=== PATIENT | male | born 1950 | race American Indian/Alaskan Native ===

== ENCOUNTER 2018-02-08 13:59 | Inpatient (IN) | payer MEDICARE, SELFPAY ==
--- NOTE | 2018-02-08 15:30 | C.PDOC ---
History Of Present Illness 67 y/o male presents to the ED complaining of SOB for the past 2-3 days. Associated with worsening cough. No chest pain. Patient otherwise denies any associated palpitations, wheezing, fevers, chills, night sweats, diarrhea, or urinary complaints. He denies any history of blood clots or blood thinner use. Patient reports history of prostate problems and renal disease, but notes his bond underwriter has not recommended dialysis at this time. On arrival, O2 sat is 89% on room air. Patient denies any history of COPD or home O2 use. PMD: Dr. Frank Hammond Time Seen by Provider: 02/08/18 15:30 Chief Complaint (Nursing): Shortness Of Breath History Per: Patient History/Exam Limitations: no limitations Onset/Duration Of Symptoms: Days (x3) Current Symptoms Are (Timing): Still Present Past Medical History Reviewed: Historical Data, Nursing Documentation, Vital Signs Vital Signs: Last Vital Signs Temp 97.7 F 02/08/18 14:02 Pulse 127 H 02/08/18 14:02 Resp 20 02/08/18 14:02 BP 153/118 H 02/08/18 14:02 Pulse Ox 89 L 02/08/18 14:02 - Medical History PMH: Chronic Kidney Disease (not on dialysis) Other PMH: "prostate problem" Family History: States: No Known Family Hx - Social History Hx Tobacco Use: No (former) Hx Alcohol Use: No Hx Substance Use: No - Immunization History Hx Tetanus Toxoid Vaccination: No Hx Influenza Vaccination: No Hx Pneumococcal Vaccination: No Review Of Systems Constitutional: Negative for: Fever, Chills, Sweats Eyes: Negative for: Pain, Vision Change ENT: Negative for: Ear Pain, Ear Discharge, Nose Congestion, Throat Pain Cardiovascular: Negative for: Chest Pain, Palpitations Respiratory: Positive for: Cough, Shortness of Breath. Negative for: Hemoptysis, Pleuritic Pain, Wheezing Genitourinary: Negative for: Dysuria, Hematuria, Other (urinary retention) Skin: Negative for: Rash Neurological: Negative for: Weakness, Numbness, Altered Mental Status, Headache, Dizziness Psych: Negative for: Anxiety Physical Exam - Physical Exam Appears: Non-toxic, No Acute Distress Skin: Warm, Dry Head: Normacephalic Eye(s): bilateral: Normal Inspection, PERRL, EOMI Oral Mucosa: Moist Neck: Trachea Midline, Supple, Other (No meningeal signs- negative kernig's and brudzinskis) Chest: Symmetrical, No Deformity, No Tenderness Cardiovascular: Rhythm Regular (+ Tachycardia), Other (no rub) Respiratory: No Rales, No Rhonchi, No Wheezing Gastrointestinal/Abdominal: Soft, No Tenderness, No Distention Extremity: Bilateral: Normal Color And Temperature Pulses: Left Dorsalis Pedis: Normal, Right Dorsalis Pedis: Normal Neurological/Psych: Oriented x3 ED Course And Treatment - Laboratory Results Result Diagrams: 02/08/18 15:51 02/08/18 15:51 O2 Sat by Pulse Oximetry: 89 (on room air) Pulse Ox Interpretation: Abnormal Medical Decision Making Medical Decision Making: Impression: 67 y/o M with SOB, O2 sat 89% on room air, improved w/ Nasal cannaula. Hx of CKD. ?worsening CKD w/ overload- no crackles on exam no 2+ edema on b/l LE. Tachy- but given hx of Cr will be judicious regarding fluids. Pt non-dry on exam. No fever or chills or night sweats. Initial Plan: --EKG --Chest x-ray --CMP --Troponin I --Pro-BNP --Magnesium --TSH --CBC --Blood culture Progress: EK bpm, sinus tachycardia, no STEMI CXR reading: Prominent hilar and perihilar bronchovascular markings. Bronchiolar thickening along with subsegmental inflammatory patchy infiltrates coalescing are a consideration. Left infrahilar coalescence/patchy infiltrate and/or atelectasis posterior suspect. Findings are in addition to pulmonary venous congestion suspect. Mild cardiomegaly. Clinical correlation is essential. Follow-up recommended. Consider CT of the chest for more sensitive evaluation. 1637 BNP elevated CR elevated - Risk of fluid overload, given sob. RBC elevated Pt notes cough but no fever. Will seek CT non-con given CXR. Case discussed with rubber compounder supervisor, Dr. Feliz, who will come to evaluate pt in the ED 1711 accepted by ICU - Dr. Feliz Polycythemia Vera, worsening CR on top of CKD. High probablity of fluid causing fluid pulm edema given additional high BNP Paced medicine radiation control specialist Pt in NAD, ICU to order IVF and abx as necessary per ICU. 17:28 Case discussed with hospitalist on-call, Dr. Camilo, accepts patient to Dr. Dudley service. Disposition Counseled Patient/Family Regarding: Studies Performed, Diagnosis - Disposition Disposition: HOSPITALIZED Disposition Time: 17:31 Condition: GOOD - POA Present On Arrival: None - Clinical Impression Clinical Impression: Shortness of breath, Polycythemia - Scribe Statement The provider has reviewed the documentation as recorded by the Scribe (Hannah Montague) Provider Attestation: All medical record entries made by the Scribe were at my direction and personally dictated by me. I have reviewed the chart and agree that the record accurately reflects my personal performance of the history, physical exam, medical decision making, and the department course for this patient. I have also personally directed, reviewed, and agree with the discharge instructions and disposition. Decision To Admit - Pt Status Changed To: Hospital Disposition Of: Inpatient - Admit Certification Admit to Inpatient:: After my assessment, the patient will require hospitalization for at least two midnights. This is because of the severity of symptoms shown, intensity of services needed, and/or the medical risk in this patient being treated as an outpatient. - InPatient: Physician Admission Certification: I certify that this patient requires 2 or more midnights of care for the following reason:: Shortness of breath, Polycythemia, YOMAIRA on CKD - . Bed Request Type: ICU Admitting Physician: Harrison Cortez Patient Diagnosis: Shortness of breath, Polycythemia
--- NOTE | 2018-02-08 16:08 | RAD ---
Date of service: 02/08/2018 HISTORY: sob COMPARISON: No prior. TECHNIQUE: Chest PA and lateral FINDINGS: LUNGS: Bilateral hilar perihilar prominent bronchovascular markings. Peribronchial thickening also suggested. Lateral view shows greater opacity around the hilar structures-concomitant perihilar infiltrates along with bronchiolar thickening need to be considered. Concomitant pulmonary venous congestion part of this bronchovascular marking prominence also suspect. The left infrahilar bronchovascular markings are prominent and possible concomitant subsegmental infiltrate and/or atelectasis here possible. PLEURA: No significant pleural effusion identified. No pneumothorax apparent. CARDIOVASCULAR: No aortic atherosclerotic calcification present. Minimal cardiomegaly mild concomitant pulmonary venous congestion along with prominent bronchovascular markings in bronchiolar thickening suspect. OSSEOUS STRUCTURES: No significant abnormalities. VISUALIZED UPPER ABDOMEN: Normal. OTHER FINDINGS: None. IMPRESSION: Prominent hilar and perihilar bronchovascular markings. Bronchiolar thickening along with subsegmental inflammatory patchy infiltrates coalescing are a consideration. Left infrahilar coalescence/patchy infiltrate and/or atelectasis posterior suspect. Findings are in addition to pulmonary venous congestion suspect. Mild cardiomegaly. Clinical correlation is essential. Follow-up recommended. Consider CT of the chest for more sensitive evaluation. Comments: Study marked for PA review .
[2018-02-08 16:19] LABS: ALBUMIN 3.5 g/dL (3.5-5.0); CALCIUM 9.1 mg/dl (8.6-10.4)
[2018-02-08 16:28] LABS: WHITE BLOOD COUNT 6.2 K/uL (4.8-10.8)
[2018-02-08 16:29] LABS: RBC 9.25 Mil/uL (4.40-5.90)
[2018-02-08 16:31] LABS: HEMOGLOBIN 21.4 g/dL (12.0-18.0)
[2018-02-08 16:32] LABS: BASO % 1.1 % (0.0-2.0); EOS % 1.2 % (0.0-4.0); LYMPH % 16.2 % (20.0-40.0); MEAN CELL VOLUME 75.8 fL (80.0-94.0); MEAN CORPUSCULAR HEMOGLOBIN 23.6 pg (27.0-31.0); MEAN CORPUSCULAR HGB CONC 31.1 g/dL (33.0-37.0); MEAN PLATELET VOLUME 10.1 fL (7.2-11.7); MONO % 7.6 % (0.0-10.0); NEUT % 73.9 % (50.0-75.0); NRBC % 0.2 % (0.0-2.0); RED CELL DISTRIBUTION WIDTH 20.6 % (11.5-14.5); TROPONIN I 0.05 ng/mL (0.00-0.120)
[2018-02-08 16:33] LABS: LYMPH # 0.5 K/uL (1.0-4.3); MONO # 0.2 K/uL (0.0-0.8); NEUT # 2.3 K/uL (1.8-7.0)
[2018-02-08] MEDS ORDERED: Sodium Chloride 0.9% 1,000 ML IV ONE (17:03)
--- NOTE | 2018-02-08 17:17 | CP.PCM.CON ---
History of Present Illness - History of Present Illness History of Present Illness: PGY-1 ICU Consult note for Dr. Feliz Patient is a 67 year old male with past medical history of BPH and CKD (not on HD) presenting with SOB for 2 days. Patient states that he started to have a non-productive cough 5 days ago and started having shortness of breath 2 days ago. He came to the emergency room because the shortness of breath was worsening. He also complains of nausea for the past few days and vomited once yesterday. Patient also admits to have decreased appetite in the last 6 months and had lost 20 pounds. Patient denies fevers, chills, night sweats, hemoptysis, hematemesis, chest pain, abdominal pain, or urinary symptoms. Patient was found to have a hemoglobin of 21.4 in the ED. PMD: none Digital Media Representative: Dr. An PMHx: BPH and CKD PSHx: tonsillectomy as a child Allergies: NKDA Social Hx: used to smoke 1-2 cigarettes per day. Quit more than 40 years ago. Denies alcohol and drug use. 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 Family Hx: Father of [place] at age 60 Medications: none Review of Systems - Review of Systems All systems: reviewed and no additional remarkable complaints except Past Patient History - Past Social History Smoking Status: Former Smoker - RENAL Hx Chronic Kidney Disease: Yes (not on dialysis) - GENITOURINARY/GYNECOLOGICAL Hx Prostate Problems: Yes - PSYCHIATRIC Hx Substance Use: No - ANESTHESIA Hx Anesthesia: No Hx Anesthesia Reactions: No Meds Allergies/Adverse Reactions: Allergies Allergy/AdvReac Type Severity Reaction Status Date / Time No Known Allergies Allergy Unverified 02/08/18 14:04 - Medications Medications: Current Medications Sodium Chloride (Sodium Chloride 0.9%) 1,000 mls @ 1,000 mls/hr IV .Q1H ONE Stop: 02/08/18 18:02 Last Admin: 02/08/18 17:10 Dose: 1,000 mls/hr Physical Exam - Constitutional Appears: Well, Non-toxic, No Acute Distress - Head Exam Head Exam: ATRAUMATIC, NORMOCEPHALIC - Eye Exam Eye Exam: Conjunctival injection, EOMI, PERRL Results - Vital Signs Recent Vital Signs: Last Vital Signs Temp 97.7 F 02/08/18 14:02 Pulse 137 H 02/08/18 17:10 Resp 24 02/08/18 17:10 BP 152/108 H 02/08/18 17:10 Pulse Ox 89 L 02/08/18 17:12 - Labs Result Diagrams: 02/08/18 15:51 02/08/18 15:51 Labs: Laboratory Results - last 24 hr 02/08/18 02/08/18 15:51 15:51 WBC 6.2 RBC 9.25 H Hgb 21.4 H* D Hct 68.8 H MCV 75.8 L MCH 23.6 L MCHC 31.1 L RDW 20.6 H Plt Count 406 H MPV 10.1 Neut % (Auto) 73.9 Lymph % (Auto) 16.2 L [place] % (Auto) 7.6 Eos % (Auto) 1.2 Baso % (Auto) 1.1 Neut # (Auto) 2.3 Lymph # (Auto) 0.5 L [place] # (Auto) 0.2 Eos # (Auto) 0.0 Baso # (Auto) 0.0 Sodium 134 Potassium 5.2 Chloride 101 Carbon Dioxide 23 Anion Gap 15 BUN 38 H Creatinine 3.0 H Est GFR ( Amer) 25 Est GFR (Non-Af Amer) 21 Random Glucose 117 H Calcium 9.1 Magnesium 2.3 Total Bilirubin 1.0 AST 37 ALT 13 L D Alkaline Phosphatase 243 H D Troponin I 0.0500 NT-Pro-B Natriuret Pep 9850 H Total Protein 7.0 Albumin 3.5 Globulin 3.5 Albumin/Globulin Ratio 1.0 TSH 3rd Generation 1.76 Assessment & Plan - Assessment and Plan (Free Text) Assessment: Patient is a 67 year old male with past medical history of BPH and CKD (not on HD) presenting with SOB for 2 days. Patient was found to have a hemoglobin of 21.4 in the ED. Plan: Neuro: - Patient is AAO X 3 Pulm: Respiratory distress - Likely 2/2 polycythemia - CXR (02/08): Prominent hilar and perihilar bronchovascular markings. Bronchiolar thickening along with subsegmental inflammatory patchy infiltrates coalescing are a consideration. Left infrahilar coalescence/patchy infiltrate and/or atelectasis posterior suspect. Findings are in addition to pulmonary venous congestion suspect. Mild cardiomegaly. - ABG: f/u - Carboxyhemoglobin: f/u Cardiovascular: Possible heart failure - BNP: 9850 - EKG: Sinus tachycardia, LVH - Echo: f/u Renal: Chronic Kidney disease - BUN/Cr: 38/3.0 - Not on HD - NS bolus given - NS @ 100mls/hr Heme: Polycythemia - On admission, Hb/Hct: 21.4/68.8 - Heme-onc consulted, Dr. Hoover - Bedside phlebotomy - Aspirin 81mg PO QD - EPO levels, [id number] mutation: f/u - ABG: f/u - Carboxyhemoglobin: f/u GI: Nausea and vomiting - Zofran 4mg IV Q6 PRN ID: - MRSA: f/u - Blood culture: f/u Prophylaxis: - Protonix 40mg IV QD - Heparin 5000 units SC Q8 Case discussed with Dr. Tray Diaz, PGY-1
[2018-02-08] MEDS: Sodium Chloride 0.9% 1,000 ML IV SCH (18:20)
[2018-02-08 18:56] LABS: ARTERIAL BLOOD GAS HEMOGLOBIN 21.6 g/dL (11.7-17.4); ARTERIAL BLOOD GAS O2 SAT 98.4 % (95-98)
[2018-02-08 18:59] LABS: ABG ALLEN TEST PO; ARTERIAL BLOOD GAS HCO3 18.1 mmol/L (21-28); ARTERIAL BLOOD GAS HEMOGLOBIN 21.6 g/dL (11.7-17.4); ARTERIAL BLOOD GAS PCO2 26 mm/Hg (35-45); ARTERIAL BLOOD GAS PH 7.35 (7.35-7.45); ARTERIAL BLOOD GAS PO2 92 mm/Hg (80-100); ARTERIAL BLOOD GAS TCO2 15.2 mmol/L (22-28)
[2018-02-08] MEDS ORDERED: Pneumococcal 23-Valent Vaccine IM ONE (19:57)
--- NOTE | 2018-02-08 21:58 | CP.PCM.CON ---
History of Present Illness - History of Present Illness History of Present Illness: 67 year old male with a history of BPH, CKD, presenting with progressive shortness of breath, noted to have polycythemia. The patient notes to cough and progressive shortness of breath for 2-3 days. This concerned him and his family and came to the hospital. In the ER he was noted to have a hgb of 21. He denies abnormal bleeding and bruising. He does not smoke or inhale smoke. Past medical history: CKD, BPH Past surgical history: Tonsillectomy Family history: Denies hematologic and oncologic problems Social history: Denies tobacco, alcohol, and illicit drug use. Allergies: NKA Review of systems: All remaining review of systems including HEENT, cardiovascular, respiratory, gastrointestinal, genitourinary, musculoskeletal, dermatologic, neurologic, and psychiatric are negative unless mentioned in the HPI. Past Patient History - Past Medical History & Family History Past Medical History?: Yes - Past Social History Smoking Status: Former Smoker - RENAL Hx Chronic Kidney Disease: Yes (not on dialysis) - MUSCULOSKELETAL/RHEUMATOLOGICAL Hx Falls: No - GENITOURINARY/GYNECOLOGICAL Hx Prostate Problems: Yes - PSYCHIATRIC Hx Substance Use: No - ANESTHESIA Hx Anesthesia: No Hx Anesthesia Reactions: No Meds Allergies/Adverse Reactions: Allergies Allergy/AdvReac Type Severity Reaction Status Date / Time No Known Allergies Allergy Unverified 02/08/18 14:04 - Medications Medications: Current Medications Aspirin (Aspirin Chewable) 81 mg PO DAILY [facility] Heparin Sodium (Porcine) (Heparin) 5,000 units SC Q8 [facility] Sodium Chloride (Sodium Chloride 0.9%) 1,000 mls @ 100 mls/hr IV .Q10H [facility] Last Admin: 02/08/18 18:20 Dose: 100 mls/hr Ondansetron HCl (Zofran Inj) 4 mg IVP Q6 PRN PRN Reason: Nausea/Vomiting Pantoprazole Sodium (Protonix Inj) 40 mg IVP DAILY [facility] Physical Exam - Head Exam Head Exam: ATRAUMATIC - Eye Exam Eye Exam: Normal appearance - ENT Exam ENT Exam: Mucous Membranes Dry - Respiratory Exam Respiratory Exam: NORMAL BREATHING PATTERN - Cardiovascular Exam Cardiovascular Exam: +S1, +S2 - GI/Abdominal Exam GI & Abdominal Exam: Normal Bowel Sounds - Extremities Exam Extremities exam: Positive for: normal inspection - Neurological Exam Neurological exam: Oriented x3 - Psychiatric Exam Psychiatric exam: Normal Affect, Normal Mood - Skin Skin Exam: Warm Results - Vital Signs Recent Vital Signs: Last Vital Signs Temp 98 F 02/08/18 18:07 Pulse 139 H 02/08/18 20:00 Resp 23 02/08/18 20:00 BP 152/110 H 02/08/18 19:18 Pulse Ox 93 L 02/08/18 20:00 - Labs Result Diagrams: 02/08/18 15:51 02/08/18 15:51 Labs: Laboratory Results - last 24 hr 02/08/18 02/08/18 02/08/18 15:51 15:51 18:53 WBC 6.2 RBC 9.25 H Hgb 21.4 H* D Hct 68.8 H MCV 75.8 L MCH 23.6 L MCHC 31.1 L RDW 20.6 H Plt Count 406 H MPV 10.1 Neut % (Auto) 73.9 Lymph % (Auto) 16.2 L [place] % (Auto) 7.6 Eos % (Auto) 1.2 Baso % (Auto) 1.1 Neut # (Auto) 2.3 Lymph # (Auto) 0.5 L [place] # (Auto) 0.2 Eos # (Auto) 0.0 Baso # (Auto) 0.0 Puncture Site Rr pCO2 26 L pO2 92 HCO3 18.1 L ABG pH 7.35 ABG Total CO2 15.2 L ABG O2 Saturation 98.0 ABG Base Excess -8.6 L ABG Hemoglobin 21.6 H ABG Carboxyhemoglobin 2.1 H POC ABG HHb (Measured) 1.9 ABG Methemoglobin 1.0 Noé Test Po A-a O2 Difference 118.0 Respiratory Index 1.3 Hgb O2 Saturation 95.0 Liter Flow 3.5 FiO2 34.0 Sodium 134 Potassium 5.2 Chloride 101 Carbon Dioxide 23 Anion Gap 15 BUN 38 H Creatinine 3.0 H Est GFR ( Amer) 25 Est GFR (Non-Af Amer) 21 Random Glucose 117 H Calcium 9.1 Magnesium 2.3 Total Bilirubin 1.0 AST 37 ALT 13 L D Alkaline Phosphatase 243 H D Troponin I 0.0500 NT-Pro-B Natriuret Pep 9850 H Total Protein 7.0 Albumin 3.5 Globulin 3.5 Albumin/Globulin Ratio 1.0 TSH 3rd Generation 1.76 02/08/18 18:53 WBC RBC Hgb Hct MCV MCH MCHC RDW Plt Count MPV Neut % (Auto) Lymph % (Auto) [place] % (Auto) Eos % (Auto) Baso % (Auto) Neut # (Auto) Lymph # (Auto) [place] # (Auto) Eos # (Auto) Baso # (Auto) Puncture Site pCO2 pO2 HCO3 ABG pH ABG Total CO2 ABG O2 Saturation 98.4 H ABG Base Excess ABG Hemoglobin 21.6 H ABG Carboxyhemoglobin 2.4 H POC ABG HHb (Measured) ABG Methemoglobin 0.9 Noé Test A-a O2 Difference Respiratory Index Hgb O2 Saturation 95.1 Liter Flow FiO2 Sodium Potassium Chloride Carbon Dioxide Anion Gap BUN Creatinine Est GFR ( Amer) Est GFR (Non-Af Amer) Random Glucose Calcium Magnesium Total Bilirubin AST ALT Alkaline Phosphatase Troponin I NT-Pro-B Natriuret Pep Total Protein Albumin Globulin Albumin/Globulin Ratio TSH 3rd Generation Assessment & Plan (1) Polycythemia Assessment and Plan: ? primary vs. secondary erythropoietin level and JAK2 mutation will need therapeutic phlebotomy Thank you for this interesting consult. Status: Acute
--- NOTE | 2018-02-09 01:42 | CP.PCM.HP ---
<Caridad Rae - Last Filed: 02/09/18 01:32> History of Present Illness - History of Present Illness History of Present Illness: cc: "SOB" Mr. Do is a 67 year old male PMH BPH, CKD not on HD comes in complaining of 4 days of dry cough and 2 days of shortness of breath. He tried using his son's Ventolin and other herbal remedies, such as aamir tea, to no avail. He is nauseous and gags, but has vomited only once. Vomitus was NBNB, contents were what he had just eaten for breakfast yesterday. Admits to loss of appetite and early satiety over the last 6 months and has lost a resulting 20 pounds. He is chronically dizzy, and experiences dyspnea on exertion. He has di fficulty breathing when laying flat, and opts to sleep on his side. If his shortness of breath keeps him from falling asleep, he will sit up (working on computer, watching TV, etc) until his dyspnea subsides. Daughter who lives with him had an unspecified URI with cough that self-resolved last week. 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 Admits subjective low grade fever. Denies chills, sweating, change in vision or hearing, sore throat, leg pain, claudication, rash, bruising. PMD: Marcelina An PMH: BPH, CKD Med: denies All: seasonal PSxHx: tonsillectomy as a child FamHx: father-[place]: in 60s SocHx: quit smoking 40 years ago, 4cig/day. Denies alcohol, illicit drug use. 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 Present on Admission - Present on Admission Any Indicators Present on Admission: No Review of Systems - Constitutional Constitutional: Anorexia, Fatigue, Fever, Headache, Lethargy, Malaise, Weight Loss. absent: Chills, Excessive Sweating, Increased Appetite, Night Sweats - EENT Eyes: Change in Vision, Floaters. absent: Blurred Vision, Diplopia, Loss of Peripheral Vision Ears: Dizziness. absent: Tinnitus Nose/Mouth/Throat: absent: Change in Voice, Dysphagia, Odynophagia, Sore Throat - Cardiovascular Cardiovascular: Dyspnea, Dyspnea on Exertion, Rapid Heart Rate. absent: Chest Pain, Chest Pain with Activity, Edema, Leg Edema, Lightheadedness, Palpitations, Pedal Edema, Syncope - Respiratory Respiratory: Cough, Dyspnea, Dyspnea on Exertion, Wheezing, Chest Congestion. absent: Hemoptysis, Pain on Inspiration, Excessive Mucous Production, Pain with Coughing - Gastrointestinal Gastrointestinal: Belching, Bloating, Nausea, Vomiting. absent: Constipation, Diarrhea, Dysphagia, Hematemesis, Odynophagia - Genitourinary Genitourinary: Difficulty Urinating, Urinary Frequency. absent: Dysuria - Musculoskeletal Musculoskeletal: absent: Back Pain, Numbness, Tingling - Integumentary Integumentary: absent: Bleeding Lesions, Rash, Swelling - Neurological Neurological: Dizziness, Weakness. absent: Numbness, Syncope, Tingling - Psychiatric Psychiatric: Change in Appetite - Endocrine Endocrine: Fatigue. absent: Palpitations - Hematologic/Lymphatic Hematologic: absent: Easy Bleeding, Easy Bruising Past Patient History - Past Medical History & Family History Past Medical History?: Yes Pertinent Family History: father : [place] in 60s - Past Social History Smoking Status: Former Smoker Alcohol: None Drugs: Denies - RENAL Hx Chronic Kidney Disease: Yes (not on dialysis) - MUSCULOSKELETAL/RHEUMATOLOGICAL Hx Falls: No - GENITOURINARY/GYNECOLOGICAL Hx Prostate Problems: Yes - PSYCHIATRIC Hx Substance Use: No - ANESTHESIA Hx Anesthesia: No Hx Anesthesia Reactions: No Meds Allergies/Adverse Reactions: Allergies Allergy/AdvReac Type Severity Reaction Status Date / Time No Known Allergies Allergy Unverified 02/08/18 14:04 Physical Exam - Constitutional Appears: Non-toxic, No Acute Distress - Head Exam Head Exam: ATRAUMATIC, NORMOCEPHALIC - Eye Exam Eye Exam: EOMI, Normal appearance, PERRL Pupil Exam: NORMAL ACCOMODATION - ENT Exam ENT Exam: Mucous Membranes Dry - Respiratory Exam Respiratory Exam: Clear to Auscultation Bilateral, NORMAL BREATHING PATTERN. absent: Rales, Rhonchi, Wheezes Additional comments: 4L O2 via NC - Cardiovascular Exam Cardiovascular Exam: Tachycardia, +S1, +S2. absent: Systolic Murmur - GI/Abdominal Exam GI & Abdominal Exam: Distended, Firm, Normal Bowel Sounds. absent: Guarding, Rebound, Rigid, Tenderness - Extremities Exam Extremities exam: Positive for: normal capillary refill, pedal pulses present. Negative for: calf tenderness, pedal edema Additional comments: peripheral pulses palpable bilaterally (radial, PT) IV access in L AC cold to touch hands and feet, proximal wrists and ankles warm - Back Exam Back exam: absent: CVA tenderness (L), CVA tenderness (R), paraspinal tenderness, vertebral tenderness - Neurological Exam Neurological exam: Alert, CN II-XII Intact, Oriented x3, Reflexes Normal - Psychiatric Exam Psychiatric exam: Normal Affect, Normal Mood - Skin Skin Exam: Dry, Intact, Normal Color, Warm Results - Vital Signs Recent Vital Signs: Last Vital Signs Temp 98.7 F 02/08/18 20:00 Pulse 123 H 02/09/18 01:00 Resp 20 02/09/18 01:00 BP 140/103 H 02/09/18 00:18 Pulse Ox 94 L 02/09/18 01:00 - Labs Result Diagrams: 02/08/18 15:51 02/08/18 15:51 Labs: Laboratory Results - last 24 hr 02/08/18 02/08/18 02/08/18 15:51 15:51 18:53 WBC 6.2 RBC 9.25 H Hgb 21.4 H* D Hct 68.8 H MCV 75.8 L MCH 23.6 L MCHC 31.1 L RDW 20.6 H Plt Count 406 H MPV 10.1 Neut % (Auto) 73.9 Lymph % (Auto) 16.2 L Gonzales % (Auto) 7.6 Eos % (Auto) 1.2 Baso % (Auto) 1.1 Neut # (Auto) 2.3 Lymph # (Auto) 0.5 L Gonzales # (Auto) 0.2 Eos # (Auto) 0.0 Baso # (Auto) 0.0 Puncture Site Rr pCO2 26 L pO2 92 HCO3 18.1 L ABG pH 7.35 ABG Total CO2 15.2 L ABG O2 Saturation 98.0 ABG Base Excess -8.6 L ABG Hemoglobin 21.6 H ABG Carboxyhemoglobin 2.1 H POC ABG HHb (Measured) 1.9 ABG Methemoglobin 1.0 Noé Test Po A-a O2 Difference 118.0 Respiratory Index 1.3 Hgb O2 Saturation 95.0 Liter Flow 3.5 FiO2 34.0 Sodium 134 Potassium 5.2 Chloride 101 Carbon Dioxide 23 Anion Gap 15 BUN 38 H Creatinine 3.0 H Est GFR ( Amer) 25 Est GFR (Non-Af Amer) 21 Random Glucose 117 H Calcium 9.1 Magnesium 2.3 Total Bilirubin 1.0 AST 37 ALT 13 L D Alkaline Phosphatase 243 H D Troponin I 0.0500 NT-Pro-B Natriuret Pep 9850 H Total Protein 7.0 Albumin 3.5 Globulin 3.5 Albumin/Globulin Ratio 1.0 TSH 3rd Generation 1.76 02/08/18 18:53 WBC RBC Hgb Hct MCV MCH MCHC RDW Plt Count MPV Neut % (Auto) Lymph % (Auto) Gonzales % (Auto) Eos % (Auto) Baso % (Auto) Neut # (Auto) Lymph # (Auto) Gonzales # (Auto) Eos # (Auto) Baso # (Auto) Puncture Site pCO2 pO2 HCO3 ABG pH ABG Total CO2 ABG O2 Saturation 98.4 H ABG Base Excess ABG Hemoglobin 21.6 H ABG Carboxyhemoglobin 2.4 H POC ABG HHb (Measured) ABG Methemoglobin 0.9 Noé Test A-a O2 Difference Respiratory Index Hgb O2 Saturation 95.1 Liter Flow FiO2 Sodium Potassium Chloride Carbon Dioxide Anion Gap BUN Creatinine Est GFR ( Amer) Est GFR (Non-Af Amer) Random Glucose Calcium Magnesium Total Bilirubin AST ALT Alkaline Phosphatase Troponin I NT-Pro-B Natriuret Pep Total Protein Albumin Globulin Albumin/Globulin Ratio TSH 3rd Generation - EKG Data EKG Interpreted by: ER Physician EKG shows normal: Sinus rhythm Rate: Tachycardia Assessment & Plan - Assessment and Plan (Free Text) Assessment: 67yoM PMH BPH, CKD admitted for polycythemia and SOB with dry cough x2 days. Plan: Polycythemia - Hgb/Hct 21.4/68.8 on admission - ABG (02/08): Hgb 21.6, CarboxyHgb 2.4, MetHgb 0.9 - f/u EPO level and JAK2 mutation - Therapeutic phlebotomy in place - ASA 81mg po daily - f/u Blood Cx (02/08) - Heme consulted: Dr. Ramos - talha appreciated - Trend with AM labs Shortness of Breath - possibly 2/2 polycythemia - CXR (02/08): Prominent hilar and perihilar bronchovascular markings. Bronchi olar thickening with subsegmental inflammatory patchy infiltrates coalescing. L infrahilar coalescence/patchy infiltrate vs. atelectasis. Pulm venous congestion. Mild cardiomegaly. - ABG (02/08): pH 7.35, pCO2 26, O2sat 98.4, Hgb 21.6, CarboxyHgb 2.4, MetHgb 0.9 - Trop neg, ProBNP 9850 - TSH 1.76 Possible Heart Failure - EKG and repeat EKG (02/08): sinus tachy - Trop neg, ProBNP 9850 - f/u ECHO Chronic Kidney Disease - BUN/Cr 38/3.0 on admission - NS@100 - Trend with AM labs BPH - Flomax 0.4mg po daily PPx - DVT: Heparin 5000u sc q8, SCDs held for now - GI: Protonix 40mg IV daily - Diet: HHD - Zofran 4mg IVP q6 prn d/w Dr. Dana Rae PGY-1 - Date & Time Date: 02/08/18 Time: 19:45 <Harrison Cortez - Last Filed: 02/09/18 06:38> Results - Vital Signs Recent Vital Signs: Last Vital Signs Temp 98.5 F 02/09/18 04:00 Pulse 123 H 02/09/18 04:00 Resp 20 02/09/18 04:00 BP 140/103 H 02/09/18 00:18 Pulse Ox 95 02/09/18 04:00 - Labs Result Diagrams: 02/09/18 05:48 02/09/18 05:48 Labs: Laboratory Results - last 24 hr 02/08/18 02/08/18 02/08/18 15:51 15:51 18:53 WBC 6.2 RBC 9.25 H Hgb 21.4 H* D Hct 68.8 H MCV 75.8 L MCH 23.6 L MCHC 31.1 L RDW 20.6 H Plt Count 406 H MPV 10.1 Neut % (Auto) 73.9 Lymph % (Auto) 16.2 L Gonzales % (Auto) 7.6 Eos % (Auto) 1.2 Baso % (Auto) 1.1 Neut # (Auto) 2.3 Lymph # (Auto) 0.5 L Gonzales # (Auto) 0.2 Eos # (Auto) 0.0 Baso # (Auto) 0.0 Puncture Site Rr pCO2 26 L pO2 92 HCO3 18.1 L ABG pH 7.35 ABG Total CO2 15.2 L ABG O2 Saturation 98.0 ABG Base Excess -8.6 L ABG Hemoglobin 21.6 H ABG Carboxyhemoglobin 2.1 H POC ABG HHb (Measured) 1.9 ABG Methemoglobin 1.0 Noé Test Po A-a O2 Difference 118.0 Respiratory Index 1.3 Hgb O2 Saturation 95.0 Liter Flow 3.5 FiO2 34.0 Sodium 134 Potassium 5.2 Chloride 101 Carbon Dioxide 23 Anion Gap 15 BUN 38 H Creatinine 3.0 H Est GFR ( Amer) 25 Est GFR (Non-Af Amer) 21 Random Glucose 117 H Calcium 9.1 Phosphorus Magnesium 2.3 Total Bilirubin 1.0 AST 37 ALT 13 L D Alkaline Phosphatase 243 H D Troponin I 0.0500 NT-Pro-B Natriuret Pep 9850 H Total Protein 7.0 Albumin 3.5 Globulin 3.5 Albumin/Globulin Ratio 1.0 TSH 3rd Generation 1.76 02/08/18 02/09/18 02/09/18 18:53 05:48 05:48 WBC 8.0 RBC 8.67 H Hgb 21.0 H* Hct 66.3 H MCV 76.5 L MCH 24.3 L MCHC 31.7 L RDW 21.8 H Plt Count 401 H MPV 10.3 Neut % (Auto) 80.2 H Lymph % (Auto) 10.7 L Gonzales % (Auto) 7.4 Eos % (Auto) 0.8 Baso % (Auto) 0.9 Neut # (Auto) 6.4 Lymph # (Auto) 0.9 L Gonzales # (Auto) 0.6 Eos # (Auto) 0.1 Baso # (Auto) 0.1 Puncture Site pCO2 pO2 HCO3 ABG pH ABG Total CO2 ABG O2 Saturation 98.4 H ABG Base Excess ABG Hemoglobin 21.6 H ABG Carboxyhemoglobin 2.4 H POC ABG HHb (Measured) ABG Methemoglobin 0.9 Noé Test A-a O2 Difference Respiratory Index Hgb O2 Saturation 95.1 Liter Flow FiO2 Sodium 133 Potassium 5.1 Chloride 105 Carbon Dioxide 18 L Anion Gap 14 BUN 34 H Creatinine 2.6 H Est GFR ( Amer) 30 Est GFR (Non-Af Amer) 25 Random Glucose 91 Calcium 8.0 L Phosphorus 5.0 H Magnesium 1.8 Total Bilirubin 1.1 AST 38 ALT 23 Alkaline Phosphatase 195 H Troponin I NT-Pro-B Natriuret Pep Total Protein 5.9 L Albumin 2.8 L Globulin 3.0 Albumin/Globulin Ratio 0.9 L TSH 3rd Generation Assessment & Plan - Date & Time Date: 02/09/18 (I have seen and examined the patient. I agree with the findings and plan of care as documented by Dr. Rae. Patient with polycythemia and Shortness of breath. Consult to Dr Hoover. Therapeutic phlebotomy. Admit to ICU for close monitoring. Further management as per ICU. Monitor for acute changes.) Time: 06:37 Attending/Attestation - Attestation I have personally seen and examined this patient.: Yes I have fully participated in the care of the patient.: Yes I have reviewed all pertinent clinical information: Yes
[2018-02-09] MEDS: Sodium Chloride 0.9% 1,000 ML IV SCH ×2 (04:01→15:21)
[2018-02-09 06:02] LABS: BASO # 0.1 K/uL (0.0-0.2); BASO % 0.9 % (0.0-2.0); EOS # 0.1 K/uL (0.0-0.7); EOS % 0.8 % (0.0-4.0); LYMPH # 0.9 K/uL (1.0-4.3); LYMPH % 10.7 % (20.0-40.0); MEAN CELL VOLUME 76.5 fL (80.0-94.0); MEAN CORPUSCULAR HEMOGLOBIN 24.3 pg (27.0-31.0); MEAN CORPUSCULAR HGB CONC 31.7 g/dL (33.0-37.0); MEAN PLATELET VOLUME 10.3 fL (7.2-11.7); MONO # 0.6 K/uL (0.0-0.8); MONO % 7.4 % (0.0-10.0); NEUT # 6.4 K/uL (1.8-7.0); NEUT % 80.2 % (50.0-75.0); NRBC % 0.7 % (0.0-2.0); RBC 8.67 Mil/uL (4.40-5.90); RED CELL DISTRIBUTION WIDTH 21.8 % (11.5-14.5)
[2018-02-09 06:21] LABS: ALB/GLOB RATIO 0.9 (1.0-2.1); ALBUMIN 2.8 g/dL (3.5-5.0)
[2018-02-09] MEDS ORDERED: Metoprolol 1 mg/ml Inj IVP ONE (06:37)
--- NOTE | 2018-02-09 07:50 | CP.CCUPN ---
<Devin Diaz - Last Filed: 02/09/18 10:03> CCU Subjective - Physician Review Subjective (Free Text): 02/09/18 10:03 Patient seen and examined at bedside, no acute events overnight. Patient complains of a dry cough. Critical Care Time Spent (in minutes): 35 CCU Objective - Vital Signs / Intake & Output Vital Signs (Last 4 hours): Vital Signs Temp Pulse Resp Pulse Ox 02/09/18 04:00 98.5 F 123 H 20 95 Intake and Output (Last 8hrs): Intake & Output 02/08/18 02/09/18 02/09/18 22:59 06:59 14:59 Intake Total 620 1160 100 Output Total 400 400 Balance 220 760 100 Weight 155 lb 0.5 oz Intake: Intake, IV Amount 500 800 100 Left Antecubital 500 800 100 Oral 120 360 Output: Urine 0 400 Urine, Voided 0 400 Emesis 0 Other 400 Other: Voiding Method Urinal # Voids Urine, Voided 0 0 0 # Bowel Movements 0 0 0 - Physical Exam Head: Positive for: Atraumatic, Normocephalic Pupils: Positive for: PERRL Extroacular Muscles: Positive for: EOMI Conjunctiva: Positive for: Injected Respiratory/Chest: Positive for: Clear to Auscultation. Negative for: Respiratory Distress, Accessory Muscle Use, Wheezes, Rales, Rhonchi Cardiovascular: Positive for: Regular Rate and Rhythm, Normal S1, S2. Negative for: Murmurs Abdomen: Positive for: Normal Bowel Sounds. Negative for: Tenderness, Distention, Peritoneal Signs Upper Extremity: Positive for: Normal Inspection. Negative for: Cyanosis, Edema Lower Extremity: Positive for: Normal Inspection. Negative for: Edema Neurological: Positive for: GCS=15, CN II-XII Intact, Speech Normal Skin: Positive for: Warm, Dry, Normal Color. Negative for: Rashes Psychiatric: Positive for: Alert, Oriented x 3, Normal Insight, Normal Concentration - Medications Active Medications: Active Medications Generic Name Dose Route Start Last Admin Trade Name Freq PRN Reason Stop Dose Admin Aspirin 81 mg 02/08/18 18:45 02/08/18 21:58 Aspirin Chewable PO 81 mg DAILY RINA Administration Heparin Sodium (Porcine) 5,000 units 02/08/18 22:00 02/09/18 05:49 Heparin SC 5,000 units Q8 RINA Administration Sodium Chloride 1,000 mls @ 100 mls/hr 02/08/18 18:45 02/09/18 04:01 Sodium Chloride 0.9% IV 100 mls/hr .Q10H RINA Administration Ondansetron HCl 4 mg 02/08/18 18:58 Zofran Inj IVP Q6 PRN Nausea/Vomiting Pantoprazole Sodium 40 mg 02/09/18 10:00 Protonix Inj IVP DAILY RINA Tamsulosin HCl 0.4 mg 02/09/18 10:00 Flomax PO DAILY RINA - Patient Studies Lab Studies: Lab Studies 02/09/18 02/09/18 02/08/18 Range/Units 05:48 05:48 18:53 WBC 8.0 (4.8-10.8) K/uL RBC 8.67 H (4.40-5.90) Mil/uL Hgb 21.0 H* (12.0-18.0) g/dL Hct 66.3 H (35.0-51.0) % MCV 76.5 L (80.0-94.0) fL MCH 24.3 L (27.0-31.0) pg MCHC 31.7 L (33.0-37.0) g/dL RDW 21.8 H (11.5-14.5) % Plt Count 401 H (130-400) K/uL MPV 10.3 (7.2-11.7) fL Neut % (Auto) 80.2 H (50.0-75.0) % Lymph % (Auto) 10.7 L (20.0-40.0) % [place] % (Auto) 7.4 (0.0-10.0) % Eos % (Auto) 0.8 (0.0-4.0) % Baso % (Auto) 0.9 (0.0-2.0) % Neut # (Auto) 6.4 (1.8-7.0) K/uL Lymph # (Auto) 0.9 L (1.0-4.3) K/uL [place] # (Auto) 0.6 (0.0-0.8) K/uL Eos # (Auto) 0.1 (0.0-0.7) K/uL Baso # (Auto) 0.1 (0.0-0.2) K/uL Puncture Site pCO2 (35-45) mm/Hg pO2 (80-100) mm/Hg HCO3 (21-28) mmol/L ABG pH (7.35-7.45) ABG Total CO2 (22-28) mmol/L ABG O2 Saturation 98.4 H (95-98) % ABG Base Excess (-2.0-3.0) mmol/L ABG Hemoglobin 21.6 H (11.7-17.4) g/dL ABG Carboxyhemoglobin 2.4 H (0.5-1.5) % POC ABG HHb (Measured) (0.0-5.0) % ABG Methemoglobin 0.9 (0.0-3.0) % Noé Test A-a O2 Difference mm/Hg Respiratory Index Hgb O2 Saturation 95.1 (95.0-98.0) % Liter Flow FiO2 % Sodium 133 (132-148) mmol/L Potassium 5.1 (3.6-5.2) mmol/L Chloride 105 (98-107) mmol/L Carbon Dioxide 18 L (22-30) mmol/L Anion Gap 14 (10-20) BUN 34 H (9-20) mg/dL Creatinine 2.6 H (0.8-1.5) mg/dL Est GFR ( Amer) 30 Est GFR (Non-Af Amer) 25 Random Glucose 91 (75-110) mg/dL Calcium 8.0 L (8.6-10.4) mg/dl Phosphorus 5.0 H (2.5-4.5) mg/dL Magnesium 1.8 (1.6-2.3) mg/dL Total Bilirubin 1.1 (0.2-1.3) mg/dL AST 38 (17-59) U/L ALT 23 (21-72) U/L Alkaline Phosphatase 195 H (38-126) U/L Troponin I (0.00-0.120) ng/mL NT-Pro-B Natriuret Pep (0-900) pg/mL Total Protein 5.9 L (6.3-8.3) g/dL Albumin 2.8 L (3.5-5.0) g/dL Globulin 3.0 (2.2-3.9) gm/dL Albumin/Globulin Ratio 0.9 L (1.0-2.1) TSH 3rd Generation (0.46-4.68) mIU/L 02/08/18 02/08/18 02/08/18 Range/Units 18:53 15:51 15:51 WBC 6.2 (4.8-10.8) K/uL RBC 9.25 H (4.40-5.90) Mil/uL Hgb 21.4 H* D (12.0-18.0) g/dL Hct 68.8 H (35.0-51.0) % MCV 75.8 L (80.0-94.0) fL MCH 23.6 L (27.0-31.0) pg MCHC 31.1 L (33.0-37.0) g/dL RDW 20.6 H (11.5-14.5) % Plt Count 406 H (130-400) K/uL MPV 10.1 (7.2-11.7) fL Neut % (Auto) 73.9 (50.0-75.0) % Lymph % (Auto) 16.2 L (20.0-40.0) % [place] % (Auto) 7.6 (0.0-10.0) % Eos % (Auto) 1.2 (0.0-4.0) % Baso % (Auto) 1.1 (0.0-2.0) % Neut # (Auto) 2.3 (1.8-7.0) K/uL Lymph # (Auto) 0.5 L (1.0-4.3) K/uL [place] # (Auto) 0.2 (0.0-0.8) K/uL Eos # (Auto) 0.0 (0.0-0.7) K/uL Baso # (Auto) 0.0 (0.0-0.2) K/uL Puncture Site Rr pCO2 26 L (35-45) mm/Hg pO2 92 (80-100) mm/Hg HCO3 18.1 L (21-28) mmol/L ABG pH 7.35 (7.35-7.45) ABG Total CO2 15.2 L (22-28) mmol/L ABG O2 Saturation 98.0 (95-98) % ABG Base Excess -8.6 L (-2.0-3.0) mmol/L ABG Hemoglobin 21.6 H (11.7-17.4) g/dL ABG Carboxyhemoglobin 2.1 H (0.5-1.5) % POC ABG HHb (Measured) 1.9 (0.0-5.0) % ABG Methemoglobin 1.0 (0.0-3.0) % Noé Test Po A-a O2 Difference 118.0 mm/Hg Respiratory Index 1.3 Hgb O2 Saturation 95.0 (95.0-98.0) % Liter Flow 3.5 FiO2 34.0 % Sodium 134 (132-148) mmol/L Potassium 5.2 (3.6-5.2) mmol/L Chloride 101 (98-107) mmol/L Carbon Dioxide 23 (22-30) mmol/L Anion Gap 15 (10-20) BUN 38 H (9-20) mg/dL Creatinine 3.0 H (0.8-1.5) mg/dL Est GFR ( Amer) 25 Est GFR (Non-Af Amer) 21 Random Glucose 117 H (75-110) mg/dL Calcium 9.1 (8.6-10.4) mg/dl Phosphorus (2.5-4.5) mg/dL Magnesium 2.3 (1.6-2.3) mg/dL Total Bilirubin 1.0 (0.2-1.3) mg/dL AST 37 (17-59) U/L ALT 13 L D (21-72) U/L Alkaline Phosphatase 243 H D (38-126) U/L Troponin I 0.0500 (0.00-0.120) ng/mL NT-Pro-B Natriuret Pep 9850 H (0-900) pg/mL Total Protein 7.0 (6.3-8.3) g/dL Albumin 3.5 (3.5-5.0) g/dL Globulin 3.5 (2.2-3.9) gm/dL Albumin/Globulin Ratio 1.0 (1.0-2.1) TSH 3rd Generation 1.76 (0.46-4.68) mIU/L Laboratory Results - last 24 hr 02/08/18 02/08/18 02/08/18 15:51 15:51 18:53 WBC 6.2 RBC 9.25 H Hgb 21.4 H* D Hct 68.8 H MCV 75.8 L MCH 23.6 L MCHC 31.1 L RDW 20.6 H Plt Count 406 H MPV 10.1 Neut % (Auto) 73.9 Lymph % (Auto) 16.2 L [place] % (Auto) 7.6 Eos % (Auto) 1.2 Baso % (Auto) 1.1 Neut # (Auto) 2.3 Lymph # (Auto) 0.5 L [place] # (Auto) 0.2 Eos # (Auto) 0.0 Baso # (Auto) 0.0 Puncture Site Rr pCO2 26 L pO2 92 HCO3 18.1 L ABG pH 7.35 ABG Total CO2 15.2 L ABG O2 Saturation 98.0 ABG Base Excess -8.6 L ABG Hemoglobin 21.6 H ABG Carboxyhemoglobin 2.1 H POC ABG HHb (Measured) 1.9 ABG Methemoglobin 1.0 Noé Test Po A-a O2 Difference 118.0 Respiratory Index 1.3 Hgb O2 Saturation 95.0 Liter Flow 3.5 FiO2 34.0 Sodium 134 Potassium 5.2 Chloride 101 Carbon Dioxide 23 Anion Gap 15 BUN 38 H Creatinine 3.0 H Est GFR ( Amer) 25 Est GFR (Non-Af Amer) 21 Random Glucose 117 H Calcium 9.1 Phosphorus Magnesium 2.3 Total Bilirubin 1.0 AST 37 ALT 13 L D Alkaline Phosphatase 243 H D Troponin I 0.0500 NT-Pro-B Natriuret Pep 9850 H Total Protein 7.0 Albumin 3.5 Globulin 3.5 Albumin/Globulin Ratio 1.0 TSH 3rd Generation 1.76 02/08/18 02/09/18 02/09/18 18:53 05:48 05:48 WBC 8.0 RBC 8.67 H Hgb 21.0 H* Hct 66.3 H MCV 76.5 L MCH 24.3 L MCHC 31.7 L RDW 21.8 H Plt Count 401 H MPV 10.3 Neut % (Auto) 80.2 H Lymph % (Auto) 10.7 L [place] % (Auto) 7.4 Eos % (Auto) 0.8 Baso % (Auto) 0.9 Neut # (Auto) 6.4 Lymph # (Auto) 0.9 L [place] # (Auto) 0.6 Eos # (Auto) 0.1 Baso # (Auto) 0.1 Puncture Site pCO2 pO2 HCO3 ABG pH ABG Total CO2 ABG O2 Saturation 98.4 H ABG Base Excess ABG Hemoglobin 21.6 H ABG Carboxyhemoglobin 2.4 H POC ABG HHb (Measured) ABG Methemoglobin 0.9 Noé Test A-a O2 Difference Respiratory Index Hgb O2 Saturation 95.1 Liter Flow FiO2 Sodium 133 Potassium 5.1 Chloride 105 Carbon Dioxide 18 L Anion Gap 14 BUN 34 H Creatinine 2.6 H Est GFR ( Amer) 30 Est GFR (Non-Af Amer) 25 Random Glucose 91 Calcium 8.0 L Phosphorus 5.0 H Magnesium 1.8 Total Bilirubin 1.1 AST 38 ALT 23 Alkaline Phosphatase 195 H Troponin I NT-Pro-B Natriuret Pep Total Protein 5.9 L Albumin 2.8 L Globulin 3.0 Albumin/Globulin Ratio 0.9 L TSH 3rd Generation EKG/Cardiology Studies: Cardiology / EKG Studies 02/08/18 14:11 EKG [ELECTROCARDIOGRAM] Stat Comment: Mode Of Transportation: Reason For Exam: triage 02/08/18 15:40 ELECTROCARDIOGRAM Stat Comment: Mode Of Transportation: Reason For Exam: sob Critical Care Progress Note - Nutrition Nutrition: Nutrition Category Date Time Status Heart Healthy Diet [DIET] Diets 02/08/18 Dinner Active Assessment/Plan - Assessment and Plan (Free Text) Assessment: Patient is a 67 year old male with past medical history of BPH and CKD (not on HD) presenting with SOB for 2 days. Patient was found to have a hemoglobin of 21.4 in the ED. Plan: Neuro: - Patient is AAO X 3 Pulm: Respiratory distress - Likely 2/2 polycythemia - CXR (02/08): Prominent hilar and perihilar bronchovascular markings. Bronchiolar thickening along with subsegmental inflammatory patchy infiltrates coalescing are a consideration. Left infrahilar coalescence/patchy infiltrate and/or atelectasis posterior suspect. Findings are in addition to pulmonary venous congestion suspect. Mild cardiomegaly. - ABG: pO2 92 pCO2 26 pH 7.35 - Carboxyhemoglobin: 2.4 (high) - Methemoglobin: 0.9 - Promethazine/codeine Q4H PRN for cough Cardiovascular: Possible heart failure - BNP: 9850 - EKG: Sinus tachycardia, LVH - Echo: f/u Renal: Chronic Kidney disease - BUN/Cr: 34/2.6- downtrending - Not on HD - NS @ 100mls/hr Heme: Polycythemia - On admission, Hb/Hct: 21.4/68.8 - Heme-onc consulted, Dr. Hoover - Continue with therapeutic phlebotomy - Aspirin 81mg PO QD - EPO levels, [id number] mutation: f/u - ABG: pO2 92 pCO2 26 pH 7.35 - Carboxyhemoglobin: 2.4 (high) GI: Nausea and vomiting - Zofran 4mg IV Q6 PRN ID: - MRSA: f/u - Blood culture: f/u Prophylaxis: - Protonix 40mg IV QD - Heparin 5000 units SC Q8 Case discussed with Dr. Tray Diaz, PGY-1 <Scooby Feliz - Last Filed: 02/09/18 16:20> CCU Objective - Vital Signs / Intake & Output Intake and Output (Last 8hrs): Intake & Output 02/09/18 02/09/18 02/09/18 06:59 14:59 22:59 Intake Total 1160 1300 Output Total 400 0 Balance 760 1300 Weight 155 lb 0.5 oz Intake: Intake, IV Amount 800 700 Left Antecubital 800 700 Oral 360 600 Output: Urine 400 Urine, Voided 400 Emesis 0 Other: # Voids Urine, Voided 0 1 # Bowel Movements 0 0 - Medications Active Medications: Active Medications Generic Name Dose Route Start Last Admin Trade Name Freq PRN Reason Stop Dose Admin Aspirin 81 mg 02/08/18 18:45 02/09/18 09:41 Aspirin Chewable PO 81 mg DAILY RINA Administration Heparin Sodium (Porcine) 5,000 units 02/08/18 22:00 02/09/18 15:00 Heparin SC 5,000 units Q8 RINA Administration Sodium Chloride 1,000 mls @ 100 mls/hr 02/08/18 18:45 02/09/18 15:21 Sodium Chloride 0.9% IV 100 mls/hr .Q10H RINA Administration Azithromycin 500 mg/ Sodium 250 mls @ 250 mls/hr 02/09/18 16:00 02/09/18 15:30 Chloride IVPB 250 mls/hr Q24H RINA Administration Protocol Ceftriaxone Sodium 1 gm/ 100 mls @ 100 mls/hr 02/09/18 17:30 Sodium Chloride IVPB Q24H [facility] Protocol Influenza Virus Vaccine 60 mcg 02/11/18 10:57 Fluzone Quad [id number] IM 02/11/18 10:58 .ONCE ONE Lactobacillus Acidophilus 1 cap 02/09/18 18:00 Bacid Acidophilus PO BID RINA Ondansetron HCl 4 mg 02/08/18 18:58 Zofran Inj IVP Q6 PRN Nausea/Vomiting Pantoprazole Sodium 40 mg 02/09/18 10:00 02/09/18 09:41 Protonix Inj IVP 40 mg DAILY RINA Administration Promethazine HCl/Dextromethorphan 5 ml 02/09/18 16:00 02/09/18 15:30 Phenergan Dm Syrup PO 5 ml Q6H PRN Administration Cough Tamsulosin HCl 0.4 mg 02/09/18 10:00 02/09/18 09:41 Flomax PO 0.4 mg DAILY RINA Administration - Patient Studies Lab Studies: Lab Studies 02/09/18 02/09/18 02/08/18 Range/Units 05:48 05:48 18:53 WBC 8.0 (4.8-10.8) K/uL RBC 8.67 H (4.40-5.90) Mil/uL Hgb 21.0 H* (12.0-18.0) g/dL Hct 66.3 H (35.0-51.0) % MCV 76.5 L (80.0-94.0) fL MCH 24.3 L (27.0-31.0) pg MCHC 31.7 L (33.0-37.0) g/dL RDW 21.8 H (11.5-14.5) % Plt Count 401 H (130-400) K/uL MPV 10.3 (7.2-11.7) fL Neut % (Auto) 80.2 H (50.0-75.0) % Lymph % (Auto) 10.7 L (20.0-40.0) % [place] % (Auto) 7.4 (0.0-10.0) % Eos % (Auto) 0.8 (0.0-4.0) % Baso % (Auto) 0.9 (0.0-2.0) % Neut # (Auto) 6.4 (1.8-7.0) K/uL Lymph # (Auto) 0.9 L (1.0-4.3) K/uL [place] # (Auto) 0.6 (0.0-0.8) K/uL Eos # (Auto) 0.1 (0.0-0.7) K/uL Baso # (Auto) 0.1 (0.0-0.2) K/uL Puncture Site pCO2 (35-45) mm/Hg pO2 (80-100) mm/Hg HCO3 (21-28) mmol/L ABG pH (7.35-7.45) ABG Total CO2 (22-28) mmol/L ABG O2 Saturation 98.4 H (95-98) % ABG Base Excess (-2.0-3.0) mmol/L ABG Hemoglobin 21.6 H (11.7-17.4) g/dL ABG Carboxyhemoglobin 2.4 H (0.5-1.5) % POC ABG HHb (Measured) (0.0-5.0) % ABG Methemoglobin 0.9 (0.0-3.0) % Noé Test A-a O2 Difference mm/Hg Respiratory Index Hgb O2 Saturation 95.1 (95.0-98.0) % Liter Flow FiO2 % Sodium 133 (132-148) mmol/L Potassium 5.1 (3.6-5.2) mmol/L Chloride 105 (98-107) mmol/L Carbon Dioxide 18 L (22-30) mmol/L Anion Gap 14 (10-20) BUN 34 H (9-20) mg/dL Creatinine 2.6 H (0.8-1.5) mg/dL Est GFR ( Amer) 30 Est GFR (Non-Af Amer) 25 Random Glucose 91 (75-110) mg/dL Calcium 8.0 L (8.6-10.4) mg/dl Phosphorus 5.0 H (2.5-4.5) mg/dL Magnesium 1.8 (1.6-2.3) mg/dL Total Bilirubin 1.1 (0.2-1.3) mg/dL AST 38 (17-59) U/L ALT 23 (21-72) U/L Alkaline Phosphatase 195 H (38-126) U/L Troponin I (0.00-0.120) ng/mL NT-Pro-B Natriuret Pep (0-900) pg/mL Total Protein 5.9 L (6.3-8.3) g/dL Albumin 2.8 L (3.5-5.0) g/dL Globulin 3.0 (2.2-3.9) gm/dL Albumin/Globulin Ratio 0.9 L (1.0-2.1) TSH 3rd Generation (0.46-4.68) mIU/L 02/08/18 02/08/18 02/08/18 Range/Units 18:53 15:51 15:51 WBC 6.2 (4.8-10.8) K/uL RBC 9.25 H (4.40-5.90) Mil/uL Hgb 21.4 H* D (12.0-18.0) g/dL Hct 68.8 H (35.0-51.0) % MCV 75.8 L (80.0-94.0) fL MCH 23.6 L (27.0-31.0) pg MCHC 31.1 L (33.0-37.0) g/dL RDW 20.6 H (11.5-14.5) % Plt Count 406 H (130-400) K/uL MPV 10.1 (7.2-11.7) fL Neut % (Auto) 73.9 (50.0-75.0) % Lymph % (Auto) 16.2 L (20.0-40.0) % [place] % (Auto) 7.6 (0.0-10.0) % Eos % (Auto) 1.2 (0.0-4.0) % Baso % (Auto) 1.1 (0.0-2.0) % Neut # (Auto) 2.3 (1.8-7.0) K/uL Lymph # (Auto) 0.5 L (1.0-4.3) K/uL [place] # (Auto) 0.2 (0.0-0.8) K/uL Eos # (Auto) 0.0 (0.0-0.7) K/uL Baso # (Auto) 0.0 (0.0-0.2) K/uL Puncture Site Rr pCO2 26 L (35-45) mm/Hg pO2 92 (80-100) mm/Hg HCO3 18.1 L (21-28) mmol/L ABG pH 7.35 (7.35-7.45) ABG Total CO2 15.2 L (22-28) mmol/L ABG O2 Saturation 98.0 (95-98) % ABG Base Excess -8.6 L (-2.0-3.0) mmol/L ABG Hemoglobin 21.6 H (11.7-17.4) g/dL ABG Carboxyhemoglobin 2.1 H (0.5-1.5) % POC ABG HHb (Measured) 1.9 (0.0-5.0) % ABG Methemoglobin 1.0 (0.0-3.0) % Noé Test Po A-a O2 Difference 118.0 mm/Hg Respiratory Index 1.3 Hgb O2 Saturation 95.0 (95.0-98.0) % Liter Flow 3.5 FiO2 34.0 % Sodium 134 (132-148) mmol/L Potassium 5.2 (3.6-5.2) mmol/L Chloride 101 (98-107) mmol/L Carbon Dioxide 23 (22-30) mmol/L Anion Gap 15 (10-20) BUN 38 H (9-20) mg/dL Creatinine 3.0 H (0.8-1.5) mg/dL Est GFR ( Amer) 25 Est GFR (Non-Af Amer) 21 Random Glucose 117 H (75-110) mg/dL Calcium 9.1 (8.6-10.4) mg/dl Phosphorus (2.5-4.5) mg/dL Magnesium 2.3 (1.6-2.3) mg/dL Total Bilirubin 1.0 (0.2-1.3) mg/dL AST 37 (17-59) U/L ALT 13 L D (21-72) U/L Alkaline Phosphatase 243 H D (38-126) U/L Troponin I 0.0500 (0.00-0.120) ng/mL NT-Pro-B Natriuret Pep 9850 H (0-900) pg/mL Total Protein 7.0 (6.3-8.3) g/dL Albumin 3.5 (3.5-5.0) g/dL Globulin 3.5 (2.2-3.9) gm/dL Albumin/Globulin Ratio 1.0 (1.0-2.1) TSH 3rd Generation 1.76 (0.46-4.68) mIU/L Laboratory Results - last 24 hr 02/08/18 02/08/18 02/08/18 15:51 15:51 18:53 WBC 6.2 RBC 9.25 H Hgb 21.4 H* D Hct 68.8 H MCV 75.8 L MCH 23.6 L MCHC 31.1 L RDW 20.6 H Plt Count 406 H MPV 10.1 Neut % (Auto) 73.9 Lymph % (Auto) 16.2 L [place] % (Auto) 7.6 Eos % (Auto) 1.2 Baso % (Auto) 1.1 Neut # (Auto) 2.3 Lymph # (Auto) 0.5 L [place] # (Auto) 0.2 Eos # (Auto) 0.0 Baso # (Auto) 0.0 Puncture Site Rr pCO2 26 L pO2 92 HCO3 18.1 L ABG pH 7.35 ABG Total CO2 15.2 L ABG O2 Saturation 98.0 ABG Base Excess -8.6 L ABG Hemoglobin 21.6 H ABG Carboxyhemoglobin 2.1 H POC ABG HHb (Measured) 1.9 ABG Methemoglobin 1.0 Noé Test Po A-a O2 Difference 118.0 Respiratory Index 1.3 Hgb O2 Saturation 95.0 Liter Flow 3.5 FiO2 34.0 Sodium 134 Potassium 5.2 Chloride 101 Carbon Dioxide 23 Anion Gap 15 BUN 38 H Creatinine 3.0 H Est GFR ( Amer) 25 Est GFR (Non-Af Amer) 21 Random Glucose 117 H Calcium 9.1 Phosphorus Magnesium 2.3 Total Bilirubin 1.0 AST 37 ALT 13 L D Alkaline Phosphatase 243 H D Troponin I 0.0500 NT-Pro-B Natriuret Pep 9850 H Total Protein 7.0 Albumin 3.5 Globulin 3.5 Albumin/Globulin Ratio 1.0 TSH 3rd Generation 1.76 02/08/18 02/09/18 02/09/18 18:53 05:48 05:48 WBC 8.0 RBC 8.67 H Hgb 21.0 H* Hct 66.3 H MCV 76.5 L MCH 24.3 L MCHC 31.7 L RDW 21.8 H Plt Count 401 H MPV 10.3 Neut % (Auto) 80.2 H Lymph % (Auto) 10.7 L [place] % (Auto) 7.4 Eos % (Auto) 0.8 Baso % (Auto) 0.9 Neut # (Auto) 6.4 Lymph # (Auto) 0.9 L [place] # (Auto) 0.6 Eos # (Auto) 0.1 Baso # (Auto) 0.1 Puncture Site pCO2 pO2 HCO3 ABG pH ABG Total CO2 ABG O2 Saturation 98.4 H ABG Base Excess ABG Hemoglobin 21.6 H ABG Carboxyhemoglobin 2.4 H POC ABG HHb (Measured) ABG Methemoglobin 0.9 Noé Test A-a O2 Difference Respiratory Index Hgb O2 Saturation 95.1 Liter Flow FiO2 Sodium 133 Potassium 5.1 Chloride 105 Carbon Dioxide 18 L Anion Gap 14 BUN 34 H Creatinine 2.6 H Est GFR ( Amer) 30 Est GFR (Non-Af Amer) 25 Random Glucose 91 Calcium 8.0 L Phosphorus 5.0 H Magnesium 1.8 Total Bilirubin 1.1 AST 38 ALT 23 Alkaline Phosphatase 195 H Troponin I NT-Pro-B Natriuret Pep Total Protein 5.9 L Albumin 2.8 L Globulin 3.0 Albumin/Globulin Ratio 0.9 L TSH 3rd Generation EKG/Cardiology Studies: Cardiology / EKG Studies 02/08/18 15:40 ELECTROCARDIOGRAM Stat Comment: Mode Of Transportation: Reason For Exam: sob Critical Care Progress Note - Nutrition Nutrition: Nutrition Category Date Time Status Heart Healthy Diet [DIET] Diets 02/08/18 Dinner Active Attending/Attestation - Attestation I have personally seen and examined this patient.: Yes I have fully participated in the care of the patient.: Yes I have reviewed all pertinent clinical information: Yes Notes (Text): 02/09/18 16:19 Patient is a 67 year old male with past medical history of BPH and CKD (not on HD) presenting with SOB for 2 days. Patient was found to have a hemoglobin of 21.4 in the ED. status post phlebotomy 2 Started on antibiotics Continue IV fluids Continue aspirin, Protonix and heparin Follow-up CBC Erythropoietin level seen by hematology
[2018-02-09] MEDS ORDERED: Promethazine/Cod 6.25mg-10mg/5ml Syr UD PO PRN (10:05)
[2018-02-09] MEDS ORDERED: Influenza Vaccine 60 MCG/0.5 ML SYR (3 yr & up) IM ONE (10:57)
--- NOTE | 2018-02-09 15:03 | CP.PCM.PN ---
Subjective - Date & Time of Evaluation Date of Evaluation: 02/09/18 Time of Evaluation: 14:45 - Subjective Subjective: Patient was seen and examined at 2:30 PM 02/09/18 ICU Bed #4 67 year old [place] male who was admitted on 02/08/18 for evaluation of Mik ycythemia and SOB. Please see assessment and plans below. SOB is better Cough that is dry usually during the night Snoring during the night as per who was at bedside NO headache NO difficulty with swallowing NO blurriness of vision NO headaches NO chest pain NO palpitations NO abdominal pain NO n/v/d/c: last bowel movement was 02/08/18 NO burning/pain with urination NO new changes in hearing General: AAOX3 HEENT: NCA, EOMI, PERRLA, NO pharyngeal erythema/exudate, NO cervical/supraclavicular/submandibular lymphadenopathy, NO thyromegaly Cardio: NS1 and NS2, NO M/R/G Resp: Bilateral Basilar Inspiratory Rales GI: BSx4, soft, NT, ND, NO HSM, NO guarding, NO rebound tenderness Ext: Capillary refill is 2 seconds, NO edema, Pulses are strong and equal Neuro: CN II through XII grossly intact Assessements: 1). Polycythemia ASA 81 mg PO 1x/day NS at 100 ml/hour F/U EPO level F/U GWENDOLYN 2 Mutation F/U further recommendations by Hematology Dr. Hoover 2). SOB/Dyspnea with Possible Pneumonia as per Chest X Ray Added Ceftriaxone 1 gm Q24H and Azithromycin 500 mg IV 1x/day F/U Urine Legionella Ag F/U Urine Strep pneuonia Ag F/U Mycoplasma IgG IgM F/U Rapid Influenza 3). Possible HF? F/U Echocardiogram 4). CKD Stage 3B F/U Nephrology Dr. Hidalgo recommendations Patient revealed that he was seen by a "Dr. Flores" at [place] once earlier this year and can not provide information as to what recommendations were made Renal function has remained relatively the same since labs in July 2017 F/U Renal U/S 5). Hx BPH Flomax 0.4 mg PO 1x/day 6). Prophylaxis Heparin 5,000 Units SC Q8H Zofran 4 mg IV Q6H PRN N/V Protonix 40 mg PO 1x/day Lactobacillus 1 cap PO 2x/day Updated patient's and 2 sons who were at bedside with patient's permission. Jan Kyle D.O. Objective - Vital Signs/Intake and Output Vital Signs (last 24 hours): Temp Pulse Resp BP Pulse Ox 97.7 F 119 H 25 H 140/99 H 93 L 02/09/18 07:15 02/09/18 08:00 02/09/18 08:00 02/09/18 07:18 02/09/18 08:00 Intake and Output: 02/09/18 02/09/18 06:59 18:59 Intake Total 1680 1300 Output Total 800 0 Balance 880 1300 - Medications Medications: Current Medications Aspirin (Aspirin Chewable) 81 mg PO DAILY [facility] Last Admin: 02/09/18 09:41 Dose: 81 mg Heparin Sodium (Porcine) (Heparin) 5,000 units SC Q8 [facility] Last Admin: 02/09/18 05:49 Dose: 5,000 units Sodium Chloride (Sodium Chloride 0.9%) 1,000 mls @ 100 mls/hr IV .Q10H [facility] Last Admin: 02/09/18 04:01 Dose: 100 mls/hr Influenza Virus Vaccine (Fluzone Quad [id number]) 60 mcg IM .ONCE ONE Stop: 02/11/18 10:58 Ondansetron HCl (Zofran Inj) 4 mg IVP Q6 PRN PRN Reason: Nausea/Vomiting Pantoprazole Sodium (Protonix Inj) 40 mg IVP DAILY [facility] Last Admin: 02/09/18 09:41 Dose: 40 mg Promethazine HCl/Codeine (Phenergan/Codeine Oral Syrup) 5 ml PO Q4 PRN PRN Reason: Cough Tamsulosin HCl (Flomax) 0.4 mg PO DAILY [facility] Last Admin: 02/09/18 09:41 Dose: 0.4 mg - Labs Labs: 02/09/18 05:48 02/09/18 05:48
[2018-02-09] MEDS: Promethazine DM 6.25 mg-15 mg/5 ml Syrup PO PRN ×2 (15:30→21:59)
[2018-02-09] MEDS: Azithromycin 500 MG in Sodium Chloride 0.9% 250 ML IVPB SCH (15:30)
--- NOTE | 2018-02-09 18:26 | US ---
Date of service: 02/09/2018 PROCEDURE: Ultrasound of the Kidneys HISTORY: CKD Stage 3B COMPARISON: None available. TECHNIQUE: Sonogram of the kidneys. FINDINGS: Examination limited by bowel gas. RIGHT KIDNEY: Measures: 9.8 x 4.2 x 4.1 cm. Echogenic renal parenchyma. No obstructing calculus or hydronephrosis identified. LEFT KIDNEY: Measures: 9.9 x 4.9 x 4.4 cm. Echogenic renal parenchyma. 0.5 cm mid to lower pole echogenic focus consistent with calculus. 1.0 x 0.8 x 1.1 cm lower pole cyst. No evidence of hydronephrosis or obstructing calculus. OTHER FINDINGS: Incidental note is made of bilateral pleural effusions. Partially imaged probable right lower lobe consolidation. IMPRESSION: Echogenic renal parenchyma bilaterally may be seen in setting of medical renal disease. 5 mm mid to lower pole left renal calculus, nonobstructing. 1.1 cm left lower pole renal cyst. Incidental note is made of bilateral pleural effusions. Partially imaged probable right lower lobe consolidation.
[2018-02-09] MEDS: Lactobacillus Acidophilus 500 MU Cap PO SCH (19:53)
--- NOTE | 2018-02-09 23:40 | CARD ---
APPROVED REPORT Date of service: 02/08/2018 EKG Measurement Heart [id number] VT 122P70 [id number] <Conclusion> Sinus tachycardia Right atrial enlargement Moderate voltage criteria for LVH, may be normal variant Nonspecific T wave abnormality Abnormal ECG
--- NOTE | 2018-02-09 23:47 | CARD ---
APPROVED REPORT Date of service: 02/08/2018 EKG Measurement Heart [id number] <Conclusion> Sinus tachycardia Left atrial enlargement Left ventricular hypertrophy Nonspecific T wave abnormality Abnormal ECG
[2018-02-10] MEDS: Sodium Chloride 0.9% 1,000 ML IV SCH ×4 (00:45→20:45)
[2018-02-10 05:54] LABS: BASO # 0.1 K/uL (0.0-0.2); BASO % 1.5 % (0.0-2.0); EOS # 0.3 K/uL (0.0-0.7); EOS % 3.7 % (0.0-4.0); HEMOGLOBIN 19.2 g/dL (12.0-18.0); LYMPH # 1.8 K/uL (1.0-4.3); LYMPH % 23.5 % (20.0-40.0); MEAN CELL VOLUME 76.9 fL (80.0-94.0); MEAN CORPUSCULAR HEMOGLOBIN 24.5 pg (27.0-31.0); MEAN CORPUSCULAR HGB CONC 31.9 g/dL (33.0-37.0); MEAN PLATELET VOLUME 10.2 fL (7.2-11.7); MONO # 0.6 K/uL (0.0-0.8); MONO % 8.2 % (0.0-10.0); NEUT # 4.9 K/uL (1.8-7.0); NEUT % 63.1 % (50.0-75.0); NRBC % 0.4 % (0.0-2.0); RBC 7.84 Mil/uL (4.40-5.90); RED CELL DISTRIBUTION WIDTH 21.8 % (11.5-14.5); WHITE BLOOD COUNT 7.7 K/uL (4.8-10.8)
[2018-02-10 06:19] LABS: ALB/GLOB RATIO 0.8 (1.0-2.1); ALBUMIN 2.3 g/dL (3.5-5.0); CALCIUM 7.4 mg/dl (8.6-10.4)
--- NOTE | 2018-02-10 07:33 | CP.CCUPN ---
CCU Objective - Vital Signs / Intake & Output Intake and Output (Last 8hrs): Intake & Output 02/09/18 02/10/18 02/10/18 22:59 06:59 14:59 Intake Total 1310 1020 Output Total 0 0 Balance 1310 1020 Weight 159 lb 0.1 oz Intake: Intake, IV Amount 950 900 Left Antecubital 950 900 Oral 360 120 Output: Emesis 0 0 Other: # Voids Urine, Voided 0 150 # Bowel Movements 0 0 - Physical Exam Head: Positive for: Atraumatic, Normocephalic Pupils: Positive for: PERRL Extroacular Muscles: Positive for: EOMI Conjunctiva: Positive for: Injected Respiratory/Chest: Positive for: Clear to Auscultation. Negative for: Respiratory Distress, Accessory Muscle Use, Wheezes, Rales, Rhonchi Cardiovascular: Positive for: Regular Rate and Rhythm, Normal S1, S2. Negative for: Murmurs Abdomen: Positive for: Normal Bowel Sounds. Negative for: Tenderness, Distention, Peritoneal Signs Upper Extremity: Positive for: Normal Inspection. Negative for: Cyanosis, Edema Lower Extremity: Positive for: Normal Inspection. Negative for: Edema Neurological: Positive for: GCS=15, CN II-XII Intact, Speech Normal Skin: Positive for: Warm, Dry, Normal Color. Negative for: Rashes Psychiatric: Positive for: Alert, Oriented x 3, Normal Insight, Normal Concentration - Medications Active Medications: Active Medications Generic Name Dose Route Start Last Admin Trade Name Freq PRN Reason Stop Dose Admin Aspirin 81 mg 02/08/18 18:45 02/09/18 09:41 Aspirin Chewable PO 81 mg DAILY [facility] Administration Heparin Sodium (Porcine) 5,000 units 02/08/18 22:00 02/10/18 05:41 Heparin SC 5,000 units Q8 [facility] Administration Sodium Chloride 1,000 mls @ 100 mls/hr 02/08/18 18:45 02/10/18 05:40 Sodium Chloride 0.9% IV 100 mls/hr .Q10H [facility] Administration Azithromycin 500 mg/ Sodium 250 mls @ 250 mls/hr 02/09/18 16:00 02/09/18 15:30 Chloride IVPB 250 mls/hr Q24H [facility] Administration Protocol Ceftriaxone Sodium 1 gm/ 100 mls @ 100 mls/hr 02/09/18 17:30 02/09/18 16:31 Sodium Chloride IVPB 100 mls/hr Q24H [facility] Administration Protocol Influenza Virus Vaccine 60 mcg 02/11/18 10:57 Fluzone Quad [id number] IM 02/11/18 10:58 .ONCE ONE Lactobacillus Acidophilus 1 cap 02/09/18 18:00 02/09/18 19:53 Bacid Acidophilus PO 1 cap BID [facility] Administration Ondansetron HCl 4 mg 02/08/18 18:58 Zofran Inj IVP Q6 PRN Nausea/Vomiting Pantoprazole Sodium 40 mg 02/09/18 10:00 02/09/18 09:41 Protonix Inj IVP 40 mg DAILY [facility] Administration Promethazine HCl/Dextromethorphan 5 ml 02/09/18 16:00 02/09/18 21:59 Phenergan Dm Syrup PO 5 ml Q6H PRN Administration Cough Tamsulosin HCl 0.4 mg 02/09/18 10:00 02/09/18 09:41 Flomax PO 0.4 mg DAILY [facility] Administration - Patient Studies Lab Studies: Microbiology Studies 02/08/18 17:25 Blood Culture - Preliminary Blood NO GROWTH AFTER 24 HOURS 02/08/18 16:50 Blood Culture - Preliminary Blood NO GROWTH AFTER 24 HOURS Lab Studies 02/10/18 02/10/18 02/09/18 Range/Units 05:45 05:45 17:48 WBC 7.7 (4.8-10.8) K/uL RBC 7.84 H (4.40-5.90) Mil/uL Hgb 19.2 H (12.0-18.0) g/dL Hct 60.3 H (35.0-51.0) % MCV 76.9 L (80.0-94.0) fL MCH 24.5 L (27.0-31.0) pg MCHC 31.9 L (33.0-37.0) g/dL RDW 21.8 H (11.5-14.5) % Plt Count 392 (130-400) K/uL MPV 10.2 (7.2-11.7) fL Neut % (Auto) 63.1 (50.0-75.0) % Lymph % (Auto) 23.5 (20.0-40.0) % Dukes % (Auto) 8.2 (0.0-10.0) % Eos % (Auto) 3.7 (0.0-4.0) % Baso % (Auto) 1.5 (0.0-2.0) % Neut # (Auto) 4.9 (1.8-7.0) K/uL Lymph # (Auto) 1.8 (1.0-4.3) K/uL [place]ukes # (Auto) 0.6 (0.0-0.8) K/uL Eos # (Auto) 0.3 (0.0-0.7) K/uL Baso # (Auto) 0.1 (0.0-0.2) K/uL Sodium 132 (132-148) mmol/L Potassium 4.4 (3.6-5.2) mmol/L Chloride 108 H (98-107) mmol/L Carbon Dioxide 16 L (22-30) mmol/L Anion Gap 12 (10-20) BUN 38 H (9-20) mg/dL Creatinine 2.7 H (0.8-1.5) mg/dL Est GFR ( Amer) 28 Est GFR (Non-Af Amer) 24 Random Glucose 87 (75-110) mg/dL Calcium 7.4 L (8.6-10.4) mg/dl Phosphorus 4.5 (2.5-4.5) mg/dL Magnesium 1.9 (1.6-2.3) mg/dL Total Bilirubin 0.6 (0.2-1.3) mg/dL AST 19 (17-59) U/L ALT 14 L D (21-72) U/L Alkaline Phosphatase 161 H (38-126) U/L Total Protein 5.1 L (6.3-8.3) g/dL Albumin 2.3 L (3.5-5.0) g/dL Globulin 2.8 (2.2-3.9) gm/dL Albumin/Globulin Ratio 0.8 L (1.0-2.1) Influenza Typ A,B (EIA) Negative for flu a/b (NEGATIVE) Laboratory Results - last 24 hr 02/09/18 02/10/18 02/10/18 17:48 05:45 05:45 WBC 7.7 RBC 7.84 H Hgb 19.2 H Hct 60.3 H MCV 76.9 L MCH 24.5 L MCHC 31.9 L RDW 21.8 H Plt Count 392 MPV 10.2 Neut % (Auto) 63.1 Lymph % (Auto) 23.5 Dukes % (Auto) 8.2 Eos % (Auto) 3.7 Baso % (Auto) 1.5 Neut # (Auto) 4.9 Lymph # (Auto) 1.8 Dukes # (Auto) 0.6 Eos # (Auto) 0.3 Baso # (Auto) 0.1 Sodium 132 Potassium 4.4 Chloride 108 H Carbon Dioxide 16 L Anion Gap 12 BUN 38 H Creatinine 2.7 H Est GFR ( Amer) 28 Est GFR (Non-Af Amer) 24 Random Glucose 87 Calcium 7.4 L Phosphorus 4.5 Magnesium 1.9 Total Bilirubin 0.6 AST 19 ALT 14 L D Alkaline Phosphatase 161 H Total Protein 5.1 L Albumin 2.3 L Globulin 2.8 Albumin/Globulin Ratio 0.8 L Influenza Typ A,B (EIA) Negative for flu a/b Critical Care Progress Note - Nutrition Nutrition: Nutrition Category Date Time Status Heart Healthy Diet [DIET] Diets 02/08/18 Dinner Active
--- NOTE | 2018-02-10 08:51 | CP.PCM.CON ---
History of Present Illness - History of Present Illness History of Present Illness: Mr. Do is a 67 year old male PMH BPH, CKD not on HD comes in complaining of 4 days of dry cough and 2 days of shortness of breath. He tried using his son's Ventolin and other herbal remedies, such as aamir tea, to no avail. He is nauseous and gags, but has vomited only once. Vomitus was NBNB, contents were what he had just eaten for breakfast yesterday. Admits to loss of appetite and early satiety over the last 6 months and has lost a resulting 20 pounds. He is chronically dizzy, and experiences dyspnea on exertion. He has difficulty breathing when laying flat, and opts to sleep on his side. If his shortness of breath keeps him from falling asleep, he will sit up (working on computer, watching TV, etc) until his dyspnea subsides. Daughter who lives with him had an unspecified URI with cough that self-resolved last week. 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 Admits subjective low grade fever. Denies chills, sweating, change in vision or hearing, sore throat, leg pain, claudication, rash, bruising. Does c/o foamy urine. PMD: Marcelina An PMH: BPH, CKD Med: denies All: seasonal PSxHx: tonsillectomy as a child FamHx: father-PA: in 60s; no CKD SocHx: quit smoking 40 years ago, 4cig/day. Denies alcohol, illicit drug use. 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 Review of Systems - Constitutional Constitutional: Fatigue, Weight Loss, Weakness - EENT Eyes: absent: As Per HPI, Blind Spots, Blurred Vision, Change in Vision, Decreas ed Night Vision, Diplopia, Discharge, Dry Eye, Exophthalmos, Floaters, Irritation, Itchy Eyes, Loss of Peripheral Vision, Pain, Photophobia, Requires Corrective Lenses, Sees Flashes, Spots in Vision, Tunnel Vision, Other Visual Disturbances, Loss of Vision, Other Ears: absent: As Per HPI, Decreased Hearing, Ear Discharge, Ear Pain, Tinnitus, Abnormal Hearing, Disequilibrium, Dizziness, Other Nose/Mouth/Throat: absent: As Per HPI, Epistaxis, Nasal Congestion, Nasal Discharge, Nasal Obstruction, Nasal Trauma, Nose Pain, Post Nasal Drip, Sinus Pain, Sinus Pressure, Bleeding Gums, Change in Voice, Dental Pain, Dry Mouth, Dysphagia, Halitosis, Hoarsness, Lip Swelling, Mouth Lesions, Mouth Pain, Odynophagia, Sore Throat, Throat Swelling, Tongue Swelling, Facial Pain, Neck Pain, Neck Mass, Other - Cardiovascular Cardiovascular: Dyspnea on Exertion - Respiratory Respiratory: Cough, Dyspnea on Exertion - Gastrointestinal Gastrointestinal: Early Satiety, Nausea, Vomiting - Genitourinary Genitourinary: Other Additional comments: foamy urine - Musculoskeletal Musculoskeletal: Muscle Weakness, Myalgias - Neurological Neurological: Weakness Past Patient History - Past Medical History & Family History Past Medical History?: Yes Past Family History: Reviewed and not pertinent - Past Social History Smoking Status: Former Smoker Chewing Tobacco Use: No Cigar Use: No Alcohol: None Drugs: Denies Home Situation {Lives}: With Family - RENAL Hx Chronic Kidney Disease: Yes (not on dialysis) - MUSCULOSKELETAL/RHEUMATOLOGICAL Hx Falls: No - GENITOURINARY/GYNECOLOGICAL Hx Prostate Problems: Yes - PSYCHIATRIC Hx Substance Use: No - ANESTHESIA Hx Anesthesia: No Hx Anesthesia Reactions: No Meds Allergies/Adverse Reactions: Allergies Allergy/AdvReac Type Severity Reaction Status Date / Time No Known Allergies Allergy Unverified 02/08/18 14:04 - Medications Medications: Current Medications Aspirin (Aspirin Chewable) 81 mg PO DAILY [facility] Last Admin: 02/09/18 09:41 Dose: 81 mg Heparin Sodium (Porcine) (Heparin) 5,000 units SC Q8 [facility] Last Admin: 02/10/18 05:41 Dose: 5,000 units Sodium Chloride (Sodium Chloride 0.9%) 1,000 mls @ 100 mls/hr IV .Q10H [facility] Last Admin: 02/10/18 05:40 Dose: 100 mls/hr Azithromycin 500 mg/ Sodium (Chloride) 250 mls @ 250 mls/hr IVPB Q24H [facility]; Protocol Last Admin: 02/09/18 15:30 Dose: 250 mls/hr Ceftriaxone Sodium 1 gm/ (Sodium Chloride) 100 mls @ 100 mls/hr IVPB Q24H [facility]; Protocol Last Admin: 02/09/18 16:31 Dose: 100 mls/hr Influenza Virus Vaccine (Fluzone Quad [id number]) 60 mcg IM .ONCE ONE Stop: 02/11/18 10:58 Lactobacillus Acidophilus (Bacid Acidophilus) 1 cap PO BID [facility] Last Admin: 02/09/18 19:53 Dose: 1 cap Ondansetron HCl (Zofran Inj) 4 mg IVP Q6 PRN PRN Reason: Nausea/Vomiting Pantoprazole Sodium (Protonix Inj) 40 mg IVP DAILY [facility] Last Admin: 02/09/18 09:41 Dose: 40 mg Promethazine HCl/Dextromethorphan (Phenergan Dm Syrup) 5 ml PO Q6H PRN PRN Reason: Cough Last Admin: 02/09/18 21:59 Dose: 5 ml Tamsulosin HCl (Flomax) 0.4 mg PO DAILY [facility] Last Admin: 02/09/18 09:41 Dose: 0.4 mg Physical Exam - Constitutional Appears: No Acute Distress, Chronically Ill - Head Exam Head Exam: ATRAUMATIC, NORMAL INSPECTION - Eye Exam Eye Exam: EOMI, Normal appearance - Neck Exam Neck exam: Positive for: Normal Inspection. Negative for: Tenderness - Respiratory Exam Respiratory Exam: Clear to Auscultation Bilateral, NORMAL BREATHING PATTERN - Cardiovascular Exam Cardiovascular Exam: REGULAR RHYTHM, +S1 - GI/Abdominal Exam GI & Abdominal Exam: Soft. absent: Tenderness - Extremities Exam Extremities exam: Positive for: normal inspection. Negative for: tenderness - Neurological Exam Neurological exam: CN II-XII Intact, Oriented x3 - Skin Skin Exam: Dry, Warm Results - Vital Signs Recent Vital Signs: Last Vital Signs Temp 98.2 F 02/09/18 20:00 Pulse 125 H 02/09/18 20:00 Resp 21 02/09/18 20:00 BP 110/81 02/09/18 20:00 Pulse Ox 96 02/09/18 20:00 - Labs Result Diagrams: 02/10/18 05:45 02/10/18 05:45 Labs: Laboratory Results - last 24 hr 02/09/18 02/10/18 02/10/18 17:48 05:45 05:45 WBC 7.7 RBC 7.84 H Hgb 19.2 H Hct 60.3 H MCV 76.9 L MCH 24.5 L MCHC 31.9 L RDW 21.8 H Plt Count 392 MPV 10.2 Neut % (Auto) 63.1 Lymph % (Auto) 23.5 [place] % (Auto) 8.2 Eos % (Auto) 3.7 Baso % (Auto) 1.5 Neut # (Auto) 4.9 Lymph # (Auto) 1.8 [place] # (Auto) 0.6 Eos # (Auto) 0.3 Baso # (Auto) 0.1 Sodium 132 Potassium 4.4 Chloride 108 H Carbon Dioxide 16 L Anion Gap 12 BUN 38 H Creatinine 2.7 H Est GFR ( Amer) 28 Est GFR (Non-Af Amer) 24 Random Glucose 87 Calcium 7.4 L Phosphorus 4.5 Magnesium 1.9 Total Bilirubin 0.6 AST 19 ALT 14 L D Alkaline Phosphatase 161 H Total Protein 5.1 L Albumin 2.3 L Globulin 2.8 Albumin/Globulin Ratio 0.8 L Influenza Typ A,B (EIA) Negative for flu a/b Assessment & Plan (1) Interstitial lung disease Status: Acute (2) CKD (chronic kidney disease) stage 4, GFR 15-29 ml/min Status: Acute (3) Polycythemia Status: Acute - Assessment and Plan (Free Text) Plan: Recent FARTUN borderline- 1:160- to repeat Check for proteinuria pulmonary workup if not better phlebotomy as per heme hep panel can consider renal bx if dx unclear
[2018-02-10] MEDS: Lactobacillus Acidophilus 500 MU Cap PO SCH ×2 (10:00→17:46)
[2018-02-10 11:47] LABS: URINE BILIRUBIN NEGATIVE (NEGATIVE); URINE BLOOD 1+ (NEGATIVE); URINE CLARITY Hazy (Clear); URINE COLOR Yellow (YELLOW); URINE GLUCOSE (UA) NORMAL (Normal); URINE HYALINE CAST 0-2 /lpf (0-2); URINE LEUKOCYTE ESTERASE NEG Leu/uL (Negative); URINE PROTEIN 3+ mg/dL (NEGATIVE); URINE UROBILINOGEN NORMAL mg/dL (0.2-1.0)
[2018-02-10 12:32] LABS: HEPATITIS B SURFACE AG Negative (NEGATIVE)
[2018-02-10 12:38] LABS: HEPATITIS B CORE AB NEGATIVE (NEGATIVE)
[2018-02-10 12:50] LABS: HEPATITIS C ANTIBODY NEGATIVE (NEGATIVE)
[2018-02-10] MEDS ORDERED: Metoprolol 1 mg/ml Inj IVP ONE (13:16)
[2018-02-10] MEDS: Azithromycin 500 MG in Sodium Chloride 0.9% 250 ML IVPB SCH (15:30)
--- NOTE | 2018-02-10 16:45 | CP.PCM.PN ---
Subjective - Date & Time of Evaluation Date of Evaluation: 02/10/18 Time of Evaluation: 16:35 - Subjective Subjective: Medical Attending Note: Patient seen and examined. Patient seen with family at bedside. Patient denies headache, denies chest pain, reports shortness of breathe, denies abdominal pain, reports has not had a bowel movement for 4 days, denies dysuria. Patient denies prior medical history. Objective - Vital Signs/Intake and Output Vital Signs (last 24 hours): Temp Pulse Resp BP Pulse Ox 98.2 F 116 H 21 110/81 96 02/09/18 20:00 02/10/18 12:00 02/09/18 20:00 02/09/18 20:00 02/09/18 20:00 Intake and Output: 02/10/18 02/10/18 06:59 18:59 Intake Total 1520 100 Output Total 0 0 Balance 1520 100 - Medications Medications: Current Medications Aspirin (Aspirin Chewable) 81 mg PO DAILY [facility] Last Admin: 02/10/18 10:00 Dose: 81 mg Heparin Sodium (Porcine) (Heparin) 5,000 units SC Q8 [facility] Last Admin: 02/10/18 13:52 Dose: 5,000 units Hydroxyurea (Hydrea) 1,000 mg PO DAILY [facility] Last Admin: 02/10/18 14:47 Dose: 1,000 mg Sodium Chloride (Sodium Chloride 0.9%) 1,000 mls @ 100 mls/hr IV .Q10H [facility] Last Admin: 02/10/18 13:52 Dose: 100 mls/hr Azithromycin 500 mg/ Sodium (Chloride) 250 mls @ 250 mls/hr IVPB Q24H [facility]; Protocol Last Admin: 02/09/18 15:30 Dose: 250 mls/hr Ceftriaxone Sodium 1 gm/ (Sodium Chloride) 100 mls @ 100 mls/hr IVPB Q24H [facility]; Protocol Last Admin: 02/09/18 16:31 Dose: 100 mls/hr Influenza Virus Vaccine (Fluzone Quad [id number]) 60 mcg IM .ONCE ONE Stop: 02/11/18 10:58 Lactobacillus Acidophilus (Bacid Acidophilus) 1 cap PO BID [facility] Last Admin: 02/10/18 10:00 Dose: 1 cap Ondansetron HCl (Zofran Inj) 4 mg IVP Q6 PRN PRN Reason: Nausea/Vomiting Pantoprazole Sodium (Protonix Inj) 40 mg IVP DAILY [facility] Last Admin: 02/10/18 10:01 Dose: 40 mg Promethazine HCl/Dextromethorphan (Phenergan Dm Syrup) 5 ml PO Q6H PRN PRN Reason: Cough Last Admin: 02/09/18 21:59 Dose: 5 ml Tamsulosin HCl (Flomax) 0.4 mg PO DAILY [facility] Last Admin: 02/10/18 10:00 Dose: 0.4 mg - Labs Labs: 02/10/18 05:45 02/10/18 05:45 - Constitutional Appears: Non-toxic, No Acute Distress - Head Exam Head Exam: NORMAL INSPECTION - Eye Exam Eye Exam: EOMI - ENT Exam ENT Exam: Mucous Membranes Moist - Respiratory Exam Respiratory Exam: Decreased Breath Sounds, NORMAL BREATHING PATTERN. absent: Rales, Rhonchi, Wheezes - Cardiovascular Exam Cardiovascular Exam: Tachycardia, +S1, +S2 - GI/Abdominal Exam GI & Abdominal Exam: Distended, Soft, Normal Bowel Sounds. absent: Firm, Guarding, Rigid, Tenderness, Rebound - Extremities Exam Extremities Exam: absent: Pedal Edema, Tenderness - Back Exam Back Exam: absent: CVA tenderness (L), CVA tenderness (R) - Neurological Exam Neurological Exam: Alert, Awake, Oriented x3 - Psychiatric Exam Psychiatric exam: Normal Affect, Normal Mood - Skin Skin Exam: Dry, Intact, Normal Color, Warm Assessment and Plan (1) Shortness of breath Assessment & Plan: Chest xray (02/10/18): prominent hilar and perihilar bronchovascular markings. Bronchiolar thickening along with subsegmetal inflammatory patchy infiltrates. coalescing are a consideration. Left infrhilar coalescence patchy infiltrate. pulmonary venous congestion. Mild cardiomegaly. Pending Echocardiogram Status: Acute (2) CKD (chronic kidney disease) stage 4, GFR 15-29 ml/min Assessment & Plan: Nephrology (Dr. Nielsen) on board Renal US (02/09/18): echogenic renal parenchyma bilateral may be seen in setting of medical renal disease. 5mm mid to lower pole left renal calculus. nonobstructing. 1.1cm left lower pole renal cyst. Incidental note is made bilateral pleural effusions. Partially imaged probably right lower lobe consolidation. Status: Acute (3) Interstitial lung disease Assessment & Plan: pulm on consult jolene PRN Status: Acute (4) Polycythemia Assessment & Plan: heme onc on case-->[facility] [place] likely secondary vs. primary polycythemia Aspirin 81mg PO daily Hydroxyruea 1000mg PO Daily Blood leached about 4x pending EPO, JAK2, PTH intact Status: Acute (5) Pneumonia Assessment & Plan: Renal US (02/09/18): echogenic renal parenchyma bilateral may be seen in setting of medical renal disease. 5mm mid to lower pole left renal calculus. nonobstructing. 1.1cm left lower pole renal cyst. Incidental note is made bilateral pleural effusions. Partially imaged probably right lower lobe consolidation. Legionella, Mycoplasma IgM, and Strep pneumonia urine Promethazine 5ml PO q6h PRN cough Rocephin 1gm IVPB Q24H (active 02/09/18) Azithromycin 500mg IVPB Q daily (active since 02/09/18) Florastor 250mg PO BID CT Chest w/o contrast ordered negative flu negative Legionella Status: Acute (6) Cardiomegaly Assessment & Plan: pending echo Status: Acute (7) Prophylactic measure Assessment & Plan: Aspirin 81mg PO daily Protonix 40mg IV q daily Heparin 5000 units subq8H Status: Acute
[2018-02-10] MEDS ORDERED: Albuterol-Ipratrop 3 mg / 0.5 (3 ml) UD INH PRN (17:13)
[2018-02-10] MEDS: Metoprolol 1 mg/ml Inj IVP SCH (18:53)
[2018-02-10 19:27] LABS: INR 1.1; PROTHROMBIN TIME 12.2 SECONDS (9.7-12.2)
--- NOTE | 2018-02-10 22:01 | CP.PCM.PN ---
Subjective - Date & Time of Evaluation Date of Evaluation: 02/10/18 Time of Evaluation: 18:00 - Subjective Subjective: Feels more short of breath today. Objective - Vital Signs/Intake and Output Vital Signs (last 24 hours): Temp Pulse Resp BP Pulse Ox 98.2 F 125 H 25 H 110/81 94 L 02/09/18 20:00 02/10/18 18:00 02/10/18 16:46 02/09/18 20:00 02/10/18 16:46 Intake and Output: 02/10/18 02/11/18 18:59 06:59 Intake Total 100 Output Total 0 Balance 100 - Medications Medications: Current Medications Albuterol/Ipratropium (Duoneb 3 Mg/0.5 Mg (3 Ml) Ud) 3 ml INH RQ6 PRN PRN Reason: Shortness of Breath Aspirin (Aspirin Chewable) 81 mg PO DAILY [facility] Last Admin: 02/10/18 10:00 Dose: 81 mg Docusate Sodium (Colace) 100 mg PO BID [facility] Last Admin: 02/10/18 17:45 Dose: 100 mg Heparin Sodium (Porcine) (Heparin) 5,000 units SC Q8 [facility] Last Admin: 02/10/18 13:52 Dose: 5,000 units Hydroxyurea (Hydrea) 1,000 mg PO DAILY [facility] Last Admin: 02/10/18 14:47 Dose: 1,000 mg Sodium Chloride (Sodium Chloride 0.9%) 1,000 mls @ 100 mls/hr IV .Q10H [facility] Last Admin: 02/10/18 13:52 Dose: 100 mls/hr Azithromycin 500 mg/ Sodium (Chloride) 250 mls @ 250 mls/hr IVPB Q24H [facility]; Protocol Last Admin: 02/10/18 15:30 Dose: 250 mls/hr Ceftriaxone Sodium 1 gm/ (Sodium Chloride) 100 mls @ 100 mls/hr IVPB Q24H [facility]; Protocol Last Admin: 02/10/18 17:38 Dose: 100 mls/hr Influenza Virus Vaccine (Fluzone Quad [id number]) 60 mcg IM .ONCE ONE Stop: 02/11/18 10:58 Lactobacillus Acidophilus (Bacid Acidophilus) 1 cap PO BID [facility] Last Admin: 02/10/18 17:46 Dose: 1 cap Metoprolol Tartrate (Lopressor) 5 mg IVP Q6H [facility] Last Admin: 02/10/18 18:53 Dose: 5 mg Ondansetron HCl (Zofran Inj) 4 mg IVP Q6 PRN PRN Reason: Nausea/Vomiting Pantoprazole Sodium (Protonix Inj) 40 mg IVP DAILY [facility] Last Admin: 02/10/18 10:01 Dose: 40 mg Polyethylene Glycol (Miralax) 17 gm PO DAILY [facility] Promethazine HCl/Dextromethorphan (Phenergan Dm Syrup) 5 ml PO Q6H PRN PRN Reason: Cough Last Admin: 02/09/18 21:59 Dose: 5 ml Tamsulosin HCl (Flomax) 0.4 mg PO DAILY [facility] Last Admin: 02/10/18 10:00 Dose: 0.4 mg - Labs Labs: 02/10/18 05:45 02/10/18 05:45 PT 12.2 SECONDS (9.7-12.2) 02/10/18 19:13 INR 1.1 02/10/18 19:13 APTT 41 SECONDS (21-34) H 02/10/18 19:13 - Head Exam Head Exam: ATRAUMATIC - Eye Exam Eye Exam: Normal appearance - ENT Exam ENT Exam: Mucous Membranes Dry - Respiratory Exam Respiratory Exam: NORMAL BREATHING PATTERN - Cardiovascular Exam Cardiovascular Exam: +S1, +S2 - GI/Abdominal Exam GI & Abdominal Exam: Normal Bowel Sounds Assessment and Plan (1) Polycythemia Assessment & Plan: w/u pending therapeutic phlebotomy started on hydrea Status: Acute
[2018-02-11] MEDS: Metoprolol 1 mg/ml Inj IVP SCH ×6 (00:07→23:44)
[2018-02-11] MEDS: Sodium Chloride 0.9% 1,000 ML IV SCH (06:00)
[2018-02-11 06:03] LABS: BASO # 0.1 K/uL (0.0-0.2); BASO % 1.2 % (0.0-2.0); EOS # 0.1 K/uL (0.0-0.7); EOS % 1.5 % (0.0-4.0); HEMOGLOBIN 19.3 g/dL (12.0-18.0); LYMPH # 1.2 K/uL (1.0-4.3); LYMPH % 15.7 % (20.0-40.0); MEAN CELL VOLUME 76.8 fL (80.0-94.0); MEAN CORPUSCULAR HEMOGLOBIN 24.6 pg (27.0-31.0); MEAN CORPUSCULAR HGB CONC 32.1 g/dL (33.0-37.0); MEAN PLATELET VOLUME 9.7 fL (7.2-11.7); MONO # 0.6 K/uL (0.0-0.8); MONO % 7.7 % (0.0-10.0); NEUT # 5.5 K/uL (1.8-7.0); NEUT % 73.9 % (50.0-75.0); NRBC % 0.3 % (0.0-2.0); RBC 7.86 Mil/uL (4.40-5.90); WHITE BLOOD COUNT 7.4 K/uL (4.8-10.8)
[2018-02-11 06:45] LABS: ALB/GLOB RATIO 0.9 (1.0-2.1); ALBUMIN 2.7 g/dL (3.5-5.0); CALCIUM 7.8 mg/dl (8.6-10.4)
[2018-02-11] MEDS ORDERED: Sod Polystyrene Sulf 15 gm/60 ml Susp PO ONE ×2 (07:45→08:15)
--- NOTE | 2018-02-11 08:15 | CP.CCUPN ---
<Devin Diaz - Last Filed: 02/11/18 12:16> CCU Subjective - Physician Review Subjective (Free Text): 02/11/18 9:03 Patient seen and examined at bedside, no acute events overnight. Patient states that his breathing is better today. Plan for bedside thoracentesis today. Critical Care Time Spent (in minutes): 35 CCU Objective - Vital Signs / Intake & Output Vital Signs (Last 4 hours): Vital Signs Pulse Resp BP Pulse Ox 02/11/18 06:49 107 H 23 124/94 H 94 L 02/11/18 06:11 120 H 24 132/101 H 96 02/11/18 05:49 117 H 16 131/100 H 93 L 02/11/18 04:49 113 H 18 121/90 94 L Intake and Output (Last 8hrs): Intake & Output 02/10/18 02/11/18 02/11/18 22:59 06:59 14:59 Intake Total 420 920 100 Balance 420 920 100 Weight 159 lb Intake: Intake, IV Amount 300 800 100 Left Antecubital 300 800 100 Oral 120 120 Other: # Voids Urine, Voided 1 1 0 - Physical Exam Head: Positive for: Atraumatic, Normocephalic Pupils: Positive for: PERRL Extroacular Muscles: Positive for: EOMI Conjunctiva: Positive for: Injected Respiratory/Chest: Positive for: Clear to Auscultation. Negative for: Respiratory Distress, Accessory Muscle Use, Wheezes, Rales, Rhonchi Cardiovascular: Positive for: Regular Rate and Rhythm, Normal S1, S2. Negative for: Murmurs Abdomen: Positive for: Normal Bowel Sounds. Negative for: Tenderness, Distention, Peritoneal Signs Upper Extremity: Positive for: Normal Inspection. Negative for: Cyanosis, Edema Lower Extremity: Positive for: Normal Inspection. Negative for: Edema Neurological: Positive for: GCS=15, CN II-XII Intact, Speech Normal Skin: Positive for: Warm, Dry, Normal Color. Negative for: Rashes Psychiatric: Positive for: Alert, Oriented x 3, Normal Insight, Normal Concentration - Medications Active Medications: Active Medications Generic Name Dose Route Start Last Admin Trade Name Freq PRN Reason Stop Dose Admin Albuterol/Ipratropium 3 ml 02/10/18 17:13 Duoneb 3 Mg/0.5 Mg (3 Ml) Ud INH RQ6 PRN Shortness of Breath Aspirin 81 mg 02/08/18 18:45 02/10/18 10:00 Aspirin Chewable PO 81 mg DAILY RINA Administration Docusate Sodium 100 mg 02/10/18 18:00 02/10/18 17:45 Colace PO 100 mg BID RINA Administration Heparin Sodium (Porcine) 5,000 units 02/08/18 22:00 02/11/18 06:14 Heparin SC 5,000 units Q8 RINA Administration Hydroxyurea 1,000 mg 02/10/18 13:45 02/10/18 14:47 Hydrea PO 1,000 mg DAILY RINA Administration Azithromycin 500 mg/ Sodium 250 mls @ 250 mls/hr 02/09/18 16:00 02/10/18 15:30 Chloride IVPB 250 mls/hr Q24H RINA Administration Protocol Ceftriaxone Sodium 1 gm/ 100 mls @ 100 mls/hr 02/09/18 17:30 02/10/18 17:38 Sodium Chloride IVPB 100 mls/hr Q24H RINA Administration Protocol Influenza Virus Vaccine 60 mcg 02/11/18 10:57 Fluzone Quad [id number] IM 02/11/18 10:58 .ONCE ONE Lactobacillus Acidophilus 1 cap 02/09/18 18:00 02/10/18 17:46 Bacid Acidophilus PO 1 cap BID RINA Administration Metoprolol Tartrate 5 mg 02/10/18 18:45 02/11/18 06:17 Lopressor IVP 5 mg Q6H RINA Administration Ondansetron HCl 4 mg 02/08/18 18:58 Zofran Inj IVP Q6 PRN Nausea/Vomiting Pantoprazole Sodium 40 mg 02/09/18 10:00 02/10/18 10:01 Protonix Inj IVP 40 mg DAILY RINA Administration Polyethylene Glycol 17 gm 02/11/18 10:00 Miralax PO DAILY RINA Promethazine HCl/Dextromethorphan 5 ml 02/09/18 16:00 02/09/18 21:59 Phenergan Dm Syrup PO 5 ml Q6H PRN Administration Cough Sodium Polystyrene Sulfonate 30 gm 02/11/18 08:15 Kayexalate Susp PO 02/11/18 08:16 ONCE ONE Tamsulosin HCl 0.4 mg 02/09/18 10:00 02/10/18 10:00 Flomax PO 0.4 mg DAILY RINA Administration - Patient Studies Lab Studies: Microbiology Studies 02/09/18 05:42 MRSA Culture (Admit) - Final Nose MRSA NOT DETECTED 02/08/18 17:25 Blood Culture - Preliminary Blood NO GROWTH AFTER 48 HOURS 02/08/18 16:50 Blood Culture - Preliminary Blood NO GROWTH AFTER 48 HOURS Lab Studies 02/11/18 02/11/18 02/11/18 Range/Units 05:58 05:58 05:58 WBC 7.4 (4.8-10.8) K/uL RBC 7.86 H (4.40-5.90) Mil/uL Hgb 19.3 H (12.0-18.0) g/dL Hct 60.3 H (35.0-51.0) % MCV 76.8 L (80.0-94.0) fL MCH 24.6 L (27.0-31.0) pg MCHC 32.1 L (33.0-37.0) g/dL RDW 22.0 H (11.5-14.5) % Plt Count 398 (130-400) K/uL MPV 9.7 (7.2-11.7) fL Neut % (Auto) 73.9 (50.0-75.0) % Lymph % (Auto) 15.7 L (20.0-40.0) % [place] % (Auto) 7.7 (0.0-10.0) % Eos % (Auto) 1.5 (0.0-4.0) % Baso % (Auto) 1.2 (0.0-2.0) % Neut # (Auto) 5.5 (1.8-7.0) K/uL Lymph # (Auto) 1.2 (1.0-4.3) K/uL [place] # (Auto) 0.6 (0.0-0.8) K/uL Eos # (Auto) 0.1 (0.0-0.7) K/uL Baso # (Auto) 0.1 (0.0-0.2) K/uL PT (9.7-12.2) SECONDS INR APTT (21-34) SECONDS D-Dimer, Quantitative (0-243) ng/mlDDU Sodium 133 (132-148) mmol/L Potassium 5.5 H (3.6-5.2) mmol/L Chloride 108 H (98-107) mmol/L Carbon Dioxide 13 L (22-30) mmol/L Anion Gap 17 (10-20) BUN 36 H (9-20) mg/dL Creatinine 2.3 H (0.8-1.5) mg/dL Est GFR ( Amer) 34 Est GFR (Non-Af Amer) 28 Random Glucose 98 (75-110) mg/dL Calcium 7.8 L (8.6-10.4) mg/dl Phosphorus 5.0 H (2.5-4.5) mg/dL Magnesium 1.8 (1.6-2.3) mg/dL Total Bilirubin 0.6 (0.2-1.3) mg/dL AST 27 (17-59) U/L ALT 17 L D (21-72) U/L Alkaline Phosphatase 176 H (38-126) U/L Total Protein 5.6 L (6.3-8.3) g/dL Albumin 2.7 L (3.5-5.0) g/dL Globulin 2.9 (2.2-3.9) gm/dL Albumin/Globulin Ratio 0.9 L (1.0-2.1) Free T4 1.23 (0.78-2.19) ng/dL TSH 3rd Generation 2.15 (0.46-4.68) mIU/L Urine Color (YELLOW) Urine Clarity (Clear) Urine pH (5.0-8.0) Ur Specific [place] (1.003-1.030) Urine Protein (NEGATIVE) mg/dL Urine Glucose (UA) (Normal) mg/dL Urine Ketones (NEGATIVE) mg/dL Urine Blood (NEGATIVE) Urine Nitrate (NEGATIVE) Urine Bilirubin (NEGATIVE) Urine Urobilinogen (0.2-1.0) mg/dL Ur Leukocyte Esterase (Negative) [place]/uL Urine WBC (Auto) (0-5) /hpf Urine RBC (Auto) (0-3) /hpf Hyaline Casts (0-2) /lpf Hep Bs Antigen (NEGATIVE) Hep Bs Antibody (NEGATIVE) Hep B Core IgM Ab (NEGATIVE) Hepatitis C Antibody (NEGATIVE) Ur L.pneumophila Ag (NEGATIVE) Mycoplasma pneumon IgM (NEGATIVE) 11/29/18 11/29/18 11/29/18 Range/Units 19:13 19:13 11:33 WBC (4.8-10.8) K/uL RBC (4.40-5.90) Mil/uL Hgb (12.0-18.0) g/dL Hct (35.0-51.0) % MCV (80.0-94.0) fL MCH (27.0-31.0) pg MCHC (33.0-37.0) g/dL RDW (11.5-14.5) % Plt Count (130-400) K/uL MPV (7.2-11.7) fL Neut % (Auto) (50.0-75.0) % Lymph % (Auto) (20.0-40.0) % [place] % (Auto) (0.0-10.0) % Eos % (Auto) (0.0-4.0) % Baso % (Auto) (0.0-2.0) % Neut # (Auto) (1.8-7.0) K/uL Lymph # (Auto) (1.0-4.3) K/uL [place] # (Auto) (0.0-0.8) K/uL Eos # (Auto) (0.0-0.7) K/uL Baso # (Auto) (0.0-0.2) K/uL PT 12.2 (9.7-12.2) SECONDS INR 1.1 APTT 41 H (21-34) SECONDS D-Dimer, Quantitative 240 (0-243) ng/mlDDU Sodium (132-148) mmol/L Potassium (3.6-5.2) mmol/L Chloride (98-107) mmol/L Carbon Dioxide (22-30) mmol/L Anion Gap (10-20) BUN (9-20) mg/dL Creatinine (0.8-1.5) mg/dL Est GFR ( Amer) Est GFR (Non-Af Amer) Random Glucose (75-110) mg/dL Calcium (8.6-10.4) mg/dl Phosphorus (2.5-4.5) mg/dL Magnesium (1.6-2.3) mg/dL Total Bilirubin (0.2-1.3) mg/dL AST (17-59) U/L ALT (21-72) U/L Alkaline Phosphatase (38-126) U/L Total Protein (6.3-8.3) g/dL Albumin (3.5-5.0) g/dL Globulin (2.2-3.9) gm/dL Albumin/Globulin Ratio (1.0-2.1) Free T4 (0.78-2.19) ng/dL TSH 3rd Generation (0.46-4.68) mIU/L Urine Color Yellow (YELLOW) Urine Clarity Hazy (Clear) Urine pH 5.0 (5.0-8.0) Ur Specific [place] 1.014 (1.003-1.030) Urine Protein 3+ H (NEGATIVE) mg/dL Urine Glucose (UA) Normal (Normal) mg/dL Urine Ketones Negative (NEGATIVE) mg/dL Urine Blood 1+ H (NEGATIVE) Urine Nitrate Negative (NEGATIVE) Urine Bilirubin Negative (NEGATIVE) Urine Urobilinogen Normal (0.2-1.0) mg/dL Ur Leukocyte Esterase Neg (Negative) [place]/uL Urine WBC (Auto) 2 (0-5) /hpf Urine RBC (Auto) 11 H (0-3) /hpf Hyaline Casts 0-2 (0-2) /lpf Hep Bs Antigen (NEGATIVE) Hep Bs Antibody (NEGATIVE) Hep B Core IgM Ab (NEGATIVE) Hepatitis C Antibody (NEGATIVE) Ur L.pneumophila Ag (NEGATIVE) Mycoplasma pneumon IgM Negative (NEGATIVE) 02/10/18 02/10/18 02/10/18 Range/Units 11:18 11:18 05:45 WBC (4.8-10.8) K/uL RBC (4.40-5.90) Mil/uL Hgb (12.0-18.0) g/dL Hct (35.0-51.0) % MCV (80.0-94.0) fL MCH (27.0-31.0) pg MCHC (33.0-37.0) g/dL RDW (11.5-14.5) % Plt Count (130-400) K/uL MPV (7.2-11.7) fL Neut % (Auto) (50.0-75.0) % Lymph % (Auto) (20.0-40.0) % [place] % (Auto) (0.0-10.0) % Eos % (Auto) (0.0-4.0) % Baso % (Auto) (0.0-2.0) % Neut # (Auto) (1.8-7.0) K/uL Lymph # (Auto) (1.0-4.3) K/uL [place] # (Auto) (0.0-0.8) K/uL Eos # (Auto) (0.0-0.7) K/uL Baso # (Auto) (0.0-0.2) K/uL PT (9.7-12.2) SECONDS INR APTT (21-34) SECONDS D-Dimer, Quantitative (0-243) ng/mlDDU Sodium (132-148) mmol/L Potassium (3.6-5.2) mmol/L Chloride (98-107) mmol/L Carbon Dioxide (22-30) mmol/L Anion Gap (10-20) BUN (9-20) mg/dL Creatinine (0.8-1.5) mg/dL Est GFR ( Amer) Est GFR (Non-Af Amer) Random Glucose (75-110) mg/dL Calcium (8.6-10.4) mg/dl Phosphorus (2.5-4.5) mg/dL Magnesium (1.6-2.3) mg/dL Total Bilirubin (0.2-1.3) mg/dL AST (17-59) U/L ALT (21-72) U/L Alkaline Phosphatase (38-126) U/L Total Protein (6.3-8.3) g/dL Albumin (3.5-5.0) g/dL Globulin (2.2-3.9) gm/dL Albumin/Globulin Ratio (1.0-2.1) Free T4 (0.78-2.19) ng/dL TSH 3rd Generation (0.46-4.68) mIU/L Urine Color (YELLOW) Urine Clarity (Clear) Urine pH (5.0-8.0) Ur Specific [place] (1.003-1.030) Urine Protein (NEGATIVE) mg/dL Urine Glucose (UA) (Normal) mg/dL Urine Ketones (NEGATIVE) mg/dL Urine Blood (NEGATIVE) Urine Nitrate (NEGATIVE) Urine Bilirubin (NEGATIVE) Urine Urobilinogen (0.2-1.0) mg/dL Ur Leukocyte Esterase (Negative) [place]/uL Urine WBC (Auto) (0-5) /hpf Urine RBC (Auto) (0-3) /hpf Hyaline Casts (0-2) /lpf Hep Bs Antigen Negative (NEGATIVE) Hep Bs Antibody Positive (NEGATIVE) Hep B Core IgM Ab Negative (NEGATIVE) Hepatitis C Antibody Negative (NEGATIVE) Ur L.pneumophila Ag Negative (NEGATIVE) Mycoplasma pneumon IgM (NEGATIVE) Laboratory Results - last 24 hr 02/10/18 02/10/18 02/10/18 05:45 11:18 11:18 WBC RBC Hgb Hct MCV MCH MCHC RDW Plt Count MPV Neut % (Auto) Lymph % (Auto) [place] % (Auto) Eos % (Auto) Baso % (Auto) Neut # (Auto) Lymph # (Auto) [place] # (Auto) Eos # (Auto) Baso # (Auto) PT INR APTT D-Dimer, Quantitative Sodium Potassium Chloride Carbon Dioxide Anion Gap BUN Creatinine Est GFR ( Amer) Est GFR (Non-Af Amer) Random Glucose Calcium Phosphorus Magnesium Total Bilirubin AST ALT Alkaline Phosphatase Total Protein Albumin Globulin Albumin/Globulin Ratio Free T4 TSH 3rd Generation Urine Color Urine Clarity Urine pH Ur Specific [place] Urine Protein Urine Glucose (UA) Urine Ketones Urine Blood Urine Nitrate Urine Bilirubin Urine Urobilinogen Ur Leukocyte Esterase Urine WBC (Auto) Urine RBC (Auto) Hyaline Casts Hep Bs Antigen Negative Hep Bs Antibody Positive Hep B Core IgM Ab Negative Hepatitis C Antibody Negative Ur L.pneumophila Ag Negative Mycoplasma pneumon IgM 02/10/18 02/10/18 02/10/18 11:33 19:13 19:13 WBC RBC Hgb Hct MCV MCH MCHC RDW Plt Count MPV Neut % (Auto) Lymph % (Auto) [place] % (Auto) Eos % (Auto) Baso % (Auto) Neut # (Auto) Lymph # (Auto) [place] # (Auto) Eos # (Auto) Baso # (Auto) PT 12.2 INR 1.1 APTT 41 H D-Dimer, Quantitative 240 Sodium Potassium Chloride Carbon Dioxide Anion Gap BUN Creatinine Est GFR ( Amer) Est GFR (Non-Af Amer) Random Glucose Calcium Phosphorus Magnesium Total Bilirubin AST ALT Alkaline Phosphatase Total Protein Albumin Globulin Albumin/Globulin Ratio Free T4 TSH 3rd Generation Urine Color Yellow Urine Clarity Hazy Urine pH 5.0 Ur Specific [place] 1.014 Urine Protein 3+ H Urine Glucose (UA) Normal Urine Ketones Negative Urine Blood 1+ H Urine Nitrate Negative Urine Bilirubin Negative Urine Urobilinogen Normal Ur Leukocyte Esterase Neg Urine WBC (Auto) 2 Urine RBC (Auto) 11 H Hyaline Casts 0-2 Hep Bs Antigen Hep Bs Antibody Hep B Core IgM Ab Hepatitis C Antibody Ur L.pneumophila Ag Mycoplasma pneumon IgM Negative 02/11/18 02/11/18 02/11/18 05:58 05:58 05:58 WBC 7.4 RBC 7.86 H Hgb 19.3 H Hct 60.3 H MCV 76.8 L MCH 24.6 L MCHC 32.1 L RDW 22.0 H Plt Count 398 MPV 9.7 Neut % (Auto) 73.9 Lymph % (Auto) 15.7 L [place] % (Auto) 7.7 Eos % (Auto) 1.5 Baso % (Auto) 1.2 Neut # (Auto) 5.5 Lymph # (Auto) 1.2 [place] # (Auto) 0.6 Eos # (Auto) 0.1 Baso # (Auto) 0.1 PT INR APTT D-Dimer, Quantitative Sodium 133 Potassium 5.5 H Chloride 108 H Carbon Dioxide 13 L Anion Gap 17 BUN 36 H Creatinine 2.3 H Est GFR ( Amer) 34 Est GFR (Non-Af Amer) 28 Random Glucose 98 Calcium 7.8 L Phosphorus 5.0 H Magnesium 1.8 Total Bilirubin 0.6 AST 27 ALT 17 L D Alkaline Phosphatase 176 H Total Protein 5.6 L Albumin 2.7 L Globulin 2.9 Albumin/Globulin Ratio 0.9 L Free T4 1.23 TSH 3rd Generation 2.15 Urine Color Urine Clarity Urine pH Ur Specific [place] Urine Protein Urine Glucose (UA) Urine Ketones Urine Blood Urine Nitrate Urine Bilirubin Urine Urobilinogen Ur Leukocyte Esterase Urine WBC (Auto) Urine RBC (Auto) Hyaline Casts Hep Bs Antigen Hep Bs Antibody Hep B Core IgM Ab Hepatitis C Antibody Ur L.pneumophila Ag Mycoplasma pneumon IgM Critical Care Progress Note - Nutrition Nutrition: Nutrition Category Date Time Status Heart Healthy Diet [DIET] Diets 02/08/18 Dinner Active Assessment/Plan - Assessment and Plan (Free Text) Assessment: Patient is a 67 year old male with past medical history of BPH and CKD (not on HD) presenting with SOB for 2 days. Patient was found to have a hemoglobin of 21.4 in the ED. Plan: Neuro: - Patient is AAO X 3 Pulm: Respiratory distress - Likely 2/2 polycythemia - CXR (02/08): Prominent hilar and perihilar bronchovascular markings. Bronchiolar thickening along with subsegmental inflammatory patchy infiltrates coalescing are a consideration. Left infrahilar coalescence/patchy infiltrate and/or atelectasis posterior suspect. Findings are in addition to pulmonary venous congestion suspect. Mild cardiomegaly. - ABG: pO2 92 pCO2 26 pH 7.35 - Carboxyhemoglobin: 2.4 (high) - Methemoglobin: 0.9 - Promethazine/codeine Q4H PRN for cough R/o PNA - Discontinue IV antibiotics - Legionella, M. pneumoniae, S. pneumoniae: negative - No leukocytosis - Patient is afebrile Pleural effusion - Plan for thoracentesis 02/11 - Chest CT (02/10): Moderate to large bilateral pleural effusions associated with bilateral lower lobe atelectasis. Round shaped opacity at the inferior peripheral portion of the right middle lobe which may represent atelectasis versus neoplasm. - CXR (02/11): Worsening airspace opacifications seen within the bilateral hilar region extending into the mid to lower lung zones bilaterally suggestive for worsening infiltrate and or edema. Diffuse increased interstitial lung markings bilaterally. Mild cardiomegaly. Cardiovascular: Tachycardia - HR: 110-120 - EKG: Sinus tachycardia, LVH - Metoprolol 5mg IV Q6 - Echo: f/u Renal: CKD stage 4 - BUN/Cr: 36/2.3- downtrending - Nephrology consulted, Dr. Nielsen - Renal u/s (02/09): Echogenic renal parenchyma bilaterally may be seen in setting of medical renal disease. 5 mm mid to lower pole left renal calculus, nonobstructing. 1.1 cm left lower pole renal cyst. - Not on HD Hyperkalemia - Potassium: 5.5 - Kayexalate given - Continue to monitor Heme: Polycythemia - On admission, Hb/Hct: 21.4/68.8 - Heme-onc consulted, Dr. Hoover - Continue with therapeutic phlebotomy - Aspirin 81mg PO QD - Hydroxyurea 1000mg PO QD - EPO levels, [id number] mutation: f/u - Carboxyhemoglobin: 2.4 (high) GI: Nausea and vomiting - Zofran 4mg IV Q6 PRN Constipation - Polyethylene glycol daily - Docusate 100mg PO BID : BPH - Flomax 0.4mg PO QD ID: - MRSA: not detected - Blood culture: no growth Prophylaxis: - Protonix 40mg IV QD - Heparin 5000 units SC Q8 - Lactobacillus Case discussed with Dr. Anna Diaz, PGY-1 <Ritesh Castillo - Last Filed: 02/11/18 16:40> CCU Objective - Vital Signs / Intake & Output Vital Signs (Last 4 hours): Vital Signs Pulse Resp BP Pulse Ox 02/11/18 15:12 103 H 18 121/86 94 L 02/11/18 15:00 99 H 22 123/86 97 02/11/18 14:12 110 H 21 123/86 94 L 02/11/18 14:00 105 H 14 138/78 96 02/11/18 13:12 111 H 25 H 131/91 H 98 02/11/18 13:00 117 H 30 H 95 Intake and Output (Last 8hrs): Intake & Output 02/11/18 02/11/18 02/11/18 06:59 14:59 22:59 Intake Total 920 1880 160 Output Total 2100 Balance 920 -220 160 Weight 159 lb Intake: Intake, IV Amount 800 800 100 Left Antecubital 800 800 100 Oral 120 1080 60 Output: Drainage 2000 Bilateral Chest 2000 Urine 100 Urine, Voided 100 Other: # Voids Urine, Voided 1 160 160 # Bowel Movements 1 - Medications Active Medications: Active Medications Generic Name Dose Route Start Last Admin Trade Name Freq PRN Reason Stop Dose Admin Albuterol/Ipratropium 3 ml 02/10/18 17:13 Duoneb 3 Mg/0.5 Mg (3 Ml) Ud INH RQ6 PRN Shortness of Breath Aspirin 81 mg 02/08/18 18:45 02/11/18 10:00 Aspirin Chewable PO 81 mg DAILY RINA Administration Calcium Acetate 667 mg 02/11/18 17:00 Phoslo PO TIDCC RINA Docusate Sodium 100 mg 02/10/18 18:00 02/11/18 11:23 Colace PO 100 mg BID RINA Administration Heparin Sodium (Porcine) 5,000 units 02/08/18 22:00 02/11/18 14:10 Heparin SC 5,000 units Q8 RINA Administration Hydroxyurea 1,000 mg 02/10/18 13:45 02/11/18 12:02 Hydrea PO 1,000 mg DAILY RINA Administration Lactobacillus Acidophilus 1 cap 02/09/18 18:00 02/11/18 11:25 Bacid Acidophilus PO 1 cap BID RINA Administration Metoprolol Tartrate 5 mg 02/10/18 18:45 02/11/18 13:00 Lopressor IVP 5 mg Q6H RINA Administration Ondansetron HCl 4 mg 02/08/18 18:58 Zofran Inj IVP Q6 PRN Nausea/Vomiting Pantoprazole Sodium 40 mg 02/09/18 10:00 02/11/18 11:00 Protonix Inj IVP 40 mg DAILY RINA Administration Polyethylene Glycol 17 gm 02/11/18 10:00 02/11/18 11:28 Miralax PO Not Given DAILY RINA Promethazine HCl/Dextromethorphan 5 ml 02/09/18 16:00 02/11/18 11:27 Phenergan Dm Syrup PO 5 ml Q6H PRN Administration Cough Sodium Bicarbonate 650 mg 02/11/18 14:00 02/11/18 14:09 Sodium Bicarbonate Tab PO 650 mg TID RINA Administration Tamsulosin HCl 0.4 mg 02/09/18 10:00 02/11/18 11:21 Flomax PO 0.4 mg DAILY RINA Administration - Patient Studies Lab Studies: Microbiology Studies 02/09/18 05:42 MRSA Culture (Admit) - Final Nose MRSA NOT DETECTED 02/08/18 17:25 Blood Culture - Preliminary Blood NO GROWTH AFTER 48 HOURS 02/08/18 16:50 Blood Culture - Preliminary Blood NO GROWTH AFTER 48 HOURS Lab Studies 02/11/18 02/11/18 02/11/18 Range/Units 05:58 05:58 05:58 WBC 7.4 (4.8-10.8) K/uL RBC 7.86 H (4.40-5.90) Mil/uL Hgb 19.3 H (12.0-18.0) g/dL Hct 60.3 H (35.0-51.0) % MCV 76.8 L (80.0-94.0) fL MCH 24.6 L (27.0-31.0) pg MCHC 32.1 L (33.0-37.0) g/dL RDW 22.0 H (11.5-14.5) % Plt Count 398 (130-400) K/uL MPV 9.7 (7.2-11.7) fL Neut % (Auto) 73.9 (50.0-75.0) % Lymph % (Auto) 15.7 L (20.0-40.0) % [place] % (Auto) 7.7 (0.0-10.0) % Eos % (Auto) 1.5 (0.0-4.0) % Baso % (Auto) 1.2 (0.0-2.0) % Neut # (Auto) 5.5 (1.8-7.0) K/uL Lymph # (Auto) 1.2 (1.0-4.3) K/uL [place] # (Auto) 0.6 (0.0-0.8) K/uL Eos # (Auto) 0.1 (0.0-0.7) K/uL Baso # (Auto) 0.1 (0.0-0.2) K/uL PT (9.7-12.2) SECONDS INR APTT (21-34) SECONDS D-Dimer, Quantitative (0-243) ng/mlDDU Sodium 133 (132-148) mmol/L Potassium 5.5 H (3.6-5.2) mmol/L Chloride 108 H (98-107) mmol/L Carbon Dioxide 13 L (22-30) mmol/L Anion Gap 17 (10-20) BUN 36 H (9-20) mg/dL Creatinine 2.3 H (0.8-1.5) mg/dL Est GFR ( Amer) 34 Est GFR (Non-Af Amer) 28 Random Glucose 98 (75-110) mg/dL Calcium 7.8 L (8.6-10.4) mg/dl Phosphorus 5.0 H (2.5-4.5) mg/dL Magnesium 1.8 (1.6-2.3) mg/dL Total Bilirubin 0.6 (0.2-1.3) mg/dL AST 27 (17-59) U/L ALT 17 L D (21-72) U/L Alkaline Phosphatase 176 H (38-126) U/L Total Protein 5.6 L (6.3-8.3) g/dL Albumin 2.7 L (3.5-5.0) g/dL Globulin 2.9 (2.2-3.9) gm/dL Albumin/Globulin Ratio 0.9 L (1.0-2.1) Free T4 1.23 (0.78-2.19) ng/dL TSH 3rd Generation 2.15 (0.46-4.68) mIU/L PTH Intact Whole Molec (14-64) pg/mL Urine Collection Time HRS Urine Total Volume mL Ur Protein 24 Hr Calc (42-225) mg/24hr FARTUN 6 Profile (NEGATIVE) FARTUN Titer FARTUN Pattern Mycoplasma pneumon IgM (NEGATIVE) 02/10/18 02/10/18 02/10/18 Range/Units 19:13 19:13 11:42 WBC (4.8-10.8) K/uL RBC (4.40-5.90) Mil/uL Hgb (12.0-18.0) g/dL Hct (35.0-51.0) % MCV (80.0-94.0) fL MCH (27.0-31.0) pg MCHC (33.0-37.0) g/dL RDW (11.5-14.5) % Plt Count (130-400) K/uL MPV (7.2-11.7) fL Neut % (Auto) (50.0-75.0) % Lymph % (Auto) (20.0-40.0) % [place] % (Auto) (0.0-10.0) % Eos % (Auto) (0.0-4.0) % Baso % (Auto) (0.0-2.0) % Neut # (Auto) (1.8-7.0) K/uL Lymph # (Auto) (1.0-4.3) K/uL [place] # (Auto) (0.0-0.8) K/uL Eos # (Auto) (0.0-0.7) K/uL Baso # (Auto) (0.0-0.2) K/uL PT 12.2 (9.7-12.2) SECONDS INR 1.1 APTT 41 H (21-34) SECONDS D-Dimer, Quantitative 240 (0-243) ng/mlDDU Sodium (132-148) mmol/L Potassium (3.6-5.2) mmol/L Chloride (98-107) mmol/L Carbon Dioxide (22-30) mmol/L Anion Gap (10-20) BUN (9-20) mg/dL Creatinine (0.8-1.5) mg/dL Est GFR ( Amer) Est GFR (Non-Af Amer) Random Glucose (75-110) mg/dL Calcium (8.6-10.4) mg/dl Phosphorus (2.5-4.5) mg/dL Magnesium (1.6-2.3) mg/dL Total Bilirubin (0.2-1.3) mg/dL AST (17-59) U/L ALT (21-72) U/L Alkaline Phosphatase (38-126) U/L Total Protein (6.3-8.3) g/dL Albumin (3.5-5.0) g/dL Globulin (2.2-3.9) gm/dL Albumin/Globulin Ratio (1.0-2.1) Free T4 (0.78-2.19) ng/dL TSH 3rd Generation (0.46-4.68) mIU/L PTH Intact Whole Molec (14-64) pg/mL Urine Collection Time 24 HRS Urine Total Volume 1250 mL Ur Protein 24 Hr Calc 6887.5 H (42-225) mg/24hr FARTUN 6 Profile (NEGATIVE) FARTUN Titer FARTUN Pattern Mycoplasma pneumon IgM Negative (NEGATIVE) 02/10/18 02/10/18 Range/Units 11:18 11:18 WBC (4.8-10.8) K/uL RBC (4.40-5.90) Mil/uL Hgb (12.0-18.0) g/dL Hct (35.0-51.0) % MCV (80.0-94.0) fL MCH (27.0-31.0) pg MCHC (33.0-37.0) g/dL RDW (11.5-14.5) % Plt Count (130-400) K/uL MPV (7.2-11.7) fL Neut % (Auto) (50.0-75.0) % Lymph % (Auto) (20.0-40.0) % [place] % (Auto) (0.0-10.0) % Eos % (Auto) (0.0-4.0) % Baso % (Auto) (0.0-2.0) % Neut # (Auto) (1.8-7.0) K/uL Lymph # (Auto) (1.0-4.3) K/uL [place] # (Auto) (0.0-0.8) K/uL Eos # (Auto) (0.0-0.7) K/uL Baso # (Auto) (0.0-0.2) K/uL PT (9.7-12.2) SECONDS INR APTT (21-34) SECONDS D-Dimer, Quantitative (0-243) ng/mlDDU Sodium (132-148) mmol/L Potassium (3.6-5.2) mmol/L Chloride (98-107) mmol/L Carbon Dioxide (22-30) mmol/L Anion Gap (10-20) BUN (9-20) mg/dL Creatinine (0.8-1.5) mg/dL Est GFR ( Amer) Est GFR (Non-Af Amer) Random Glucose (75-110) mg/dL Calcium (8.6-10.4) mg/dl Phosphorus (2.5-4.5) mg/dL Magnesium (1.6-2.3) mg/dL Total Bilirubin (0.2-1.3) mg/dL AST (17-59) U/L ALT (21-72) U/L Alkaline Phosphatase (38-126) U/L Total Protein (6.3-8.3) g/dL Albumin (3.5-5.0) g/dL Globulin (2.2-3.9) gm/dL Albumin/Globulin Ratio (1.0-2.1) Free T4 (0.78-2.19) ng/dL TSH 3rd Generation (0.46-4.68) mIU/L PTH Intact Whole Molec 113 H (14-64) pg/mL Urine Collection Time HRS Urine Total Volume mL Ur Protein 24 Hr Calc (42-225) mg/24hr FARTUN 6 Profile Positive H (NEGATIVE) FARTUN Titer 1:80 H FARTUN Pattern Speckled H Mycoplasma pneumon IgM (NEGATIVE) Laboratory Results - last 24 hr 02/10/18 02/10/18 02/10/18 11:18 11:18 11:42 WBC RBC Hgb Hct MCV MCH MCHC RDW Plt Count MPV Neut % (Auto) Lymph % (Auto) [place] % (Auto) Eos % (Auto) Baso % (Auto) Neut # (Auto) Lymph # (Auto) [place] # (Auto) Eos # (Auto) Baso # (Auto) PT INR APTT D-Dimer, Quantitative Sodium Potassium Chloride Carbon Dioxide Anion Gap BUN Creatinine Est GFR ( Amer) Est GFR (Non-Af Amer) Random Glucose Calcium Phosphorus Magnesium Total Bilirubin AST ALT Alkaline Phosphatase Total Protein Albumin Globulin Albumin/Globulin Ratio Free T4 TSH 3rd Generation PTH Intact Whole Molec 113 H Urine Collection Time 24 Urine Total Volume 1250 Ur Protein 24 Hr Calc 6887.5 H FARTUN 6 Profile Positive H FARTUN Titer 1:80 H FARTUN Pattern Speckled H Mycoplasma pneumon IgM 02/10/18 02/10/18 02/11/18 19:13 19:13 05:58 WBC 7.4 RBC 7.86 H Hgb 19.3 H Hct 60.3 H MCV 76.8 L MCH 24.6 L MCHC 32.1 L RDW 22.0 H Plt Count 398 MPV 9.7 Neut % (Auto) 73.9 Lymph % (Auto) 15.7 L [place] % (Auto) 7.7 Eos % (Auto) 1.5 Baso % (Auto) 1.2 Neut # (Auto) 5.5 Lymph # (Auto) 1.2 [place] # (Auto) 0.6 Eos # (Auto) 0.1 Baso # (Auto) 0.1 PT 12.2 INR 1.1 APTT 41 H D-Dimer, Quantitative 240 Sodium Potassium Chloride Carbon Dioxide Anion Gap BUN Creatinine Est GFR ( Amer) Est GFR (Non-Af Amer) Random Glucose Calcium Phosphorus Magnesium Total Bilirubin AST ALT Alkaline Phosphatase Total Protein Albumin Globulin Albumin/Globulin Ratio Free T4 TSH 3rd Generation PTH Intact Whole Molec Urine Collection Time Urine Total Volume Ur Protein 24 Hr Calc FARTUN 6 Profile FARTUN Titer FARTUN Pattern Mycoplasma pneumon IgM Negative 02/11/18 02/11/18 05:58 05:58 WBC RBC Hgb Hct MCV MCH MCHC RDW Plt Count MPV Neut % (Auto) Lymph % (Auto) [place] % (Auto) Eos % (Auto) Baso % (Auto) Neut # (Auto) Lymph # (Auto) [place] # (Auto) Eos # (Auto) Baso # (Auto) PT INR APTT D-Dimer, Quantitative Sodium 133 Potassium 5.5 H Chloride 108 H Carbon Dioxide 13 L Anion Gap 17 BUN 36 H Creatinine 2.3 H Est GFR ( Amer) 34 Est GFR (Non-Af Amer) 28 Random Glucose 98 Calcium 7.8 L Phosphorus 5.0 H Magnesium 1.8 Total Bilirubin 0.6 AST 27 ALT 17 L D Alkaline Phosphatase 176 H Total Protein 5.6 L Albumin 2.7 L Globulin 2.9 Albumin/Globulin Ratio 0.9 L Free T4 1.23 TSH 3rd Generation 2.15 PTH Intact Whole Molec Urine Collection Time Urine Total Volume Ur Protein 24 Hr Calc FARUTN 6 Profile FARTUN Titer FARTUN Pattern Mycoplasma pneumon IgM Critical Care Progress Note - Nutrition Nutrition: Nutrition Category Date Time Status Heart Healthy Diet [DIET] Diets 02/08/18 Dinner Active Attending/Attestation - Attestation I have personally seen and examined this patient.: Yes I have fully participated in the care of the patient.: Yes I have reviewed all pertinent clinical information: Yes Notes (Text): 02/11/18 16:33 I have seen and examined the patient. Medical records, lab studies, and imaging were reviewed by me and a management plan was formulated on multidisciplinary rounds with resident Dr. Diaz. I agree with their documented assessment and plan. Patient had bilateral thoracentesis, with marked improvement in respiratory status. Approximately 1L removed from each lung. Possible underlying malignancy, with nodule in right lung and bilateral effusions and recent 20Lb weight loss with polycythemia vera. CKD with hyperkalemia, gave Kayexalate. Nephrotic syndrome, obtaining renal biopsy. Critical Care Time 35 minutes. Multi-disciplinary rounds were performed with house staff, nursing, speech therapy, respiratory therapy, pharmacy and nutrition with integrated input from the primary team/attending and other consulting services. The documented time is cumulative and includes review of patient data/exams/labs/chart review and examination of the patient on rounds and throughout the day; time is exclusive of any procedures or teaching time.
--- NOTE | 2018-02-11 09:30 | RAD ---
Chest x-ray single frontal view HISTORY: Wheezing. COMPARISON: 02/08/2018 Findings: Worsening airspace opacifications seen within the bilateral hilar region extending into the mid to lower lung zones bilaterally suggestive for worsening infiltrate and or edema. Diffuse increased interstitial lung markings bilaterally. Mild cardiomegaly. Degenerative changes in the spine. Impression: Worsening airspace opacifications seen within the bilateral hilar region extending into the mid to lower lung zones bilaterally suggestive for worsening infiltrate and or edema. Diffuse increased interstitial lung markings bilaterally. Mild cardiomegaly.
--- NOTE | 2018-02-11 09:33 | CT ---
Date of service: 02/10/2018 PROCEDURE: CT Chest without contrast HISTORY: pneumonia COMPARISON: No prior similar study available for comparison TECHNIQUE: Contiguous axial images were obtained through the chest without intravenous contrast enhancement. Sagittal and coronal reconstructions were performed. Radiation dose: Total exam DLP = 541.04 mGy-cm. This CT exam was performed using one or more of the following dose reduction techniques: Automated exposure control, adjustment of the mA and/or kV according to patient size, and/or use of iterative reconstruction technique. FINDINGS: LUNGS: There is airspace consolidation at the peripheral inferior aspect of right middle lobe has round shape measures 2.4 centimeter in the transverse diameter. There is partial collapse and consolidation of the lower lobes likely due to pleural effusion. Mild to moderate pulmonary vascular congestion is noted and associated with small ground-glass opacities. MEDIASTINUM: Unremarkable thoracic aorta. No aneurysm. Normal sized heart. The main pulmonary artery is mildly enlarged. No lymphadenopathy. No aortic atherosclerotic calcification. PLEURA: There are bilateral [id number]-[id number]-[id number] pleural effusions. BONES: No fracture. No destructive lesion. UPPER ABDOMEN: Grossly unremarkable. OTHER FINDINGS: None. IMPRESSION: Moderate to large bilateral pleural effusions associated with bilateral lower lobe atelectasis. Round shaped opacity at the inferior peripheral portion of the right middle lobe which may represent atelectasis versus neoplasm. Follow-up reassessment is recommended. Preliminary report was submitted by [facility].
[2018-02-11] MEDS ORDERED: Influenza Vaccine 60 MCG/0.5 ML SYR (3 yr & up) IM ONE (10:57)
[2018-02-11] MEDS: Lactobacillus Acidophilus 500 MU Cap PO SCH ×2 (11:25→19:27)
[2018-02-11] MEDS: Promethazine DM 6.25 mg-15 mg/5 ml Syrup PO PRN (11:27)
[2018-02-11] MEDS: POLYETHYLENE GLYCOL 3350 17 GM/Dose PACKET PO SCH (11:28)
--- NOTE | 2018-02-11 11:48 | PCM.SURG1 ---
Surgeon's Initial Post Op Note - Surgeon's Notes Surgeon: Braeden Meadows MD Store Receiver: NONE Type of Anesthesia: Local Pre-Operative Diagnosis: Bilateral pleural effusion Operative Findings: US showed large left and moderate right pleural effusions Post-Operative Diagnosis: Bilateral pleural effusion Operation Performed: US guided right and left thoracentesis Specimen/Specimens Removed: 1 liter from right and 1.2 liters from left Estimated Blood Loss: EBL {In ML}: 0 Blood Products Given: N/A Drains Used: No Drains Post-Op Condition: Fair Date of Surgery/Procedure: 02/11/18 Time of Surgery/Procedure: 11:45
[2018-02-11 12:16] LABS: ANA PATTERN SPECKLED
[2018-02-11 12:22] LABS: URINE 24 HOUR TOTAL PROTEIN 6887.5 mg/24hr (42-225)
--- NOTE | 2018-02-11 12:28 | RAD ---
Date of service: 02/11/2018 HISTORY: Status post thoracentesis. COMPARISON: Comparison made with prior chest radiographs earlier same day at 07:20 hours FINDINGS: LUNGS: Interval left-sided thoracentesis with decreased size left-sided effusion. There appears to be a small amount of residual left-sided pleural fluid and mild left basilar atelectasis and/or infiltrate.. Interval improvement pulmonary venous congestive changes. Minimal right basilar atelectasis. PLEURA: As above. No obvious pneumothorax apparent. CARDIOVASCULAR: No aortic atherosclerotic calcification present. Normal cardiac size. No pulmonary vascular congestion. OSSEOUS STRUCTURES: No significant abnormalities. VISUALIZED UPPER ABDOMEN: Normal. OTHER FINDINGS: None. IMPRESSION: Interval left-sided thoracentesis with decreased size left-sided effusion. There appears to be a small amount of residual left-sided pleural fluid and mild left basilar atelectasis and/or infiltrate.. Interval improvement pulmonary venous congestive changes. Minimal right basilar atelectasis.
--- NOTE | 2018-02-11 12:44 | VASCLAB ---
Date of service: 02/10/2018 PROCEDURE: Lower Extremity Venous Duplex Exam. HISTORY: Lower extremity swelling PRIORS: None. TECHNIQUE: Bilateral common femoral, femoral, popliteal and posterior tibial, peroneal and great saphenous veins were evaluated. Flow was assessed with color Doppler, compressibility, assessment of phasic flow and augmentation response. Report prepared by CHAVEZ Macias FINDINGS: RIGHT: 1. Common Femoral Vein: 1.1. Compressibility - Fully compressible: Thrombus - None : Flow - Phasic: Augmentation -Normal: Reflux - None. 2. Femoral Vein: 2.1. Compressibility - Fully compressible: Thrombus - None : Flow - Phasic: Augmentation -Normal: Reflux - None. 3. Popliteal Vein: 3.1. Compressibility - Fully compressible: Thrombus - None : Flow - Phasic: Augmentation -Normal: Reflux - None. 4. Posterior Tibial Vein: 4.1. Compressibility - Fully compressible: Thrombus - None: Flow - Phasic: Augmentation -Normal: Reflux - None. 5. Peroneal Vein: 5.1. Compressibility - Fully compressible: Thrombus - None: Flow - Phasic: Augmentation -Normal: Reflux - None. 6. Great Saphenous Vein: 6.1. Compressibility - Fully compressible: Thrombus - None: Flow - Phasic: Augmentation - Normal: Reflux - None. LEFT: 1. Common Femoral Vein: 1.1. Compressibility - Fully compressible: Thrombus - None: Flow - Phasic: Augmentation -Normal: Reflux - None. 2. Femoral Vein: 2.1. Compressibility - Fully compressible: Thrombus - None: Flow - Phasic: Augmentation -Normal: Reflux - None. 3. Popliteal Vein: 3.1. Compressibility - Fully compressible: Thrombus - None : Flow - Phasic: Augmentation -Normal: Reflux - None. 4. Posterior Tibial Vein: 4.1. Compressibility - Fully compressible: Thrombus - None: Flow - Phasic: Augmentation -Normal: Reflux - None. 5. Peroneal Vein: 5.1. Compressibility - Fully compressible: Thrombus - None: Flow - Phasic: Augmentation -Normal: Reflux - None. 6. Great Saphenous Vein: 6.1. Compressibility - Fully compressible: Thrombus - None: Flow - Phasic: Augmentation - Normal: Reflux - None. OTHER FINDINGS: Right: None significant. Left: None significant. IMPRESSION: Right: No evidence of deep or superficial vein thrombosis of the right lower extremity. Normal valve function noted of the right side. Left: No evidence of deep or superficial vein thrombosis of the left lower extremity. Normal valve function noted of the left side.
--- NOTE | 2018-02-11 13:09 | CP.PCM.PN ---
Subjective - Date & Time of Evaluation Date of Evaluation: 02/11/18 Time of Evaluation: 13:06 - Subjective Subjective: s/p thoracentesis hydroxyurea started for polycythemia has nephrotic syndrome, also CKD 4 dicussed renal bx with family, they would want this for diagnostic reasons K elevated, phos increased, more acidemic Objective - Vital Signs/Intake and Output Vital Signs (last 24 hours): Temp Pulse Resp BP Pulse Ox 98.3 F 111 H 22 135/54 L 99 02/11/18 11:54 02/11/18 11:54 02/11/18 11:54 02/11/18 11:54 02/11/18 11:54 Intake and Output: 02/11/18 02/11/18 06:59 18:59 Intake Total 1340 1400 Balance 1340 1400 - Medications Medications: Current Medications Albuterol/Ipratropium (Duoneb 3 Mg/0.5 Mg (3 Ml) Ud) 3 ml INH RQ6 PRN PRN Reason: Shortness of Breath Aspirin (Aspirin Chewable) 81 mg PO DAILY [facility] Last Admin: 02/11/18 10:00 Dose: 81 mg Docusate Sodium (Colace) 100 mg PO BID [facility] Last Admin: 02/11/18 11:23 Dose: 100 mg Heparin Sodium (Porcine) (Heparin) 5,000 units SC Q8 [facility] Last Admin: 02/11/18 06:14 Dose: 5,000 units Hydroxyurea (Hydrea) 1,000 mg PO DAILY [facility] Last Admin: 02/11/18 12:02 Dose: 1,000 mg Lactobacillus Acidophilus (Bacid Acidophilus) 1 cap PO BID [facility] Last Admin: 02/11/18 11:25 Dose: 1 cap Metoprolol Tartrate (Lopressor) 5 mg IVP Q6H [facility] Last Admin: 02/11/18 06:17 Dose: 5 mg Ondansetron HCl (Zofran Inj) 4 mg IVP Q6 PRN PRN Reason: Nausea/Vomiting Pantoprazole Sodium (Protonix Inj) 40 mg IVP DAILY [facility] Last Admin: 02/11/18 11:00 Dose: 40 mg Polyethylene Glycol (Miralax) 17 gm PO DAILY [facility] Last Admin: 02/11/18 11:28 Dose: Not Given Promethazine HCl/Dextromethorphan (Phenergan Dm Syrup) 5 ml PO Q6H PRN PRN Reason: Cough Last Admin: 02/11/18 11:27 Dose: 5 ml Tamsulosin HCl (Flomax) 0.4 mg PO DAILY [facility] Last Admin: 02/11/18 11:21 Dose: 0.4 mg - Labs Labs: 02/11/18 05:58 02/11/18 05:58 PT 12.2 SECONDS (9.7-12.2) 02/10/18 19:13 INR 1.1 02/10/18 19:13 APTT 41 SECONDS (21-34) H 02/10/18 19:13 - Constitutional Appears: No Acute Distress, Chronically Ill - Head Exam Head Exam: ATRAUMATIC, NORMAL INSPECTION - Eye Exam Eye Exam: EOMI, Normal appearance - Neck Exam Neck Exam: Normal Inspection. absent: Tenderness - Respiratory Exam Respiratory Exam: Clear to Ausculation Bilateral, NORMAL BREATHING PATTERN - Cardiovascular Exam Cardiovascular Exam: REGULAR RHYTHM, +S1 - GI/Abdominal Exam GI & Abdominal Exam: Soft. absent: Tenderness - Extremities Exam Extremities Exam: Normal Inspection. absent: Tenderness - Neurological Exam Neurological Exam: Awake, CN II-XII Intact - Skin Skin Exam: Dry, Warm Assessment and Plan (1) Interstitial lung disease Status: Acute (2) CKD (chronic kidney disease) stage 4, GFR 15-29 ml/min Status: Acute (3) Polycythemia Status: Acute (4) Nephrotic syndrome Status: Acute - Assessment and Plan (Free Text) Plan: Add na bicarb Add ca acetate rx hyperkalemia schedule renal bx
--- NOTE | 2018-02-11 13:29 | US ---
PROCEDURE: Date of procedure: 02/11/2018 Procedure: 1. Ultrasound-guided left thoracentesis, CPT 87719 Medications: 6cc 1% Lidocaine HISTORY: Left pleural effusion, shortness of breath TECHNIQUE: Following informed consent ,the Patients' left chest was marked. Procedure time-out was called, and the patient was placed in the sitting position and limited ultrasound showed a large left effusion. The patient's left back was prepped and draped in the usual sterile fashion. After the skin was anesthetized with lidocaine, a drainage catheter was advanced under ultrasound guidance into the pleural space. Ultrasound-guided thoracentesis was performed. A total of 1200 cubic centimeters of straw-colored fluid removed without complication. A Xeroform dressing was applied. IMPRESSION: Ultrasound guided left thoracentesis. There were no immediate complications.
--- NOTE | 2018-02-11 13:29 | US ---
PROCEDURE: Date of procedure: 02/11/2018 Procedure: 1. Ultrasound-guided Right thoracentesis, CPT 07246 Medications: 5cc 1% Lidocaine HISTORY: Right pleural effusion, shortness of breath TECHNIQUE: Following informed consent ,the Patients' right chest was marked. Procedure time-out was called, and the patient was placed in the sitting position and limited ultrasound showed a large right effusion. The patient's right back was prepped and draped in the usual sterile fashion. After the skin was anesthetized with lidocaine, a drainage catheter was advanced under ultrasound guidance into the pleural space. Ultrasound-guided thoracentesis was performed. A total of 1000 cubic centimeters of straw-colored fluid removed without complication. A Xeroform dressing was applied. IMPRESSION: Ultrasound guided Right thoracentesis. There were no immediate complications.
[2018-02-11 19:02] LABS: CALCIUM 5.9 mg/dl (8.6-10.4)
[2018-02-12] MEDS: Metoprolol 1 mg/ml Inj IVP SCH ×2 (05:57→12:00)
[2018-02-12 06:11] LABS: BASO # 0.1 K/uL (0.0-0.2); BASO % 1.4 % (0.0-2.0); EOS # 0.3 K/uL (0.0-0.7); EOS % 5.5 % (0.0-4.0); HEMOGLOBIN 18.2 g/dL (12.0-18.0); LYMPH # 1.1 K/uL (1.0-4.3); LYMPH % 17.9 % (20.0-40.0); MEAN CELL VOLUME 76.4 fL (80.0-94.0); MEAN CORPUSCULAR HEMOGLOBIN 24.7 pg (27.0-31.0); MEAN CORPUSCULAR HGB CONC 32.3 g/dL (33.0-37.0); MEAN PLATELET VOLUME 9.3 fL (7.2-11.7); MONO # 0.4 K/uL (0.0-0.8); MONO % 6.3 % (0.0-10.0); NEUT # 4.3 K/uL (1.8-7.0); NEUT % 68.9 % (50.0-75.0); NRBC % 0.2 % (0.0-2.0); RBC 7.37 Mil/uL (4.40-5.90); RED CELL DISTRIBUTION WIDTH 21.5 % (11.5-14.5); WHITE BLOOD COUNT 6.2 K/uL (4.8-10.8)
[2018-02-12 06:49] LABS: ALBUMIN 2.4 g/dL (3.5-5.0)
[2018-02-12 06:50] LABS: CALCIUM 7.8 mg/dl (8.6-10.4)
[2018-02-12 06:51] LABS: ALB/GLOB RATIO 0.9 (1.0-2.1)
--- NOTE | 2018-02-12 08:48 | CP.PCM.PN ---
Subjective - Date & Time of Evaluation Date of Evaluation: 02/12/18 Time of Evaluation: 08:45 - Subjective Subjective: urine output about 1600cc total output over 4 liters afebrile when measured bp stable renal function stable awake alert comfortable in bed ate entire breakfast ROS no chills fever no cough sob no chest pain no abd pain n/v/d no dysuria no headache Objective - Vital Signs/Intake and Output Vital Signs (last 24 hours): Temp Pulse Resp BP Pulse Ox 98.1 F 104 H 20 134/98 H 96 02/12/18 04:00 02/12/18 07:12 02/12/18 07:12 02/12/18 07:12 02/12/18 07:12 Intake and Output: 02/12/18 02/12/18 06:59 18:59 Intake Total 360 0 Output Total 1950 0 Balance -1590 0 - Medications Medications: Current Medications Albuterol/Ipratropium (Duoneb 3 Mg/0.5 Mg (3 Ml) Ud) 3 ml INH RQ6 PRN PRN Reason: Shortness of Breath Aspirin (Aspirin Chewable) 81 mg PO DAILY [facility] Last Admin: 02/11/18 10:00 Dose: 81 mg Calcium Acetate (Phoslo) 667 mg PO TIDCC [facility] Last Admin: 02/11/18 17:26 Dose: 667 mg Docusate Sodium (Colace) 100 mg PO BID [facility] Last Admin: 02/11/18 17:30 Dose: 100 mg Heparin Sodium (Porcine) (Heparin) 5,000 units SC Q8 [facility] Last Admin: 02/12/18 05:57 Dose: 5,000 units Hydroxyurea (Hydrea) 1,000 mg PO DAILY [facility] Last Admin: 02/11/18 12:02 Dose: 1,000 mg Lactobacillus Acidophilus (Bacid Acidophilus) 1 cap PO BID [facility] Last Admin: 02/11/18 19:27 Dose: 1 cap Metoprolol Tartrate (Lopressor) 5 mg IVP Q6H [facility] Last Admin: 02/12/18 05:57 Dose: 5 mg Ondansetron HCl (Zofran Inj) 4 mg IVP Q6 PRN PRN Reason: Nausea/Vomiting Pantoprazole Sodium (Protonix Inj) 40 mg IVP DAILY [facility] Last Admin: 02/11/18 11:00 Dose: 40 mg Polyethylene Glycol (Miralax) 17 gm PO DAILY [facility] Last Admin: 02/11/18 11:28 Dose: Not Given Promethazine HCl/Dextromethorphan (Phenergan Dm Syrup) 5 ml PO Q6H PRN PRN Reason: Cough Last Admin: 02/11/18 11:27 Dose: 5 ml Sodium Bicarbonate (Sodium Bicarbonate Tab) 650 mg PO TID [facility] Last Admin: 02/11/18 17:26 Dose: 650 mg Tamsulosin HCl (Flomax) 0.4 mg PO DAILY [facility] Last Admin: 02/11/18 11:21 Dose: 0.4 mg - Labs Labs: 02/12/18 06:09 02/12/18 06:09 PT 12.2 SECONDS (9.7-12.2) 02/10/18 19:13 INR 1.1 02/10/18 19:13 APTT 41 SECONDS (21-34) H 02/10/18 19:13 - Constitutional Appears: Well, No Acute Distress - Eye Exam Eye Exam: absent: Conjunctival injection - ENT Exam ENT Exam: Mucous Membranes Moist - Respiratory Exam Respiratory Exam: Clear to Ausculation Bilateral - Cardiovascular Exam Cardiovascular Exam: REGULAR RHYTHM. absent: JVD - GI/Abdominal Exam GI & Abdominal Exam: Soft. absent: Distended, Tenderness - Extremities Exam Extremities Exam: absent: Calf Tenderness - Back Exam Back Exam: absent: CVA tenderness (L), CVA tenderness (R) - Psychiatric Exam Psychiatric exam: Normal Affect Assessment and Plan (1) CKD (chronic kidney disease) stage 4, GFR 15-29 ml/min Status: Acute (2) Cardiomegaly Status: Acute (3) Interstitial lung disease Status: Acute (4) Nephrotic syndrome Status: Acute (5) Polycythemia Status: Acute - Assessment and Plan (Free Text) Plan: await further evaluation renal bx tentatively next week
--- NOTE | 2018-02-12 09:34 | CP.PCM.PN ---
Subjective - Date & Time of Evaluation Date of Evaluation: 02/12/18 Time of Evaluation: 09:34 - Subjective Subjective: Lying on bed comfortable,denies pain,no headache "I feel much better after taking fluid from my both chest" s/p Thoracentesis.Right side 1L was taken,left 1.2L was taken yesterday Objective - Vital Signs/Intake and Output Vital Signs (last 24 hours): Temp Pulse Resp BP Pulse Ox 98.1 F 104 H 20 134/98 H 96 02/12/18 04:00 02/12/18 07:12 02/12/18 07:12 02/12/18 07:12 02/12/18 07:12 Intake and Output: 02/12/18 02/12/18 06:59 18:59 Intake Total 360 0 Output Total 1950 0 Balance -1590 0 - Medications Medications: Current Medications Albuterol/Ipratropium (Duoneb 3 Mg/0.5 Mg (3 Ml) Ud) 3 ml INH RQ6 PRN PRN Reason: Shortness of Breath Aspirin (Aspirin Chewable) 81 mg PO DAILY [facility] Last Admin: 02/11/18 10:00 Dose: 81 mg Calcium Acetate (Phoslo) 667 mg PO TIDCC [facility] Last Admin: 02/11/18 17:26 Dose: 667 mg Docusate Sodium (Colace) 100 mg PO BID [facility] Last Admin: 02/11/18 17:30 Dose: 100 mg Heparin Sodium (Porcine) (Heparin) 5,000 units SC Q8 [facility] Last Admin: 02/12/18 05:57 Dose: 5,000 units Hydroxyurea (Hydrea) 1,000 mg PO DAILY [facility] Last Admin: 02/11/18 12:02 Dose: 1,000 mg Lactobacillus Acidophilus (Bacid Acidophilus) 1 cap PO BID [facility] Last Admin: 02/11/18 19:27 Dose: 1 cap Metoprolol Tartrate (Lopressor) 5 mg IVP Q6H [facility] Last Admin: 02/12/18 05:57 Dose: 5 mg Ondansetron HCl (Zofran Inj) 4 mg IVP Q6 PRN PRN Reason: Nausea/Vomiting Pantoprazole Sodium (Protonix Inj) 40 mg IVP DAILY [facility] Last Admin: 02/11/18 11:00 Dose: 40 mg Polyethylene Glycol (Miralax) 17 gm PO DAILY [facility] Last Admin: 02/11/18 11:28 Dose: Not Given Promethazine HCl/Dextromethorphan (Phenergan Dm Syrup) 5 ml PO Q6H PRN PRN Reason: Cough Last Admin: 02/11/18 11:27 Dose: 5 ml Sodium Bicarbonate (Sodium Bicarbonate Tab) 650 mg PO TID [facility] Last Admin: 02/11/18 17:26 Dose: 650 mg Tamsulosin HCl (Flomax) 0.4 mg PO DAILY [facility] Last Admin: 02/11/18 11:21 Dose: 0.4 mg - Labs Labs: 02/12/18 06:09 02/12/18 06:09 PT 12.2 SECONDS (9.7-12.2) 02/10/18 19:13 INR 1.1 02/10/18 19:13 APTT 41 SECONDS (21-34) H 02/10/18 19:13 - Constitutional Appears: No Acute Distress - Head Exam Head Exam: NORMAL INSPECTION - Eye Exam Eye Exam: Normal appearance - ENT Exam ENT Exam: Mucous Membranes Moist - Neck Exam Neck Exam: Full ROM - Respiratory Exam Respiratory Exam: Clear to Ausculation Bilateral, NORMAL BREATHING PATTERN - Cardiovascular Exam Cardiovascular Exam: REGULAR RHYTHM - GI/Abdominal Exam GI & Abdominal Exam: Soft, Normal Bowel Sounds - Extremities Exam Extremities Exam: Full ROM - Back Exam Back Exam: NORMAL INSPECTION - Neurological Exam Neurological Exam: Awake, Oriented x3 - Psychiatric Exam Psychiatric exam: Normal Mood - Skin Skin Exam: Dry Assessment and Plan - Assessment and Plan (Free Text) Plan: 1) Shortness of breath/Bilateral pleural effusion s/p thoracentesis,L side 1.2liters removed,right 1L removed follow fluid study,Lung mass, r/o malignancy Repeat chest x ray after thoracentesis shows significant changes No fever,no leukocytosis,Mycoplasma,negative Legionella negative,flu negative,off antibiotics Chest CT (02/10): Moderate to large bilateral pleural effusions associated with bilateral lower lobe atelectasis. Round shaped opacity at the inferior peripheral portion of the right middle lobe which may represent atelectasis versus neoplasm. - CXR (02/11): Worsening airspace opacifications seen within the bilateral hilar region extending into the mid to lower lung zones bilaterally suggestive for wor sening infiltrate and or edema. Diffuse increased interstitial lung markings bilaterally. Mild cardiomegaly. 2) Polycythemia s/p therapeutic phlebotomy todays [id number] technician Dr Jeff Hoover on board likely secondary vs. primary polycythemia Aspirin 81mg PO daily Hydroxyruea 1000mg PO Daily follow JAK2 3) CKD (chronic kidney disease) stage 4, GFR 15-29 ml/min Nephrology (Dr. Nielsen) on board Renal US (02/09/18): echogenic renal parenchyma bilateral may be seen in setting of medical renal disease. 5mm mid to lower pole left renal calculus. non obstructing. 1.1cm left lower pole renal cyst. Incidental note is made bilateral pleural effusions. Partially imaged probably right lower lobe consolidation. planning for renal biopsy tomorrow 4) Cardiomegaly pending echo resport 5) Prophylactic measure Protonix 40mg IV q daily Heparin 5000 units subq8H
[2018-02-12] MEDS: POLYETHYLENE GLYCOL 3350 17 GM/Dose PACKET PO SCH (10:00)
[2018-02-12] MEDS: Lactobacillus Acidophilus 500 MU Cap PO SCH ×2 (10:00→17:43)
--- NOTE | 2018-02-12 20:47 | CP.PCM.PN ---
Subjective - Date & Time of Evaluation Date of Evaluation: 02/12/18 Time of Evaluation: 19:00 - Subjective Subjective: Breathing better s/p bilateral thoracentesis Objective - Vital Signs/Intake and Output Vital Signs (last 24 hours): Temp Pulse Resp BP Pulse Ox 97.7 F 110 H 20 123/88 96 02/12/18 16:00 02/12/18 20:00 02/12/18 16:00 02/12/18 17:44 02/12/18 16:00 Intake and Output: 02/12/18 02/13/18 18:59 06:59 Intake Total 720 Output Total 1000 Balance -280 - Medications Medications: Current Medications Albuterol/Ipratropium (Duoneb 3 Mg/0.5 Mg (3 Ml) Ud) 3 ml INH RQ6 PRN PRN Reason: Shortness of Breath Aspirin (Aspirin Chewable) 81 mg PO DAILY [facility] Last Admin: 02/12/18 10:00 Dose: 81 mg Calcium Acetate (Phoslo) 667 mg PO TIDCC [facility] Last Admin: 02/12/18 17:43 Dose: 667 mg Docusate Sodium (Colace) 100 mg PO BID [facility] Last Admin: 02/12/18 17:43 Dose: 100 mg Heparin Sodium (Porcine) (Heparin) 5,000 units SC Q8 [facility] Last Admin: 02/12/18 14:35 Dose: 5,000 units Hydroxyurea (Hydrea) 1,000 mg PO DAILY [facility] Last Admin: 02/12/18 10:00 Dose: 1,000 mg Lactobacillus Acidophilus (Bacid Acidophilus) 1 cap PO BID [facility] Last Admin: 02/12/18 17:43 Dose: 1 cap Metoprolol Tartrate (Lopressor) 25 mg PO BID [facility] Last Admin: 02/12/18 17:44 Dose: 25 mg Ondansetron HCl (Zofran Inj) 4 mg IVP Q6 PRN PRN Reason: Nausea/Vomiting Pantoprazole Sodium (Protonix Inj) 40 mg IVP DAILY [facility] Last Admin: 02/12/18 10:00 Dose: 40 mg Polyethylene Glycol (Miralax) 17 gm PO DAILY [facility] Last Admin: 02/12/18 10:00 Dose: 17 gm Promethazine HCl/Dextromethorphan (Phenergan Dm Syrup) 5 ml PO Q6H PRN PRN Reason: Cough Last Admin: 02/11/18 11:27 Dose: 5 ml Sodium Bicarbonate (Sodium Bicarbonate Tab) 650 mg PO TID [facility] Last Admin: 02/12/18 17:43 Dose: 650 mg Tamsulosin HCl (Flomax) 0.4 mg PO DAILY [facility] Last Admin: 02/12/18 10:00 Dose: 0.4 mg - Labs Labs: 02/12/18 06:09 02/12/18 06:09 PT 12.2 SECONDS (9.7-12.2) 02/10/18 19:13 INR 1.1 02/10/18 19:13 APTT 41 SECONDS (21-34) H 02/10/18 19:13 - Head Exam Head Exam: ATRAUMATIC - Eye Exam Eye Exam: Normal appearance - ENT Exam ENT Exam: Mucous Membranes Dry - Respiratory Exam Respiratory Exam: NORMAL BREATHING PATTERN - Cardiovascular Exam Cardiovascular Exam: +S1, +S2 - GI/Abdominal Exam GI & Abdominal Exam: Normal Bowel Sounds Assessment and Plan (1) Polycythemia Assessment & Plan: s/p therapeutic phlebotomy; goal HCT < 45 on aspirin and hydroxyurea P.vera w/u pending Status: Acute
[2018-02-13] MEDS: Promethazine DM 6.25 mg-15 mg/5 ml Syrup PO PRN (06:16)
[2018-02-13 08:28] LABS: BASO # 0.1 K/uL (0.0-0.2); EOS # 0.3 K/uL (0.0-0.7); EOS % 6.1 % (0.0-4.0); HEMOGLOBIN 18.3 g/dL (12.0-18.0); LYMPH # 1.1 K/uL (1.0-4.3); LYMPH % 23.1 % (20.0-40.0); MEAN CELL VOLUME 76.6 fL (80.0-94.0); MEAN CORPUSCULAR HEMOGLOBIN 24.8 pg (27.0-31.0); MEAN CORPUSCULAR HGB CONC 32.4 g/dL (33.0-37.0); MONO # 0.3 K/uL (0.0-0.8); MONO % 6.9 % (0.0-10.0); NEUT # 2.8 K/uL (1.8-7.0); NEUT % 61.9 % (50.0-75.0); RBC 7.38 Mil/uL (4.40-5.90); WHITE BLOOD COUNT 4.6 K/uL (4.8-10.8)
--- NOTE | 2018-02-13 08:37 | CP.PCM.PN ---
<Dea Jackson - Last Filed: 02/13/18 15:54> Subjective - Date & Time of Evaluation Date of Evaluation: 02/13/18 Time of Evaluation: 08:36 - Subjective Subjective: PGY-1 Dea Jackosn D.O. Medicine progress note for Dr. Davidson's service: Patient was seen and examined this morning. He was downgraded from the ICU yesterday. He had a b/l thoracentesis on 02/11. Since then, patient states that his breathing is much better. He is not requiring supplemental O2. He still complains of a mild cough, but much improved. Patient denies pain. He reports eating and sleeping well. He is moving his bowels and urinating without difficulty. Objective - Vital Signs/Intake and Output Vital Signs (last 24 hours): Temp Pulse Resp BP Pulse Ox 97.8 F 109 H 20 128/89 97 02/12/18 23:05 02/13/18 07:30 02/12/18 23:05 02/12/18 23:05 02/12/18 23:05 - Medications Medications: Current Medications Albuterol/Ipratropium (Duoneb 3 Mg/0.5 Mg (3 Ml) Ud) 3 ml INH RQ6 PRN PRN Reason: Shortness of Breath Aspirin (Aspirin Chewable) 81 mg PO DAILY [facility] Last Admin: 02/12/18 10:00 Dose: 81 mg Calcium Acetate (Phoslo) 667 mg PO TIDCC [facility] Last Admin: 02/12/18 17:43 Dose: 667 mg Docusate Sodium (Colace) 100 mg PO BID [facility] Last Admin: 02/12/18 17:43 Dose: 100 mg Heparin Sodium (Porcine) (Heparin) 5,000 units SC Q8 [facility] Last Admin: 02/13/18 05:17 Dose: 5,000 units Hydroxyurea (Hydrea) 1,000 mg PO DAILY [facility] Last Admin: 02/12/18 10:00 Dose: 1,000 mg Lactobacillus Acidophilus (Bacid Acidophilus) 1 cap PO BID [facility] Last Admin: 02/12/18 17:43 Dose: 1 cap Metoprolol Tartrate (Lopressor) 25 mg PO BID [facility] Last Admin: 02/12/18 17:44 Dose: 25 mg Ondansetron HCl (Zofran Inj) 4 mg IVP Q6 PRN PRN Reason: Nausea/Vomiting Pantoprazole Sodium (Protonix Inj) 40 mg IVP DAILY [facility] Last Admin: 02/12/18 10:00 Dose: 40 mg Polyethylene Glycol (Miralax) 17 gm PO DAILY [facility] Last Admin: 02/12/18 10:00 Dose: 17 gm Promethazine HCl/Dextromethorphan (Phenergan Dm Syrup) 5 ml PO Q6H PRN PRN Reason: Cough Last Admin: 02/13/18 06:16 Dose: 5 ml Sodium Bicarbonate (Sodium Bicarbonate Tab) 650 mg PO TID [facility] Last Admin: 02/12/18 17:43 Dose: 650 mg Tamsulosin HCl (Flomax) 0.4 mg PO DAILY [facility] Last Admin: 02/12/18 10:00 Dose: 0.4 mg - Labs Labs: 02/12/18 06:09 02/12/18 06:09 PT 12.2 SECONDS (9.7-12.2) 02/10/18 19:13 INR 1.1 02/10/18 19:13 APTT 41 SECONDS (21-34) H 02/10/18 19:13 - Constitutional Appears: No Acute Distress - Head Exam Head Exam: ATRAUMATIC, NORMAL INSPECTION, NORMOCEPHALIC - Eye Exam Eye Exam: EOMI, Normal appearance, PERRL - ENT Exam ENT Exam: Mucous Membranes Moist - Respiratory Exam Respiratory Exam: Decreased Breath Sounds, NORMAL BREATHING PATTERN. absent: Accessory Muscle Use, Wheezes, Respiratory Distress - Cardiovascular Exam Cardiovascular Exam: REGULAR RHYTHM, +S1, +S2 - GI/Abdominal Exam GI & Abdominal Exam: Soft. absent: Tenderness - Rectal Exam Rectal Exam: Deferred - Neurological Exam Neurological Exam: Alert, Awake, CN II-XII Intact, Oriented x3 - Psychiatric Exam Psychiatric exam: Normal Affect, Normal Mood - Skin Skin Exam: Dry, Intact, Normal Color, Warm Assessment and Plan - Assessment and Plan (Free Text) Assessment: Patient is a 67 yo male with history of CKD (not in HD) who presented with SOB and cough. Additionally, he reported 20 lb weight loss over 6 months. He was found to have b/l pleural effusions. Also found to have polycythemia. He had b/l thoracentesis on 02/11 with significant improvement of symptoms. He has had therapeutic phlebotomy 4 times thus far with gradual improvement on H&H. Polycythemia work-up is pending. Patient was initially managed in the ICU for 4 days, and is now downgraded to med/surg. Plan: Polycythemia, improving - LE Dopplers: no DVT - FARTUN positive, titer 1:80, speckled - JAK2 pending - Hct goal <45 - Hydroxyurea 1000 mg PO daily - ASA 81 mg PO daily - Hem/onc consulted ([facility])- therapeutic phlebotomies Interstitial lung markings- consider PNA (patient with cough, SOB) - CXR 02/08 (on admission): Prominent hilar and perihilar bronchovascular markings. Bronchiolar thickening along with subsegmental inflammatory patchy infiltrates coalescing are a consideration. Left infrahilar coalescence/patchy infiltrate and/or atelectasis posterior suspect. Findings are in addition to pulmonary venous congestion suspect. Mild cardiomegaly. Clinical correlation is essential. Follow-up recommended. Consider CT of the chest for more sensitive evaluation. - CT 02/10: Round shaped opacity at the inferior peripheral portion of the right middle lobe which may represent atelectasis versus neoplasm. - CXR 02/13: Prominent diffuse increased interstitial lung markings which may rep resent underlying edema and or infiltrate. Scattered patchy pleural parenchymal opacities in the mid to lower lung zones bilaterally. Right midlung atelectasis. Bilateral hilar prominence. Cardiomegaly. - Blood Cx no growth >4 days - Incentive spirometry - Duoneb Q6H - Azithromycin 250 mg IV daily- start 02/13 - Rocephin 1 g IV daily- started 02/13 - Lactobacillus acidophilus PO BID - Phenergan DM 5 mL PO Q6H PRN Bilateral pleural effusions, improving- s/p thoarcentesis 02/11 - CXR: cardiomegaly - CT chest 02/10: Moderate to large bilateral pleural effusions associated with bilateral lower lobe atelectasis. - F/u echo - IR consulted (Abdiel) - Pulmonology consulted (Tray) Tachycardia - EKG: sinus tach, LVH - Metoprolol 25 mg PO BID - Metoprolol 5 mg IVP Q6H PRN Chronic kidney disease, stable - Renal US: echogenic renal parenchyma bilateral may be seen in setting of medical renal disease. 5mm mid to lower pole left renal calculus. non obstructing. 1.1cm left lower pole renal cyst. - Possible renal Bx this week - Renally dose meds - Phoslo 667 mg PO TID - Sodium bicarb 650 mg PO TID - Nephrology consulted (Gwen/Morales) Constipation - Colace 100 mg PO BID - Miralax 17 g PO daily Benign prostatic hypertrophy - Flomax 0.4 mg PO daily Ppx: VTE: SCDs, heparin 5000 units SC Q8H GI: Pepcid 20 mg PO daily PT/OT- home with services Code status: full code Case was discussed with attending, Dr. Davidson. <Melisa Davidson V - Last Filed: 02/13/18 18:32> Objective - Vital Signs/Intake and Output Vital Signs (last 24 hours): Temp Pulse Resp BP Pulse Ox 98.2 F 119 H 20 124/92 H 95 02/13/18 15:00 02/13/18 16:00 02/13/18 15:00 02/13/18 18:19 02/13/18 15:00 - Medications Medications: Current Medications Albuterol/Ipratropium (Duoneb 3 Mg/0.5 Mg (3 Ml) Ud) 3 ml INH RQ6 [facility] Last Admin: 02/13/18 13:50 Dose: 3 ml Aspirin (Aspirin Chewable) 81 mg PO DAILY [facility] Last Admin: 02/13/18 10:19 Dose: 81 mg Calcium Acetate (Phoslo) 667 mg PO TIDCC [facility] Last Admin: 02/13/18 18:00 Dose: 667 mg Docusate Sodium (Colace) 100 mg PO BID [facility] Last Admin: 02/13/18 18:18 Dose: 100 mg Famotidine (Pepcid) 20 mg PO DAILY [facility] Heparin Sodium (Porcine) (Heparin) 5,000 units SC Q8 [facility] Last Admin: 02/13/18 13:44 Dose: 5,000 units Hydroxyurea (Hydrea) 1,000 mg PO DAILY [facility] Last Admin: 02/13/18 10:19 Dose: 1,000 mg Azithromycin 500 mg/ Sodium (Chloride) 250 mls @ 250 mls/hr IVPB Q24H [facility]; Protocol Last Admin: 02/13/18 13:45 Dose: 250 mls/hr Ceftriaxone Sodium 1 gm/ (Sodium Chloride) 100 mls @ 100 mls/hr IVPB DAILY [facility]; Protocol Last Admin: 02/13/18 11:05 Dose: 100 mls/hr Lactobacillus Acidophilus (Bacid Acidophilus) 1 cap PO BID [facility] Last Admin: 02/13/18 18:18 Dose: 1 cap Metoprolol Tartrate (Lopressor) 25 mg PO BID [facility] Last Admin: 02/13/18 18:19 Dose: 25 mg Metoprolol Tartrate (Lopressor) 5 mg IVP Q6H PRN PRN Reason: Systolic Blood Pressure Ondansetron HCl (Zofran Inj) 4 mg IVP Q6 PRN PRN Reason: Nausea/Vomiting Polyethylene Glycol (Miralax) 17 gm PO DAILY [facility] Last Admin: 02/13/18 10:20 Dose: 17 gm Promethazine HCl/Dextromethorphan (Phenergan Dm Syrup) 5 ml PO Q6H PRN PRN Reason: Cough Last Admin: 02/13/18 06:16 Dose: 5 ml Sodium Bicarbonate (Sodium Bicarbonate Tab) 650 mg PO TID [facility] Last Admin: 02/13/18 18:18 Dose: 650 mg Tamsulosin HCl (Flomax) 0.4 mg PO DAILY [facility] Last Admin: 02/13/18 10:19 Dose: 0.4 mg - Labs Labs: 02/13/18 08:10 02/13/18 08:10 PT 12.0 SECONDS (9.7-12.2) 02/13/18 11:09 INR 1.1 02/13/18 11:09 APTT 45 SECONDS (21-34) H 02/13/18 11:09 Assessment and Plan (1) Shortness of breath Status: Acute (2) CKD (chronic kidney disease) stage 4, GFR 15-29 ml/min Status: Acute (3) Interstitial lung disease Status: Acute (4) Polycythemia Status: Acute (5) Pneumonia Status: Acute (6) Cardiomegaly Status: Acute (7) Prophylactic measure Status: Acute Attending/Attestation - Attestation I have personally seen and examined this patient.: Yes I have fully participated in the care of the patient.: Yes I have reviewed all pertinent clinical information, including history, physical exam and plan: Yes Notes (Text): Patient seen, examined at bedside. Patient transferred out of the unit yesterday. Patient reports he is feeling better. Patient understands his blood count is still high. We are awaiting echocardiogram Patient is tachycardic on telemetry; will check thyroid and chest xray. Patient to continue antibiotic to cover for infiltrate. pending GWENDOLYN 2 reconsult PT/OT Will require phlebotomy Assessment/Plan 1) Polycythemia, improving Assessment/Plan * Hem/onc consulted (Sneha)- therapeutic phlebotomies * LE Dopplers: no DVT * FARTUN positive, titer 1:80, speckled * JAK2 pending * Hct goal <45 * Hydroxyurea 1000 mg PO daily * ASA 81 mg PO daily * Hem/onc consulted ([place])- therapeutic phlebotomies 2) Interstitial lung markings Assessment/Plan consider PNA (patient with cough, SOB) * CXR 02/08 (on admission): Prominent hilar and perihilar bronchovascular markings. Bronchiolar thickening along with subsegmental inflammatory patchy infiltrates coalescing are a consideration. Left infrahilar coalescence/patchy infiltrate and/or atelectasis posterior suspect. Findings are in addition to pulmonary venous congestion suspect. Mild cardiomegaly. Clinical correlation is essential. Follow-up recommended. Consider CT of the chest for more sensitive evaluation. * CT 02/10: Round shaped opacity at the inferior peripheral portion of the right middle lobe which may represent atelectasis versus neoplasm. * CXR 02/13: Prominent diffuse increased interstitial lung markings which may represent underlying edema and or infiltrate. Scattered patchy pleural parenchymal opacities in the mid to lower lung zones bilaterally. Right midlung atelectasis. Bilateral hilar prominence. Cardiomegaly. * Blood Cx no growth >4 days * Start Incentive spirometry * Duoneb Q6H * Azithromycin 250 mg IV daily- start 02/13 * Rocephin 1 g IV daily- started 02/13 * Lactobacillus acidophilus PO BID * Phenergan DM 5 mL PO Q6H PRN 3) Bilateral pleural effusions, improving- s/p thoarcentesis 02/11 * CXR: cardiomegaly * CT chest 02/10: Moderate to large bilateral pleural effusions associated with bilateral lower lobe atelectasis. * F/u echo * IR consulted (Abdiel) * Pulmonology consulted (Tray) 4) Tachycardia Assessment/Plan * EKG: sinus tach, LVH * Metoprolol 25 mg PO BID * Metoprolol 5 mg IVP Q6H PRN 5) Chronic kidney disease Assessment/Plan * Renal US: echogenic renal parenchyma bilateral may be seen in setting of medical renal disease. 5mm mid to lower pole left renal calculus. non obstructing. 1.1cm left lower pole renal cyst. * Possible renal Bx this week * Renally dose meds * Phoslo 667 mg PO TID * Sodium bicarb 650 mg PO TID * Nephrology consulted (Gwen/Morales) 6) Constipation * Colace 100 mg PO BID * Miralax 17 g PO daily 7) Benign prostatic hypertrophy * Flomax 0.4 mg PO daily 8) Ppx: * VTE: SCDs, heparin 5000 units SC Q8H * GI: Pepcid 20 mg PO daily PT/OT- home with services Disposition: f/u chest xray, f/u pulm to see if bronch is warranted; awaiting JAK2, will need phlebotomy again to meet H/H goal, pending renal bx unclear when
[2018-02-13 08:57] LABS: ALB/GLOB RATIO 0.8 (1.0-2.1); ALBUMIN 2.4 g/dL (3.5-5.0); CALCIUM 8.1 mg/dl (8.6-10.4)
[2018-02-13] MEDS: Lactobacillus Acidophilus 500 MU Cap PO SCH ×2 (10:19→18:18)
[2018-02-13] MEDS: POLYETHYLENE GLYCOL 3350 17 GM/Dose PACKET PO SCH (10:20)
[2018-02-13] MEDS ORDERED: Metoprolol 1 mg/ml Inj IVP PRN (11:01)
[2018-02-13 11:37] LABS: INR 1.1
[2018-02-13] MEDS: Azithromycin 500 MG in Sodium Chloride 0.9% 250 ML IVPB SCH (13:45)
[2018-02-13] MEDS: Albuterol-Ipratrop 3 mg / 0.5 (3 ml) UD INH SCH ×2 (13:50→19:30)
--- NOTE | 2018-02-13 14:19 | RAD ---
Chest x-ray two views History: Cough. Comparison: 02/11/2018 Findings: Prominent diffuse increased interstitial lung markings which may represent underlying edema and or infiltrate. Scattered patchy pleural parenchymal opacities in the mid to lower lung zones bilaterally. Right midlung atelectasis. Bilateral hilar prominence. Cardiomegaly. Degenerative changes in the spine and shoulders. Impression: Prominent diffuse increased interstitial lung markings which may represent underlying edema and or infiltrate. Scattered patchy pleural parenchymal opacities in the mid to lower lung zones bilaterally. Right midlung atelectasis. Bilateral hilar prominence. Cardiomegaly.
[2018-02-14] MEDS: Albuterol-Ipratrop 3 mg / 0.5 (3 ml) UD INH SCH ×4 (01:31→19:40)
[2018-02-14 06:37] LABS: BASO # 0.1 K/uL (0.0-0.2); BASO % 2.4 % (0.0-2.0); EOS # 0.2 K/uL (0.0-0.7); EOS % 4.4 % (0.0-4.0); HEMOGLOBIN 17.8 g/dL (12.0-18.0); LYMPH % 24.5 % (20.0-40.0); MEAN CELL VOLUME 75.5 fL (80.0-94.0); MEAN CORPUSCULAR HEMOGLOBIN 24.5 pg (27.0-31.0); MEAN CORPUSCULAR HGB CONC 32.4 g/dL (33.0-37.0); MEAN PLATELET VOLUME 9.7 fL (7.2-11.7); MONO # 0.3 K/uL (0.0-0.8); MONO % 7.7 % (0.0-10.0); NEUT # 2.6 K/uL (1.8-7.0); NRBC % 0.3 % (0.0-2.0); RBC 7.27 Mil/uL (4.40-5.90); RED CELL DISTRIBUTION WIDTH 21.2 % (11.5-14.5); WHITE BLOOD COUNT 4.3 K/uL (4.8-10.8)
[2018-02-14 06:46] LABS: ALB/GLOB RATIO 0.9 (1.0-2.1); ALBUMIN 2.5 g/dL (3.5-5.0); CALCIUM 8.1 mg/dl (8.6-10.4)
--- NOTE | 2018-02-14 08:27 | CP.PCM.PN ---
<Chauncey Duong - Last Filed: 02/14/18 14:38> Subjective - Date & Time of Evaluation Date of Evaluation: 02/14/18 Time of Evaluation: 08:27 - Subjective Subjective: PGY-1 Medicine progress note for Dr. Davidson Patient was seen and examined this morning. Pt reports a redness to his bilateral antecubital fossas, but admits to scratching. Denies fever, chills, chest pain, sob, abdominal pain, n/v/d, numbness or tingling, headache, dizziness, leg swelling or pain. Objective - Vital Signs/Intake and Output Vital Signs (last 24 hours): Temp Pulse Resp BP Pulse Ox 97.8 F 102 H 20 137/90 98 02/14/18 07:00 02/14/18 07:00 02/14/18 07:00 02/14/18 07:00 02/14/18 07:00 - Medications Medications: Current Medications Albuterol/Ipratropium (Duoneb 3 Mg/0.5 Mg (3 Ml) Ud) 3 ml INH RQ6 [facility] Last Admin: 02/14/18 03:21 Dose: 3 ml Aspirin (Aspirin Chewable) 81 mg PO DAILY [facility] Last Admin: 02/13/18 10:19 Dose: 81 mg Calcium Acetate (Phoslo) 667 mg PO TIDCC [facility] Last Admin: 02/13/18 18:00 Dose: 667 mg Docusate Sodium (Colace) 100 mg PO BID [facility] Last Admin: 02/13/18 18:18 Dose: 100 mg Famotidine (Pepcid) 20 mg PO DAILY [facility] Hydroxyurea (Hydrea) 1,000 mg PO DAILY [facility] Last Admin: 02/13/18 10:19 Dose: 1,000 mg Azithromycin 500 mg/ Sodium (Chloride) 250 mls @ 250 mls/hr IVPB Q24H [facility]; Protocol Last Admin: 02/13/18 13:45 Dose: 250 mls/hr Ceftriaxone Sodium 1 gm/ (Sodium Chloride) 100 mls @ 100 mls/hr IVPB DAILY [facility]; Protocol Last Admin: 02/13/18 11:05 Dose: 100 mls/hr Lactobacillus Acidophilus (Bacid Acidophilus) 1 cap PO BID [facility] Last Admin: 02/13/18 18:18 Dose: 1 cap Metoprolol Tartrate (Lopressor) 25 mg PO BID [facility] Last Admin: 02/13/18 18:19 Dose: 25 mg Metoprolol Tartrate (Lopressor) 5 mg IVP Q6H PRN PRN Reason: Systolic Blood Pressure Ondansetron HCl (Zofran Inj) 4 mg IVP Q6 PRN PRN Reason: Nausea/Vomiting Polyethylene Glycol (Miralax) 17 gm PO DAILY [facility] Last Admin: 02/13/18 10:20 Dose: 17 gm Promethazine HCl/Dextromethorphan (Phenergan Dm Syrup) 5 ml PO Q6H PRN PRN Reason: Cough Last Admin: 02/13/18 06:16 Dose: 5 ml Sodium Bicarbonate (Sodium Bicarbonate Tab) 650 mg PO TID [facility] Last Admin: 02/13/18 18:18 Dose: 650 mg Tamsulosin HCl (Flomax) 0.4 mg PO DAILY [facility] Last Admin: 02/13/18 10:19 Dose: 0.4 mg - Labs Labs: 02/14/18 06:27 02/14/18 06:27 PT 12.0 SECONDS (9.7-12.2) 02/13/18 11:09 INR 1.1 02/13/18 11:09 APTT 45 SECONDS (21-34) H 02/13/18 11:09 - Additional Findings Additional findings: - Constitutional Appears: No Acute Distress - Head Exam Head Exam: ATRAUMATIC, NORMAL INSPECTION, NORMOCEPHALIC - Eye Exam Eye Exam: EOMI, Normal appearance, PERRL - ENT Exam ENT Exam: Mucous Membranes Moist - Respiratory Exam Respiratory Exam: (+) rales at the bilateral bases, NORMAL BREATHING PATTERN. absent: Accessory Muscle Use, Wheezes, Respiratory Distress - Cardiovascular Exam Cardiovascular Exam: REGULAR RHYTHM, +S1, +S2 - GI/Abdominal Exam GI & Abdominal Exam: Soft. absent: Tenderness - Neurological Exam Neurological Exam: Alert, Awake, CN II-XII Intact, Oriented x3 - Psychiatric Exam Psychiatric exam: Normal Affect, Normal Mood - Skin Skin Exam: Dry, Intact, Normal Color, Warm. (+) areas of erythema to the bilateral antecubital fossas, with excoriations secondary to scratching Assessment and Plan - Assessment and Plan (Free Text) Assessment: Patient is a 67 yo male with history of CKD (not in HD) who presented with SOB and cough. Additionally, he reported 20 lb weight loss over 6 months. He was found to have b/l pleural effusions. Also found to have polycythemia. He had b/l thoracentesis on 02/11 with significant improvement of symptoms while in the ICU. He has had therapeutic phlebotomy 4 times thus far with gradual improvement on H&H. Polycythemia work-up is pending. Patient was initially managed in the ICU for 4 days, and was then downgraded to med/surg after SOB improved. Plan: Polycythemia, improving - LE Dopplers: no DVT - FARTUN positive, titer 1:80, speckled - Hct goal <45 - Hydroxyurea 1000 mg PO daily - ASA 81 mg PO daily (on hold due to planned renal biopsy 02/14) - Hem/onc consulted ([place])- therapeutic phlebotomies - f/u JAK2 Interstitial lung markings- consider PNA (patient with cough, SOB) - CXR 02/08 (on admission): Prominent hilar and perihilar bronchovascular markings. Bronchiolar thickening along with subsegmental inflammatory patchy infiltrates coalescing are a consideration. Left infrahilar coalescence/patchy infiltrate and/or atelectasis posterior suspect. Findings are in addition to pulmonary venous congestion suspect. Mild cardiomegaly. Clinical correlation is essential. Follow-up recommended. Consider CT of the chest for more sensitive evaluation. - CT 02/10: Round shaped opacity at the inferior peripheral portion of the right middle lobe which may represent atelectasis versus neoplasm. - CXR 02/13: Prominent diffuse increased interstitial lung markings which may represent underlying edema and or infiltrate. Scattered patchy pleural parenchymal opacities in the mid to lower lung zones bilaterally. Right midlung atelectasis. Bilateral hilar prominence. Cardiomegaly. - Blood Cx no growth 5 days - Pulmonology consulted (Tray) - Incentive spirometry - Duoneb Q6H - Azithromycin 250 mg IV daily- start 02/13 - Rocephin 1 g IV daily- started 02/13 - Lactobacillus acidophilus PO BID - Phenergan DM 5 mL PO Q6H PRN CHF with reduced ejection fraction Pt presented with bilateral pleural effusions; improving s/p thoracentesis 02/11 - BNP is 9850 on admission - Echocardiogram (02/08) show LVEF approximately 25%. Dilated diastolic filling presures. Pulmonary systolic presure are levated at 45 mmHg. large left pleural effusion. Paracardiac cyst/hiatal hernia. - CXR: cardiomegaly - CT chest 02/10: Moderate to large bilateral pleural effusions associated with bilateral lower lobe atelectasis. - IR consulted (Abdiel) - Cardiology, Dr. Ramsay, consulted, will f/u with recs Tachycardia Ventricular tachycardia on monitor (02/14), likely secondary to CHF with reduced EF - EKG: sinus tach, LVH on admission - EKG (02/14) shows sinus tachycardia with LVH as well - Metoprolol 25 mg PO BID - Metoprolol 5 mg IVP Q6H PRN - Cardiology, Dr. Ramsay, consulted, will f/u with recs Chronic kidney disease, stable - Renal US: echogenic renal parenchyma bilateral may be seen in setting of medical renal disease. 5mm mid to lower pole left renal calculus. non obstructing. 1.1cm left lower pole renal cyst. - Possible renal Bx this week - Renally dose meds - Phoslo 667 mg PO TID - Sodium bicarb 650 mg PO TID - Nephrology consulted (Gwen/Morales) - Renal biopsy will be done 02/15 Constipation - Colace 100 mg PO BID - Miralax 17 g PO daily Benign prostatic hypertrophy - Flomax 0.4 mg PO daily Ppx: VTE: SCDs, heparin 5000 units SC Q8H ( on hold due to planned renal biopsy 02/15) GI: Pepcid 20 mg PO daily PT/OT- home with services Code status: full code Case discussed with attending physician, Dr. Stuart Duong PGY1 <Melisa Davidson V - Last Filed: 02/14/18 18:47> Objective - Vital Signs/Intake and Output Vital Signs (last 24 hours): Temp Pulse Resp BP Pulse Ox 97.9 F 116 H 20 110/79 98 02/14/18 15:00 02/14/18 17:25 02/14/18 15:00 02/14/18 15:00 02/14/18 15:00 - Medications Medications: Current Medications Albuterol/Ipratropium (Duoneb 3 Mg/0.5 Mg (3 Ml) Ud) 3 ml INH RQ6 [facility] Last Admin: 02/14/18 08:20 Dose: 3 ml Aspirin (Aspirin Chewable) 81 mg PO DAILY [facility] Last Admin: 02/14/18 09:33 Dose: 81 mg Calcium Acetate (Phoslo) 667 mg PO TIDCC [facility] Last Admin: 02/14/18 12:35 Dose: 667 mg Docusate Sodium (Colace) 100 mg PO BID [facility] Last Admin: 02/14/18 09:33 Dose: 100 mg Famotidine (Pepcid) 20 mg PO DAILY [facility] Last Admin: 02/14/18 09:33 Dose: 20 mg Furosemide (Lasix) 40 mg IVP DAILY [facility] Last Admin: 02/14/18 12:35 Dose: 40 mg Hydroxyurea (Hydrea) 1,000 mg PO DAILY [facility] Last Admin: 02/14/18 09:45 Dose: 1,000 mg Azithromycin 500 mg/ Sodium (Chloride) 250 mls @ 250 mls/hr IVPB Q24H [facility]; Protocol Last Admin: 02/14/18 13:54 Dose: 250 mls/hr Ceftriaxone Sodium 1 gm/ (Sodium Chloride) 100 mls @ 100 mls/hr IVPB DAILY [facility]; Protocol Last Admin: 02/14/18 09:46 Dose: 100 mls/hr Lactobacillus Acidophilus (Bacid Acidophilus) 1 cap PO BID [facility] Last Admin: 02/14/18 09:46 Dose: 1 cap Metoprolol Tartrate (Lopressor) 25 mg PO BID [facility] Last Admin: 02/14/18 09:33 Dose: 25 mg Metoprolol Tartrate (Lopressor) 5 mg IVP Q6H PRN PRN Reason: Systolic Blood Pressure Ondansetron HCl (Zofran Inj) 4 mg IVP Q6 PRN PRN Reason: Nausea/Vomiting Polyethylene Glycol (Miralax) 17 gm PO DAILY [facility] Last Admin: 02/14/18 09:33 Dose: 17 gm Promethazine HCl/Dextromethorphan (Phenergan Dm Syrup) 5 ml PO Q6H PRN PRN Reason: Cough Last Admin: 02/13/18 06:16 Dose: 5 ml Sodium Bicarbonate (Sodium Bicarbonate Tab) 650 mg PO TID [facility] Last Admin: 02/14/18 13:33 Dose: 650 mg Tamsulosin HCl (Flomax) 0.4 mg PO DAILY [facility] Last Admin: 02/14/18 09:33 Dose: 0.4 mg - Labs Labs: 02/14/18 06:27 02/14/18 06:27 PT 12.0 SECONDS (9.7-12.2) 02/13/18 11:09 INR 1.1 02/13/18 11:09 APTT 45 SECONDS (21-34) H 02/13/18 11:09 Assessment and Plan (1) Shortness of breath Status: Acute (2) CKD (chronic kidney disease) stage 4, GFR 15-29 ml/min Status: Acute (3) Interstitial lung disease Status: Acute (4) Polycythemia Status: Acute (5) Pneumonia Status: Acute (6) Cardiomegaly Status: Acute (7) Prophylactic measure Status: Acute Attending/Attestation - Attestation I have personally seen and examined this patient.: Yes I have fully participated in the care of the patient.: Yes I have reviewed all pertinent clinical information, including history, physical exam and plan: Yes Notes (Text): Patient seen, examined at bedside. Patient seen at bedside at bedside this morning accompanied by his . Patient denies Patient transferred out of the unit yesterday. Patient reports he is feeling better. Patient understands his blood count is still high. Awaiting: left ventricle thickness: normal, size normal, overrall ejection, fraction: 25% diastolic filling presssures: dilated. Patient is tachycardic on telemetry; 18 beats of ventricular tachycardia, asymptomatic, Cardiology consulted on the case. Patient to continue antibiotic to cover for infiltrate. pending GWENDOLYN 2 Discussed nephrology, concern for nephrotic syndrome, may need hydration prior to cath. patient does have stage 4 CKD. Pending renal biopsy and cardiac cath Pulm will review CT in light of possible interstital lung disease. Assessment/Plan 1) Polycythemia, improving Assessment/Plan * Hem/onc consulted ([place])- therapeutic phlebotomies * LE Dopplers: no DVT * FARTUN positive, titer 1:80, speckled * JAK2 pending * Hct goal <45 * Hydroxyurea 1000 mg PO daily * ASA 81 mg PO daily * Hem/onc consulted ([place])- therapeutic phlebotomies 2) Interstitial lung markings Assessment/Plan consider PNA (patient with cough, SOB) * CXR 02/08 (on admission): Prominent hilar and perihilar bronchovascular markin gs. Bronchiolar thickening along with subsegmental inflammatory patchy infiltrates coalescing are a consideration. Left infrahilar coalescence/patchy infiltrate and/or atelectasis posterior suspect. Findings are in addition to pulmonary venous congestion suspect. Mild cardiomegaly. Clinical correlation is essential. Follow-up recommended. Consider CT of the chest for more sensitive evaluation. * CT 02/10: Round shaped opacity at the inferior peripheral portion of the right middle lobe which may represent atelectasis versus neoplasm. * CXR 02/13: Prominent diffuse increased interstitial lung markings which may represent underlying edema and or infiltrate. Scattered patchy pleural parench ymal opacities in the mid to lower lung zones bilaterally. Right midlung atelectasis. Bilateral hilar prominence. Cardiomegaly. * Blood Cx no growth >4 days * Start Incentive spirometry * Duoneb Q6H * Azithromycin 250 mg IV daily- start 02/13 * Rocephin 1 g IV daily- started 02/13 * Lactobacillus acidophilus PO BID * Phenergan DM 5 mL PO Q6H PRN 3) Bilateral pleural effusions, improving- s/p thoarcentesis 02/11\ Cardiomyopathy, systolic EF: 25% * CXR: cardiomegaly * CT chest 02/10: Moderate to large bilateral pleural effusions associated with bilateral lower lobe atelectasis. * Echo: Awaiting: left ventricle thickness: normal, size normal, overrall ejection, fraction: 25% diastolic filling presssures: dilated. * IR consulted (Abdiel) * Pulmonology consulted (Tray) 4) Tachycardia Assessment/Plan * EKG: sinus tach, LVH * Metoprolol 25 mg PO BID * Metoprolol 5 mg IVP Q6H PRN * patient has cardiomyopathy ef: 25% * Cardiology consulted today 5) Chronic kidney disease, stage 4 Assessment/Plan * Renal US: echogenic renal parenchyma bilateral may be seen in setting of medical renal disease. 5mm mid to lower pole left renal calculus. non obstructing. 1.1cm left lower pole renal cyst. * Possible renal Bx this week * Renally dose meds * Phoslo 667 mg PO TID * Sodium bicarb 650 mg PO TID * Nephrology consulted (Gwen/[place]) * Aspirin/dvt pxx held for possible biopsy 6) Constipation * Colace 100 mg PO BID * Miralax 17 g PO daily 7) Benign prostatic hypertrophy * Flomax 0.4 mg PO daily 8) Ppx: * VTE: SCDs, held heparin 5000 units SC Q8H/aspirin for renal bx * GI: Pepcid 20 mg PO daily PT/OT- home with services Disposition: waiting JAK2, will need phlebotomy again to meet H/H goal, pending renal bx unclear when off aspirin/heparin dvt pxx for possible renal bx. cardioloy consult in light of 18 beats of ventricular tachycardia and ef: 25%
[2018-02-14] MEDS: POLYETHYLENE GLYCOL 3350 17 GM/Dose PACKET PO SCH (09:33)
[2018-02-14] MEDS: Lactobacillus Acidophilus 500 MU Cap PO SCH ×2 (09:46→18:35)
--- NOTE | 2018-02-14 09:51 | CARD ---
APPROVED REPORT Date of service: 02/13/2018 EKG Measurement Heart [id number] <Conclusion> Sinus tachycardia Possible Left atrial enlargement Left ventricular hypertrophy Nonspecific T wave abnormality Abnormal ECG
--- NOTE | 2018-02-14 11:30 | CP.PCM.PN ---
Subjective - Date & Time of Evaluation Date of Evaluation: 02/14/18 Time of Evaluation: 11:27 - Subjective Subjective: Alert, no new complaint BP controlled No SOB, CPs, dysuria, n, v , fevers Renal function same For renal bx next 1-2 days polycythemia workup in progress Objective - Vital Signs/Intake and Output Vital Signs (last 24 hours): Temp Pulse Resp BP Pulse Ox 97.8 F 111 H 20 128/81 98 02/14/18 07:00 02/14/18 09:05 02/14/18 07:00 02/14/18 09:33 02/14/18 07:00 - Medications Medications: Current Medications Albuterol/Ipratropium (Duoneb 3 Mg/0.5 Mg (3 Ml) Ud) 3 ml INH RQ6 [facility] Last Admin: 02/14/18 08:20 Dose: 3 ml Aspirin (Aspirin Chewable) 81 mg PO DAILY [facility] Last Admin: 02/14/18 09:33 Dose: 81 mg Calcium Acetate (Phoslo) 667 mg PO TIDCC [facility] Last Admin: 02/14/18 08:38 Dose: 667 mg Docusate Sodium (Colace) 100 mg PO BID [facility] Last Admin: 02/14/18 09:33 Dose: 100 mg Famotidine (Pepcid) 20 mg PO DAILY [facility] Last Admin: 02/14/18 09:33 Dose: 20 mg Hydroxyurea (Hydrea) 1,000 mg PO DAILY [facility] Last Admin: 02/14/18 09:45 Dose: 1,000 mg Azithromycin 500 mg/ Sodium (Chloride) 250 mls @ 250 mls/hr IVPB Q24H [facility]; Protocol Last Admin: 02/13/18 13:45 Dose: 250 mls/hr Ceftriaxone Sodium 1 gm/ (Sodium Chloride) 100 mls @ 100 mls/hr IVPB DAILY [facility]; Protocol Last Admin: 02/14/18 09:46 Dose: 100 mls/hr Lactobacillus Acidophilus (Bacid Acidophilus) 1 cap PO BID [facility] Last Admin: 02/14/18 09:46 Dose: 1 cap Metoprolol Tartrate (Lopressor) 25 mg PO BID [facility] Last Admin: 02/14/18 09:33 Dose: 25 mg Metoprolol Tartrate (Lopressor) 5 mg IVP Q6H PRN PRN Reason: Systolic Blood Pressure Ondansetron HCl (Zofran Inj) 4 mg IVP Q6 PRN PRN Reason: Nausea/Vomiting Polyethylene Glycol (Miralax) 17 gm PO DAILY [facility] Last Admin: 02/14/18 09:33 Dose: 17 gm Promethazine HCl/Dextromethorphan (Phenergan Dm Syrup) 5 ml PO Q6H PRN PRN Reason: Cough Last Admin: 02/13/18 06:16 Dose: 5 ml Sodium Bicarbonate (Sodium Bicarbonate Tab) 650 mg PO TID [facility] Last Admin: 02/14/18 09:33 Dose: 650 mg Tamsulosin HCl (Flomax) 0.4 mg PO DAILY [facility] Last Admin: 02/14/18 09:33 Dose: 0.4 mg - Labs Labs: 02/14/18 06:27 02/14/18 06:27 PT 12.0 SECONDS (9.7-12.2) 02/13/18 11:09 INR 1.1 02/13/18 11:09 APTT 45 SECONDS (21-34) H 02/13/18 11:09 - Constitutional Appears: No Acute Distress, Chronically Ill - Head Exam Head Exam: ATRAUMATIC, NORMAL INSPECTION - Eye Exam Eye Exam: EOMI, Normal appearance - Neck Exam Neck Exam: Normal Inspection. absent: Tenderness - Respiratory Exam Respiratory Exam: Clear to Ausculation Bilateral, NORMAL BREATHING PATTERN - Cardiovascular Exam Cardiovascular Exam: REGULAR RHYTHM, +S1 - GI/Abdominal Exam GI & Abdominal Exam: Soft. absent: Tenderness - Extremities Exam Extremities Exam: Normal Inspection. absent: Tenderness - Neurological Exam Neurological Exam: Awake, CN II-XII Intact - Skin Skin Exam: Dry, Warm Assessment and Plan (1) Interstitial lung disease Status: Acute (2) CKD (chronic kidney disease) stage 4, GFR 15-29 ml/min Status: Acute (3) Polycythemia Status: Acute (4) Nephrotic syndrome Status: Acute - Assessment and Plan (Free Text) Plan: Same meds Await renal bx ? anticoagulation post bx due to severe nephrotic syndrome, low albumin
--- NOTE | 2018-02-14 12:00 | CP.PCM.CON ---
History of Present Illness - History of Present Illness History of Present Illness: Arjun Bryant DO, PGY-1 Cardiology Consult Note for Dr. Ramsay Patient is a 67 year old male with PMH of CKD not on HD and BPH who presented to [facility] ED with cough and SOB that had been worsening for 2-3 days prior to presentation. Per ED records, patient's SpO2 on arrival was 89% but he denied a hx of COPD or other prior episodes of SOB. CXR at the time was concerning for infiltrates and pulmonary venous congestion. He was also found to be polycythemic with Hgb of 21 on admission. He was in significant respiratory distress on admission warranting admission to ICU. Since admission, polycythemia has been improving but CXR continues to show persistent pulmonary vascular congestion despite rocephin treatment. Prior to coming to the hospital, patient admits to orthopnea and at least one episode of PND. He states that these have occurred in the last four days and he has not had any episodes in the past. He also endorses intermittent dizziness while getting up from praying but denies peripheral swelling, CP, nausea/vomiting/diarrhea/constipation, or urinary complaints. PMD: Dr. Frank Hammond PMH: CKD not on HD and BPH Home medications: Flomax 0.4 daily, patient states he took ASA in the past but has not taken since diagnosed with CKD PSH: denies All: admits to seasonal allergies but denies allergies to medications Fam Hx: father had CAD, from [place] around age 70 Soc Hx: former smoker quit 40 years ago, denies alcohol or illicit drug use. 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 Review of Systems - Constitutional Constitutional: absent: Chills, Fever - EENT Eyes: As Per HPI Nose/Mouth/Throat: As Per HPI - Cardiovascular Cardiovascular: As Per HPI - Respiratory Respiratory: As Per HPI - Gastrointestinal Gastrointestinal: As Per HPI - Genitourinary Genitourinary: As Per HPI - Musculoskeletal Musculoskeletal: As Per HPI - Integumentary Integumentary: As Per HPI - Neurological Neurological: Dizziness. absent: Headaches Past Patient History - Past Medical History & Family History Past Medical History?: Yes Past Family History: Reviewed and not pertinent - Past Social History Smoking Status: Former Smoker Chewing Tobacco Use: No Cigar Use: No Alcohol: None Drugs: Denies Home Situation {Lives}: With Family - RENAL Hx Renal Failure: Yes (CKD) - MUSCULOSKELETAL/RHEUMATOLOGICAL Hx Falls: No - GENITOURINARY/GYNECOLOGICAL Hx Prostate Problems: Yes - PSYCHIATRIC Hx Substance Use: No - ANESTHESIA Hx Anesthesia: No Hx Anesthesia Reactions: No Meds Allergies/Adverse Reactions: Allergies Allergy/AdvReac Type Severity Reaction Status Date / Time No Known Allergies Allergy Unverified 02/08/18 14:04 - Medications Medications: Current Medications Albuterol/Ipratropium (Duoneb 3 Mg/0.5 Mg (3 Ml) Ud) 3 ml INH RQ6 [facility] Last Admin: 02/14/18 08:20 Dose: 3 ml Aspirin (Aspirin Chewable) 81 mg PO DAILY [facility] Last Admin: 02/14/18 09:33 Dose: 81 mg Calcium Acetate (Phoslo) 667 mg PO TIDCC [facility] Last Admin: 02/14/18 08:38 Dose: 667 mg Docusate Sodium (Colace) 100 mg PO BID [facility] Last Admin: 02/14/18 09:33 Dose: 100 mg Famotidine (Pepcid) 20 mg PO DAILY [facility] Last Admin: 02/14/18 09:33 Dose: 20 mg Hydroxyurea (Hydrea) 1,000 mg PO DAILY [facility] Last Admin: 02/14/18 09:45 Dose: 1,000 mg Azithromycin 500 mg/ Sodium (Chloride) 250 mls @ 250 mls/hr IVPB Q24H [facility]; Protocol Last Admin: 02/13/18 13:45 Dose: 250 mls/hr Ceftriaxone Sodium 1 gm/ (Sodium Chloride) 100 mls @ 100 mls/hr IVPB DAILY [facility]; Protocol Last Admin: 02/14/18 09:46 Dose: 100 mls/hr Lactobacillus Acidophilus (Bacid Acidophilus) 1 cap PO BID [facility] Last Admin: 02/14/18 09:46 Dose: 1 cap Metoprolol Tartrate (Lopressor) 25 mg PO BID [facility] Last Admin: 02/14/18 09:33 Dose: 25 mg Metoprolol Tartrate (Lopressor) 5 mg IVP Q6H PRN PRN Reason: Systolic Blood Pressure Ondansetron HCl (Zofran Inj) 4 mg IVP Q6 PRN PRN Reason: Nausea/Vomiting Polyethylene Glycol (Miralax) 17 gm PO DAILY [facility] Last Admin: 12/03/18 09:33 Dose: 17 gm Promethazine HCl/Dextromethorphan (Phenergan Dm Syrup) 5 ml PO Q6H PRN PRN Reason: Cough Last Admin: 02/13/18 06:16 Dose: 5 ml Sodium Bicarbonate (Sodium Bicarbonate Tab) 650 mg PO TID [facility] Last Admin: 02/14/18 09:33 Dose: 650 mg Tamsulosin HCl (Flomax) 0.4 mg PO DAILY [facility] Last Admin: 02/14/18 09:33 Dose: 0.4 mg Physical Exam - Constitutional Appears: Non-toxic, No Acute Distress - Head Exam Head Exam: ATRAUMATIC, NORMOCEPHALIC - Eye Exam Eye Exam: EOMI, Normal appearance, PERRL - ENT Exam ENT Exam: Mucous Membranes Moist - Neck Exam Neck exam: Positive for: Full Rom Additional comments: moderate amount of JVD - Respiratory Exam Respiratory Exam: Rhonchi (diffuse rhonchi b/l), NORMAL BREATHING PATTERN. absent: Accessory Muscle Use, Rales, Wheezes, Respiratory Distress - Cardiovascular Exam Cardiovascular Exam: Tachycardia, +S1, +S2. absent: Diastolic murmur, Gallop, Rubs, Systolic Murmur - GI/Abdominal Exam GI & Abdominal Exam: Normal Bowel Sounds, Soft. absent: Guarding, Rebound, Tenderness - Extremities Exam Extremities exam: Positive for: pedal pulses present. Negative for: pedal edema, tenderness - Back Exam Back exam: FULL ROM, NORMAL INSPECTION - Neurological Exam Neurological exam: Alert, Oriented x3 - Psychiatric Exam Psychiatric exam: Normal Affect, Normal Mood - Skin Skin Exam: Dry, Intact, Warm Results - Vital Signs Recent Vital Signs: Last Vital Signs Temp 97.8 F 02/14/18 11:00 Pulse 107 H 02/14/18 11:00 Resp 18 02/14/18 11:00 BP 122/83 02/14/18 11:00 Pulse Ox 95 02/14/18 11:00 - Labs Result Diagrams: 02/14/18 06:27 02/14/18 06:27 Labs: Laboratory Results - last 24 hr 02/13/18 02/13/18 02/14/18 13:59 13:59 06:27 WBC 4.3 L RBC 7.27 H Hgb 17.8 Hct 54.9 H MCV 75.5 L MCH 24.5 L MCHC 32.4 L RDW 21.2 H Plt Count 424 H MPV 9.7 Neut % (Auto) 61.0 Lymph % (Auto) 24.5 [place] % (Auto) 7.7 Eos % (Auto) 4.4 H Baso % (Auto) 2.4 H Neut # (Auto) 2.6 Lymph # (Auto) 1.0 [place] # (Auto) 0.3 Eos # (Auto) 0.2 Baso # (Auto) 0.1 Sodium Potassium Chloride Carbon Dioxide Anion Gap BUN Creatinine Est GFR ( Amer) Est GFR (Non-Af Amer) Random Glucose Calcium Phosphorus Magnesium Total Bilirubin AST ALT Alkaline Phosphatase Total Protein Albumin Globulin Albumin/Globulin Ratio Free T4 1.55 TSH 3rd Generation 2.17 02/14/18 06:27 WBC RBC Hgb Hct MCV MCH MCHC RDW Plt Count MPV Neut % (Auto) Lymph % (Auto) [place] % (Auto) Eos % (Auto) Baso % (Auto) Neut # (Auto) Lymph # (Auto) [place] # (Auto) Eos # (Auto) Baso # (Auto) Sodium 135 Potassium 4.6 Chloride 107 Carbon Dioxide 22 Anion Gap 10 BUN 40 H Creatinine 2.3 H Est GFR ( Amer) 34 Est GFR (Non-Af Amer) 28 Random Glucose 101 Calcium 8.1 L Phosphorus 3.1 Magnesium 1.8 Total Bilirubin 0.3 AST 30 ALT 27 Alkaline Phosphatase 152 H Total Protein 5.2 L Albumin 2.5 L Globulin 2.7 Albumin/Globulin Ratio 0.9 L Free T4 TSH 3rd Generation Assessment & Plan - Assessment and Plan (Free Text) Assessment: 67 yo M with PMH of CKD not on HD and BPH admitted for worsening cough and SOB found to have severe MR and EF of 30-35% on Echo. Official read of the echo is pending but has been reviewed by Dr. Ramsay. Patient was initially admitted to ICU for respiratory distress and polycythemia. Polycythemia has improved since admission. BNP found to be 9850 on admission. Plan: 1. Acute CHF exacerbation TTE with severe MR and estimated EF of 30-35% Official report pending but interpreted by Dr. Ramsay Suspect SOB/cough/orthopnea/PND and polycythemia are 2/2 uncontrolled CHF Suspect tachycardia is physiologic response to uncontrolled CHF Will start lasix 40 mg IVP daily Continue ASA, lopressor 25 mg BID Plan for cardiac cath as patient likely has occult CAD Will recommend starting BB after acute exacerbation has resolved Will continue to follow Case and plan reviewed and discussed with my attending Dr. Devendra Bryant, DO IM Resident PGY-1
--- NOTE | 2018-02-14 12:06 | CARD ---
APPROVED REPORT Date of service: 02/09/2018 EXAM: Two-dimensional and M-mode echocardiogram with Doppler and color Doppler. Other Information Quality : GoodRhythm : INDICATION Syncope Congestive Heart Failure ckd 2D DIMENSIONS IVSd1.2 (0.7-1.1cm)LVDd5.2 (3.9-5.9cm) PWd0.9 (0.7-1.1cm)LA Cwlizt32 (18-58mL) LVDs4.6 (2.5-4.0cm)FS (%) 10.9 % LVEF (%)23.6 (>50%)LVEF (Ramirez's)34.62 % IVC0.00 cm M-Mode DIMENSIONS RVDd1.66 (2.1-3.2cm)Left Atrium (MM)4.46 (2.5-4.0cm) IVSd0.78 (0.7-1.1cm)Aortic Root3.06 (2.2-3.7cm) LVDd5.08 (4.0-5.6cm)Aortic Cusp Exc.1.95 (1.5-2.0cm) PWd1.37 (0.7-1.1cm)FS (%) 17 % LVDs4.20 (2.0-3.8cm)LVEF (%)36 (>50%) Aortic Valve AI P 1/2 [id number] Mitral Valve MV E Sbgxvutn285.6cm/sMV A Uhlrftgb37.3cm/sE/A ratio2.0 MXYX706.12 cm/s TDI Lateral E' Peak V8.65cm/sMedial E' Peak V4.78cm/sE/Lateral E'17.4 E/Medial E'31.5 Tricuspid Valve TR Peak [id number]/sTR Peak Gr.[id number] <Conclusion> Left ventricle: thickness: normal; size: normal; overall ejection fraction: 255%: diastolic filling pressures: dilated Mitral valve: annulus: normal: leaflets: normal: excursion: normal; no significant trans-mitral gradient: moderate incompetence: left atrium: dilated Aortic valve: leaflets: calcific thickening: excursion: normal; no significant trans-aortic gradient: mild incompetence: aortic root: normal Right sided Structures: Pulmonary valve: normal; no significant incompetence; Tricuspid valve: normal; no significant incompetence: Intra-cardiac hemodynamics: pulmonary systolic pressures: 45mmHg central venous pressures: normal No pericardial effusion; large left pleural effusion ?? paracardiac cyst/hiatal hernia
[2018-02-14] MEDS: Azithromycin 500 MG in Sodium Chloride 0.9% 250 ML IVPB SCH (13:54)
[2018-02-15] MEDS: Albuterol-Ipratrop 3 mg / 0.5 (3 ml) UD INH SCH ×2 (01:46→07:05)
[2018-02-15 06:51] LABS: BASO # 0.1 K/uL (0.0-0.2); BASO % 1.8 % (0.0-2.0); EOS # 0.3 K/uL (0.0-0.7); HEMOGLOBIN 18.6 g/dL (12.0-18.0); LYMPH # 1.1 K/uL (1.0-4.3); LYMPH % 25.8 % (20.0-40.0); MEAN CELL VOLUME 76.8 fL (80.0-94.0); MEAN CORPUSCULAR HEMOGLOBIN 24.8 pg (27.0-31.0); MEAN CORPUSCULAR HGB CONC 32.3 g/dL (33.0-37.0); MEAN PLATELET VOLUME 9.8 fL (7.2-11.7); MONO # 0.2 K/uL (0.0-0.8); MONO % 5.3 % (0.0-10.0); NEUT # 2.6 K/uL (1.8-7.0); NEUT % 61.1 % (50.0-75.0); NRBC % 0.6 % (0.0-2.0); RBC 7.49 Mil/uL (4.40-5.90); RED CELL DISTRIBUTION WIDTH 21.4 % (11.5-14.5); WHITE BLOOD COUNT 4.3 K/uL (4.8-10.8)
[2018-02-15 07:01] LABS: INR 1.1; PROTHROMBIN TIME 11.6 SECONDS (9.7-12.2)
[2018-02-15 07:38] LABS: ALB/GLOB RATIO 0.9 (1.0-2.1); ALBUMIN 2.8 g/dL (3.5-5.0); CALCIUM 8.4 mg/dl (8.6-10.4)
--- NOTE | 2018-02-15 08:07 | CP.PCM.PN ---
Subjective - Date & Time of Evaluation Date of Evaluation: 02/15/18 Time of Evaluation: 08:00 - Subjective Subjective: Arjun Bryant DO, PGY-1 Cardiology Progress Note for Dr. Ramsay Patient was seen and examined at bedside this AM. He offers no new complaints and states he feels fine. He is no longer feeling short of breath and states he feels fine. 12 point ROS is otherwise negative. Objective - Vital Signs/Intake and Output Vital Signs (last 24 hours): Temp Pulse Resp BP Pulse Ox 98.1 F 115 H 18 144/98 H 98 02/15/18 07:00 02/15/18 07:00 02/15/18 07:00 02/15/18 07:00 02/15/18 07:00 - Medications Medications: Current Medications Albuterol/Ipratropium (Duoneb 3 Mg/0.5 Mg (3 Ml) Ud) 3 ml INH RQ6 [facility] Last Admin: 02/15/18 01:46 Dose: Not Given Aspirin (Aspirin Chewable) 81 mg PO DAILY [facility] Last Admin: 02/14/18 09:33 Dose: 81 mg Calcium Acetate (Phoslo) 667 mg PO TIDCC [facility] Last Admin: 02/14/18 18:35 Dose: 667 mg Docusate Sodium (Colace) 100 mg PO BID [facility] Last Admin: 02/14/18 18:34 Dose: 100 mg Famotidine (Pepcid) 20 mg PO DAILY [facility] Last Admin: 02/14/18 09:33 Dose: 20 mg Furosemide (Lasix) 40 mg IVP DAILY [facility] Last Admin: 02/14/18 12:35 Dose: 40 mg Hydroxyurea (Hydrea) 1,000 mg PO DAILY [facility] Last Admin: 02/14/18 09:45 Dose: 1,000 mg Azithromycin 500 mg/ Sodium (Chloride) 250 mls @ 250 mls/hr IVPB Q24H [facility]; Protocol Last Admin: 02/14/18 13:54 Dose: 250 mls/hr Ceftriaxone Sodium 1 gm/ (Sodium Chloride) 100 mls @ 100 mls/hr IVPB DAILY [facility]; Protocol Last Admin: 02/14/18 09:46 Dose: 100 mls/hr Lactobacillus Acidophilus (Bacid Acidophilus) 1 cap PO BID [facility] Last Admin: 02/14/18 18:35 Dose: 1 cap Metoprolol Tartrate (Lopressor) 25 mg PO BID [facility] Last Admin: 02/14/18 18:34 Dose: 25 mg Metoprolol Tartrate (Lopressor) 5 mg IVP Q6H PRN PRN Reason: Systolic Blood Pressure Ondansetron HCl (Zofran Inj) 4 mg IVP Q6 PRN PRN Reason: Nausea/Vomiting Polyethylene Glycol (Miralax) 17 gm PO DAILY [facility] Last Admin: 02/14/18 09:33 Dose: 17 gm Promethazine HCl/Dextromethorphan (Phenergan Dm Syrup) 5 ml PO Q6H PRN PRN Reason: Cough Last Admin: 02/13/18 06:16 Dose: 5 ml Sodium Bicarbonate (Sodium Bicarbonate Tab) 650 mg PO TID [facility] Last Admin: 02/14/18 18:35 Dose: 650 mg Tamsulosin HCl (Flomax) 0.4 mg PO DAILY [facility] Last Admin: 02/14/18 09:33 Dose: 0.4 mg - Labs Labs: 02/15/18 06:44 02/15/18 06:44 PT 11.6 SECONDS (9.7-12.2) 02/15/18 06:44 INR 1.1 02/15/18 06:44 APTT 37 SECONDS (21-34) H D 02/15/18 06:44 - Constitutional Appears: Non-toxic, No Acute Distress - Head Exam Head Exam: ATRAUMATIC, NORMOCEPHALIC - Eye Exam Eye Exam: EOMI, Normal appearance, PERRL - ENT Exam ENT Exam: Mucous Membranes Moist - Neck Exam Neck Exam: Full ROM Additional comments: JVD unchanged from yesterday - Respiratory Exam Respiratory Exam: Rhonchi (coarse breath sounds b/l unchanged from yesterday), NORMAL BREATHING PATTERN. absent: Accessory Muscle Use, Chest Wall Tenderness, Rales, Wheezes, Respiratory Distress - Cardiovascular Exam Cardiovascular Exam: Tachycardia, REGULAR RHYTHM, +S1, +S2. absent: Gallop, Rubs, Murmur - GI/Abdominal Exam GI & Abdominal Exam: Soft, Normal Bowel Sounds. absent: Tenderness - Extremities Exam Extremities Exam: Normal Inspection. absent: Pedal Edema - Back Exam Back Exam: Full ROM, NORMAL INSPECTION - Neurological Exam Neurological Exam: Alert, Awake, Oriented x3 - Psychiatric Exam Psychiatric exam: Normal Affect, Normal Mood - Skin Skin Exam: Dry, Intact, Warm Assessment and Plan - Assessment and Plan (Free Text) Assessment: 67 yo M with PMH of CKD not on HD and BPH admitted for worsening cough and SOB found to have severe MR and EF of 30-35% on Echo. Official read of the echo is pending but has been reviewed by Dr. Ramsay. Patient was initially admitted to ICU for respiratory distress and polycythemia. Polycythemia has improved since admission. BNP found to be 9850 on admission. Plan: 1. Acute CHF exacerbation -TTE initially interpreted by Dr. Ramsay now officially read confirmed low EF of < 25% -Suspect SOB/cough/orthopnea/PND and polycythemia are 2/2 uncontrolled CHF -Patient without peripheral edema or other signs of volume overload on physical exam, which is typical of acute CHF due to CAD -May consider EP consult and/or vest placement if episodes of VTach worsen or patient becomes more symptomatic, however most recent studies show little mortality benefit of vest placement -Continue lasix 40 mg IVP daily -Plan to hold off on cardiac cath for now at least until given patient's hx of CKD -Will continue diuretic and continue to follow BUN/Cr 2. Persistent sinus tachycardia -Likely 2/2 physiologic response to decreased cardiac output vs medication induced -Recommend increasing lopressor to 50 mg BID -Would also suggest changing scheduled duo-neb treatment to xopenex/atrovent instead Case and plan reviewed and discussed with my attending Dr. Devendra Bryant DO IM Resident PGY-1
--- NOTE | 2018-02-15 09:23 | CP.PCM.PN ---
<Chauncey Duong - Last Filed: 02/15/18 15:56> Subjective - Date & Time of Evaluation Date of Evaluation: 02/15/18 Time of Evaluation: 09:23 - Subjective Subjective: PGY-1 Medicine progress note for Dr. Davidson Patient was seen and examined this morning. Rash to bilateral antecubital fossas as pt has stopped scratching. Denies fever, chills, chest pain, sob, abdominal pain, n/v/d, numbness or tingling, headache, dizziness, leg swelling or pain, hematuria, dysuria. He is ambulating without difficulty. Objective - Vital Signs/Intake and Output Vital Signs (last 24 hours): Temp Pulse Resp BP Pulse Ox 98.1 F 115 H 18 144/98 H 98 02/15/18 07:00 02/15/18 07:00 02/15/18 07:00 02/15/18 07:00 02/15/18 07:00 - Medications Medications: Current Medications Albuterol/Ipratropium (Duoneb 3 Mg/0.5 Mg (3 Ml) Ud) 3 ml INH RQ6 [facility] Last Admin: 02/15/18 01:46 Dose: Not Given Aspirin (Aspirin Chewable) 81 mg PO DAILY [facility] Last Admin: 02/14/18 09:33 Dose: 81 mg Calcium Acetate (Phoslo) 667 mg PO TIDCC [facility] Last Admin: 02/14/18 18:35 Dose: 667 mg Docusate Sodium (Colace) 100 mg PO BID [facility] Last Admin: 02/14/18 18:34 Dose: 100 mg Famotidine (Pepcid) 20 mg PO DAILY [facility] Last Admin: 02/14/18 09:33 Dose: 20 mg Furosemide (Lasix) 40 mg IVP DAILY [facility] Last Admin: 02/14/18 12:35 Dose: 40 mg Hydroxyurea (Hydrea) 1,000 mg PO DAILY [facility] Last Admin: 02/14/18 09:45 Dose: 1,000 mg Azithromycin 500 mg/ Sodium (Chloride) 250 mls @ 250 mls/hr IVPB Q24H [facility]; Protocol Last Admin: 02/14/18 13:54 Dose: 250 mls/hr Ceftriaxone Sodium 1 gm/ (Sodium Chloride) 100 mls @ 100 mls/hr IVPB DAILY [facility]; Protocol Last Admin: 02/14/18 09:46 Dose: 100 mls/hr Lactobacillus Acidophilus (Bacid Acidophilus) 1 cap PO BID [facility] Last Admin: 02/14/18 18:35 Dose: 1 cap Metoprolol Tartrate (Lopressor) 25 mg PO BID [facility] Last Admin: 02/14/18 18:34 Dose: 25 mg Metoprolol Tartrate (Lopressor) 5 mg IVP Q6H PRN PRN Reason: Systolic Blood Pressure Ondansetron HCl (Zofran Inj) 4 mg IVP Q6 PRN PRN Reason: Nausea/Vomiting Polyethylene Glycol (Miralax) 17 gm PO DAILY [facility] Last Admin: 02/14/18 09:33 Dose: 17 gm Promethazine HCl/Dextromethorphan (Phenergan Dm Syrup) 5 ml PO Q6H PRN PRN Reason: Cough Last Admin: 02/13/18 06:16 Dose: 5 ml Sodium Bicarbonate (Sodium Bicarbonate Tab) 650 mg PO TID [facility] Last Admin: 02/14/18 18:35 Dose: 650 mg Tamsulosin HCl (Flomax) 0.4 mg PO DAILY [facility] Last Admin: 02/14/18 09:33 Dose: 0.4 mg - Labs Labs: 02/15/18 06:44 02/15/18 06:44 PT 11.6 SECONDS (9.7-12.2) 02/15/18 06:44 INR 1.1 02/15/18 06:44 APTT 37 SECONDS (21-34) H D 02/15/18 06:44 - Additional Findings Additional findings: - Constitutional Appears: No Acute Distress - Head Exam Head Exam: ATRAUMATIC, NORMAL INSPECTION, NORMOCEPHALIC - Eye Exam Eye Exam: EOMI, Normal appearance, PERRL - ENT Exam ENT Exam: Mucous Membranes Moist - Respiratory Exam Respiratory Exam: (+) minimal rales at the bilateral bases, NORMAL BREATHING PATTERN. absent: Accessory Muscle Use, Wheezes, Respiratory Distress - Cardiovascular Exam Cardiovascular Exam: REGULAR RHYTHM, +S1, +S2 - GI/Abdominal Exam GI & Abdominal Exam: Soft. absent: Tenderness - Neurological Exam Neurological Exam: Alert, Awake, CN II-XII Intact, Oriented x3 - Psychiatric Exam Psychiatric exam: Normal Affect, Normal Mood - Skin Skin Exam: Dry, Intact, Normal Color, Warm. (+) improving areas of erythema to the bilateral antecubital fossas, with healing excoriations secondary to scratching Assessment and Plan - Assessment and Plan (Free Text) Assessment: Patient is a 67 yo male with history of CKD (not in HD) who presented with SOB and cough. Additionally, he reported 20 lb weight loss over 6 months. He was found to have b/l pleural effusions. Also found to have polycythemia. He had b/l thoracentesis on 02/11 with significant improvement of symptoms while in the ICU. He has had therapeutic phlebotomy 4 times thus far with gradual improvement on H&H. Polycythemia work-up is pending. Patient was initially managed in the ICU for 4 days, and was then downgraded to med/surg after SOB improved. Plan: Polycythemia - H/H is 21.4/68.8 on admission - LE Dopplers (02/10): no DVT - FARTUN positive, titer 1:80, speckled - Hct goal <45 - Hydroxyurea 1000 mg PO daily - ASA 81 mg PO daily (on hold due to planned renal biopsy 02/14) - Hem/onc consulted (Sneha)- therapeutic phlebotomies - f/u JAK2, EPO - therapeutic phlebotomy until goal HCT is reached Interstitial lung markings- consider PNA (patient with cough, SOB) - CXR 02/08 (on admission): Prominent hilar and perihilar bronchovascular markings. Bronchiolar thickening along with subsegmental inflammatory patchy infiltrates coalescing are a consideration. Left infrahilar coalescence/patchy infiltrate and/or atelectasis posterior suspect. Findings are in addition to pulmonary venous congestion suspect. Mild cardiomegaly. Clinical correlation is essential. Follow-up recommended. Consider CT of the chest for more sensitive evaluation. - CT 02/10: Round shaped opacity at the inferior peripheral portion of the right middle lobe which may represent atelectasis versus neoplasm. - CXR 02/13: Prominent diffuse increased interstitial lung markings which may rep resent underlying edema and or infiltrate. Scattered patchy pleural parenchymal opacities in the mid to lower lung zones bilaterally. Right midlung atelectasis. Bilateral hilar prominence. Cardiomegaly. - Blood Cx no growth 5 days - Pulmonology consulted (Tray), will f/u with recs - Incentive spirometry - Duoneb Q6H - Azithromycin 250 mg IV daily- start 02/13 - Rocephin 1 g IV daily- started 02/13 - Lactobacillus acidophilus PO BID - Phenergan DM 5 mL PO Q6H PRN CHF with reduced ejection fraction Pt presented with bilateral pleural effusions; improving s/p thoracentesis 02/11 - BNP is 9850 on admission - Echocardiogram (02/08) show LVEF approximately 25%. Dilated diastolic filling presures. Pulmonary systolic presure are levated at 45 mmHg. large left pleural effusion. Paracardiac cyst/hiatal hernia. - CXR: cardiomegaly - CT chest 02/10: Moderate to large bilateral pleural effusions associated with bilateral lower lobe atelectasis. - IR consulted (Abdiel) - Cardiology, Dr. Ramsay, consulted, recs appreciated Plan for cardiac cath as patient likely has occult CAD - No ACEi/ARB at this time due to CKD, pt is on BB, and diuretic D-dimer elevation - repeat d-dimer is 341, normal d-dimer on admission - pt is hemodynamically stable, but has a high risk to clot due to polycythemia - Bilateral lower extremity US (02/15) is prelim negative - f/u official reading Tachycardia Ventricular tachycardia on monitor (02/14), likely secondary to CHF with reduced EF - EKG: sinus tach, LVH on admission - EKG (02/14) shows sinus tachycardia with LVH - Metoprolol 25 mg PO BID - Metoprolol 5 mg IVP Q6H PRN - Cardiology, Dr. Ramsay, consulted, will f/u with recs Chronic kidney disease, stable - Renal US: echogenic renal parenchyma bilateral may be seen in setting of medical renal disease. 5mm mid to lower pole left renal calculus. non obstructing. 1.1cm left lower pole renal cyst. - Renally dose meds - Phoslo 667 mg PO TID - Sodium bicarb 650 mg PO TID - Nephrology consulted (Gwen/Morales) - Possible renal biopsy to be done by IR, Dr. Meadows, on 02/18 Constipation - Colace 100 mg PO BID - Miralax 17 g PO daily Benign prostatic hypertrophy - Flomax 0.4 mg PO daily Ppx: VTE: SCDs, ASA (on hold due to planned renal biopsy this week), heparin 5000 units SC Q8H GI: Pepcid 20 mg PO daily Diet: HHD, Renal diet, Fluid restriction to 1500 mL PT/OT- home with services Code status: full code Case discussed with attending physician, Dr. Stuart Duong PGY1 <Melisa Davidson V - Last Filed: 02/15/18 18:31> Objective - Vital Signs/Intake and Output Vital Signs (last 24 hours): Temp Pulse Resp BP Pulse Ox 98.2 F 120 H 18 115/82 97 02/15/18 16:30 02/15/18 16:30 02/15/18 16:30 02/15/18 16:30 02/15/18 16:30 - Medications Medications: Current Medications Aspirin (Aspirin Chewable) 81 mg PO DAILY [facility] Last Admin: 02/14/18 09:33 Dose: 81 mg Calcium Acetate (Phoslo) 667 mg PO TIDCC [facility] Last Admin: 02/15/18 17:47 Dose: 667 mg Docusate Sodium (Colace) 100 mg PO BID [facility] Last Admin: 02/15/18 17:47 Dose: 100 mg Famotidine (Pepcid) 20 mg PO DAILY [facility] Last Admin: 02/15/18 10:50 Dose: 20 mg Furosemide (Lasix) 40 mg IVP DAILY [facility] Last Admin: 02/15/18 10:06 Dose: 40 mg Heparin Sodium (Porcine) (Heparin) 5,000 units SC Q8 [facility] Last Admin: 02/15/18 14:41 Dose: 5,000 units Hydroxyurea (Hydrea) 1,000 mg PO DAILY [facility] Last Admin: 02/15/18 10:51 Dose: 1,000 mg Azithromycin 500 mg/ Sodium (Chloride) 250 mls @ 250 mls/hr IVPB Q24H [facility]; Protocol Last Admin: 02/15/18 14:41 Dose: 250 mls/hr Ceftriaxone Sodium 1 gm/ (Sodium Chloride) 100 mls @ 100 mls/hr IVPB DAILY [facility]; Protocol Last Admin: 02/15/18 10:06 Dose: 100 mls/hr Ipratropium [place] (Atrovent) 0.5 mg IH RQ6 [facility] Lactobacillus Acidophilus (Bacid Acidophilus) 1 cap PO BID [facility] Last Admin: 02/15/18 17:47 Dose: 1 cap Metoprolol Tartrate (Lopressor) 5 mg IVP Q6H PRN PRN Reason: Systolic Blood Pressure Metoprolol Tartrate (Lopressor) 100 mg PO BID [facility] Last Admin: 02/15/18 17:47 Dose: 100 mg Ondansetron HCl (Zofran Inj) 4 mg IVP Q6 PRN PRN Reason: Nausea/Vomiting Polyethylene Glycol (Miralax) 17 gm PO DAILY [facility] Last Admin: 02/15/18 10:05 Dose: Not Given Promethazine HCl/Dextromethorphan (Phenergan Dm Syrup) 5 ml PO Q6H PRN PRN Reason: Cough Last Admin: 02/13/18 06:16 Dose: 5 ml Sodium Bicarbonate (Sodium Bicarbonate Tab) 650 mg PO TID [facility] Last Admin: 02/15/18 17:47 Dose: 650 mg Tamsulosin HCl (Flomax) 0.4 mg PO DAILY [facility] Last Admin: 02/15/18 10:50 Dose: 0.4 mg - Labs Labs: 02/15/18 06:44 02/15/18 06:44 PT 11.6 SECONDS (9.7-12.2) 02/15/18 06:44 INR 1.1 02/15/18 06:44 APTT 37 SECONDS (21-34) H D 02/15/18 06:44 Assessment and Plan (1) Shortness of breath Status: Acute (2) CKD (chronic kidney disease) stage 4, GFR 15-29 ml/min Status: Acute (3) Interstitial lung disease Status: Acute (4) Polycythemia Status: Acute (5) Pneumonia Status: Acute (6) Cardiomegaly Status: Acute (7) Prophylactic measure Status: Acute Attending/Attestation - Attestation I have personally seen and examined this patient.: Yes I have fully participated in the care of the patient.: Yes I have reviewed all pertinent clinical information, including history, physical exam and plan: Yes Notes (Text): Patient seen, examined and case discussed with day-time resident. Patient was evaluated by IR: Dr. Meadows, scheduled for renal biopsy on . Discussed with nephrology. patient has been off Aspirin since yesterday. Restart dvt ppx until . patient not receive bedside phlebotomy yesterday. Resident has spoken with charge nurse, since nursing staff does not do this routinely, nursing shift supervisor aware recommended for ICU, Resident has spoken with Dr. Feliz, and Radha, nurse manager meat, patient is not an icu candidate; will f/u regarding teaching for phlebomty. ICU resident, Devin Villarreal has performed bedside phlebtomy at bedside about 400cc removed today. Patient is awaiting for cardiac cath given low EF with suspected CAD. I did speak with family today; they are aware that patient recommended for renal biopsy given unclear what has cause kidney problems and that he has a weak heart. Hematology-oncology updated by resident as well regarding Aspirin being hold for renal bx. D-dimer elevated; we have order for venous doppler r/o dvt.
[2018-02-15] MEDS: Lactobacillus Acidophilus 500 MU Cap PO SCH ×3 (10:04→17:47)
[2018-02-15] MEDS: POLYETHYLENE GLYCOL 3350 17 GM/Dose PACKET PO SCH (10:05)
--- NOTE | 2018-02-15 12:52 | CP.PCM.PN ---
Subjective - Date & Time of Evaluation Date of Evaluation: 02/15/18 Time of Evaluation: 12:50 - Subjective Subjective: seen and examined FARTUN +, 6.6 g proteinuria, +hematuria neg hep B,C EF < 30% on echo pt denies any f/c/sob/dizziness/cp/palpitations/n/v/d/headache Objective - Vital Signs/Intake and Output Vital Signs (last 24 hours): Temp Pulse Resp BP Pulse Ox 98.1 F 117 H 18 134/81 98 02/15/18 07:00 02/15/18 08:13 02/15/18 07:00 02/15/18 10:50 02/15/18 07:00 - Medications Medications: Current Medications Albuterol/Ipratropium (Duoneb 3 Mg/0.5 Mg (3 Ml) Ud) 3 ml INH RQ6 [facility] Last Admin: 02/15/18 07:05 Dose: 3 ml Aspirin (Aspirin Chewable) 81 mg PO DAILY [facility] Last Admin: 02/14/18 09:33 Dose: 81 mg Calcium Acetate (Phoslo) 667 mg PO TIDCC [facility] Last Admin: 02/15/18 11:04 Dose: 667 mg Docusate Sodium (Colace) 100 mg PO BID [facility] Last Admin: 02/15/18 10:50 Dose: 100 mg Famotidine (Pepcid) 20 mg PO DAILY [facility] Last Admin: 02/15/18 10:50 Dose: 20 mg Furosemide (Lasix) 40 mg IVP DAILY [facility] Last Admin: 02/15/18 10:06 Dose: 40 mg Hydroxyurea (Hydrea) 1,000 mg PO DAILY [facility] Last Admin: 02/15/18 10:51 Dose: 1,000 mg Azithromycin 500 mg/ Sodium (Chloride) 250 mls @ 250 mls/hr IVPB Q24H [facility]; Protocol Last Admin: 02/14/18 13:54 Dose: 250 mls/hr Ceftriaxone Sodium 1 gm/ (Sodium Chloride) 100 mls @ 100 mls/hr IVPB DAILY [facility]; Protocol Last Admin: 02/15/18 10:06 Dose: 100 mls/hr Lactobacillus Acidophilus (Bacid Acidophilus) 1 cap PO BID [facility] Last Admin: 02/15/18 10:50 Dose: 1 cap Metoprolol Tartrate (Lopressor) 25 mg PO BID [facility] Last Admin: 02/15/18 10:50 Dose: 25 mg Metoprolol Tartrate (Lopressor) 5 mg IVP Q6H PRN PRN Reason: Systolic Blood Pressure Ondansetron HCl (Zofran Inj) 4 mg IVP Q6 PRN PRN Reason: Nausea/Vomiting Polyethylene Glycol (Miralax) 17 gm PO DAILY [facility] Last Admin: 02/15/18 10:05 Dose: Not Given Promethazine HCl/Dextromethorphan (Phenergan Dm Syrup) 5 ml PO Q6H PRN PRN Reason: Cough Last Admin: 02/13/18 06:16 Dose: 5 ml Sodium Bicarbonate (Sodium Bicarbonate Tab) 650 mg PO TID [facility] Last Admin: 02/15/18 10:50 Dose: 650 mg Tamsulosin HCl (Flomax) 0.4 mg PO DAILY [facility] Last Admin: 02/15/18 10:50 Dose: 0.4 mg - Labs Labs: 02/15/18 06:44 02/15/18 06:44 PT 11.6 SECONDS (9.7-12.2) 02/15/18 06:44 INR 1.1 02/15/18 06:44 APTT 37 SECONDS (21-34) H D 02/15/18 06:44 - Constitutional Appears: Non-toxic, No Acute Distress - Head Exam Head Exam: NORMAL INSPECTION, NORMOCEPHALIC - Eye Exam Eye Exam: Normal appearance, PERRL - ENT Exam ENT Exam: Mucous Membranes Moist, Normal Exam - Neck Exam Neck Exam: Full ROM, Normal Inspection - Respiratory Exam Respiratory Exam: Clear to Ausculation Bilateral, NORMAL BREATHING PATTERN - Cardiovascular Exam Cardiovascular Exam: REGULAR RHYTHM, RRR - GI/Abdominal Exam GI & Abdominal Exam: Distended, Soft - Extremities Exam Extremities Exam: Full ROM, Normal Inspection - Neurological Exam Neurological Exam: Alert, Awake, Oriented x3 - Psychiatric Exam Psychiatric exam: Normal Affect, Normal Mood - Skin Skin Exam: Intact, Warm Assessment and Plan - Assessment and Plan (Free Text) Assessment: polycythemia nephrotic syndrome ckd 4 chf, ef<30% plan: pt needs a renal biopsy, plan for . discussed w/ primary team check dsDNA, complements, HIV maintain lasix polycythemia w/u
[2018-02-15] MEDS: Azithromycin 500 MG in Sodium Chloride 0.9% 250 ML IVPB SCH (14:41)
--- NOTE | 2018-02-15 17:22 | CP.PCM.PN ---
Subjective - Date & Time of Evaluation Date of Evaluation: 02/15/18 Time of Evaluation: 16:00 - Subjective Subjective: Bedside therapeutic phlebotomy was done with approximately 480cc of blood removed. Patient consented and signed consent form. Patient tolerated it well, he was instructed to drink fluids and avoid getting out of bed as he may feel dizzy. Objective - Vital Signs/Intake and Output Vital Signs (last 24 hours): Temp Pulse Resp BP Pulse Ox 97.6 F 116 H 20 115/74 96 02/15/18 15:40 02/15/18 15:40 02/15/18 15:40 02/15/18 15:40 02/15/18 15:40 - Medications Medications: Current Medications Aspirin (Aspirin Chewable) 81 mg PO DAILY [facility] Last Admin: 02/14/18 09:33 Dose: 81 mg Calcium Acetate (Phoslo) 667 mg PO TIDCC [facility] Last Admin: 02/15/18 11:04 Dose: 667 mg Docusate Sodium (Colace) 100 mg PO BID [facility] Last Admin: 02/15/18 10:50 Dose: 100 mg Famotidine (Pepcid) 20 mg PO DAILY [facility] Last Admin: 02/15/18 10:50 Dose: 20 mg Furosemide (Lasix) 40 mg IVP DAILY [facility] Last Admin: 02/15/18 10:06 Dose: 40 mg Heparin Sodium (Porcine) (Heparin) 5,000 units SC Q8 [facility] Last Admin: 02/15/18 14:41 Dose: 5,000 units Hydroxyurea (Hydrea) 1,000 mg PO DAILY [facility] Last Admin: 02/15/18 10:51 Dose: 1,000 mg Azithromycin 500 mg/ Sodium (Chloride) 250 mls @ 250 mls/hr IVPB Q24H [facility]; Protocol Last Admin: 02/15/18 14:41 Dose: 250 mls/hr Ceftriaxone Sodium 1 gm/ (Sodium Chloride) 100 mls @ 100 mls/hr IVPB DAILY [facility]; Protocol Last Admin: 02/15/18 10:06 Dose: 100 mls/hr Ipratropium [place] (Atrovent) 0.5 mg IH RQ6 [facility] Lactobacillus Acidophilus (Bacid Acidophilus) 1 cap PO BID [facility] Last Admin: 02/15/18 10:50 Dose: 1 cap Metoprolol Tartrate (Lopressor) 5 mg IVP Q6H PRN PRN Reason: Systolic Blood Pressure Metoprolol Tartrate (Lopressor) 100 mg PO BID [facility] Ondansetron HCl (Zofran Inj) 4 mg IVP Q6 PRN PRN Reason: Nausea/Vomiting Polyethylene Glycol (Miralax) 17 gm PO DAILY [facility] Last Admin: 02/15/18 10:05 Dose: Not Given Promethazine HCl/Dextromethorphan (Phenergan Dm Syrup) 5 ml PO Q6H PRN PRN Reason: Cough Last Admin: 02/13/18 06:16 Dose: 5 ml Sodium Bicarbonate (Sodium Bicarbonate Tab) 650 mg PO TID [facility] Last Admin: 02/15/18 14:41 Dose: 650 mg Tamsulosin HCl (Flomax) 0.4 mg PO DAILY [facility] Last Admin: 02/15/18 10:50 Dose: 0.4 mg - Labs Labs: 02/15/18 06:44 02/15/18 06:44 PT 11.6 SECONDS (9.7-12.2) 02/15/18 06:44 INR 1.1 02/15/18 06:44 APTT 37 SECONDS (21-34) H D 02/15/18 06:44
[2018-02-15] MEDS: Ipratropium 0.02% Inhal Soln (0.5 mg/2.5 ml) UD IH SCH (19:11)
--- NOTE | 2018-02-15 19:26 | CARD ---
APPROVED REPORT Date of service: 02/14/2018 EKG Measurement Heart [id number] <Conclusion> Sinus tachycardia Minimal voltage criteria for LVH, may be normal variant Cannot rule out Anterior infarct, age undetermined Abnormal ECG
--- NOTE | 2018-02-15 22:12 | CP.PCM.PN ---
Subjective - Date & Time of Evaluation Date of Evaluation: 02/15/18 Time of Evaluation: 18:00 - Subjective Subjective: Seen ambulating. erythropoietin and JAK2 resent this AM Objective - Vital Signs/Intake and Output Vital Signs (last 24 hours): Temp Pulse Resp BP Pulse Ox 98.1 F 103 H 18 116/79 97 02/15/18 17:30 02/15/18 20:00 02/15/18 17:30 02/15/18 17:30 02/15/18 17:30 - Medications Medications: Current Medications Aspirin (Aspirin Chewable) 81 mg PO DAILY [facility] Last Admin: 02/14/18 09:33 Dose: 81 mg Calcium Acetate (Phoslo) 667 mg PO TIDCC [facility] Last Admin: 02/15/18 17:47 Dose: 667 mg Docusate Sodium (Colace) 100 mg PO BID [facility] Last Admin: 02/15/18 17:47 Dose: 100 mg Famotidine (Pepcid) 20 mg PO DAILY [facility] Last Admin: 02/15/18 10:50 Dose: 20 mg Furosemide (Lasix) 40 mg IVP DAILY [facility] Last Admin: 02/15/18 10:06 Dose: 40 mg Heparin Sodium (Porcine) (Heparin) 5,000 units SC Q8 [facility] Last Admin: 02/15/18 21:06 Dose: 5,000 units Hydroxyurea (Hydrea) 1,000 mg PO DAILY [facility] Last Admin: 02/15/18 10:51 Dose: 1,000 mg Azithromycin 500 mg/ Sodium (Chloride) 250 mls @ 250 mls/hr IVPB Q24H [facility]; Protocol Last Admin: 02/15/18 14:41 Dose: 250 mls/hr Ceftriaxone Sodium 1 gm/ (Sodium Chloride) 100 mls @ 100 mls/hr IVPB DAILY [facility]; Protocol Last Admin: 02/15/18 10:06 Dose: 100 mls/hr Ipratropium [place] (Atrovent) 0.5 mg IH RQ6 [facility] Last Admin: 02/15/18 19:11 Dose: 0.5 mg Lactobacillus Acidophilus (Bacid Acidophilus) 1 cap PO BID [facility] Last Admin: 02/15/18 17:47 Dose: 1 cap Metoprolol Tartrate (Lopressor) 5 mg IVP Q6H PRN PRN Reason: Systolic Blood Pressure Metoprolol Tartrate (Lopressor) 100 mg PO BID [facility] Last Admin: 02/15/18 17:47 Dose: 100 mg Ondansetron HCl (Zofran Inj) 4 mg IVP Q6 PRN PRN Reason: Nausea/Vomiting Polyethylene Glycol (Miralax) 17 gm PO DAILY [facility] Last Admin: 02/15/18 10:05 Dose: Not Given Promethazine HCl/Dextromethorphan (Phenergan Dm Syrup) 5 ml PO Q6H PRN PRN Reason: Cough Last Admin: 02/13/18 06:16 Dose: 5 ml Sodium Bicarbonate (Sodium Bicarbonate Tab) 650 mg PO TID [facility] Last Admin: 02/15/18 17:47 Dose: 650 mg Tamsulosin HCl (Flomax) 0.4 mg PO DAILY [facility] Last Admin: 02/15/18 10:50 Dose: 0.4 mg - Labs Labs: 02/15/18 06:44 02/15/18 06:44 PT 11.6 SECONDS (9.7-12.2) 02/15/18 06:44 INR 1.1 02/15/18 06:44 APTT 37 SECONDS (21-34) H D 02/15/18 06:44 - Head Exam Head Exam: ATRAUMATIC - Eye Exam Eye Exam: Normal appearance - ENT Exam ENT Exam: Mucous Membranes Dry - Respiratory Exam Respiratory Exam: NORMAL BREATHING PATTERN - Cardiovascular Exam Cardiovascular Exam: +S1, +S2 - GI/Abdominal Exam GI & Abdominal Exam: Normal Bowel Sounds Assessment and Plan (1) Polycythemia Assessment & Plan: JAK2 and EPO level resent as were canceled s/p phlebotomy; goal hct <45 aspirin held for renal biopsy; goal functional plt count > 100,000 for renal biopsy Status: Acute
[2018-02-16] MEDS: Ipratropium 0.02% Inhal Soln (0.5 mg/2.5 ml) UD IH SCH ×4 (01:20→20:07)
[2018-02-16 06:34] LABS: BASO # 0.1 K/uL (0.0-0.2); BASO % 2.9 % (0.0-2.0); EOS # 0.3 K/uL (0.0-0.7); EOS % 7.7 % (0.0-4.0); HEMOGLOBIN 16.8 g/dL (12.0-18.0); LYMPH % 28.5 % (20.0-40.0); MEAN CELL VOLUME 76.7 fL (80.0-94.0); MEAN CORPUSCULAR HEMOGLOBIN 24.2 pg (27.0-31.0); MEAN CORPUSCULAR HGB CONC 31.6 g/dL (33.0-37.0); MEAN PLATELET VOLUME 9.2 fL (7.2-11.7); MONO # 0.1 K/uL (0.0-0.8); MONO % 3.9 % (0.0-10.0); NEUT # 2.1 K/uL (1.8-7.0); NRBC % 0.8 % (0.0-2.0); RBC 6.92 Mil/uL (4.40-5.90); RED CELL DISTRIBUTION WIDTH 21.6 % (11.5-14.5); WHITE BLOOD COUNT 3.6 K/uL (4.8-10.8)
[2018-02-16 06:50] LABS: ALB/GLOB RATIO 0.9 (1.0-2.1); ALBUMIN 2.4 g/dL (3.5-5.0); CALCIUM 8.1 mg/dl (8.6-10.4)
[2018-02-16 07:03] LABS: COMPLEMENT C4 28.5 mg/dL (14.0-44.0)
[2018-02-16] MEDS: POLYETHYLENE GLYCOL 3350 17 GM/Dose PACKET PO SCH (09:34)
[2018-02-16] MEDS: Lactobacillus Acidophilus 500 MU Cap PO SCH ×2 (09:36→17:39)
--- NOTE | 2018-02-16 11:06 | CP.PCM.PN ---
Subjective - Date & Time of Evaluation Date of Evaluation: 02/16/18 Time of Evaluation: 09:30 - Subjective Subjective: Arjun Bryant DO, PGY-1 Cardiology Progress Note for Dr. Ramsay Patient was seen and examined at bedside this AM. He offers no new complaints and states his SOB and productive cough have improved since admission. He denies fever/chills, CP, dyspnea on exertion, or palpitations. HR has remained in the low 100s overnight slightly decreased from yesterday. Objective - Vital Signs/Intake and Output Vital Signs (last 24 hours): Temp Pulse Resp BP Pulse Ox 98.1 F 108 H 18 110/72 99 02/16/18 07:00 02/16/18 07:19 02/16/18 07:00 02/16/18 09:34 02/16/18 07:00 Intake and Output: 02/16/18 02/16/18 06:59 18:59 Intake Total 850 Output Total 1400 Balance -550 - Medications Medications: Current Medications Aspirin (Aspirin Chewable) 81 mg PO DAILY [facility] Last Admin: 02/14/18 09:33 Dose: 81 mg Calcium Acetate (Phoslo) 667 mg PO TIDCC [facility] Last Admin: 02/16/18 09:00 Dose: 667 mg Docusate Sodium (Colace) 100 mg PO BID [facility] Last Admin: 02/16/18 09:33 Dose: 100 mg Famotidine (Pepcid) 20 mg PO DAILY [facility] Last Admin: 02/16/18 09:33 Dose: 20 mg Furosemide (Lasix) 40 mg IVP DAILY [facility] Last Admin: 02/16/18 09:34 Dose: 40 mg Heparin Sodium (Porcine) (Heparin) 5,000 units SC Q8 [facility] Last Admin: 02/16/18 05:44 Dose: 5,000 units Hydroxyurea (Hydrea) 1,000 mg PO DAILY [facility] Last Admin: 02/16/18 09:36 Dose: 1,000 mg Azithromycin 500 mg/ Sodium (Chloride) 250 mls @ 250 mls/hr IVPB Q24H [facility]; Protocol Last Admin: 02/15/18 14:41 Dose: 250 mls/hr Ipratropium [place] (Atrovent) 0.5 mg IH RQ6 [facility] Last Admin: 02/16/18 07:10 Dose: 0.5 mg Lactobacillus Acidophilus (Bacid Acidophilus) 1 cap PO BID [facility] Last Admin: 02/16/18 09:36 Dose: 1 cap Metoprolol Tartrate (Lopressor) 5 mg IVP Q6H PRN PRN Reason: Systolic Blood Pressure Metoprolol Tartrate (Lopressor) 100 mg PO BID [facility] Last Admin: 02/16/18 09:33 Dose: 100 mg Ondansetron HCl (Zofran Inj) 4 mg IVP Q6 PRN PRN Reason: Nausea/Vomiting Polyethylene Glycol (Miralax) 17 gm PO DAILY [facility] Last Admin: 02/16/18 09:34 Dose: Not Given Promethazine HCl/Dextromethorphan (Phenergan Dm Syrup) 5 ml PO Q6H PRN PRN Reason: Cough Last Admin: 02/13/18 06:16 Dose: 5 ml Sodium Bicarbonate (Sodium Bicarbonate Tab) 650 mg PO TID [facility] Last Admin: 02/16/18 09:32 Dose: 650 mg Tamsulosin HCl (Flomax) 0.4 mg PO DAILY [facility] Last Admin: 02/16/18 09:32 Dose: 0.4 mg Vitamin A (Vitamin A & D Oint Ud Foilpak) 1 ea TOP BID [facility] - Labs Labs: 02/16/18 06:25 02/16/18 06:25 PT 11.6 SECONDS (9.7-12.2) 02/15/18 06:44 INR 1.1 02/15/18 06:44 APTT 37 SECONDS (21-34) H D 02/15/18 06:44 - Constitutional Appears: Non-toxic, No Acute Distress - Head Exam Head Exam: ATRAUMATIC, NORMOCEPHALIC - Eye Exam Eye Exam: EOMI, Normal appearance, PERRL - ENT Exam ENT Exam: Mucous Membranes Moist - Neck Exam Neck Exam: Full ROM, Normal Inspection - Respiratory Exam Respiratory Exam: Rhonchi (b/l coarse breath sounds improved from yesterday). absent: Accessory Muscle Use, Rales, Wheezes, Respiratory Distress - Cardiovascular Exam Cardiovascular Exam: Tachycardia, REGULAR RHYTHM, +S1, +S2. absent: Gallop, Rubs, Murmur - GI/Abdominal Exam GI & Abdominal Exam: Soft, Normal Bowel Sounds. absent: Tenderness - Extremities Exam Extremities Exam: Full ROM. absent: Pedal Edema - Neurological Exam Neurological Exam: Alert, Awake, Oriented x3 - Psychiatric Exam Psychiatric exam: Normal Affect, Normal Mood - Skin Skin Exam: Dry, Intact, Warm Assessment and Plan - Assessment and Plan (Free Text) Assessment: 67 yo M with PMH of CKD not on HD and BPH admitted for worsening cough and SOB found to have severe MR and EF of 30-35% on Echo. Official read of the echo is pending but has been reviewed by Dr. Ramsay. Patient was initially admitted to ICU for respiratory distress and polycythemia. Polycythemia has improved since admission. BNP found to be 9850 on admission. Plan: 1. Acute CHF exacerbation -TTE initially interpreted by Dr. Ramsay now officially read confirmed low EF of < 25% -Suspect SOB/cough/orthopnea/PND and polycythemia are 2/2 uncontrolled CHF -Suspect acute CHF is 2/2 worsening CAD -Continue lasix 40 mg IVP daily -Patient needs cardiac cath to assess for CAD as EF is likely to improve after stenting but CKD history is concerning -Will discuss plan with nephrology -May consider temporary dialysis after procedure 2. Persistent sinus tachycardia -Likely 2/2 physiologic response to decreased cardiac output vs medication induced -Improved after increasing to lopressor 100 mg BID -Continue to monitor Case and plan reviewed and discussed with my attending Dr. Devendra Bryant, IM Resident PGY-1
[2018-02-16] MEDS: Vitamins A & D Oint UD Foilpak TOP SCH ×2 (12:05→17:39)
[2018-02-16] MEDS: Azithromycin 500 MG in Sodium Chloride 0.9% 250 ML IVPB SCH (12:06)
--- NOTE | 2018-02-16 13:03 | CP.PCM.PN ---
Subjective - Date & Time of Evaluation Date of Evaluation: 02/16/18 Time of Evaluation: 13:01 - Subjective Subjective: no acute complaints no fever no chest pain no sob appetite is good no bruising +bubbles in urine no cough no arthralgias no diarrhea no sinus tenderness Objective - Vital Signs/Intake and Output Vital Signs (last 24 hours): Temp Pulse Resp BP Pulse Ox 98.1 F 95 H 18 110/72 99 02/16/18 07:00 02/16/18 12:15 02/16/18 07:00 02/16/18 09:34 02/16/18 07:00 Intake and Output: 02/16/18 02/16/18 06:59 18:59 Intake Total 850 Output Total 1400 Balance -550 - Medications Medications: Current Medications Aspirin (Aspirin Chewable) 81 mg PO DAILY [facility] Last Admin: 02/14/18 09:33 Dose: 81 mg Calcium Acetate (Phoslo) 667 mg PO TIDCC [facility] Last Admin: 02/16/18 12:05 Dose: 667 mg Docusate Sodium (Colace) 100 mg PO BID [facility] Last Admin: 02/16/18 09:33 Dose: 100 mg Famotidine (Pepcid) 20 mg PO DAILY [facility] Last Admin: 02/16/18 09:33 Dose: 20 mg Furosemide (Lasix) 40 mg IVP DAILY [facility] Last Admin: 02/16/18 09:34 Dose: 40 mg Heparin Sodium (Porcine) (Heparin) 5,000 units SC Q8 [facility] Last Admin: 02/16/18 05:44 Dose: 5,000 units Hydroxyurea (Hydrea) 1,000 mg PO DAILY [facility] Last Admin: 02/16/18 09:36 Dose: 1,000 mg Ipratropium [place] (Atrovent) 0.5 mg IH RQ6 [facility] Last Admin: 02/16/18 07:10 Dose: 0.5 mg Lactobacillus Acidophilus (Bacid Acidophilus) 1 cap PO BID [facility] Last Admin: 02/16/18 09:36 Dose: 1 cap Metoprolol Tartrate (Lopressor) 5 mg IVP Q6H PRN PRN Reason: Systolic Blood Pressure Metoprolol Tartrate (Lopressor) 100 mg PO BID [facility] Last Admin: 02/16/18 09:33 Dose: 100 mg Ondansetron HCl (Zofran Inj) 4 mg IVP Q6 PRN PRN Reason: Nausea/Vomiting Polyethylene Glycol (Miralax) 17 gm PO DAILY [facility] Last Admin: 02/16/18 09:34 Dose: Not Given Promethazine HCl/Dextromethorphan (Phenergan Dm Syrup) 5 ml PO Q6H PRN PRN Reason: Cough Last Admin: 02/13/18 06:16 Dose: 5 ml Sodium Bicarbonate (Sodium Bicarbonate Tab) 650 mg PO TID [facility] Last Admin: 02/16/18 09:32 Dose: 650 mg Tamsulosin HCl (Flomax) 0.4 mg PO DAILY [facility] Last Admin: 02/16/18 09:32 Dose: 0.4 mg Vitamin A (Vitamin A & D Oint Ud Foilpak) 1 ea TOP BID [facility] Last Admin: 02/16/18 12:05 Dose: 1 ea - Labs Labs: 02/16/18 06:25 02/16/18 06:25 PT 11.6 SECONDS (9.7-12.2) 02/15/18 06:44 INR 1.1 02/15/18 06:44 APTT 37 SECONDS (21-34) H D 02/15/18 06:44 - Constitutional Appears: Non-toxic, No Acute Distress - Head Exam Head Exam: ATRAUMATIC, NORMAL INSPECTION - Eye Exam Eye Exam: EOMI - ENT Exam ENT Exam: Mucous Membranes Moist - Neck Exam Neck Exam: Full ROM. absent: Lymphadenopathy - Respiratory Exam Respiratory Exam: Decreased Breath Sounds. absent: Accessory Muscle Use - Cardiovascular Exam Cardiovascular Exam: REGULAR RHYTHM. absent: Rubs - GI/Abdominal Exam GI & Abdominal Exam: Soft. absent: Tenderness - Extremities Exam Extremities Exam: absent: Pedal Edema - Neurological Exam Neurological Exam: Alert, Awake, Oriented x3 Assessment and Plan - Assessment and Plan (Free Text) Assessment: polycythemia, Heme w/u ongoing nephrotic syndrome,ckd 4 renal biopsy planned for am off aspirin
--- NOTE | 2018-02-16 13:40 | VASCLAB ---
Date of service: 02/15/2018 PROCEDURE: Lower Extremity Venous Duplex Exam. HISTORY: r/o dvt PRIORS: None. TECHNIQUE: Bilateral common femoral, femoral, popliteal and posterior tibial, peroneal and great saphenous veins were evaluated. Flow was assessed with color Doppler, compressibility, assessment of phasic flow and augmentation response. Report prepared by Vishal Anthony, BS, RVT FINDINGS: RIGHT: 1. Common Femoral Vein: 1.1. Compressibility - Fully compressible: Thrombus - None : Flow - Phasic: Augmentation -Normal: Reflux - None. 2. Femoral Vein: 2.1. Compressibility - Fully compressible: Thrombus - None : Flow - Phasic: Augmentation -Normal: Reflux - None. 3. Popliteal Vein: 3.1. Compressibility - Fully compressible: Thrombus - None : Flow - Phasic: Augmentation -Normal: Reflux - None. 4. Posterior Tibial Vein: 4.1. Compressibility - Fully compressible: Thrombus - None: Flow - Phasic: Augmentation -Normal: Reflux - None. 5. Peroneal Vein: 5.1. Compressibility - Fully compressible: Thrombus - None: Flow - Phasic: Augmentation -Normal: Reflux - None. 6. Great Saphenous Vein: 6.1. Compressibility - Fully compressible: Thrombus - None: Flow - Phasic: Augmentation - Normal: Reflux - None. LEFT: 1. Common Femoral Vein: 1.1. Compressibility - Fully compressible: Thrombus - None: Flow - Phasic: Augmentation -Normal: Reflux - None. 2. Femoral Vein: 2.1. Compressibility - Fully compressible: Thrombus - None: Flow - Phasic: Augmentation -Normal: Reflux - None. 3. Popliteal Vein: 3.1. Compressibility - Fully compressible: Thrombus - None : Flow - Phasic: Augmentation -Normal: Reflux - None. 4. Posterior Tibial Vein: 4.1. Compressibility - Fully compressible: Thrombus - None: Flow - Phasic: Augmentation -Normal: Reflux - None. 5. Peroneal Vein: 5.1. Compressibility - Fully compressible: Thrombus - None: Flow - Phasic: Augmentation -Normal: Reflux - None. 6. Great Saphenous Vein: 6.1. Compressibility - Fully compressible: Thrombus - None: Flow - Phasic: Augmentation - Normal: Reflux - None. OTHER FINDINGS: Right: None significant. Left: None significant. IMPRESSION: Right: No evidence of deep or superficial vein thrombosis of the right lower extremity. Normal valve function noted of the right side. Left: No evidence of deep or superficial vein thrombosis of the left lower extremity. Normal valve function noted of the left side.
--- NOTE | 2018-02-16 14:37 | CP.PCM.PN ---
<Chauncey Duong - Last Filed: 02/16/18 16:16> Subjective - Date & Time of Evaluation Date of Evaluation: 02/16/18 Time of Evaluation: 09:25 - Subjective Subjective: PGY-1 Medicine progress note for Dr. Davidson Patient was seen and examined this morning. No acute events overnight. Denies fever, chills, chest pain, sob, abdominal pain, n/v/d, numbness or tingling, headache, dizziness, leg swelling or pain, hematuria, dysuria. He is ambulating without difficulty. Objective - Vital Signs/Intake and Output Vital Signs (last 24 hours): Temp Pulse Resp BP Pulse Ox 98.1 F 95 H 18 110/72 99 02/16/18 07:00 02/16/18 12:15 02/16/18 07:00 02/16/18 09:34 02/16/18 07:00 Intake and Output: 02/16/18 02/16/18 06:59 18:59 Intake Total 850 Output Total 1400 Balance -550 - Medications Medications: Current Medications Aspirin (Aspirin Chewable) 81 mg PO DAILY [facility] Last Admin: 02/14/18 09:33 Dose: 81 mg Calcium Acetate (Phoslo) 667 mg PO TIDCC [facility] Last Admin: 02/16/18 12:05 Dose: 667 mg Docusate Sodium (Colace) 100 mg PO BID [facility] Last Admin: 02/16/18 09:33 Dose: 100 mg Famotidine (Pepcid) 20 mg PO DAILY [facility] Last Admin: 02/16/18 09:33 Dose: 20 mg Furosemide (Lasix) 40 mg IVP DAILY [facility] Last Admin: 02/16/18 09:34 Dose: 40 mg Heparin Sodium (Porcine) (Heparin) 5,000 units SC Q8 [facility] Last Admin: 02/16/18 13:39 Dose: 5,000 units Hydroxyurea (Hydrea) 1,000 mg PO DAILY [facility] Last Admin: 02/16/18 09:36 Dose: 1,000 mg Ipratropium [place] (Atrovent) 0.5 mg IH RQ6 [facility] Last Admin: 02/16/18 14:06 Dose: 0.5 mg Lactobacillus Acidophilus (Bacid Acidophilus) 1 cap PO BID [facility] Last Admin: 02/16/18 09:36 Dose: 1 cap Metoprolol Tartrate (Lopressor) 5 mg IVP Q6H PRN PRN Reason: Systolic Blood Pressure Metoprolol Tartrate (Lopressor) 100 mg PO BID [facility] Last Admin: 02/16/18 09:33 Dose: 100 mg Ondansetron HCl (Zofran Inj) 4 mg IVP Q6 PRN PRN Reason: Nausea/Vomiting Polyethylene Glycol (Miralax) 17 gm PO DAILY [facility] Last Admin: 02/16/18 09:34 Dose: Not Given Promethazine HCl/Dextromethorphan (Phenergan Dm Syrup) 5 ml PO Q6H PRN PRN Reason: Cough Last Admin: 02/13/18 06:16 Dose: 5 ml Sodium Bicarbonate (Sodium Bicarbonate Tab) 650 mg PO TID [facility] Last Admin: 02/16/18 13:39 Dose: 650 mg Tamsulosin HCl (Flomax) 0.4 mg PO DAILY [facility] Last Admin: 02/16/18 09:32 Dose: 0.4 mg Vitamin A (Vitamin A & D Oint Ud Foilpak) 1 ea TOP BID [facility] Last Admin: 02/16/18 12:05 Dose: 1 ea - Labs Labs: 02/16/18 06:25 02/16/18 06:25 PT 11.6 SECONDS (9.7-12.2) 02/15/18 06:44 INR 1.1 02/15/18 06:44 APTT 37 SECONDS (21-34) H D 02/15/18 06:44 - Additional Findings Additional findings: - Constitutional Appears: No Acute Distress - Head Exam Head Exam: ATRAUMATIC, NORMAL INSPECTION, NORMOCEPHALIC - Eye Exam Eye Exam: EOMI, Normal appearance, PERRL - ENT Exam ENT Exam: Mucous Membranes Moist - Respiratory Exam Respiratory Exam: NORMAL BREATHING PATTERN. absent: Rales, Accessory Muscle Use, Wheezes, Respiratory Distress - Cardiovascular Exam Cardiovascular Exam: REGULAR RHYTHM, +S1, +S2 - GI/Abdominal Exam GI & Abdominal Exam: Soft. absent: Tenderness - Neurological Exam Neurological Exam: Alert, Awake, CN II-XII Intact, Oriented x3 - Psychiatric Exam Psychiatric exam: Normal Affect, Normal Mood - Skin Skin Exam: Dry, Intact, Normal Color, Warm. (+) improving areas of erythema to the bilateral antecubital fossas, with healing excoriations secondary to scratch ing Assessment and Plan - Assessment and Plan (Free Text) Assessment: Patient is a 67 yo male with history of CKD (not in HD) who presented with SOB and cough. Additionally, he reported 20 lb weight loss over 6 months. He was found to have b/l pleural effusions. Also found to have polycythemia. He had b/l thoracentesis on 02/11 with significant improvement of symptoms while in the ICU. He has had therapeutic phlebotomy 4 times thus far with gradual improvement on H&H. Polycythemia work-up is pending. Patient was initially managed in the ICU for 4 days, and was then downgraded to med/surg after SOB improved. Plan: Polycythemia - H/H is 21.4/68.8 on admission - LE Dopplers (02/10): no DVT - FARTUN positive, titer 1:80, speckled - Hct goal <45 - Hydroxyurea 1000 mg PO daily - ASA 81 mg PO daily (on hold due to planned renal biopsy 02/14) - Hem/onc consulted (Sneha)- therapeutic phlebotomies - continue therapeutic phlebotomy until goal HCT is reached - f/u JAK2, EPO Interstitial lung markings- consider PNA (patient with cough, SOB) - CXR 02/08 (on admission): Prominent hilar and perihilar bronchovascular markings. Bronchiolar thickening along with subsegmental inflammatory patchy infiltrates coalescing are a consideration. Left infrahilar coalescence/patchy infiltrate and/or atelectasis posterior suspect. Findings are in addition to p ulmonary venous congestion suspect. Mild cardiomegaly. Clinical correlation is essential. Follow-up recommended. Consider CT of the chest for more sensitive evaluation. - CT 02/10: Round shaped opacity at the inferior peripheral portion of the right middle lobe which may represent atelectasis versus neoplasm. - CXR 02/13: Prominent diffuse increased interstitial lung markings which may represent underlying edema and or infiltrate. Scattered patchy pleural parenchymal opacities in the mid to lower lung zones bilaterally. Right midlung atelectasis. Bilateral hilar prominence. Cardiomegaly. - Blood Cx no growth 5 days - Pulmonology consulted (Tray), will f/u with recs - Incentive spirometry - Duoneb Q6H - Azithromycin 250 mg IV daily- start 02/13 - Rocephin 1 g IV daily- started 02/13 - Lactobacillus acidophilus PO BID - Phenergan DM 5 mL PO Q6H PRN CHF with reduced ejection fraction Pt presented with bilateral pleural effusions; improving s/p thoracentesis 02/11 - BNP is 9850 on admission - Echocardiogram (02/08) show LVEF approximately 25%. Dilated diastolic filling presures. Pulmonary systolic presure are levated at 45 mmHg. large left pleural effusion. Paracardiac cyst/hiatal hernia. - CXR: cardiomegaly - CT chest 02/10: Moderate to large bilateral pleural effusions associated with bilateral lower lobe atelectasis. - IR consulted (Abdiel) - Cardiology, Dr. Ramsay, consulted, recs appreciated Plan for cardiac cath as patient likely has occult CAD - No ACEi/ARB at this time due to CKD, pt is on BB, and diuretic D-dimer elevation - repeat d-dimer is 341, normal d-dimer on admission - pt is hemodynamically stable, but has a high risk to clot due to polycythemia - Bilateral lower extremity US (02/15) is negative for thrombus Tachycardia Ventricular tachycardia on monitor (02/14), likely secondary to CHF with reduced EF - EKG: sinus tach, LVH on admission - EKG (02/14) shows sinus tachycardia with LVH - Metoprolol 25 mg PO BID - Metoprolol 5 mg IVP Q6H PRN - Cardiology, Dr. Ramsay, consulted, will f/u with recs Chronic kidney disease, stable - Renal US: echogenic renal parenchyma bilateral may be seen in setting of medical renal disease. 5mm mid to lower pole left renal calculus. non obstructing. 1.1cm left lower pole renal cyst. - Renally dose meds - Phoslo 667 mg PO TID - Sodium bicarb 650 mg PO TID - Nephrology consulted (Gwen/Morales) - Renal biopsy to be done by IR, Dr. Meadows, on 02/18 Constipation - Colace 100 mg PO BID - Miralax 17 g PO daily Benign prostatic hypertrophy - Flomax 0.4 mg PO daily Ppx: VTE: SCDs, ASA (on hold due to planned renal biopsy this week), heparin 5000 units SC Q8H GI: Pepcid 20 mg PO daily Diet: HHD, Renal diet, Fluid restriction to 1500 mL PT/OT- home with services Code status: full code Case discussed with attending physician, Dr. Stuart Duong PGY1 <Melisa Davidson V - Last Filed: 02/17/18 17:39> Objective - Vital Signs/Intake and Output Vital Signs (last 24 hours): Temp Pulse Resp BP Pulse Ox 98.4 F 89 20 93/60 L 95 02/17/18 16:00 02/17/18 16:00 02/17/18 16:00 02/17/18 16:00 02/17/18 16:00 Intake and Output: 02/17/18 02/17/18 06:59 18:59 Intake Total 850 480 Output Total 400 600 Balance 450 -120 - Medications Medications: Current Medications Aspirin (Aspirin Chewable) 81 mg PO DAILY [facility] Last Admin: 02/14/18 09:33 Dose: 81 mg Calcium Acetate (Phoslo) 667 mg PO TIDCC [facility] Last Admin: 02/17/18 13:02 Dose: 667 mg Docusate Sodium (Colace) 100 mg PO BID [facility] Last Admin: 02/17/18 10:15 Dose: 100 mg Famotidine (Pepcid) 20 mg PO DAILY [facility] Last Admin: 02/17/18 10:15 Dose: 20 mg Furosemide (Lasix) 40 mg IVP DAILY [facility] Last Admin: 02/17/18 10:20 Dose: Not Given Heparin Sodium (Porcine) (Heparin) 5,000 units SC Q8 [facility] Last Admin: 02/17/18 14:14 Dose: 5,000 units Hydroxyurea (Hydrea) 1,000 mg PO DAILY [facility] Last Admin: 02/17/18 13:05 Dose: 1,000 mg Ipratropium [place] (Atrovent) 0.5 mg IH RQ6 [facility] Last Admin: 02/17/18 13:56 Dose: 0.5 mg Lactobacillus Acidophilus (Bacid Acidophilus) 1 cap PO BID [facility] Last Admin: 02/17/18 10:34 Dose: 1 cap Metoprolol Tartrate (Lopressor) 5 mg IVP Q6H PRN PRN Reason: Systolic Blood Pressure Metoprolol Tartrate (Lopressor) 100 mg PO BID [facility] Last Admin: 02/17/18 14:23 Dose: 100 mg Ondansetron HCl (Zofran Inj) 4 mg IVP Q6 PRN PRN Reason: Nausea/Vomiting Polyethylene Glycol (Miralax) 17 gm PO DAILY [facility] Last Admin: 02/17/18 10:16 Dose: 17 gm Promethazine HCl/Dextromethorphan (Phenergan Dm Syrup) 5 ml PO Q6H PRN PRN Reason: Cough Last Admin: 02/13/18 06:16 Dose: 5 ml Simethicone (Mylicon Chew Tab) 80 mg PO QID [facility] Last Admin: 02/17/18 16:18 Dose: Not Given Sodium Bicarbonate (Sodium Bicarbonate Tab) 650 mg PO TID [facility] Last Admin: 02/17/18 13:02 Dose: 650 mg Tamsulosin HCl (Flomax) 0.4 mg PO DAILY [facility] Last Admin: 02/17/18 10:15 Dose: 0.4 mg Vitamin A (Vitamin A & D Oint Ud Foilpak) 1 ea TOP BID [facility] Last Admin: 02/17/18 10:00 Dose: 1 ea - Labs Labs: 02/17/18 07:06 02/17/18 07:06 PT 11.6 SECONDS (9.7-12.2) 02/15/18 06:44 INR 1.1 02/15/18 06:44 APTT 37 SECONDS (21-34) H D 02/15/18 06:44 Assessment and Plan (1) Shortness of breath Status: Acute (2) CKD (chronic kidney disease) stage 4, GFR 15-29 ml/min Status: Acute (3) Interstitial lung disease Status: Acute (4) Polycythemia Status: Acute (5) Pneumonia Status: Acute (6) Cardiomegaly Status: Acute (7) Prophylactic measure Status: Acute Attending/Attestation - Attestation I have personally seen and examined this patient.: Yes I have fully participated in the care of the patient.: Yes I have reviewed all pertinent clinical information, including history, physical exam and plan: Yes Notes (Text): This is a late computer entry for February 16, 2018. Patient seen, examined, case discussed with medical intern. Patient remains on telemetry. Patient is awaiting renal biopsy. Patient's had aspirin held for anticipated renal biopsy. Resident has spoken with IR the plan is for Wednesday renal biopsy. We have updated both nephrology as well as family at bedside. Patient also had 400 cc of blood removed today to get to goal hematocrit of 45%. I have spoken with patient's family at bedside they are aware that given the renal function he may or may not need dialysis given that there is also recommendation for a cardiac cath in light of severe systolic CHF. Yazan 2 was recent this morning. Will need to follow-up for blood work.
[2018-02-16 21:02] VITALS: RESP 20
[2018-02-17] MEDS: Ipratropium 0.02% Inhal Soln (0.5 mg/2.5 ml) UD IH SCH ×4 (02:00→19:26)
[2018-02-17 07:13] LABS: FUNCTIONING PLTS 371 K/uL; PLT BASE COUNT 393 K/uL; PLT(ADP) 22 K/uL
[2018-02-17 07:19] LABS: BASO % 0.6 % (0.0-2.0); EOS # 0.1 K/uL (0.0-0.7); EOS % 3.6 % (0.0-4.0); HEMOGLOBIN 16.7 g/dL (12.0-18.0); LYMPH # 0.9 K/uL (1.0-4.3); LYMPH % 34.8 % (20.0-40.0); MEAN CELL VOLUME 77.2 fL (80.0-94.0); MEAN CORPUSCULAR HEMOGLOBIN 24.9 pg (27.0-31.0); MEAN CORPUSCULAR HGB CONC 32.3 g/dL (33.0-37.0); MEAN PLATELET VOLUME 8.9 fL (7.2-11.7); MONO # 0.2 K/uL (0.0-0.8); MONO % 6.3 % (0.0-10.0); NEUT # 1.5 K/uL (1.8-7.0); NEUT % 54.7 % (50.0-75.0); NRBC % 0.5 % (0.0-2.0); RBC 6.7 Mil/uL (4.40-5.90); RED CELL DISTRIBUTION WIDTH 20.8 % (11.5-14.5); WHITE BLOOD COUNT 2.7 K/uL (4.8-10.8)
[2018-02-17 07:40] LABS: ALB/GLOB RATIO 0.9 (1.0-2.1); ALBUMIN 2.5 g/dL (3.5-5.0); CALCIUM 8.2 mg/dl (8.6-10.4)
--- NOTE | 2018-02-17 09:19 | CP.PCM.PN ---
Subjective - Date & Time of Evaluation Date of Evaluation: 02/17/18 Time of Evaluation: 08:30 - Subjective Subjective: Arjun Bryant DO, PGY-1 Cardiology Progress Note for Dr. Ramsay Patient was seen and examined at bedside this AM. He offers no new complaints and states he feels fine. He states his SOB has improved since admission. Objective - Vital Signs/Intake and Output Vital Signs (last 24 hours): Temp Pulse Resp BP Pulse Ox 97.9 F 98 H 20 114/82 99 02/17/18 07:00 02/17/18 07:00 02/17/18 07:00 02/17/18 07:00 02/17/18 07:00 Intake and Output: 02/17/18 02/17/18 06:59 18:59 Intake Total 850 Output Total 400 Balance 450 - Medications Medications: Current Medications Aspirin (Aspirin Chewable) 81 mg PO DAILY [facility] Last Admin: 02/14/18 09:33 Dose: 81 mg Calcium Acetate (Phoslo) 667 mg PO TIDCC [facility] Last Admin: 02/17/18 08:30 Dose: 667 mg Docusate Sodium (Colace) 100 mg PO BID [facility] Last Admin: 02/16/18 17:39 Dose: 100 mg Famotidine (Pepcid) 20 mg PO DAILY [facility] Last Admin: 02/16/18 09:33 Dose: 20 mg Furosemide (Lasix) 40 mg IVP DAILY [facility] Last Admin: 02/16/18 09:34 Dose: 40 mg Heparin Sodium (Porcine) (Heparin) 5,000 units SC Q8 [facility] Last Admin: 02/17/18 05:42 Dose: 5,000 units Hydroxyurea (Hydrea) 1,000 mg PO DAILY [facility] Last Admin: 02/16/18 09:36 Dose: 1,000 mg Ipratropium Coffeen (Atrovent) 0.5 mg IH RQ6 [facility] Last Admin: 02/17/18 07:05 Dose: 0.5 mg Lactobacillus Acidophilus (Bacid Acidophilus) 1 cap PO BID [facility] Last Admin: 02/16/18 17:39 Dose: 1 cap Metoprolol Tartrate (Lopressor) 5 mg IVP Q6H PRN PRN Reason: Systolic Blood Pressure Metoprolol Tartrate (Lopressor) 100 mg PO BID [facility] Last Admin: 02/16/18 17:39 Dose: 100 mg Ondansetron HCl (Zofran Inj) 4 mg IVP Q6 PRN PRN Reason: Nausea/Vomiting Polyethylene Glycol (Miralax) 17 gm PO DAILY [facility] Last Admin: 02/16/18 09:34 Dose: Not Given Promethazine HCl/Dextromethorphan (Phenergan Dm Syrup) 5 ml PO Q6H PRN PRN Reason: Cough Last Admin: 02/13/18 06:16 Dose: 5 ml Sodium Bicarbonate (Sodium Bicarbonate Tab) 650 mg PO TID [facility] Last Admin: 02/16/18 17:39 Dose: 650 mg Tamsulosin HCl (Flomax) 0.4 mg PO DAILY [facility] Last Admin: 02/16/18 09:32 Dose: 0.4 mg Vitamin A (Vitamin A & D Oint Ud Foilpak) 1 ea TOP BID [facility] Last Admin: 02/16/18 17:39 Dose: 1 ea - Labs Labs: 02/17/18 07:06 02/17/18 07:06 PT 11.6 SECONDS (9.7-12.2) 02/15/18 06:44 INR 1.1 02/15/18 06:44 APTT 37 SECONDS (21-34) H D 02/15/18 06:44 - Constitutional Appears: Non-toxic, No Acute Distress - Head Exam Head Exam: ATRAUMATIC, NORMOCEPHALIC - Eye Exam Eye Exam: EOMI, Normal appearance, PERRL - ENT Exam ENT Exam: Mucous Membranes Moist - Neck Exam Neck Exam: Full ROM, Normal Inspection - Respiratory Exam Respiratory Exam: Rhonchi (faint coarse breath sounds b/l improved from prior exams). absent: Accessory Muscle Use, Rales, Wheezes, Respiratory Distress - Cardiovascular Exam Cardiovascular Exam: REGULAR RHYTHM, RRR, +S1, +S2. absent: Gallop, Rubs, Murmur - GI/Abdominal Exam GI & Abdominal Exam: Soft, Normal Bowel Sounds. absent: Tenderness - Extremities Exam Extremities Exam: Full ROM, Normal Inspection. absent: Pedal Edema - Back Exam Back Exam: Full ROM, NORMAL INSPECTION - Neurological Exam Neurological Exam: Alert, Awake, Oriented x3 - Psychiatric Exam Psychiatric exam: Normal Affect, Normal Mood - Skin Skin Exam: Dry, Intact, Warm Assessment and Plan - Assessment and Plan (Free Text) Assessment: 67 yo M with PMH of CKD not on HD and BPH admitted for worsening cough and SOB found to have severe MR and EF of 30-35% on Echo. Official read of the echo is pending but has been reviewed by Dr. Ramsay. Patient was initially admitted to ICU for respiratory distress and polycythemia. Polycythemia has improved since admission. BNP found to be 9850 on admission. Plan: 1. Acute CHF exacerbation -Suspect SOB/cough/orthopnea/PND and polycythemia are 2/2 uncontrolled CHF -Suspect acute CHF is 2/2 worsening CAD -Per nephrology renal bx is scheduled for tomorrow -Continue lasix 40 mg IVP daily -Patient needs cardiac cath to assess for CAD as EF is likely to improve after stent but CKD history is concerning -May consider temporary dialysis after procedure, will discuss further with nephrology -For now, plan on delaying cardiac cath until Wednesday, which will allow for time to review renal bx results with nephrology -Continue to monitor for episodes of VTach 2. Persistent sinus tachycardia -Likely 2/2 physiologic response to decreased cardiac output vs medication induced -Improved after increasing to lopressor 100 mg BID -Hold for SBP < 100 or HR < 50 -Continue to monitor Case and plan reviewed and discussed with my attending Dr. Devendra Bryant, IM Resident PGY-1
--- NOTE | 2018-02-17 09:33 | CP.PCM.PN ---
<Chauncey Duong - Last Filed: 02/17/18 13:45> Subjective - Date & Time of Evaluation Date of Evaluation: 02/17/18 Time of Evaluation: 09:33 - Subjective Subjective: PGY-1 Medicine progress note for Dr. Davidson Patient was seen and examined this morning. No acute events overnight. Pt reports some dysuria overnight, which improved with hydration. Denies fever, chills, chest pain, sob, abdominal pain, n/v/d, numbness or tingling, headache, dizziness, leg swelling or pain, hematuria. He is ambulating well without difficulty. Objective - Vital Signs/Intake and Output Vital Signs (last 24 hours): Temp Pulse Resp BP Pulse Ox 97.9 F 98 H 20 114/82 99 02/17/18 07:00 02/17/18 07:00 02/17/18 07:00 02/17/18 07:00 02/17/18 07:00 Intake and Output: 02/17/18 02/17/18 06:59 18:59 Intake Total 850 Output Total 400 Balance 450 - Medications Medications: Current Medications Aspirin (Aspirin Chewable) 81 mg PO DAILY [facility] Last Admin: 02/14/18 09:33 Dose: 81 mg Calcium Acetate (Phoslo) 667 mg PO TIDCC [facility] Last Admin: 02/17/18 08:30 Dose: 667 mg Docusate Sodium (Colace) 100 mg PO BID [facility] Last Admin: 02/16/18 17:39 Dose: 100 mg Famotidine (Pepcid) 20 mg PO DAILY [facility] Last Admin: 02/16/18 09:33 Dose: 20 mg Furosemide (Lasix) 40 mg IVP DAILY [facility] Last Admin: 02/16/18 09:34 Dose: 40 mg Heparin Sodium (Porcine) (Heparin) 5,000 units SC Q8 [facility] Last Admin: 02/17/18 05:42 Dose: 5,000 units Hydroxyurea (Hydrea) 1,000 mg PO DAILY [facility] Last Admin: 02/16/18 09:36 Dose: 1,000 mg Ipratropium Molino (Atrovent) 0.5 mg IH RQ6 [facility] Last Admin: 02/17/18 07:05 Dose: 0.5 mg Lactobacillus Acidophilus (Bacid Acidophilus) 1 cap PO BID [facility] Last Admin: 02/16/18 17:39 Dose: 1 cap Metoprolol Tartrate (Lopressor) 5 mg IVP Q6H PRN PRN Reason: Systolic Blood Pressure Metoprolol Tartrate (Lopressor) 100 mg PO BID [facility] Last Admin: 02/16/18 17:39 Dose: 100 mg Ondansetron HCl (Zofran Inj) 4 mg IVP Q6 PRN PRN Reason: Nausea/Vomiting Polyethylene Glycol (Miralax) 17 gm PO DAILY [facility] Last Admin: 02/16/18 09:34 Dose: Not Given Promethazine HCl/Dextromethorphan (Phenergan Dm Syrup) 5 ml PO Q6H PRN PRN Reason: Cough Last Admin: 02/13/18 06:16 Dose: 5 ml Sodium Bicarbonate (Sodium Bicarbonate Tab) 650 mg PO TID [facility] Last Admin: 02/16/18 17:39 Dose: 650 mg Tamsulosin HCl (Flomax) 0.4 mg PO DAILY [facility] Last Admin: 02/16/18 09:32 Dose: 0.4 mg Vitamin A (Vitamin A & D Oint Ud Foilpak) 1 ea TOP BID [facility] Last Admin: 02/16/18 17:39 Dose: 1 ea - Labs Labs: 02/17/18 07:06 02/17/18 07:06 PT 11.6 SECONDS (9.7-12.2) 02/15/18 06:44 INR 1.1 02/15/18 06:44 APTT 37 SECONDS (21-34) H D 02/15/18 06:44 - Constitutional Appears: Non-toxic, No Acute Distress - Head Exam Head Exam: ATRAUMATIC, NORMAL INSPECTION - Eye Exam Eye Exam: EOMI, Normal appearance - ENT Exam ENT Exam: Mucous Membranes Moist - Respiratory Exam Respiratory Exam: Clear to Ausculation Bilateral, NORMAL BREATHING PATTERN. absent: Rales, Rhonchi, Wheezes, Stridor - Cardiovascular Exam Cardiovascular Exam: REGULAR RHYTHM, +S1, +S2 - GI/Abdominal Exam GI & Abdominal Exam: Soft, Normal Bowel Sounds. absent: Distended, Firm, Guarding, Rigid, Tenderness - Back Exam Back Exam: NORMAL INSPECTION. absent: CVA tenderness (L), CVA tenderness (R) - Neurological Exam Neurological Exam: Alert, Awake - Psychiatric Exam Psychiatric exam: Normal Affect, Normal Mood - Skin Skin Exam: Dry, Intact, Normal Color, Warm Assessment and Plan - Assessment and Plan (Free Text) Assessment: Patient is a 67 yo male with history of CKD (not in HD) who presented with SOB and cough. Additionally, he reported 20 lb weight loss over 6 months. He was f ound to have b/l pleural effusions. Also found to have polycythemia. He had b/l thoracentesis on 02/11 with significant improvement of symptoms while in the ICU. He has had therapeutic phlebotomy 4 times thus far with gradual improvement on H&H. Polycythemia work-up is pending. Patient was initially managed in the ICU for 4 days, and was then downgraded to med/surg after SOB improved. Plan: Polycythemia - H/H is 21.4/68.8 on admission - LE Dopplers (02/10): no DVT - FARTUN positive, titer 1:80, speckled - Hct goal <45 - Hydroxyurea 1000 mg PO daily - ASA 81 mg PO daily (on hold due to planned renal biopsy 02/18) - Hem/onc consulted (Sneha)- therapeutic phlebotomies - continue therapeutic phlebotomy until goal HCT is reached - EPO is low at 2.0 - H/H is improving with phlebotomy; HCT is 51.7 today - f/u JAK2 Interstitial lung markings - CXR 02/08 (on admission): Prominent hilar and perihilar bronchovascular mar kings. Bronchiolar thickening along with subsegmental inflammatory patchy infiltrates coalescing are a consideration. Left infrahilar coalescence/patchy infiltrate and/or atelectasis posterior suspect. Findings are in addition to pulmonary venous congestion suspect. Mild cardiomegaly. Clinical correlation is essential. Follow-up recommended. Consider CT of the chest for more sensitive evaluation. - CT 02/10: Round shaped opacity at the inferior peripheral portion of the right middle lobe which may represent atelectasis versus neoplasm. - CXR 02/13: Prominent diffuse increased interstitial lung markings which may represent underlying edema and or infiltrate. Scattered patchy pleural pa renchymal opacities in the mid to lower lung zones bilaterally. Right midlung atelectasis. Bilateral hilar prominence. Cardiomegaly. - Blood Cx no growth 5 days - Pulmonology consulted (Tray) - Incentive spirometry - Duoneb Q6H - Azithromycin 250 mg IV daily- start 02/13 - Rocephin 1 g IV daily- started 02/13 - Lactobacillus acidophilus PO BID - Phenergan DM 5 mL PO Q6H PRN CHF with reduced ejection fraction Pt presented with bilateral pleural effusions; improving s/p thoracentesis 02/11 - BNP is 9850 on admission - Echocardiogram (02/08) show LVEF approximately 25%. Dilated diastolic filling presures. Pulmonary systolic presure are levated at 45 mmHg. large left pleural effusion. Paracardiac cyst/hiatal hernia. - CXR: cardiomegaly - CT chest 02/10: Moderate to large bilateral pleural effusions associated with bilateral lower lobe atelectasis. - IR consulted (Abdiel) - Cardiology, Dr. Ramsay, consulted, recs appreciated Plan for cardiac cath as patient likely has occult CAD - No ACEi/ARB at this time due to CKD, pt is on BB, and diuretic D-dimer elevation - repeat d-dimer is 341, normal d-dimer on admission - pt is hemodynamically stable, but has a high risk to clot due to polycythemia - Bilateral lower extremity US (02/15) is negative for thrombus Tachycardia Ventricular tachycardia on monitor (02/14), likely secondary to CHF with reduced EF - EKG: sinus tach, LVH on admission - EKG (02/14) shows sinus tachycardia with LVH - Metoprolol 100 mg PO BID as per Cardio - Metoprolol 5 mg IVP Q6H PRN - Cardiology, Dr. Ramsay, consulted, will f/u with recs Chronic kidney disease, stage 4 stable Nephrotic syndrome - 6.8 grams in urine on 24 hours collection - creatinine is stable - Renal US: echogenic renal parenchyma bilateral may be seen in setting of me dical renal disease. 5mm mid to lower pole left renal calculus. non obstructing. 1.1cm left lower pole renal cyst. - Renally dose meds - Phoslo 667 mg PO TID - Sodium bicarb 650 mg PO TID - Nephrology consulted (Gwen/Morales) - Renal biopsy to be done by IR, Dr. Meadows, on 02/18 - f/u lipid panel Constipation - Colace 100 mg PO BID - Miralax 17 g PO daily - Simethicone 40 mg PO QID Dysuria - Possible due to proteinuria - f/u urinalysis Benign prostatic hypertrophy - Flomax 0.4 mg PO daily Ppx: VTE: SCDs, ASA (on hold due to planned renal biopsy this week), heparin 5000 units SC Q8H GI: Pepcid 20 mg PO daily Diet: HHD, Renal diet, Fluid restriction to 1500 mL PT/OT- home with services Dispo: renal biopsy tomorrow 02/18, continue treatment of polycythemia as per Dr. Hoover (w/u pending), potential cardiac cath with Dr. Ramsay pending discussion with nephrology regarding CKD Code status: full code Case discussed with attending physician, Dr. Stuart Duong PGY1 <Melisa Davidson V - Last Filed: 02/17/18 17:41> Objective - Vital Signs/Intake and Output Vital Signs (last 24 hours): Temp Pulse Resp BP Pulse Ox 98.4 F 89 20 93/60 L 95 02/17/18 16:00 02/17/18 16:00 02/17/18 16:00 02/17/18 16:00 02/17/18 16:00 Intake and Output: 02/17/18 02/17/18 06:59 18:59 Intake Total 850 480 Output Total 400 600 Balance 450 -120 - Medications Medications: Current Medications Aspirin (Aspirin Chewable) 81 mg PO DAILY [facility] Last Admin: 02/14/18 09:33 Dose: 81 mg Calcium Acetate (Phoslo) 667 mg PO TIDCC [facility] Last Admin: 02/17/18 13:02 Dose: 667 mg Docusate Sodium (Colace) 100 mg PO BID [facility] Last Admin: 02/17/18 10:15 Dose: 100 mg Famotidine (Pepcid) 20 mg PO DAILY [facility] Last Admin: 02/17/18 10:15 Dose: 20 mg Furosemide (Lasix) 40 mg IVP DAILY [facility] Last Admin: 02/17/18 10:20 Dose: Not Given Heparin Sodium (Porcine) (Heparin) 5,000 units SC Q8 [facility] Last Admin: 02/17/18 14:14 Dose: 5,000 units Hydroxyurea (Hydrea) 1,000 mg PO DAILY [facility] Last Admin: 02/17/18 13:05 Dose: 1,000 mg Ipratropium Molino (Atrovent) 0.5 mg IH RQ6 [facility] Last Admin: 02/17/18 13:56 Dose: 0.5 mg Lactobacillus Acidophilus (Bacid Acidophilus) 1 cap PO BID [facility] Last Admin: 02/17/18 10:34 Dose: 1 cap Metoprolol Tartrate (Lopressor) 5 mg IVP Q6H PRN PRN Reason: Systolic Blood Pressure Metoprolol Tartrate (Lopressor) 100 mg PO BID [facility] Last Admin: 02/17/18 14:23 Dose: 100 mg Ondansetron HCl (Zofran Inj) 4 mg IVP Q6 PRN PRN Reason: Nausea/Vomiting Polyethylene Glycol (Miralax) 17 gm PO DAILY [facility] Last Admin: 02/17/18 10:16 Dose: 17 gm Promethazine HCl/Dextromethorphan (Phenergan Dm Syrup) 5 ml PO Q6H PRN PRN Reason: Cough Last Admin: 02/13/18 06:16 Dose: 5 ml Simethicone (Mylicon Chew Tab) 80 mg PO QID [facility] Last Admin: 02/17/18 16:18 Dose: Not Given Sodium Bicarbonate (Sodium Bicarbonate Tab) 650 mg PO TID [facility] Last Admin: 02/17/18 13:02 Dose: 650 mg Tamsulosin HCl (Flomax) 0.4 mg PO DAILY [facility] Last Admin: 02/17/18 10:15 Dose: 0.4 mg Vitamin A (Vitamin A & D Oint Ud Foilpak) 1 ea TOP BID [facility] Last Admin: 02/17/18 10:00 Dose: 1 ea - Labs Labs: 02/17/18 07:06 02/17/18 07:06 PT 11.6 SECONDS (9.7-12.2) 02/15/18 06:44 INR 1.1 02/15/18 06:44 APTT 37 SECONDS (21-34) H D 02/15/18 06:44 Assessment and Plan (1) Shortness of breath Status: Acute (2) CKD (chronic kidney disease) stage 4, GFR 15-29 ml/min Status: Acute (3) Interstitial lung disease Status: Acute (4) Polycythemia Status: Acute (5) Pneumonia Status: Acute (6) Cardiomegaly Status: Acute (7) Prophylactic measure Status: Acute Attending/Attestation - Attestation I have personally seen and examined this patient.: Yes I have fully participated in the care of the patient.: Yes I have reviewed all pertinent clinical information, including history, physical exam and plan: Yes Notes (Text): Patient seen, examined, case discussed with medical instrument cable fabricator. Patient seen at bedside. Patient had 16 beats of ventricular tachycardia P patient asymptomatic. Resident has spoken with cardiology recommended to continue Lopressor 100 mg p.o. twice daily given that there was a questionable systolic above 104; per cardiology it is okay to give. Patient renal biopsy scheduled for 11 AM tomorrow with interventional rad iologist. Patient heparin DVT prophylaxis will be held 8 hours prior to procedure as requested by her moravian radiologist. Aspirin has been held. Patient noted to have mild abdominal distention. We have started him on simethicone as needed. Patient noted to have some pain while urinating. Have r epeated UA and urine culture. Patient has been receiving IV antibiotics to cover for pneumonia from prior chest x-ray. Renal biopsy will allow us to determine the etiology of patient's renal dysfunct ion. Given that there is a consideration for nephrotic syndrome. Patient family is also aware the patient may need temporary dialysis if we pursue cardiac cath in light of severe systolic CHF.
[2018-02-17] MEDS: Vitamins A & D Oint UD Foilpak TOP SCH ×2 (10:00→17:52)
--- NOTE | 2018-02-17 10:05 | CP.PCM.PN ---
Subjective - Date & Time of Evaluation Date of Evaluation: 02/17/18 Time of Evaluation: 10:03 - Subjective Subjective: Alert, denies SOB creat stable at 2.4 On IV lasix for CHF occurrence renal bx pending Objective - Vital Signs/Intake and Output Vital Signs (last 24 hours): Temp Pulse Resp BP Pulse Ox 97.9 F 98 H 20 114/82 99 02/17/18 07:00 02/17/18 07:00 02/17/18 07:00 02/17/18 07:00 02/17/18 07:00 Intake and Output: 02/17/18 02/17/18 06:59 18:59 Intake Total 850 Output Total 400 Balance 450 - Medications Medications: Current Medications Aspirin (Aspirin Chewable) 81 mg PO DAILY [facility] Last Admin: 02/14/18 09:33 Dose: 81 mg Calcium Acetate (Phoslo) 667 mg PO TIDCC [facility] Last Admin: 02/17/18 08:30 Dose: 667 mg Docusate Sodium (Colace) 100 mg PO BID [facility] Last Admin: 02/16/18 17:39 Dose: 100 mg Famotidine (Pepcid) 20 mg PO DAILY [facility] Last Admin: 02/16/18 09:33 Dose: 20 mg Furosemide (Lasix) 40 mg IVP DAILY [facility] Last Admin: 02/16/18 09:34 Dose: 40 mg Heparin Sodium (Porcine) (Heparin) 5,000 units SC Q8 [facility] Last Admin: 02/17/18 05:42 Dose: 5,000 units Hydroxyurea (Hydrea) 1,000 mg PO DAILY [facility] Last Admin: 02/16/18 09:36 Dose: 1,000 mg Ipratropium Datil (Atrovent) 0.5 mg IH RQ6 [facility] Last Admin: 02/17/18 07:05 Dose: 0.5 mg Lactobacillus Acidophilus (Bacid Acidophilus) 1 cap PO BID [facility] Last Admin: 02/16/18 17:39 Dose: 1 cap Metoprolol Tartrate (Lopressor) 5 mg IVP Q6H PRN PRN Reason: Systolic Blood Pressure Metoprolol Tartrate (Lopressor) 100 mg PO BID [facility] Last Admin: 02/16/18 17:39 Dose: 100 mg Ondansetron HCl (Zofran Inj) 4 mg IVP Q6 PRN PRN Reason: Nausea/Vomiting Polyethylene Glycol (Miralax) 17 gm PO DAILY [facility] Last Admin: 02/16/18 09:34 Dose: Not Given Promethazine HCl/Dextromethorphan (Phenergan Dm Syrup) 5 ml PO Q6H PRN PRN Reason: Cough Last Admin: 02/13/18 06:16 Dose: 5 ml Sodium Bicarbonate (Sodium Bicarbonate Tab) 650 mg PO TID [facility] Last Admin: 02/16/18 17:39 Dose: 650 mg Tamsulosin HCl (Flomax) 0.4 mg PO DAILY [facility] Last Admin: 02/16/18 09:32 Dose: 0.4 mg Vitamin A (Vitamin A & D Oint Ud Foilpak) 1 ea TOP BID [facility] Last Admin: 02/16/18 17:39 Dose: 1 ea - Labs Labs: 02/17/18 07:06 02/17/18 07:06 PT 11.6 SECONDS (9.7-12.2) 02/15/18 06:44 INR 1.1 02/15/18 06:44 APTT 37 SECONDS (21-34) H D 02/15/18 06:44 - Constitutional Appears: No Acute Distress, Chronically Ill - Head Exam Head Exam: ATRAUMATIC, NORMAL INSPECTION - Eye Exam Eye Exam: EOMI, Normal appearance - Neck Exam Neck Exam: Normal Inspection. absent: Tenderness - Respiratory Exam Respiratory Exam: Clear to Ausculation Bilateral, NORMAL BREATHING PATTERN - Cardiovascular Exam Cardiovascular Exam: REGULAR RHYTHM, +S1 - GI/Abdominal Exam GI & Abdominal Exam: Soft. absent: Tenderness - Extremities Exam Extremities Exam: Normal Inspection. absent: Tenderness - Neurological Exam Neurological Exam: Awake, CN II-XII Intact - Skin Skin Exam: Dry, Warm Assessment and Plan (1) Interstitial lung disease Status: Acute (2) CKD (chronic kidney disease) stage 4, GFR 15-29 ml/min Status: Acute (3) Polycythemia Status: Acute (4) Nephrotic syndrome Status: Acute - Assessment and Plan (Free Text) Assessment: Cardiomyopathy Plan: For renal bx soon IV ,lasix Further cardio plans
[2018-02-17] MEDS: POLYETHYLENE GLYCOL 3350 17 GM/Dose PACKET PO SCH (10:16)
[2018-02-17] MEDS: Lactobacillus Acidophilus 500 MU Cap PO SCH ×2 (10:34→17:53)
[2018-02-17] MEDS ORDERED: Simethicone 40 mg/0.6 ml Liquid (30 ml) PO SCH (14:00)
[2018-02-17] MEDS: Simethicone 80 mg Chewtab PO SCH ×3 (16:18→21:50)
[2018-02-17 19:19] LABS: URINE BILIRUBIN NEGATIVE (NEGATIVE); URINE BLOOD NEGATIVE (NEGATIVE); URINE CLARITY Clear (Clear); URINE COLOR Straw (YELLOW); URINE GLUCOSE (UA) NORMAL (Normal); URINE LEUKOCYTE ESTERASE NEG Leu/uL (Negative); URINE PROTEIN 2+ mg/dL (NEGATIVE); URINE UROBILINOGEN NORMAL mg/dL (0.2-1.0)
[2018-02-18] MEDS: Ipratropium 0.02% Inhal Soln (0.5 mg/2.5 ml) UD IH SCH ×4 (02:15→20:35)
[2018-02-18 06:35] LABS: BASO % 1.3 % (0.0-2.0); EOS # 0.1 K/uL (0.0-0.7); EOS % 4.3 % (0.0-4.0); HEMOGLOBIN 16.4 g/dL (12.0-18.0); LYMPH % 33.1 % (20.0-40.0); MEAN CELL VOLUME 76.7 fL (80.0-94.0); MEAN CORPUSCULAR HGB CONC 32.6 g/dL (33.0-37.0); MEAN PLATELET VOLUME 8.8 fL (7.2-11.7); MONO # 0.2 K/uL (0.0-0.8); MONO % 5.5 % (0.0-10.0); NEUT # 1.7 K/uL (1.8-7.0); NEUT % 55.8 % (50.0-75.0); NRBC % 0.1 % (0.0-2.0); RBC 6.56 Mil/uL (4.40-5.90); WHITE BLOOD COUNT 3.1 K/uL (4.8-10.8)
[2018-02-18 06:38] LABS: ALB/GLOB RATIO 0.9 (1.0-2.1); ALBUMIN 2.5 g/dL (3.5-5.0); CALCIUM 8.1 mg/dl (8.6-10.4)
[2018-02-18] MEDS ORDERED: Absorbable Gelatin Sponge Size 12-7 ONE (08:45)
[2018-02-18] MEDS ORDERED: Midazolam 2 MG/2 ML VIAL ONE (09:14)
[2018-02-18] MEDS ORDERED: Propofol 10 mg/ml Inj (20 ML) ONE (09:14)
--- NOTE | 2018-02-18 09:34 | PCM.SURG1 ---
Surgeon's Initial Post Op Note - Surgeon's Notes Surgeon: Braeden Meadows MD Educational Diagnostician: NONE Pre-Operative Diagnosis: Renal failure Operative Findings: US showed unremarkable left kidney Post-Operative Diagnosis: Renal failure Operation Performed: US guided left renal biopsy. Biopsy tract embolized with gelfoam. Specimen/Specimens Removed: 18 g core x 3 Estimated Blood Loss: EBL {In ML}: 3 Blood Products Given: N/A Drains Used: No Drains Post-Op Condition: Fair Date of Surgery/Procedure: 02/18/18 Time of Surgery/Procedure: 09:30
[2018-02-18] MEDS: Simethicone 80 mg Chewtab PO SCH ×4 (10:26→18:45)
[2018-02-18] MEDS: POLYETHYLENE GLYCOL 3350 17 GM/Dose PACKET PO SCH (10:27)
[2018-02-18] MEDS: Lactobacillus Acidophilus 500 MU Cap PO SCH ×2 (10:29→18:28)
[2018-02-18] MEDS: Vitamins A & D Oint UD Foilpak TOP SCH ×2 (10:29→18:47)
--- NOTE | 2018-02-18 10:40 | US ---
PROCEDURE: Date of procedure: 02/18/2018 Procedure: Ultrasound-guided left renal biopsy, CPT 34902 Ultrasound guidance for biopsy, [id number] Medication: 8 cc 2% Lidocaine, patient received IV sedation by the anesthesiologist along with physiologic monitoring. HISTORY: Renal failure TECHNIQUE: Following informed consent and procedure time-out, the patient was placed prone on the interventional table and a limited ultrasound showed slightly echogenic left kidney consistent with medical renal disease. There is no hydronephrosis or mass. The patient left back was prepped and draped in the usual sterile fashion. After patient sedated by the anesthesiologist and the skin anesthetized with lidocaine, an 18 gauge core needle was advanced percutaneously towards the lower pole cortex. Upon confirmation of needle position, three-18 gauge core specimens were obtained and sent for routine pathology. The biopsy tract was then embolized with Gelfoam. A post biopsy ultrasound showed no hematoma. There were no immediate complications. IMPRESSION: Ultrasound-guided left renal biopsy.
--- NOTE | 2018-02-18 11:11 | CP.PCM.PN ---
Subjective - Date & Time of Evaluation Date of Evaluation: 02/18/18 Time of Evaluation: 07:30 - Subjective Subjective: Arjun Bryant DO, PGY-1 Cardiology Progress Note for Dr. Ramsay Patient was seen and examined at bedside this AM. He offers no new complaints and states he feels less SOB since admission. Objective - Vital Signs/Intake and Output Vital Signs (last 24 hours): Temp Pulse Resp BP Pulse Ox 98.1 F 103 H 20 99/52 L 98 02/18/18 07:00 02/18/18 07:24 02/18/18 07:00 02/18/18 10:06 02/18/18 07:00 Intake and Output: 02/18/18 02/18/18 06:59 18:59 Intake Total 350 Balance 350 - Medications Medications: Current Medications Aspirin (Aspirin Chewable) 81 mg PO DAILY [facility] Last Admin: 02/14/18 09:33 Dose: 81 mg Calcium Acetate (Phoslo) 667 mg PO TIDCC [facility] Last Admin: 02/18/18 08:09 Dose: Not Given Docusate Sodium (Colace) 100 mg PO BID [facility] Last Admin: 02/18/18 10:27 Dose: 100 mg Famotidine (Pepcid) 20 mg PO DAILY [facility] Last Admin: 02/18/18 10:26 Dose: 20 mg Furosemide (Lasix) 40 mg IVP DAILY [facility] Last Admin: 02/18/18 10:06 Dose: Not Given Heparin Sodium (Porcine) (Heparin) 5,000 units SC Q8 [facility] Last Admin: 02/17/18 14:14 Dose: 5,000 units Hydroxyurea (Hydrea) 1,000 mg PO DAILY [facility] Last Admin: 02/18/18 10:25 Dose: 1,000 mg Ipratropium [place] (Atrovent) 0.5 mg IH RQ6 [facility] Last Admin: 02/18/18 07:51 Dose: 0.5 mg Lactobacillus Acidophilus (Bacid Acidophilus) 1 cap PO BID [facility] Last Admin: 02/18/18 10:29 Dose: 1 cap Metoprolol Tartrate (Lopressor) 5 mg IVP Q6H PRN PRN Reason: Systolic Blood Pressure Metoprolol Tartrate (Lopressor) 100 mg PO BID [facility] Last Admin: 02/18/18 10:06 Dose: Not Given Ondansetron HCl (Zofran Inj) 4 mg IVP Q6 PRN PRN Reason: Nausea/Vomiting Polyethylene Glycol (Miralax) 17 gm PO DAILY [facility] Last Admin: 02/18/18 10:27 Dose: Not Given Promethazine HCl/Dextromethorphan (Phenergan Dm Syrup) 5 ml PO Q6H PRN PRN Reason: Cough Last Admin: 02/13/18 06:16 Dose: 5 ml Simethicone (Mylicon Chew Tab) 80 mg PO QID [facility] Last Admin: 02/18/18 10:26 Dose: 80 mg Sodium Bicarbonate (Sodium Bicarbonate Tab) 650 mg PO TID [facility] Last Admin: 02/18/18 10:27 Dose: 650 mg Tamsulosin HCl (Flomax) 0.4 mg PO DAILY [facility] Last Admin: 02/18/18 10:25 Dose: 0.4 mg Vitamin A (Vitamin A & D Oint Ud Foilpak) 1 ea TOP BID [facility] Last Admin: 02/18/18 10:29 Dose: 1 ea - Labs Labs: 02/18/18 06:18 02/18/18 06:18 PT 11.6 SECONDS (9.7-12.2) 02/15/18 06:44 INR 1.1 02/15/18 06:44 APTT 37 SECONDS (21-34) H D 02/15/18 06:44 - Constitutional Appears: Non-toxic, No Acute Distress - Head Exam Head Exam: ATRAUMATIC, NORMOCEPHALIC - Eye Exam Eye Exam: EOMI, Normal appearance, PERRL - ENT Exam ENT Exam: Mucous Membranes Moist - Neck Exam Neck Exam: Full ROM, Normal Inspection - Respiratory Exam Respiratory Exam: Clear to Ausculation Bilateral, NORMAL BREATHING PATTERN. absent: Rales, Rhonchi, Wheezes - Cardiovascular Exam Cardiovascular Exam: REGULAR RHYTHM, RRR. absent: Gallop, Rubs, Murmur - GI/Abdominal Exam GI & Abdominal Exam: Soft. absent: Guarding, Tenderness - Extremities Exam Extremities Exam: Normal Inspection. absent: Pedal Edema - Back Exam Back Exam: Full ROM, NORMAL INSPECTION - Neurological Exam Neurological Exam: Alert, Awake, Oriented x3 - Psychiatric Exam Psychiatric exam: Normal Affect, Normal Mood - Skin Skin Exam: Dry, Intact, Warm Assessment and Plan - Assessment and Plan (Free Text) Assessment: 67 yo M with PMH of CKD not on HD and BPH admitted for worsening cough and SOB found to have severe MR and EF of 30-35% on Echo. Official read of the echo is pending but has been reviewed by Dr. Ramsay. Patient was initially admitted to ICU for respiratory distress and polycythemia. Polycythemia has improved since admission. BNP found to be 9850 on admission. Renal biopsy to be done today and PCI planned for Wednesday. Plan: 1. Acute CHF exacerbation -Suspect SOB/cough/orthopnea/PND and polycythemia are 2/2 uncontrolled CHF -Suspect acute CHF is 2/2 worsening CAD -Per nephrology renal bx today -Continue lasix 40 mg IVP daily -Cardiac cath scheduled for Wednesday, which will allow for time to review renal bx results with nephrology -Continue to monitor for episodes of VTach 2. Persistent sinus tachycardia -Likely 2/2 physiologic response to decreased cardiac output vs medication induced -Improved after increasing to lopressor 100 mg BID -Hold for SBP < 100 or HR < 50 -Continue to monitor Case and plan reviewed and discussed with my attending Dr. Devendra Bryant, IM Resident PGY-1
--- NOTE | 2018-02-18 11:11 | CP.PCM.PN ---
Subjective - Date & Time of Evaluation Date of Evaluation: 02/18/18 Time of Evaluation: 18:13 - Subjective Subjective: PGY-[address] Davidson Patient seen and examined at bedside. Patient to continues to have no complaints. No acute events overnight. Patient went for renal biopsy today with Dr. Meadows. Patient tolerated biopsy well. Therapeutic phlebotomy not done today. Objective - Vital Signs/Intake and Output Vital Signs (last 24 hours): Temp Pulse Resp BP Pulse Ox 98.1 F 103 H 20 99/52 L 98 02/18/18 07:00 02/18/18 07:24 02/18/18 07:00 02/18/18 10:06 02/18/18 07:00 Intake and Output: 02/18/18 02/18/18 06:59 18:59 Intake Total 350 Balance 350 - Medications Medications: Current Medications Aspirin (Aspirin Chewable) 81 mg PO DAILY [facility] Last Admin: 02/14/18 09:33 Dose: 81 mg Calcium Acetate (Phoslo) 667 mg PO TIDCC [facility] Last Admin: 02/18/18 08:09 Dose: Not Given Docusate Sodium (Colace) 100 mg PO BID [facility] Last Admin: 02/18/18 10:27 Dose: 100 mg Famotidine (Pepcid) 20 mg PO DAILY [facility] Last Admin: 02/18/18 10:26 Dose: 20 mg Furosemide (Lasix) 40 mg IVP DAILY [facility] Last Admin: 02/18/18 10:06 Dose: Not Given Heparin Sodium (Porcine) (Heparin) 5,000 units SC Q8 [facility] Last Admin: 02/17/18 14:14 Dose: 5,000 units Hydroxyurea (Hydrea) 1,000 mg PO DAILY [facility] Last Admin: 02/18/18 10:25 Dose: 1,000 mg Ipratropium [place] (Atrovent) 0.5 mg IH RQ6 [facility] Last Admin: 02/18/18 07:51 Dose: 0.5 mg Lactobacillus Acidophilus (Bacid Acidophilus) 1 cap PO BID [facility] Last Admin: 02/18/18 10:29 Dose: 1 cap Metoprolol Tartrate (Lopressor) 5 mg IVP Q6H PRN PRN Reason: Systolic Blood Pressure Metoprolol Tartrate (Lopressor) 100 mg PO BID [facility] Last Admin: 02/18/18 10:06 Dose: Not Given Ondansetron HCl (Zofran Inj) 4 mg IVP Q6 PRN PRN Reason: Nausea/Vomiting Polyethylene Glycol (Miralax) 17 gm PO DAILY [facility] Last Admin: 02/18/18 10:27 Dose: Not Given Promethazine HCl/Dextromethorphan (Phenergan Dm Syrup) 5 ml PO Q6H PRN PRN Reason: Cough Last Admin: 02/13/18 06:16 Dose: 5 ml Simethicone (Mylicon Chew Tab) 80 mg PO QID [facility] Last Admin: 02/18/18 10:26 Dose: 80 mg Sodium Bicarbonate (Sodium Bicarbonate Tab) 650 mg PO TID [facility] Last Admin: 02/18/18 10:27 Dose: 650 mg Tamsulosin HCl (Flomax) 0.4 mg PO DAILY [facility] Last Admin: 02/18/18 10:25 Dose: 0.4 mg Vitamin A (Vitamin A & D Oint Ud Foilpak) 1 ea TOP BID [facility] Last Admin: 02/18/18 10:29 Dose: 1 ea - Labs Labs: 02/18/18 06:18 02/18/18 06:18 PT 11.6 SECONDS (9.7-12.2) 02/15/18 06:44 INR 1.1 02/15/18 06:44 APTT 37 SECONDS (21-34) H D 02/15/18 06:44 - Head Exam Head Exam: ATRAUMATIC, NORMAL INSPECTION - Eye Exam Eye Exam: EOMI, Normal appearance - ENT Exam ENT Exam: Mucous Membranes Moist - Respiratory Exam Respiratory Exam: Clear to Ausculation Bilateral, NORMAL BREATHING PATTERN. absent: Rhonchi, Wheezes - Cardiovascular Exam Cardiovascular Exam: REGULAR RHYTHM, +S1, +S2 - GI/Abdominal Exam GI & Abdominal Exam: Soft, Normal Bowel Sounds. absent: Tenderness - Extremities Exam Extremities Exam: Normal Inspection. absent: Pedal Edema, Tenderness - Neurological Exam Neurological Exam: Alert, Awake, CN II-XII Intact, Oriented x3 - Psychiatric Exam Psychiatric exam: Normal Affect, Normal Mood - Skin Skin Exam: Dry, Intact Assessment and Plan - Assessment and Plan (Free Text) Assessment: Patient is a 67 yo male with history of CKD (not in HD) who presented with SOB and cough. Additionally, he reported 20 lb weight loss over 6 months. He was found to have b/l pleural effusions. Also found to have polycythemia. He had b/l thoracentesis on 02/11 with significant improvement of symptoms while in the ICU. He has had therapeutic phlebotomy 4 times thus far with gradual improvement on H&H. Polycythemia work-up is pending. Patient was initially managed in the ICU for 4 days, and was then downgraded to med/surg after SOB improved. Plan: Polycythemia - H/H is 21.4/68.8 on admission - LE Dopplers (02/10): no DVT - FARTUN positive, titer 1:80, speckled - Hct goal <45 - Hydroxyurea 1000 mg PO daily - ASA 81 mg PO daily (on hold due to planned renal biopsy 02/18) - Hem/onc consulted (Sneha)- therapeutic phlebotomies - continue therapeutic phlebotomy until goal HCT is reached - -No therapeutic phlebotomy today per Dr. Hoover - EPO is low at 2.0 - H/H is improving with phlebotomy; HCT is 50.4 today - f/u JAK2 Interstitial lung markings - CXR 02/08 (on admission): Prominent hilar and perihilar bronchovascular markings. Bronchiolar thickening along with subsegmental inflammatory patchy infiltrates coalescing are a consideration. Left infrahilar coalescence/patchy infiltrate and/or atelectasis posterior suspect. Findings are in addition to pulmonary venous congestion suspect. Mild cardiomegaly. Clinical correlation is essential. Follow-up recommended. Consider CT of the chest for more sensitive evaluation. - CT 02/10: Round shaped opacity at the inferior peripheral portion of the right middle lobe which may represent atelectasis versus neoplasm. - CXR 02/13: Prominent diffuse increased interstitial lung markings which may represent underlying edema and or infiltrate. Scattered patchy pleural parenchymal opacities in the mid to lower lung zones bilaterally. Right midlung atelectasis. Bilateral hilar prominence. Cardiomegaly. - Blood Cx no growth 5 days - Pulmonology consulted (Tray) - Incentive spirometry - Duoneb Q6H - Azithromycin 250 mg IV daily- start 02/13 - Rocephin 1 g IV daily- started 02/13 - Lactobacillus acidophilus PO BID - Phenergan DM 5 mL PO Q6H PRN CHF with reduced ejection fraction Pt presented with bilateral pleural effusions; improving s/p thoracentesis 02/11 - BNP is 9850 on admission - Echocardiogram (02/08) show LVEF approximately 25%. Dilated diastolic filling presures. Pulmonary systolic presure are levated at 45 mmHg. large left pleural effusion. Paracardiac cyst/hiatal hernia. - CXR: cardiomegaly - CT chest 02/10: Moderate to large bilateral pleural effusions associated with bilateral lower lobe atelectasis. - IR consulted (Abdiel) - Cardiology, Dr. Ramsay, consulted, recs appreciated Plan for cardiac cath as patient likely has occult CAD - No ACEi/ARB at this time due to CKD, pt is on BB, and diuretic D-dimer elevation - repeat d-dimer is 341, normal d-dimer on admission - pt is hemodynamically stable, but has a high risk to clot due to polycythemia - Bilateral lower extremity US (02/15) is negative for thrombus Tachycardia Ventricular tachycardia on monitor (02/14), likely secondary to CHF with reduced EF - EKG: sinus tach, LVH on admission - EKG (02/14) shows sinus tachycardia with LVH - Metoprolol 100 mg PO BID as per Cardio - Metoprolol 5 mg IVP Q6H PRN - Cardiology, Dr. Ramsay, consulted, will f/u with recs Chronic kidney disease, stage 4 stable Nephrotic syndrome - 6.8 grams in urine on 24 hours collection - creatinine is stable - Renal US: echogenic renal parenchyma bilateral may be seen in setting of medical renal disease. 5mm mid to lower pole left renal calculus. non obstructing. 1.1cm left lower pole renal cyst. - Renally dose meds - Phoslo 667 mg PO TID - Sodium bicarb 650 mg PO TID - Nephrology consulted (Gwen/Morales) - Renal biopsy done today by IR, Dr. Meadows, patient tolerated. F/u results. - f/u lipid panel Constipation - Colace 100 mg PO BID - Miralax 17 g PO daily - Simethicone 40 mg PO QID Dysuria - Possible due to proteinuria - f/u urinalysis Benign prostatic hypertrophy - Flomax 0.4 mg PO daily Ppx: VTE: SCDs, ASA (on hold due to planned renal biopsy this week), heparin 5000 units SC Q8H GI: Pepcid 20 mg PO daily Diet: HHD, Renal diet, Fluid restriction to 1500 mL PT/OT- home with services Dispo: renal biopsy done today 02/18, continue treatment of polycythemia as per Dr. Hoover (w/u pending), potential cardiac cath with Dr. Ramsay pending discussion with nephrology regarding CKD Code status: full code Case discussed with attending physician, Dr. Stuart Reyes, PGY-1
--- NOTE | 2018-02-18 12:42 | CP.PCM.PN ---
Subjective - Date & Time of Evaluation Date of Evaluation: 02/18/18 Time of Evaluation: 12:40 - Subjective Subjective: s/p percutaneous kidney bx - no known complications stable post bx recent creat increased to 2.7 BP- remains low Objective - Vital Signs/Intake and Output Vital Signs (last 24 hours): Temp Pulse Resp BP Pulse Ox 98.1 F 103 H 20 99/52 L 98 02/18/18 07:00 02/18/18 07:24 02/18/18 07:00 02/18/18 10:06 02/18/18 07:00 Intake and Output: 02/18/18 02/18/18 06:59 18:59 Intake Total 350 Balance 350 - Medications Medications: Current Medications Aspirin (Aspirin Chewable) 81 mg PO DAILY [facility] Last Admin: 02/14/18 09:33 Dose: 81 mg Calcium Acetate (Phoslo) 667 mg PO TIDCC [facility] Last Admin: 02/18/18 08:09 Dose: Not Given Docusate Sodium (Colace) 100 mg PO BID [facility] Last Admin: 02/18/18 10:27 Dose: 100 mg Famotidine (Pepcid) 20 mg PO DAILY [facility] Last Admin: 02/18/18 10:26 Dose: 20 mg Furosemide (Lasix) 40 mg IVP DAILY [facility] Last Admin: 02/18/18 10:06 Dose: Not Given Heparin Sodium (Porcine) (Heparin) 5,000 units SC Q8 [facility] Last Admin: 02/17/18 14:14 Dose: 5,000 units Hydroxyurea (Hydrea) 1,000 mg PO DAILY [facility] Last Admin: 02/18/18 10:25 Dose: 1,000 mg Ipratropium [place] (Atrovent) 0.5 mg IH RQ6 [facility] Last Admin: 02/18/18 07:51 Dose: 0.5 mg Lactobacillus Acidophilus (Bacid Acidophilus) 1 cap PO BID [facility] Last Admin: 02/18/18 10:29 Dose: 1 cap Metoprolol Tartrate (Lopressor) 5 mg IVP Q6H PRN PRN Reason: Systolic Blood Pressure Metoprolol Tartrate (Lopressor) 100 mg PO BID [facility] Last Admin: 02/18/18 10:06 Dose: Not Given Ondansetron HCl (Zofran Inj) 4 mg IVP Q6 PRN PRN Reason: Nausea/Vomiting Polyethylene Glycol (Miralax) 17 gm PO DAILY [facility] Last Admin: 02/18/18 10:27 Dose: Not Given Promethazine HCl/Dextromethorphan (Phenergan Dm Syrup) 5 ml PO Q6H PRN PRN Reason: Cough Last Admin: 02/13/18 06:16 Dose: 5 ml Simethicone (Mylicon Chew Tab) 80 mg PO QID [facility] Last Admin: 02/18/18 10:26 Dose: 80 mg Sodium Bicarbonate (Sodium Bicarbonate Tab) 650 mg PO TID [facility] Last Admin: 02/18/18 10:27 Dose: 650 mg Tamsulosin HCl (Flomax) 0.4 mg PO DAILY [facility] Last Admin: 02/18/18 10:25 Dose: 0.4 mg Vitamin A (Vitamin A & D Oint Ud Foilpak) 1 ea TOP BID [facility] Last Admin: 02/18/18 10:29 Dose: 1 ea - Labs Labs: 02/18/18 06:18 02/18/18 06:18 PT 11.6 SECONDS (9.7-12.2) 02/15/18 06:44 INR 1.1 02/15/18 06:44 APTT 37 SECONDS (21-34) H D 02/15/18 06:44 - Constitutional Appears: No Acute Distress, Chronically Ill - Head Exam Head Exam: ATRAUMATIC, NORMAL INSPECTION - Eye Exam Eye Exam: EOMI, Normal appearance - Neck Exam Neck Exam: Normal Inspection. absent: Tenderness - Respiratory Exam Respiratory Exam: Clear to Ausculation Bilateral, NORMAL BREATHING PATTERN - Cardiovascular Exam Cardiovascular Exam: REGULAR RHYTHM, +S1 - GI/Abdominal Exam GI & Abdominal Exam: Soft. absent: Tenderness - Extremities Exam Extremities Exam: Pedal Edema. absent: Tenderness - Neurological Exam Neurological Exam: Awake, CN II-XII Intact - Skin Skin Exam: Dry, Warm Assessment and Plan (1) Interstitial lung disease Status: Acute (2) CKD (chronic kidney disease) stage 4, GFR 15-29 ml/min Status: Acute (3) Polycythemia Status: Acute (4) Nephrotic syndrome Status: Acute - Assessment and Plan (Free Text) Plan: change to po lasix stop na bicarb await bx results
[2018-02-19] MEDS: Ipratropium 0.02% Inhal Soln (0.5 mg/2.5 ml) UD IH SCH ×4 (04:00→20:00)
[2018-02-19 06:17] LABS: BASO % 1.1 % (0.0-2.0); EOS # 0.2 K/uL (0.0-0.7); EOS % 4.6 % (0.0-4.0); HEMOGLOBIN 15.8 g/dL (12.0-18.0); LYMPH % 24.7 % (20.0-40.0); MEAN CORPUSCULAR HEMOGLOBIN 25.3 pg (27.0-31.0); MEAN CORPUSCULAR HGB CONC 32.1 g/dL (33.0-37.0); MEAN PLATELET VOLUME 8.7 fL (7.2-11.7); MONO # 0.2 K/uL (0.0-0.8); MONO % 4.2 % (0.0-10.0); NEUT # 2.7 K/uL (1.8-7.0); NEUT % 65.4 % (50.0-75.0); NRBC % 0.1 % (0.0-2.0); RBC 6.26 Mil/uL (4.40-5.90); RED CELL DISTRIBUTION WIDTH 20.7 % (11.5-14.5); WHITE BLOOD COUNT 4.1 K/uL (4.8-10.8)
[2018-02-19 06:39] LABS: ALB/GLOB RATIO 0.9 (1.0-2.1); ALBUMIN 2.5 g/dL (3.5-5.0); CALCIUM 8.1 mg/dl (8.6-10.4)
--- NOTE | 2018-02-19 09:29 | CP.PCM.PN ---
Subjective - Date & Time of Evaluation Date of Evaluation: 02/19/18 Time of Evaluation: 09:26 - Subjective Subjective: Notes reviewed Comfortable in bed No overnight events reported No pain Tolerated biopsy without difficulty No hematuria or dysuria Appetite good No sob or cough No n/v/d No cp or palp 10 point ROS negative other than stated above Objective - Vital Signs/Intake and Output Vital Signs (last 24 hours): Temp Pulse Resp BP Pulse Ox 97.9 F 98 H 20 110/69 98 02/19/18 07:00 02/19/18 07:54 02/19/18 07:00 02/19/18 07:00 02/19/18 04:00 - Medications Medications: Current Medications Aspirin (Aspirin Chewable) 81 mg PO DAILY [facility] Last Admin: 02/14/18 09:33 Dose: 81 mg Calcium Acetate (Phoslo) 667 mg PO TIDCC [facility] Last Admin: 02/18/18 18:28 Dose: 667 mg Docusate Sodium (Colace) 100 mg PO BID [facility] Last Admin: 02/18/18 18:28 Dose: 100 mg Famotidine (Pepcid) 20 mg PO DAILY [facility] Last Admin: 02/18/18 10:26 Dose: 20 mg Furosemide (Lasix) 40 mg PO DAILY [facility] Heparin Sodium (Porcine) (Heparin) 5,000 units SC Q8 [facility] Last Admin: 02/17/18 14:14 Dose: 5,000 units Hydroxyurea (Hydrea) 1,000 mg PO DAILY [facility] Last Admin: 02/18/18 10:25 Dose: 1,000 mg Ipratropium [place] (Atrovent) 0.5 mg IH RQ6 [facility] Last Admin: 02/19/18 07:28 Dose: 0.5 mg Lactobacillus Acidophilus (Bacid Acidophilus) 1 cap PO BID [facility] Last Admin: 02/18/18 18:28 Dose: 1 cap Metoprolol Tartrate (Lopressor) 5 mg IVP Q6H PRN PRN Reason: Systolic Blood Pressure Metoprolol Tartrate (Lopressor) 100 mg PO BID [facility] Last Admin: 02/18/18 18:27 Dose: Not Given Ondansetron HCl (Zofran Inj) 4 mg IVP Q6 PRN PRN Reason: Nausea/Vomiting Polyethylene Glycol (Miralax) 17 gm PO DAILY [facility] Last Admin: 12/07/18 10:27 Dose: Not Given Promethazine HCl/Dextromethorphan (Phenergan Dm Syrup) 5 ml PO Q6H PRN PRN Reason: Cough Last Admin: 02/13/18 06:16 Dose: 5 ml Simethicone (Mylicon Chew Tab) 80 mg PO QID [facility] Last Admin: 02/18/18 18:28 Dose: 80 mg Tamsulosin HCl (Flomax) 0.4 mg PO DAILY [facility] Last Admin: 02/18/18 10:25 Dose: 0.4 mg Vitamin A (Vitamin A & D Oint Ud Foilpak) 1 ea TOP BID [facility] Last Admin: 02/18/18 10:29 Dose: 1 ea - Labs Labs: 02/19/18 06:08 02/19/18 06:08 PT 11.6 SECONDS (9.7-12.2) 02/15/18 06:44 INR 1.1 02/15/18 06:44 APTT 37 SECONDS (21-34) H D 02/15/18 06:44 - Constitutional Appears: Well, Non-toxic - Head Exam Head Exam: ATRAUMATIC, NORMAL INSPECTION - Eye Exam Eye Exam: EOMI, Normal appearance - ENT Exam ENT Exam: Mucous Membranes Moist, Normal Oropharynx - Neck Exam Neck Exam: absent: Lymphadenopathy, Thyromegaly - Respiratory Exam Respiratory Exam: Clear to Ausculation Bilateral. absent: Rales, Rhonchi, Wheezes - Cardiovascular Exam Cardiovascular Exam: +S1, +S2. absent: JVD - GI/Abdominal Exam GI & Abdominal Exam: Soft, Normal Bowel Sounds. absent: Distended - Extremities Exam Extremities Exam: absent: Joint Swelling, Pedal Edema - Back Exam Back Exam: absent: CVA tenderness (L), CVA tenderness (R) - Neurological Exam Neurological Exam: Alert, Awake, Oriented x3 - Psychiatric Exam Psychiatric exam: Normal Affect, Normal Mood - Skin Skin Exam: Dry, Intact Assessment and Plan (1) CKD (chronic kidney disease) stage 4, GFR 15-29 ml/min Status: Acute (2) Interstitial lung disease Status: Acute (3) Nephrotic syndrome Status: Acute (4) Polycythemia Status: Acute - Assessment and Plan (Free Text) Assessment: Tolerated biopsy well Hgb stable post procedure / no hematuria Renal function improved with change of diuretics Electrolytes stable Continue current care Await biopsy results
[2018-02-19] MEDS: Lactobacillus Acidophilus 500 MU Cap PO SCH ×2 (09:37→18:46)
[2018-02-19] MEDS: Vitamins A & D Oint UD Foilpak TOP SCH ×2 (09:37→18:32)
[2018-02-19] MEDS: Simethicone 80 mg Chewtab PO SCH ×4 (09:37→23:37)
[2018-02-19] MEDS: POLYETHYLENE GLYCOL 3350 17 GM/Dose PACKET PO SCH (09:38)
--- NOTE | 2018-02-19 19:18 | CP.PCM.PN ---
Subjective - Date & Time of Evaluation Date of Evaluation: 02/19/18 Time of Evaluation: 09:20 - Subjective Subjective: Medicine progress note Patient seen and examined at bedside. No acute events overnight. Patient complains of nasal dryness. Therapeutic phlebotomy was not done today. He denies fever, chills, headache, dizziness, shortness of breath, chest pain, abdominal pain, nausea, vomiting, or diarrhea. Objective - Vital Signs/Intake and Output Vital Signs (last 24 hours): Temp Pulse Resp BP Pulse Ox 98.0 F 106 H 20 107/68 95 02/19/18 15:30 02/19/18 17:07 02/19/18 15:30 02/19/18 15:30 02/19/18 15:30 Intake and Output: 02/19/18 02/20/18 18:59 06:59 Intake Total 200 Output Total 300 Balance -100 - Medications Medications: Current Medications Aspirin (Aspirin Chewable) 81 mg PO DAILY [facility] Last Admin: 02/19/18 09:40 Dose: 81 mg Calcium Acetate (Phoslo) 667 mg PO TIDCC [facility] Last Admin: 02/19/18 18:48 Dose: 667 mg Docusate Sodium (Colace) 100 mg PO BID [facility] Last Admin: 02/19/18 18:46 Dose: 100 mg Famotidine (Pepcid) 20 mg PO DAILY [facility] Last Admin: 02/19/18 09:37 Dose: 20 mg Furosemide (Lasix) 40 mg PO DAILY [facility] Last Admin: 02/19/18 09:38 Dose: Not Given Heparin Sodium (Porcine) (Heparin) 5,000 units SC Q8 [facility] Last Admin: 02/19/18 14:55 Dose: 5,000 units Hydroxyurea (Hydrea) 1,000 mg PO DAILY [facility] Last Admin: 02/19/18 09:37 Dose: 1,000 mg Ipratropium [place] (Atrovent) 0.5 mg IH RQ6 [facility] Last Admin: 02/19/18 13:44 Dose: 0.5 mg Lactobacillus Acidophilus (Bacid Acidophilus) 1 cap PO BID [facility] Last Admin: 02/19/18 18:46 Dose: 1 cap Metoprolol Tartrate (Lopressor) 5 mg IVP Q6H PRN PRN Reason: Systolic Blood Pressure Metoprolol Tartrate (Lopressor) 100 mg PO BID [facility] Last Admin: 02/19/18 18:46 Dose: Not Given Ondansetron HCl (Zofran Inj) 4 mg IVP Q6 PRN PRN Reason: Nausea/Vomiting Polyethylene Glycol (Miralax) 17 gm PO DAILY [facility] Last Admin: 02/19/18 09:38 Dose: Not Given Promethazine HCl/Dextromethorphan (Phenergan Dm Syrup) 5 ml PO Q6H PRN PRN Reason: Cough Last Admin: 02/13/18 06:16 Dose: 5 ml Simethicone (Mylicon Chew Tab) 80 mg PO QID [facility] Last Admin: 02/19/18 18:45 Dose: 80 mg Tamsulosin HCl (Flomax) 0.4 mg PO DAILY [facility] Last Admin: 02/19/18 09:37 Dose: 0.4 mg Vitamin A (Vitamin A & D Oint Ud Foilpak) 1 ea TOP BID [facility] Last Admin: 02/19/18 18:32 Dose: 1 ea - Labs Labs: 02/19/18 06:08 02/19/18 06:08 PT 11.6 SECONDS (9.7-12.2) 02/15/18 06:44 INR 1.1 02/15/18 06:44 APTT 37 SECONDS (21-34) H D 02/15/18 06:44 - Constitutional Appears: Well, No Acute Distress - Head Exam Head Exam: ATRAUMATIC, NORMAL INSPECTION, NORMOCEPHALIC - Eye Exam Eye Exam: EOMI, Normal appearance Pupil Exam: NORMAL ACCOMODATION - ENT Exam ENT Exam: Mucous Membranes Moist - Respiratory Exam Respiratory Exam: Clear to Ausculation Bilateral, NORMAL BREATHING PATTERN. absent: Wheezes, Respiratory Distress - Cardiovascular Exam Cardiovascular Exam: REGULAR RHYTHM, +S1, +S2. absent: Murmur - GI/Abdominal Exam GI & Abdominal Exam: Soft, Normal Bowel Sounds. absent: Tenderness - Back Exam Back Exam: NORMAL INSPECTION - Neurological Exam Neurological Exam: Alert, Awake, Oriented x3 - Psychiatric Exam Psychiatric exam: Normal Affect, Normal Mood - Skin Skin Exam: Dry, Intact Assessment and Plan - Assessment and Plan (Free Text) Assessment: Polycythemia - H/H is 21.4/68.8 on admission - LE Dopplers (02/10): no DVT - FARTUN positive, titer 1:80, speckled - Hct goal <45 - Hydroxyurea 1000 mg PO daily - ASA 81 mg PO daily (on hold due to planned renal biopsy 02/18) - Hem/onc consulted (Sneha)- therapeutic phlebotomies - EPO is low at 2.0 - f/u JAK2 - H/H stable 15.8/49.4 today - No phlebotomy performed today Interstitial lung markings - CXR 02/08 (on admission): Prominent hilar and perihilar bronchovascular markings. Bronchiolar thickening along with subsegmental inflammatory patchy infiltrates coalescing are a consideration. Left infrahilar coalescence/patchy infiltrate and/or atelectasis posterior suspect. Findings are in addition to pulmonary venous congestion suspect. Mild cardiomegaly. Clinical correlation is essential. Follow-up recommended. Consider CT of the chest for more sens itive evaluation. - CT 02/10: Round shaped opacity at the inferior peripheral portion of the right middle lobe which may represent atelectasis versus neoplasm. - CXR 02/13: Prominent diffuse increased interstitial lung markings which may represent underlying edema and or infiltrate. Scattered patchy pleural parenchymal opacities in the mid to lower lung zones bilaterally. Right midlung atelectasis. Bilateral hilar prominence. Cardiomegaly. - Blood Cx no growth 5 days - Pulmonology consulted (Tray) - Incentive spirometry - Duoneb Q6H - Azithromycin 250 mg IV daily- start 02/13 - Rocephin 1 g IV daily- started 02/13 - Lactobacillus acidophilus PO BID - Phenergan DM 5 mL PO Q6H PRN CHF with reduced ejection fraction Pt presented with bilateral pleural effusions; improving s/p thoracentesis 02/11 - BNP is 9850 on admission - Echocardiogram (02/08) show LVEF approximately 25%. Dilated diastolic filling presures. Pulmonary systolic presure are levated at 45 mmHg. large left pleural effusion. Paracardiac cyst/hiatal hernia. - CXR: cardiomegaly - CT chest 02/10: Moderate to large bilateral pleural effusions associated with bilateral lower lobe atelectasis. - IR consulted (Abdiel) - Cardiology, Dr. Ramsay, consulted, recs appreciated Plan for cardiac cath as patient likely has occult CAD - No ACEi/ARB at this time due to CKD, pt is on BB, and diuretic D-dimer elevation - repeat d-dimer is 341, normal d-dimer on admission - pt is hemodynamically stable, but has a high risk to clot due to polycythemia - Bilateral lower extremity US (02/15) is negative for thrombus Tachycardia Ventricular tachycardia on monitor (02/14), likely secondary to CHF with reduced EF - EKG: sinus tach, LVH on admission - EKG (02/14) shows sinus tachycardia with LVH - Metoprolol 100 mg PO BID as per Cardio - Metoprolol 5 mg IVP Q6H PRN - Cardiology, Dr. Ramsay, consulted, will f/u with recs Chronic kidney disease, stage 4 stable Nephrotic syndrome - 6.8 grams in urine on 24 hours collection - creatinine is stable - Renal US: echogenic renal parenchyma bilateral may be seen in setting of medical renal disease. 5mm mid to lower pole left renal calculus. non obstructing. 1.1cm left lower pole renal cyst. - Renally dose meds - Phoslo 667 mg PO TID - Nephrology consulted (Gwen/Morales) - Renal biopsy F/u results - lipid panel normal limits Constipation - Colace 100 mg PO BID - Miralax 17 g PO daily - Simethicone 40 mg PO QID Dysuria, resolved - Possible due to proteinuria - Urinalysis 2+ protein Benign prostatic hypertrophy - Flomax 0.4 mg PO daily Ppx: VTE: SCDs, ASA and heparin 5000 units SC Q8H restarted GI: Pepcid 20 mg PO daily Diet: HHD, Renal diet, Fluid restriction to 1500 mL PT/OT- home with services Dispo: renal biopsy done 02/18, continue treatment of polycythemia as per Dr. Hoover (w/u pending), potential cardiac cath with Dr. Ramsay pending Code status: full code
[2018-02-20] MEDS: Ipratropium 0.02% Inhal Soln (0.5 mg/2.5 ml) UD IH SCH ×4 (01:53→19:33)
--- NOTE | 2018-02-20 02:11 | CP.PCM.PN ---
<Chauncey uDong - Last Filed: 02/20/18 02:06> Subjective - Date & Time of Evaluation Date of Evaluation: 02/20/18 Time of Evaluation: 02:06 - Subjective Subjective: PGY1 Medicine progress note Patient seen and examined at bedside. No acute events overnight. He denies fever, chills, headache, dizziness, shortness of breath, chest pain, abdominal pain, nausea, vomiting, diarrhea, hematochezia, melena. Pt is ambulating well. Objective - Vital Signs/Intake and Output Vital Signs (last 24 hours): Temp Pulse Resp BP Pulse Ox 98.0 F 106 H 20 107/68 95 02/19/18 15:30 02/19/18 17:07 02/19/18 15:30 02/19/18 15:30 02/19/18 15:30 Intake and Output: 02/19/18 02/20/18 18:59 06:59 Intake Total 200 Output Total 300 Balance -100 - Medications Medications: Current Medications Aspirin (Aspirin Chewable) 81 mg PO DAILY [facility] Last Admin: 02/19/18 09:40 Dose: 81 mg Calcium Acetate (Phoslo) 667 mg PO TIDCC [facility] Last Admin: 02/19/18 18:48 Dose: 667 mg Docusate Sodium (Colace) 100 mg PO BID [facility] Last Admin: 02/19/18 18:46 Dose: 100 mg Famotidine (Pepcid) 20 mg PO DAILY [facility] Last Admin: 02/19/18 09:37 Dose: 20 mg Furosemide (Lasix) 40 mg PO DAILY [facility] Last Admin: 02/19/18 09:38 Dose: Not Given Heparin Sodium (Porcine) (Heparin) 5,000 units SC Q8 [facility] Last Admin: 02/19/18 23:38 Dose: 5,000 units Hydroxyurea (Hydrea) 1,000 mg PO DAILY [facility] Last Admin: 02/19/18 09:37 Dose: 1,000 mg Ipratropium [place] (Atrovent) 0.5 mg IH RQ6 [facility] Last Admin: 02/20/18 01:53 Dose: 0.5 mg Lactobacillus Acidophilus (Bacid Acidophilus) 1 cap PO BID [facility] Last Admin: 02/19/18 18:46 Dose: 1 cap Metoprolol Tartrate (Lopressor) 5 mg IVP Q6H PRN PRN Reason: Systolic Blood Pressure Metoprolol Tartrate (Lopressor) 100 mg PO BID [facility] Last Admin: 02/19/18 18:46 Dose: Not Given Ondansetron HCl (Zofran Inj) 4 mg IVP Q6 PRN PRN Reason: Nausea/Vomiting Polyethylene Glycol (Miralax) 17 gm PO DAILY [facility] Last Admin: 02/19/18 09:38 Dose: Not Given Promethazine HCl/Dextromethorphan (Phenergan Dm Syrup) 5 ml PO Q6H PRN PRN Reason: Cough Last Admin: 02/13/18 06:16 Dose: 5 ml Simethicone (Mylicon Chew Tab) 80 mg PO QID [facility] Last Admin: 02/19/18 23:37 Dose: 80 mg Tamsulosin HCl (Flomax) 0.4 mg PO DAILY [facility] Last Admin: 02/19/18 09:37 Dose: 0.4 mg Vitamin A (Vitamin A & D Oint Ud Foilpak) 1 ea TOP BID [facility] Last Admin: 02/19/18 18:32 Dose: 1 ea - Labs Labs: 02/19/18 06:08 02/19/18 06:08 PT 11.6 SECONDS (9.7-12.2) 02/15/18 06:44 INR 1.1 02/15/18 06:44 APTT 37 SECONDS (21-34) H D 02/15/18 06:44 - Additional Findings Additional findings: - Constitutional Appears: Well, No Acute Distress - Head Exam Head Exam: ATRAUMATIC, NORMAL INSPECTION, NORMOCEPHALIC - Eye Exam Eye Exam: EOMI, Normal appearance Pupil Exam: NORMAL ACCOMODATION - ENT Exam ENT Exam: Mucous Membranes Moist - Respiratory Exam Respiratory Exam: Clear to Ausculation Bilateral, NORMAL BREATHING PATTERN. absent: Wheezes, Respiratory Distress - Cardiovascular Exam Cardiovascular Exam: REGULAR RHYTHM, +S1, +S2. absent: Murmur - GI/Abdominal Exam GI & Abdominal Exam: Soft, Normal Bowel Sounds. absent: Tenderness - Back Exam Back Exam: NORMAL INSPECTION - Neurological Exam Neurological Exam: Alert, Awake, Oriented x3 - Psychiatric Exam Psychiatric exam: Normal Affect, Normal Mood - Skin Skin Exam: Dry, Intact Assessment and Plan - Assessment and Plan (Free Text) Assessment: Patient is a 67 yo male with history of CKD (not in HD) who presented with SOB and cough. Additionally, he reported 20 lb weight loss over 6 months. He was found to have b/l pleural effusions. Also found to have polycythemia. He had b/l thoracentesis on 02/11 with significant improvement of symptoms while in the ICU. He has had therapeutic phlebotomy 4 times thus far with gradual improvement on H&H. Polycythemia work-up is pending. Patient was initially managed in the ICU for 4 days, and was then downgraded to med/surg after SOB improved. Plan: Polycythemia - H/H is 21.4/68.8 on admission - LE Dopplers (02/10): no DVT - FARTUN positive, titer 1:80, speckled - Hct goal <45 - Hydroxyurea 1000 mg PO daily - ASA 81 mg PO daily (on hold due to planned renal biopsy 02/18) - Hem/onc consulted (Sneha)- therapeutic phlebotomies - EPO is low at 2.0 - f/u JAK2 - F;u H/H today - Should have phlebotomy done today Interstitial lung markings - CXR 02/08 (on admission): Prominent hilar and perihilar bronchovascular markings. Bronchiolar thickening along with subsegmental inflammatory patchy infiltrates coalescing are a consideration. Left infrahilar coalescence/patchy infiltrate and/or atelectasis posterior suspect. Findings are in addition to pulmonary venous congestion suspect. Mild cardiomegaly. Clinical correlation is essential. Follow-up recommended. Consider CT of the chest for more sensitive evaluation. - CT 02/10: Round shaped opacity at the inferior peripheral portion of the right middle lobe which may represent atelectasis versus neoplasm. - CXR 02/13: Prominent diffuse increased interstitial lung markings which may represent underlying edema and or infiltrate. Scattered patchy pleural parenchymal opacities in the mid to lower lung zones bilaterally. Right midlung atelectasis. Bilateral hilar prominence. Cardiomegaly. - Blood Cx no growth 5 days - Pulmonology consulted (Tray) - Incentive spirometry - Duoneb Q6H - Completed course of Azithromycin 250 mg IV daily - Completed course of Rocephin 1 g IV daily - Lactobacillus acidophilus PO BID - Phenergan DM 5 mL PO Q6H PRN CHF with reduced ejection fraction Pt presented with bilateral pleural effusions; improving s/p thoracentesis 02/11 - BNP is 9850 on admission - Echocardiogram (02/08) show LVEF approximately 25%. Dilated diastolic filling presures. Pulmonary systolic presure are levated at 45 mmHg. large left pleural effusion. Paracardiac cyst/hiatal hernia. - CXR: cardiomegaly - CT chest 02/10: Moderate to large bilateral pleural effusions associated with bilateral lower lobe atelectasis. - IR consulted (Abdiel) - Cardiology, Dr. Ramsay, consulted, recs appreciated Plan for cardiac cath as patient likely has occult CAD - No ACEi/ARB at this time due to CKD, pt is on BB, and diuretic D-dimer elevation - repeat d-dimer is 341, normal d-dimer on admission - pt is hemodynamically stable, but has a high risk to clot due to polycythemia - Bilateral lower extremity US (02/15) is negative for thrombus Tachycardia Ventricular tachycardia on monitor (02/14), likely secondary to CHF with reduced EF - EKG: sinus tach, LVH on admission - EKG (02/14) shows sinus tachycardia with LVH - Metoprolol 100 mg PO BID as per Cardio - Metoprolol 5 mg IVP Q6H PRN - Cardiology, Dr. Ramsay, consulted, will f/u with recs Chronic kidney disease, stage 4 stable Nephrotic syndrome - 6.8 grams in urine on 24 hours collection - creatinine is stable - Renal US: echogenic renal parenchyma bilateral may be seen in setting of medical renal disease. 5mm mid to lower pole left renal calculus. non obstructing. 1.1cm left lower pole renal cyst. - Renally dose meds - Phoslo 667 mg PO TID - Nephrology consulted (Gwen/Morales) - Renal biopsy F/u results - lipid panel normal limits Constipation - Colace 100 mg PO BID - Miralax 17 g PO daily - Simethicone 40 mg PO QID Dysuria, resolved - Possible due to proteinuria - Urinalysis 2+ protein Benign prostatic hypertrophy - Flomax 0.4 mg PO daily Ppx: VTE: SCDs, ASA and heparin 5000 units SC Q8H restarted GI: Pepcid 20 mg PO daily Diet: HHD, Renal diet, Fluid restriction to 1500 mL PT/OT- home with services Dispo: renal biopsy done 02/18, continue treatment of polycythemia as per Dr. Hoover (w/u pending), potential cardiac cath with Dr. Ramsay pending Code status: full code <Melisa Davidson V - Last Filed: 02/20/18 08:56> Objective - Vital Signs/Intake and Output Vital Signs (last 24 hours): Temp Pulse Resp BP Pulse Ox 97.6 F 99 H 20 112/69 96 02/20/18 07:00 02/20/18 07:00 02/20/18 07:00 02/20/18 07:00 02/20/18 07:00 - Medications Medications: Current Medications Aspirin (Aspirin Chewable) 81 mg PO DAILY [facility] Last Admin: 02/19/18 09:40 Dose: 81 mg Calcium Acetate (Phoslo) 667 mg PO TIDCC [facility] Last Admin: 02/19/18 18:48 Dose: 667 mg Docusate Sodium (Colace) 100 mg PO BID [facility] Last Admin: 02/19/18 18:46 Dose: 100 mg Famotidine (Pepcid) 20 mg PO DAILY [facility] Last Admin: 02/19/18 09:37 Dose: 20 mg Furosemide (Lasix) 40 mg PO DAILY [facility] Last Admin: 02/19/18 09:38 Dose: Not Given Heparin Sodium (Porcine) (Heparin) 5,000 units SC Q8 [facility] Last Admin: 02/20/18 06:11 Dose: 5,000 units Hydroxyurea (Hydrea) 1,000 mg PO DAILY [facility] Last Admin: 02/19/18 09:37 Dose: 1,000 mg Ipratropium [place] (Atrovent) 0.5 mg IH RQ6 [facility] Last Admin: 02/20/18 07:38 Dose: 0.5 mg Lactobacillus Acidophilus (Bacid Acidophilus) 1 cap PO BID [facility] Last Admin: 02/19/18 18:46 Dose: 1 cap Metoprolol Tartrate (Lopressor) 5 mg IVP Q6H PRN PRN Reason: Systolic Blood Pressure Metoprolol Tartrate (Lopressor) 100 mg PO BID [facility] Last Admin: 02/19/18 18:46 Dose: Not Given Ondansetron HCl (Zofran Inj) 4 mg IVP Q6 PRN PRN Reason: Nausea/Vomiting Polyethylene Glycol (Miralax) 17 gm PO DAILY [facility] Last Admin: 02/19/18 09:38 Dose: Not Given Promethazine HCl/Dextromethorphan (Phenergan Dm Syrup) 5 ml PO Q6H PRN PRN Reason: Cough Last Admin: 02/13/18 06:16 Dose: 5 ml Simethicone (Mylicon Chew Tab) 80 mg PO QID [facility] Last Admin: 02/19/18 23:37 Dose: 80 mg Tamsulosin HCl (Flomax) 0.4 mg PO DAILY [facility] Last Admin: 02/19/18 09:37 Dose: 0.4 mg Vitamin A (Vitamin A & D Oint Ud Foilpak) 1 ea TOP BID [facility] Last Admin: 02/19/18 18:32 Dose: 1 ea - Labs Labs: 02/20/18 08:07 02/19/18 06:08 PT 11.6 SECONDS (9.7-12.2) 02/15/18 06:44 INR 1.1 02/15/18 06:44 APTT 37 SECONDS (21-34) H D 02/15/18 06:44 Assessment and Plan (1) Shortness of breath Status: Acute (2) CKD (chronic kidney disease) stage 4, GFR 15-29 ml/min Status: Acute (3) Interstitial lung disease Status: Acute (4) Polycythemia Status: Acute (5) Pneumonia Status: Acute (6) Cardiomegaly Status: Acute (7) Prophylactic measure Status: Acute Attending/Attestation - Attestation I have personally seen and examined this patient.: Yes I have fully participated in the care of the patient.: Yes I have reviewed all pertinent clinical information, including history, physical exam and plan: Yes Notes (Text): Patient seen, examined and case discussed with medical front desk coordinator. Patient denies acute complaints. We are awaiting renal biopsy (nephrotic syndrome vs other etiology) and the JAK2 mutation in light of polycythemia. Patient is pending for cardiac cath, unclear when given severe systolic heart failure. Patient is aware he is at risk for possible dialysis. Assessment/Plan 1. Polycythemia Assessment/Plan * Hem/onc consulted (Sneha)- therapeutic phlebotomies * H/H is 21.4/68.8 on admission * Patient has required phebotomies; please note floor nursing does not do phlebotomes; we have been getting assistance from ICU nurseRia for these blood draws * LE Dopplers (02/10): no DVT * FARTUN positive, titer 1:80, speckled * Hct goal <45 * Hydroxyurea 1000 mg PO daily * ASA 81 mg PO daily * EPO is low at 2.0 * Pending JAK2 2. Systolic CHF with reduced ejection fraction Assessment/Plan * Aspirin 81mg PO daily * CT chest 02/10: Moderate to large bilateral pleural effusions associated with bilateral lower lobe atelectasis. * s/p thoracentesis 02/11; no fluid samples were taken * BNP is 9850 on admission * Echocardiogram (02/08) show LVEF approximately 25%. Dilated diastolic filling pressures. Pulmonary systolic pressure are levated at 45 mmHg. large left pleural effusion. Paracardiac cyst/hiatal hernia. * CXR: cardiomegaly * Cardiology, Dr. Ramsay, consulted, recs appreciated * Plan for cardiac cath as patient likely has occult CAD * No ACEi/ARB at this time due to CKD, pt is on BB, and diuretic * Lopressor 100mg PO BID * Lopressor 5mg IV Q6H SBP>160 3. Interstitial lung markings Assessment/Plan * CXR 02/08 (on admission): Prominent hilar and perihilar bronchovascular markings. Bronchiolar thickening along with subsegmental inflammatory patchy infiltrates coalescing are a consideration. Left infrahilar coalescence/patchy infiltrate and/or atelectasis posterior suspect. Findings are in addition to pulmonary venous congestion suspect. Mild cardiomegaly. Clinical correlation is essential. Follow-up recommended. Consider CT of the chest for more sensitive evaluation. * CT 02/10: Round shaped opacity at the inferior peripheral portion of the right middle lobe which may represent atelectasis versus neoplasm. * CXR 02/13: Prominent diffuse increased interstitial lung markings which may represent underlying edema and or infiltrate. Scattered patchy pleural parenchymal opacities in the mid to lower lung zones bilaterally. Right midlung atelectasis. Bilateral hilar prominence. Cardiomegaly. * Blood Cx no growth 5 days * Completed IV abx to cover for community acquired pneumonia * Ipratropium [place] 0.5mg IH RQ6H 4. D-dimer elevation Assessment/Plan * Bilateral lower extremity US (02/15) is negative for thrombus * Patient is on Aspirin 81mg PO daily given risk for polycythemia 5. Chronic kidney disease, stage 4 stable Suspected Nephrotic syndrome Assessment/Plan * Nephrology consulted (Gwen/Morales) on board help appreciated * Renal biopsy performed by IR on 02/18/18-->awaiting result * 6.8 grams in urine on 24 hours collection * Renal US: echogenic renal parenchyma bilateral may be seen in setting of medical renal disease. 5mm mid to lower pole left renal calculus. non obstructing. 1.1cm left lower pole renal cyst. * Phoslo 667 mg PO TID * Flomax 0.4mg PO daily * Lasix 40mg PO daily 6. Constipation (resolved) Assessment/Plan - Colace 100 mg PO BID - Miralax 17 g PO daily - Simethicone 40 mg PO QID 7. Dysuria, resolved Assessment/Plan * Urine culture: no growth 8. Benign prostatic hypertrophy Assessment/Plan * Flomax 0.4 mg PO daily * Lasix 40mg PO daily Ppx: * VTE: SCDs, ASA and heparin 5000 units SC Q8H restarted * GI: Pepcid 20 mg PO daily * Diet: HHD, Renal diet, Fluid restriction to 1500 mL * PT/OT- home with services Dispo: renal biopsy done 02/18, continue treatment of polycythemia as per Dr. Hoover (w/u pending), potential cardiac cath with Dr. Ramsay pending
[2018-02-20 08:20] LABS: BASO % 0.6 % (0.0-2.0); EOS # 0.2 K/uL (0.0-0.7); EOS % 4.3 % (0.0-4.0); HEMOGLOBIN 15.9 g/dL (12.0-18.0); LYMPH # 1.2 K/uL (1.0-4.3); LYMPH % 27.5 % (20.0-40.0); MEAN CELL VOLUME 79.3 fL (80.0-94.0); MEAN CORPUSCULAR HEMOGLOBIN 25.8 pg (27.0-31.0); MEAN CORPUSCULAR HGB CONC 32.5 g/dL (33.0-37.0); MEAN PLATELET VOLUME 8.6 fL (7.2-11.7); MONO # 0.3 K/uL (0.0-0.8); NEUT # 2.8 K/uL (1.8-7.0); NEUT % 61.6 % (50.0-75.0); RBC 6.16 Mil/uL (4.40-5.90); RED CELL DISTRIBUTION WIDTH 20.1 % (11.5-14.5); WHITE BLOOD COUNT 4.5 K/uL (4.8-10.8)
[2018-02-20 08:46] LABS: ALB/GLOB RATIO 0.9 (1.0-2.1); ALBUMIN 2.7 g/dL (3.5-5.0); CALCIUM 8.4 mg/dl (8.6-10.4)
[2018-02-20] MEDS: Vitamins A & D Oint UD Foilpak TOP SCH ×2 (09:12→17:08)
[2018-02-20] MEDS: Lactobacillus Acidophilus 500 MU Cap PO SCH ×2 (09:12→17:07)
[2018-02-20] MEDS: Simethicone 80 mg Chewtab PO SCH ×4 (09:12→21:26)
[2018-02-20] MEDS: POLYETHYLENE GLYCOL 3350 17 GM/Dose PACKET PO SCH (09:13)
[2018-02-21] MEDS: Ipratropium 0.02% Inhal Soln (0.5 mg/2.5 ml) UD IH SCH ×4 (01:23→19:50)
[2018-02-21 07:14] LABS: BASO # 0.1 K/uL (0.0-0.2); BASO % 1.7 % (0.0-2.0); EOS # 0.2 K/uL (0.0-0.7); EOS % 6.3 % (0.0-4.0); HEMOGLOBIN 15.7 g/dL (12.0-18.0); LYMPH # 0.9 K/uL (1.0-4.3); MEAN CELL VOLUME 80.2 fL (80.0-94.0); MEAN CORPUSCULAR HEMOGLOBIN 26.1 pg (27.0-31.0); MEAN CORPUSCULAR HGB CONC 32.5 g/dL (33.0-37.0); MEAN PLATELET VOLUME 8.7 fL (7.2-11.7); MONO # 0.2 K/uL (0.0-0.8); MONO % 5.6 % (0.0-10.0); NEUT # 2.3 K/uL (1.8-7.0); NEUT % 61.4 % (50.0-75.0); NRBC % 0.2 % (0.0-2.0); RBC 6.04 Mil/uL (4.40-5.90); RED CELL DISTRIBUTION WIDTH 20.5 % (11.5-14.5); WHITE BLOOD COUNT 3.7 K/uL (4.8-10.8)
[2018-02-21 07:28] LABS: ALB/GLOB RATIO 0.9 (1.0-2.1); ALBUMIN 2.7 g/dL (3.5-5.0); CALCIUM 8.1 mg/dl (8.6-10.4)
--- NOTE | 2018-02-21 07:43 | CP.PCM.PN ---
Subjective - Date & Time of Evaluation Date of Evaluation: 02/21/18 Time of Evaluation: 07:43 - Subjective Subjective: PGY1 Medicine progress note for Dr. Harvinder Kyle Patient seen and examined at bedside. No acute events overnight. He denies fever, chills, headache, dizziness, shortness of breath, chest pain, abdominal pain, nausea, vomiting, diarrhea, hematochezia, melena. Pt is ambulating well. Pt returned from cardiac cath by Dr. Ramsay with no complaints. Objective - Vital Signs/Intake and Output Vital Signs (last 24 hours): Temp Pulse Resp BP Pulse Ox 98.1 F 97 H 20 112/74 95 02/20/18 23:10 02/21/18 07:28 02/20/18 23:10 02/20/18 23:10 02/20/18 23:10 - Medications Medications: Current Medications Aspirin (Aspirin Chewable) 81 mg PO DAILY [facility] Last Admin: 02/20/18 09:12 Dose: 81 mg Calcium Acetate (Phoslo) 667 mg PO TIDCC [facility] Last Admin: 02/20/18 17:06 Dose: 667 mg Docusate Sodium (Colace) 100 mg PO BID [facility] Last Admin: 02/20/18 17:06 Dose: 100 mg Famotidine (Pepcid) 20 mg PO DAILY [facility] Last Admin: 02/20/18 09:13 Dose: 20 mg Furosemide (Lasix) 40 mg PO DAILY [facility] Last Admin: 02/20/18 09:13 Dose: Not Given Heparin Sodium (Porcine) (Heparin) 5,000 units SC Q8 [facility] Last Admin: 02/21/18 05:44 Dose: 5,000 units Hydroxyurea (Hydrea) 1,000 mg PO DAILY [facility] Last Admin: 02/20/18 09:12 Dose: 1,000 mg Ipratropium [place] (Atrovent) 0.5 mg IH RQ6 [facility] Last Admin: 02/21/18 01:23 Dose: 0.5 mg Lactobacillus Acidophilus (Bacid Acidophilus) 1 cap PO BID [facility] Last Admin: 02/20/18 17:07 Dose: 1 cap Metoprolol Tartrate (Lopressor) 5 mg IVP Q6H PRN PRN Reason: Systolic Blood Pressure Metoprolol Tartrate (Lopressor) 100 mg PO BID [facility] Last Admin: 02/20/18 17:06 Dose: 100 mg Ondansetron HCl (Zofran Inj) 4 mg IVP Q6 PRN PRN Reason: Nausea/Vomiting Polyethylene Glycol (Miralax) 17 gm PO DAILY [facility] Last Admin: 02/20/18 09:13 Dose: Not Given Promethazine HCl/Dextromethorphan (Phenergan Dm Syrup) 5 ml PO Q6H PRN PRN Reason: Cough Last Admin: 02/13/18 06:16 Dose: 5 ml Simethicone (Mylicon Chew Tab) 80 mg PO QID [facility] Last Admin: 02/20/18 21:26 Dose: 80 mg Tamsulosin HCl (Flomax) 0.4 mg PO DAILY [facility] Last Admin: 02/20/18 09:12 Dose: 0.4 mg Vitamin A (Vitamin A & D Oint Ud Foilpak) 1 ea TOP BID [facility] Last Admin: 02/20/18 17:08 Dose: 1 ea - Labs Labs: 02/21/18 07:05 02/21/18 07:05 PT 11.6 SECONDS (9.7-12.2) 02/15/18 06:44 INR 1.1 02/15/18 06:44 APTT 37 SECONDS (21-34) H D 02/15/18 06:44 - Additional Findings Additional findings: - Constitutional Appears: Well, No Acute Distress - Head Exam Head Exam: ATRAUMATIC, NORMAL INSPECTION, NORMOCEPHALIC - Eye Exam Eye Exam: EOMI, Normal appearance Pupil Exam: NORMAL ACCOMODATION - ENT Exam ENT Exam: Mucous Membranes Moist - Respiratory Exam Respiratory Exam: Clear to Ausculation Bilateral, NORMAL BREATHING PATTERN. absent: Wheezes, Respiratory Distress - Cardiovascular Exam Cardiovascular Exam: REGULAR RHYTHM, +S1, +S2. absent: Murmur - GI/Abdominal Exam GI & Abdominal Exam: Soft, Normal Bowel Sounds. absent: Tenderness - Back Exam Back Exam: NORMAL INSPECTION - Neurological Exam Neurological Exam: Alert, Awake, Oriented x3 - Psychiatric Exam Psychiatric exam: Normal Affect, Normal Mood - Skin Skin Exam: Dry, Intact (+) cath access site is c/d/o; no signs of infection or hematoma/bleeding Assessment and Plan - Assessment and Plan (Free Text) Assessment: Patient is a 67 yo male with history of CKD (not in HD) who presented with SOB and cough. Additionally, he reported 20 lb weight loss over 6 months. He was found to have b/l pleural effusions. Also found to have polycythemia. He had b/l thoracentesis on 02/11 with significant improvement of symptoms while in the ICU. He has had therapeutic phlebotomy 4 times thus far with gradual improvement on H&H. Polycythemia work-up is pending. Patient was initially managed in the ICU for 4 days, and was then downgraded to med/surg after SOB improved. Plan: Polycythemia - H/H is 21.4/68.8 on admission - LE Dopplers (02/10): no DVT - FARTUN positive, titer 1:80, speckled - Hct goal <45 - Hydroxyurea 1000 mg PO daily - ASA 81 mg PO daily - Hem/onc consulted (Sneha) - EPO is low at 2.0 - f/u JAK2 - H/H is stable; HCT is 48.4 today - no need for further phlebotomy as per Dr. Hoover CHF with reduced ejection fraction Pt presented with bilateral pleural effusions; improving s/p thoracentesis 02/11 - BNP is 9850 on admission - Echocardiogram (02/08) show LVEF approximately 25%. Dilated diastolic filling presures. Pulmonary systolic presure are levated at 45 mmHg. large left pleural effusion. Paracardiac cyst/hiatal hernia. - CXR: cardiomegaly - CT chest 02/10: Moderate to large bilateral pleural effusions associated with bilateral lower lobe atelectasis. - IR consulted (Abdiel) - Cardiology, Dr. Ramsay, consulted, recs appreciated Cardiac cath 02/21 showed nonischemic cardiomyopathy. increased filling pressures. Recs appreciated Severe CHF with reduced ejection fraction managed by Dr. Ramsay, no life vest at this time as per Dr. Ramsay - No ACEi/ARB at this time due to CKD, pt is on BB, and diuretic - lasix on hold due to risk for contrast induced nephropathy Chronic kidney disease, stage 4 stable Nephrotic syndrome - 6.8 grams in urine on 24 hours collection - creatinine is stable - Renal US: echogenic renal parenchyma bilateral may be seen in setting of medical renal disease. 5mm mid to lower pole left renal calculus. non obstructing. 1.1cm left lower pole renal cyst. - Renally dose meds - Phoslo 667 mg PO TID - Nephrology consulted (Romeo - Renal biopsy F/u results - lipid panel normal limits - pt is at high risk for contrast induced nephropathy - f/u BMP tonight s/p cath Interstitial lung markings - CXR 02/08 (on admission): Prominent hilar and perihilar bronchovascular markings. Bronchiolar thickening along with subsegmental inflammatory patchy infiltrates coalescing are a consideration. Left infrahilar coalescence/patchy infiltrate and/or atelectasis posterior suspect. Findings are in addition to pulmonary venous congestion suspect. Mild cardiomegaly. Clinical correlation is essential. Follow-up recommended. Consider CT of the chest for more sensit esther evaluation. - CT 02/10: Round shaped opacity at the inferior peripheral portion of the right middle lobe which may represent atelectasis versus neoplasm. - CXR 02/13: Prominent diffuse increased interstitial lung markings which may represent underlying edema and or infiltrate. Scattered patchy pleural parenchymal opacities in the mid to lower lung zones bilaterally. Right midlung atelectasis. Bilateral hilar prominence. Cardiomegaly. - Blood Cx no growth 5 days - Pulmonology consulted (Tray) - Incentive spirometry - Duoneb Q6H - Completed course of Azithromycin 250 mg IV daily - Completed course of Rocephin 1 g IV daily - Lactobacillus acidophilus PO BID - Phenergan DM 5 mL PO Q6H PRN D-dimer elevation - likely due to phlebotomy, as per Dr. Hoover - repeat d-dimer is 341, normal d-dimer on admission - pt is hemodynamically stable, but has a high risk to clot due to polycythemia - Bilateral lower extremity US (02/15) is negative for thrombus Tachycardia Ventricular tachycardia on monitor (02/14), likely secondary to CHF with reduced EF - EKG: sinus tach, LVH on admission - EKG (02/14) shows sinus tachycardia with LVH - Metoprolol 100 mg PO BID as per Cardio - Metoprolol 5 mg IVP Q6H PRN - Cardiology, Dr. Ramsay, consulted, will f/u with recs Constipation - Colace 100 mg PO BID - Miralax 17 g PO daily - Simethicone 40 mg PO QID Benign prostatic hypertrophy - Flomax 0.4 mg PO daily Ppx: VTE: SCDs, ASA and heparin 5000 units SC Q8H restarted GI: Pepcid 20 mg PO daily Diet: HHD, Nondialysis renal diet. Neprox2 per day PT/OT- home with services Dispo:F/u renal biopsy, f/u JAK2, cardiac cath shows nonischemic cardiomyopaty, CHF management as per cardio. Monitor kidney function closely due to pt's high risk for contrast induced nephropathy. Code status: full code Case discussed with attending physician, Dr. Harvinder Duong PGY1
--- NOTE | 2018-02-21 10:10 | CP.PCM.PN ---
Subjective - Date & Time of Evaluation Date of Evaluation: 02/21/18 Time of Evaluation: 10:09 - Subjective Subjective: Arjun Bryant DO, PGY-1 Cardiology Progress Note for Dr. Ramsay Patient was seen and examined at bedside prior to cardiac cath this AM. He offers no new complaints this AM and states he feels fine. Objective - Vital Signs/Intake and Output Vital Signs (last 24 hours): Temp Pulse Resp BP Pulse Ox 98.2 F 97 H 20 110/70 97 02/21/18 07:00 02/21/18 07:28 02/21/18 07:00 02/21/18 07:00 02/21/18 07:00 - Medications Medications: Current Medications Aspirin (Aspirin Chewable) 81 mg PO DAILY [facility] Last Admin: 02/20/18 09:12 Dose: 81 mg Calcium Acetate (Phoslo) 667 mg PO TIDCC [facility] Last Admin: 02/21/18 08:43 Dose: Not Given Docusate Sodium (Colace) 100 mg PO BID [facility] Last Admin: 02/20/18 17:06 Dose: 100 mg Famotidine (Pepcid) 20 mg PO DAILY [facility] Last Admin: 02/20/18 09:13 Dose: 20 mg Furosemide (Lasix) 40 mg PO DAILY [facility] Last Admin: 02/20/18 09:13 Dose: Not Given Heparin Sodium (Porcine) (Heparin) 5,000 units SC Q8 [facility] Last Admin: 02/21/18 05:44 Dose: 5,000 units Hydroxyurea (Hydrea) 1,000 mg PO DAILY [facility] Last Admin: 02/20/18 09:12 Dose: 1,000 mg Ipratropium [place] (Atrovent) 0.5 mg IH RQ6 [facility] Last Admin: 02/21/18 08:13 Dose: 0.5 mg Lactobacillus Acidophilus (Bacid Acidophilus) 1 cap PO BID [facility] Last Admin: 02/20/18 17:07 Dose: 1 cap Metoprolol Tartrate (Lopressor) 5 mg IVP Q6H PRN PRN Reason: Systolic Blood Pressure Metoprolol Tartrate (Lopressor) 100 mg PO BID [facility] Last Admin: 02/20/18 17:06 Dose: 100 mg Ondansetron HCl (Zofran Inj) 4 mg IVP Q6 PRN PRN Reason: Nausea/Vomiting Polyethylene Glycol (Miralax) 17 gm PO DAILY [facility] Last Admin: 02/20/18 09:13 Dose: Not Given Promethazine HCl/Dextromethorphan (Phenergan Dm Syrup) 5 ml PO Q6H PRN PRN Reason: Cough Last Admin: 02/13/18 06:16 Dose: 5 ml Simethicone (Mylicon Chew Tab) 80 mg PO QID [facility] Last Admin: 02/20/18 21:26 Dose: 80 mg Tamsulosin HCl (Flomax) 0.4 mg PO DAILY [facility] Last Admin: 02/20/18 09:12 Dose: 0.4 mg Vitamin A (Vitamin A & D Oint Ud Foilpak) 1 ea TOP BID [facility] Last Admin: 02/20/18 17:08 Dose: 1 ea - Labs Labs: 02/21/18 07:05 02/21/18 07:05 PT 11.6 SECONDS (9.7-12.2) 02/15/18 06:44 INR 1.1 02/15/18 06:44 APTT 37 SECONDS (21-34) H D 02/15/18 06:44 - Constitutional Appears: Non-toxic, No Acute Distress - Head Exam Head Exam: ATRAUMATIC, NORMOCEPHALIC - Eye Exam Eye Exam: EOMI, Normal appearance, PERRL - ENT Exam ENT Exam: Mucous Membranes Moist - Neck Exam Neck Exam: Full ROM, Normal Inspection - Respiratory Exam Respiratory Exam: Clear to Ausculation Bilateral, NORMAL BREATHING PATTERN. absent: Rales, Rhonchi, Wheezes - Cardiovascular Exam Cardiovascular Exam: REGULAR RHYTHM, RRR, +S1, +S2. absent: Gallop, Rubs, Murmur - GI/Abdominal Exam GI & Abdominal Exam: Soft, Normal Bowel Sounds. absent: Guarding, Tenderness - Extremities Exam Extremities Exam: Normal Inspection. absent: Pedal Edema - Back Exam Back Exam: Full ROM, NORMAL INSPECTION - Neurological Exam Neurological Exam: Alert, Awake, Oriented x3 - Psychiatric Exam Psychiatric exam: Normal Affect, Normal Mood - Skin Skin Exam: Dry, Intact, Warm Assessment and Plan - Assessment and Plan (Free Text) Assessment: 67 yo M with PMH of CKD not on HD and BPH admitted for worsening cough and SOB found to have severe MR and EF of 30-35% on Echo. Patient was initially adm itted to ICU for respiratory distress and polycythemia. Polycythemia has improved since admission. BNP found to be 9850 on admission. PCI planned for today. Plan: HFrEF Suspect SOB/cough/orthopnea/PND and polycythemia are 2/2 uncontrolled CHF Cardiac cath this AM showed no CAD, so CHF is 2/2 non-obstructive cardiomyopathy Will start bumex 1 mg daily and metolazone 2.5 mg daily Will continue medical management, with diuretics as above and BB, with close outpatient follow up No role for life vest and/or ICD placement at this time Continue careful monitoring of renal function s/p cath Persistent sinus tachycardia Continue lopressor 100 mg BID Hold for SBP < 100 or HR < 50 Continue to monitor Case and plan reviewed and discussed with my attending Dr. Devendra Braynt, IM Resident PGY-1
[2018-02-21] MEDS ORDERED: Iodixanol 320 MG/ML 100 ML BOTTLE IV ONE (10:14)
[2018-02-21] MEDS ORDERED: Midazolam 2 MG/2 ML VIAL ONE (10:14)
--- NOTE | 2018-02-21 10:35 | CP.PCM.PN ---
Subjective - Date & Time of Evaluation Date of Evaluation: 02/21/18 Time of Evaluation: 10:32 - Subjective Subjective: pt for cardiac cath, not seen. labs reviewed awaiting biopsy results Objective - Vital Signs/Intake and Output Vital Signs (last 24 hours): Temp Pulse Resp BP Pulse Ox 98.2 F 97 H 20 110/70 97 02/21/18 07:00 02/21/18 07:28 02/21/18 07:00 02/21/18 07:00 02/21/18 07:00 - Medications Medications: Current Medications Aspirin (Aspirin Chewable) 81 mg PO DAILY [facility] Last Admin: 02/20/18 09:12 Dose: 81 mg Calcium Acetate (Phoslo) 667 mg PO TIDCC [facility] Last Admin: 02/21/18 08:43 Dose: Not Given Docusate Sodium (Colace) 100 mg PO BID [facility] Last Admin: 02/20/18 17:06 Dose: 100 mg Famotidine (Pepcid) 20 mg PO DAILY [facility] Last Admin: 02/20/18 09:13 Dose: 20 mg Furosemide (Lasix) 40 mg PO DAILY [facility] Last Admin: 02/20/18 09:13 Dose: Not Given Heparin Sodium (Porcine) (Heparin) 5,000 units SC Q8 [facility] Last Admin: 02/21/18 05:44 Dose: 5,000 units Hydroxyurea (Hydrea) 1,000 mg PO DAILY [facility] Last Admin: 02/20/18 09:12 Dose: 1,000 mg Ipratropium [place] (Atrovent) 0.5 mg IH RQ6 [facility] Last Admin: 02/21/18 08:13 Dose: 0.5 mg Lactobacillus Acidophilus (Bacid Acidophilus) 1 cap PO BID [facility] Last Admin: 02/20/18 17:07 Dose: 1 cap Metoprolol Tartrate (Lopressor) 5 mg IVP Q6H PRN PRN Reason: Systolic Blood Pressure Metoprolol Tartrate (Lopressor) 100 mg PO BID [facility] Last Admin: 02/20/18 17:06 Dose: 100 mg Ondansetron HCl (Zofran Inj) 4 mg IVP Q6 PRN PRN Reason: Nausea/Vomiting Polyethylene Glycol (Miralax) 17 gm PO DAILY [facility] Last Admin: 02/20/18 09:13 Dose: Not Given Promethazine HCl/Dextromethorphan (Phenergan Dm Syrup) 5 ml PO Q6H PRN PRN Reason: Cough Last Admin: 02/13/18 06:16 Dose: 5 ml Simethicone (Mylicon Chew Tab) 80 mg PO QID [facility] Last Admin: 02/20/18 21:26 Dose: 80 mg Tamsulosin HCl (Flomax) 0.4 mg PO DAILY [facility] Last Admin: 02/20/18 09:12 Dose: 0.4 mg Vitamin A (Vitamin A & D Oint Ud Foilpak) 1 ea TOP BID [facility] Last Admin: 02/20/18 17:08 Dose: 1 ea - Labs Labs: 02/21/18 07:05 02/21/18 07:05 PT 11.6 SECONDS (9.7-12.2) 02/15/18 06:44 INR 1.1 02/15/18 06:44 APTT 37 SECONDS (21-34) H D 02/15/18 06:44 - Constitutional Appears: Non-toxic, No Acute Distress, Chronically Ill - Head Exam Head Exam: NORMAL INSPECTION, NORMOCEPHALIC - Eye Exam Eye Exam: Normal appearance, PERRL - ENT Exam ENT Exam: Mucous Membranes Moist, Normal Exam - Neck Exam Neck Exam: Full ROM, Normal Inspection - Respiratory Exam Respiratory Exam: Clear to Ausculation Bilateral, NORMAL BREATHING PATTERN - Cardiovascular Exam Cardiovascular Exam: REGULAR RHYTHM, RRR - GI/Abdominal Exam GI & Abdominal Exam: Distended, Soft, Normal Bowel Sounds - Extremities Exam Extremities Exam: Full ROM, Normal Inspection - Neurological Exam Neurological Exam: Alert, Awake, Oriented x3 - Psychiatric Exam Psychiatric exam: Normal Affect, Normal Mood - Skin Skin Exam: Dry, Intact Assessment and Plan (1) CKD (chronic kidney disease) stage 4, GFR 15-29 ml/min Status: Acute (2) Nephrotic syndrome Status: Acute (3) Polycythemia Status: Acute (4) Shortness of breath Status: Acute - Assessment and Plan (Free Text) Assessment: # nephrotic syndrome # ckd 4 # polycythemia # chf / cardiomyopathy Ef 30% plan: at risk for contrast nephropathy monitor renal function closely await renal biopsy results avoid acei / arb at this time hold lasix, no iv fluids due to chf
[2018-02-21] MEDS: Lactobacillus Acidophilus 500 MU Cap PO SCH ×2 (10:42→19:10)
[2018-02-21] MEDS: Simethicone 80 mg Chewtab PO SCH ×4 (10:42→21:36)
[2018-02-21] MEDS: POLYETHYLENE GLYCOL 3350 17 GM/Dose PACKET PO SCH (10:42)
[2018-02-21] MEDS: Vitamins A & D Oint UD Foilpak TOP SCH ×2 (10:43→19:10)
[2018-02-21 10:53] LABS: ARTERIAL BLOOD GAS HCO3 18.7 mmol/L (21-28); ARTERIAL BLOOD GAS HEMOGLOBIN 13.5 g/dL (11.7-17.4); ARTERIAL BLOOD GAS O2 SAT 99.2 % (95-98); ARTERIAL BLOOD GAS PCO2 31 mm/Hg (35-45); ARTERIAL BLOOD GAS PH 7.34 (7.35-7.45); ARTERIAL BLOOD GAS PO2 123 mm/Hg (80-100); ARTERIAL BLOOD GAS TCO2 17.7 mmol/L (22-28)
[2018-02-21 10:58] LABS: VENOUS BLOOD GAS BASE EXCESS -9.6 mmol/L (0.0-2.0); VENOUS BLOOD GAS PCO2 32 mmHg (40-60); VENOUS BLOOD GAS PO2 49 mm/Hg (30-55)
[2018-02-21 20:28] LABS: CALCIUM 8.1 mg/dl (8.6-10.4)
--- NOTE | 2018-02-21 22:01 | CARDCATH ---
PROCEDURE DATE: 02/21/2018 INDICATIONS: Mr. Latanya Do is a 67-year-old gentleman who was admitted to [facility] with ongoing shortness of breath and cough. He was diagnosed with new-onset congestive heart failure with echocardiogram showing ejection fraction of 30% to 35%. He was therefore brought to the [facility] plumbing for further evaluation and treatment of new-onset heart failure. PROCEDURE PERFORMED: Complete heart catheterization with selective left and right coronary angiogram, right heart catheterization with hemodynamics and saturations. TECHNIQUES OF PROCEDURE: After obtaining informed consent, the patient was brought to the cardiac cath suite in post-absorptive, non-sedated state. The patient was prepped and draped in the usual sterile fashion. Lidocaine 2% was used for infiltration of anesthesia. Using modified Seldinger technique, a 6-Maltese sheath was introduced into the right femoral artery, and a 7-[place]ese sheath was introduced into the right femoral vein. Subsequently under fluoroscopic guidance with the balloon inflated, [place] catheter was advanced serially through the IVC into the RA, RV, PA in wedge position. Hemodynamics and saturations were obtained. RA pressure is 13/15 with mean RA pressure of 45/2 with end-diastolic of 12. PA 39/16 with a mean of 37 and wedge pressure of 25/9 with a mean of 16. Using the thermodilution method, cardiac output was calculated to be 5.56. Using the Hakki equation, cardiac output was 7.7 with a cardiac index of 4.3. LEFT HEART CATHETERIZATION FINDINGS: Left main is a large-sized vessel, bifurcates into LAD and circumflex. The LAD is a large-sized vessel, gives off two medium-sized diagonal branches and two septal perforators. Proximal LAD has a nonobstructive 45% stenosis. Left circumflex is a large-sized vessel, run in the AV groove. Left dominant circulation gives off two medium-sized obtuse marginal branches, free of any obstructive disease. RCA is a small-sized vessel, diffuse 40% stenosis. IMPRESSION: Nonobstructive coronary artery disease. Mildly elevated left ventricular end-diastolic pressure 18 mmHg with elevated filling pressure and mild pulmonary hypertension. Left ventriculogram not performed secondary to conservation of dye. Overall, catheterization was done with less than 25 mL of intravenous dye due to chronic kidney disease and conservation of renal function. Continue aggressive medical management and risk factor modification, guideline-directed therapy for nonischemic cardiomyopathy. Jovan Ramsay MD [facility] # [id number]
[2018-02-22 01:34] VITALS: O2SAT 97
[2018-02-22] MEDS: Ipratropium 0.02% Inhal Soln (0.5 mg/2.5 ml) UD IH SCH ×3 (01:35→13:50)
[2018-02-22 07:10] VITALS: PULSE 99
[2018-02-22 07:15] LABS: BASO % 1.4 % (0.0-2.0); EOS # 0.2 K/uL (0.0-0.7); EOS % 5.1 % (0.0-4.0); HEMOGLOBIN 14.9 g/dL (12.0-18.0); LYMPH # 0.9 K/uL (1.0-4.3); LYMPH % 24.9 % (20.0-40.0); MEAN CELL VOLUME 78.8 fL (80.0-94.0); MEAN CORPUSCULAR HEMOGLOBIN 25.1 pg (27.0-31.0); MEAN CORPUSCULAR HGB CONC 31.9 g/dL (33.0-37.0); MEAN PLATELET VOLUME 8.5 fL (7.2-11.7); MONO # 0.2 K/uL (0.0-0.8); MONO % 6.2 % (0.0-10.0); NEUT # 2.2 K/uL (1.8-7.0); NEUT % 62.4 % (50.0-75.0); NRBC % 0.3 % (0.0-2.0); RBC 5.93 Mil/uL (4.40-5.90); RED CELL DISTRIBUTION WIDTH 20.7 % (11.5-14.5); WHITE BLOOD COUNT 3.6 K/uL (4.8-10.8)
[2018-02-22 07:30] LABS: ALB/GLOB RATIO 0.9 (1.0-2.1); ALBUMIN 2.6 g/dL (3.5-5.0); CALCIUM 8.1 mg/dl (8.6-10.4)
--- NOTE | 2018-02-22 07:38 | CP.PCM.PN ---
Subjective - Date & Time of Evaluation Date of Evaluation: 02/22/18 Time of Evaluation: 07:38 Objective - Vital Signs/Intake and Output Vital Signs (last 24 hours): Temp Pulse Resp BP Pulse Ox 98.0 F 99 H 20 113/74 97 02/21/18 23:10 02/22/18 07:03 02/21/18 23:10 02/21/18 23:10 02/21/18 23:10 - Medications Medications: Current Medications Aspirin (Aspirin Chewable) 81 mg PO DAILY [facility] Last Admin: 02/21/18 10:42 Dose: Not Given Bumetanide (Bumex) 1 mg PO DAILY [facility] Last Admin: 02/21/18 20:38 Dose: 1 mg Calcium Acetate (Phoslo) 667 mg PO TIDCC [facility] Last Admin: 02/21/18 19:11 Dose: 667 mg Docusate Sodium (Colace) 100 mg PO BID [facility] Last Admin: 02/21/18 19:11 Dose: 100 mg Famotidine (Pepcid) 20 mg PO DAILY [facility] Last Admin: 02/21/18 10:42 Dose: Not Given Heparin Sodium (Porcine) (Heparin) 5,000 units SC Q8 [facility] Last Admin: 02/21/18 21:36 Dose: 5,000 units Hydroxyurea (Hydrea) 1,000 mg PO DAILY [facility] Last Admin: 02/21/18 10:42 Dose: Not Given Ipratropium [place] (Atrovent) 0.5 mg IH RQ6 [facility] Last Admin: 02/22/18 01:35 Dose: 0.5 mg Lactobacillus Acidophilus (Bacid Acidophilus) 1 cap PO BID [facility] Last Admin: 02/21/18 19:10 Dose: 1 cap Metolazone (Zaroxolyn) 2.5 mg PO DAILY [facility] Metoprolol Tartrate (Lopressor) 5 mg IVP Q6H PRN PRN Reason: Systolic Blood Pressure Metoprolol Tartrate (Lopressor) 100 mg PO BID [facility] Last Admin: 02/21/18 20:38 Dose: Not Given Ondansetron HCl (Zofran Inj) 4 mg IVP Q6 PRN PRN Reason: Nausea/Vomiting Polyethylene Glycol (Miralax) 17 gm PO DAILY [facility] Last Admin: 02/21/18 10:42 Dose: Not Given Promethazine HCl/Dextromethorphan (Phenergan Dm Syrup) 5 ml PO Q6H PRN PRN Reason: Cough Last Admin: 02/13/18 06:16 Dose: 5 ml Simethicone (Mylicon Chew Tab) 80 mg PO QID [facility] Last Admin: 02/21/18 21:36 Dose: 80 mg Tamsulosin HCl (Flomax) 0.4 mg PO DAILY [facility] Last Admin: 02/21/18 10:42 Dose: Not Given Vitamin A (Vitamin A & D Oint Ud Foilpak) 1 ea TOP BID [facility] Last Admin: 02/21/18 19:10 Dose: 1 ea - Labs Labs: 02/22/18 06:41 02/22/18 06:43 PT 11.6 SECONDS (9.7-12.2) 02/15/18 06:44 INR 1.1 02/15/18 06:44 APTT 37 SECONDS (21-34) H D 02/15/18 06:44
[2018-02-22 08:46] VITALS: BP 106/70; TEMP 98.1
[2018-02-22] MEDS ORDERED: metOLazone 2.5 MG TAB PO SCH (10:00)
[2018-02-22] MEDS: Simethicone 80 mg Chewtab PO SCH ×2 (10:58→13:29)
[2018-02-22] MEDS: Lactobacillus Acidophilus 500 MU Cap PO SCH (10:58)
[2018-02-22] MEDS: Vitamins A & D Oint UD Foilpak TOP SCH (10:59)
[2018-02-22] MEDS: POLYETHYLENE GLYCOL 3350 17 GM/Dose PACKET PO SCH (11:01)
--- NOTE | 2018-02-22 12:53 | CP.PCM.PN ---
Subjective - Date & Time of Evaluation Date of Evaluation: 02/22/18 Time of Evaluation: 10:45 - Subjective Subjective: Arjun Bryant DO, PGY-1 Cardiology Progress Note for Dr. Ramsay Patient was seen and examined at bedside this AM. He offers no new complaints this AM and states he feels fine. He has remained persistently tachycardic in t he low 100s overnight despite lopressor 100 mg BID. Objective - Vital Signs/Intake and Output Vital Signs (last 24 hours): Temp Pulse Resp BP Pulse Ox 98.1 F 99 H 20 106/70 97 02/22/18 07:00 02/22/18 07:03 02/22/18 07:00 02/22/18 07:00 02/22/18 07:00 - Medications Medications: Current Medications Aspirin (Aspirin Chewable) 81 mg PO DAILY [facility] Last Admin: 02/22/18 10:59 Dose: 81 mg Bumetanide (Bumex) 1 mg PO DAILY [facility] Last Admin: 02/22/18 10:59 Dose: 1 mg Calcium Acetate (Phoslo) 667 mg PO TIDCC [facility] Last Admin: 02/22/18 10:59 Dose: 667 mg Docusate Sodium (Colace) 100 mg PO BID [facility] Last Admin: 02/22/18 10:58 Dose: 100 mg Famotidine (Pepcid) 20 mg PO DAILY [facility] Last Admin: 02/22/18 10:58 Dose: 20 mg Heparin Sodium (Porcine) (Heparin) 5,000 units SC Q8 [facility] Last Admin: 02/21/18 21:36 Dose: 5,000 units Hydroxyurea (Hydrea) 1,000 mg PO DAILY [facility] Last Admin: 02/22/18 11:02 Dose: 1,000 mg Ipratropium [place] (Atrovent) 0.5 mg IH RQ6 [facility] Last Admin: 02/22/18 07:39 Dose: 0.5 mg Lactobacillus Acidophilus (Bacid Acidophilus) 1 cap PO BID [facility] Last Admin: 02/22/18 10:58 Dose: 1 cap Metolazone (Zaroxolyn) 2.5 mg PO DAILY [facility] Last Admin: 02/22/18 10:59 Dose: 2.5 mg Metoprolol Tartrate (Lopressor) 5 mg IVP Q6H PRN PRN Reason: Systolic Blood Pressure Metoprolol Tartrate (Lopressor) 100 mg PO BID [facility] Last Admin: 02/22/18 11:02 Dose: 100 mg Ondansetron HCl (Zofran Inj) 4 mg IVP Q6 PRN PRN Reason: Nausea/Vomiting Polyethylene Glycol (Miralax) 17 gm PO DAILY [facility] Last Admin: 02/22/18 11:01 Dose: Not Given Promethazine HCl/Dextromethorphan (Phenergan Dm Syrup) 5 ml PO Q6H PRN PRN Reason: Cough Last Admin: 02/13/18 06:16 Dose: 5 ml Simethicone (Mylicon Chew Tab) 80 mg PO QID [facility] Last Admin: 02/22/18 10:58 Dose: 80 mg Tamsulosin HCl (Flomax) 0.4 mg PO DAILY [facility] Last Admin: 02/22/18 10:58 Dose: 0.4 mg Vitamin A (Vitamin A & D Oint Ud Foilpak) 1 ea TOP BID [facility] Last Admin: 02/22/18 10:59 Dose: 1 ea - Labs Labs: 02/22/18 06:41 02/22/18 06:43 PT 11.6 SECONDS (9.7-12.2) 02/15/18 06:44 INR 1.1 02/15/18 06:44 APTT 37 SECONDS (21-34) H D 02/15/18 06:44 - Constitutional Appears: Non-toxic, No Acute Distress - Head Exam Head Exam: ATRAUMATIC, NORMOCEPHALIC - Eye Exam Eye Exam: EOMI, Normal appearance, PERRL - ENT Exam ENT Exam: Mucous Membranes Moist - Neck Exam Neck Exam: Full ROM, Normal Inspection - Respiratory Exam Respiratory Exam: Clear to Ausculation Bilateral. absent: Rales, Rhonchi, Wheezes - Cardiovascular Exam Cardiovascular Exam: Tachycardia, +S1, +S2. absent: Gallop, Rubs, Murmur - GI/Abdominal Exam GI & Abdominal Exam: Soft, Normal Bowel Sounds. absent: Tenderness - Extremities Exam Extremities Exam: Full ROM, Normal Inspection - Back Exam Back Exam: Full ROM, NORMAL INSPECTION - Neurological Exam Neurological Exam: Alert, Awake, Oriented x3 - Psychiatric Exam Psychiatric exam: Normal Affect, Normal Mood - Skin Skin Exam: Dry, Intact, Warm Assessment and Plan - Assessment and Plan (Free Text) Assessment: 67 yo M with PMH of CKD not on HD and BPH admitted for worsening cough and SOB found to have severe MR and EF of 30-35% on Echo. Patient was initially admitted to ICU for respiratory distress and polycythemia. Polycythemia has improved since admission. BNP found to be 9850 on admission. Cardiac cath was completed and found no significant CAD. Plan: HFrEF 2/2 non-obstructive cardiomyopathy SOB and polycythemia have improved since admission Will start bumex 1 mg daily and metolazone 2.5 mg daily Will continue medical management, with diuretics as above and BB Does not need to be sent home on metolazone Will f/u with Dr. Ramsay outpatient within 2 weeks of discharge No role for life vest and/or ICD placement at this time Renal function stable s/p cath, only 20 cc of dye used during procedure Renal bx results pending, awaiting discharge until results come back Persistent sinus tachycardia Continue lopressor 100 mg BID Hold for SBP < 100 or HR < 50 Will also add digoxin 0.125 mg daily Continue to monitor Case and plan reviewed and discussed with my attending Dr. Devendra Bryant, IM Resident PGY-1
--- NOTE | 2018-02-22 12:56 | CP.PCM.PN ---
Subjective - Date & Time of Evaluation Date of Evaluation: 02/22/18 Time of Evaluation: 12:53 - Subjective Subjective: seen and examined family at bedside renal biopsy discussed good uop no complaints, leg swelling resolved Objective - Vital Signs/Intake and Output Vital Signs (last 24 hours): Temp Pulse Resp BP Pulse Ox 98.1 F 99 H 20 106/70 97 02/22/18 07:00 02/22/18 07:03 02/22/18 07:00 02/22/18 07:00 02/22/18 07:00 - Medications Medications: Current Medications Aspirin (Aspirin Chewable) 81 mg PO DAILY [facility] Last Admin: 02/22/18 10:59 Dose: 81 mg Bumetanide (Bumex) 1 mg PO DAILY [facility] Last Admin: 02/22/18 10:59 Dose: 1 mg Calcium Acetate (Phoslo) 667 mg PO TIDCC [facility] Last Admin: 02/22/18 10:59 Dose: 667 mg Docusate Sodium (Colace) 100 mg PO BID [facility] Last Admin: 02/22/18 10:58 Dose: 100 mg Famotidine (Pepcid) 20 mg PO DAILY [facility] Last Admin: 02/22/18 10:58 Dose: 20 mg Heparin Sodium (Porcine) (Heparin) 5,000 units SC Q8 [facility] Last Admin: 02/21/18 21:36 Dose: 5,000 units Hydroxyurea (Hydrea) 1,000 mg PO DAILY [facility] Last Admin: 02/22/18 11:02 Dose: 1,000 mg Ipratropium [place] (Atrovent) 0.5 mg IH RQ6 [facility] Last Admin: 02/22/18 07:39 Dose: 0.5 mg Lactobacillus Acidophilus (Bacid Acidophilus) 1 cap PO BID [facility] Last Admin: 02/22/18 10:58 Dose: 1 cap Metolazone (Zaroxolyn) 2.5 mg PO DAILY [facility] Last Admin: 02/22/18 10:59 Dose: 2.5 mg Metoprolol Tartrate (Lopressor) 5 mg IVP Q6H PRN PRN Reason: Systolic Blood Pressure Metoprolol Tartrate (Lopressor) 100 mg PO BID [facility] Last Admin: 02/22/18 11:02 Dose: 100 mg Ondansetron HCl (Zofran Inj) 4 mg IVP Q6 PRN PRN Reason: Nausea/Vomiting Polyethylene Glycol (Miralax) 17 gm PO DAILY [facility] Last Admin: 02/22/18 11:01 Dose: Not Given Promethazine HCl/Dextromethorphan (Phenergan Dm Syrup) 5 ml PO Q6H PRN PRN Reason: Cough Last Admin: 02/13/18 06:16 Dose: 5 ml Simethicone (Mylicon Chew Tab) 80 mg PO QID [facility] Last Admin: 02/22/18 10:58 Dose: 80 mg Tamsulosin HCl (Flomax) 0.4 mg PO DAILY [facility] Last Admin: 02/22/18 10:58 Dose: 0.4 mg Vitamin A (Vitamin A & D Oint Ud Foilpak) 1 ea TOP BID [facility] Last Admin: 02/22/18 10:59 Dose: 1 ea - Labs Labs: 02/22/18 06:41 02/22/18 06:43 PT 11.6 SECONDS (9.7-12.2) 02/15/18 06:44 INR 1.1 02/15/18 06:44 APTT 37 SECONDS (21-34) H D 02/15/18 06:44 - Constitutional Appears: Non-toxic, No Acute Distress - Head Exam Head Exam: NORMAL INSPECTION, NORMOCEPHALIC - Eye Exam Eye Exam: Normal appearance - ENT Exam ENT Exam: Mucous Membranes Moist, Normal Exam - Neck Exam Neck Exam: Full ROM, Normal Inspection - Respiratory Exam Respiratory Exam: Clear to Ausculation Bilateral, NORMAL BREATHING PATTERN - Cardiovascular Exam Cardiovascular Exam: REGULAR RHYTHM, RRR - GI/Abdominal Exam GI & Abdominal Exam: Soft, Normal Bowel Sounds - Extremities Exam Extremities Exam: Full ROM, Normal Inspection - Neurological Exam Neurological Exam: Alert, Awake, Oriented x3 - Psychiatric Exam Psychiatric exam: Normal Affect, Normal Mood - Skin Skin Exam: Dry, Intact, Warm Assessment and Plan (1) CKD (chronic kidney disease) stage 4, GFR 15-29 ml/min Status: Acute (2) Nephrotic syndrome Status: Acute (3) Polycythemia Status: Acute (4) Shortness of breath Status: Acute - Assessment and Plan (Free Text) Assessment: renal biopsy non specific w/ some cellular hypercellularity in the mesangium, immune complex deposits (however IF couldnt be done). Discussed w/ pathologist. could be sec to uncontrolled htn serology negative plan: ok to dc home today, needs bmp checked later this week advise caution w/ diuretic use check spep needs close outpt f/u may start ACEI/ARB as outpt once renal function stabilized
--- NOTE | 2018-02-22 13:04 | CP.PCM.DIS ---
Provider - Provider Date of Admission: 02/08/18 17:29 Attending physician: Jan Kyle MD Consults: 02/08/18 17:20 Hematology Oncology Consult Stat Comment: Consulting Provider: Zachary Hoover Consulting Physician: Zachary Hoover Reason for Consult: Polycythemia 02/09/18 14:24 Nephrology Consult Routine Comment: Consulting Provider: Kailey Hidalgo Consulting Physician: Kailey Hidalgo Reason for Consult: CKD Stage 3B 02/10/18 17:14 Pulmonology Consult Routine Comment: Consulting Provider: Scooby Feliz Consulting Physician: Scooby Feliz Reason for Consult: SOB, interstital lung, polycytemia 02/14/18 09:55 Cardiology Consult Routine Comment: Consulting Provider: Jovan Ramsay Consulting Physician: Jovan Ramsay Reason for Consult: tachycardia, sob Time Spent in preparation of Discharge (in minutes): 35 Hospital Course - Lab Results Lab Results: Micro Results 02/17/18 21:11 Urine,Clean Catch Urine Culture - Final No Growth (<1,000 CFU/ML) 02/12/18 14:44 Naris MRSA Culture - Final MRSA NOT DETECTED 02/08/18 17:25 Blood Blood Culture - Final NO GROWTH AFTER 5 DAYS 02/08/18 17:25 Blood Gram Stain - Final TEST NOT PERFORMED 02/08/18 16:50 Blood Blood Culture - Final NO GROWTH AFTER 5 DAYS 02/08/18 16:50 Blood Gram Stain - Final TEST NOT PERFORMED 02/09/18 05:42 Nose MRSA Culture (Admit) - Final MRSA NOT DETECTED Most Recent Lab Values WBC 3.6 K/uL (4.8-10.8) L 02/22/18 06:41 RBC 5.93 Mil/uL (4.40-5.90) H 02/22/18 06:41 Hgb 14.9 g/dL (12.0-18.0) 02/22/18 06:41 Hct 46.7 % (35.0-51.0) 02/22/18 06:41 MCV 78.8 fL (80.0-94.0) L 02/22/18 06:41 MCH 25.1 pg (27.0-31.0) L 02/22/18 06:41 MCHC 31.9 g/dL (33.0-37.0) L 02/22/18 06:41 RDW 20.7 % (11.5-14.5) H 02/22/18 06:41 Plt Count 340 K/uL (130-400) 02/22/18 06:41 MPV 8.5 fL (7.2-11.7) 02/22/18 06:41 Neut % (Auto) 62.4 % (50.0-75.0) 02/22/18 06:41 Lymph % (Auto) 24.9 % (20.0-40.0) 02/22/18 06:41 [place] % (Auto) 6.2 % (0.0-10.0) 02/22/18 06:41 Eos % (Auto) 5.1 % (0.0-4.0) H 02/22/18 06:41 Baso % (Auto) 1.4 % (0.0-2.0) 02/22/18 06:41 Neut # (Auto) 2.2 K/uL (1.8-7.0) 02/22/18 06:41 Lymph # (Auto) 0.9 K/uL (1.0-4.3) L 02/22/18 06:41 [place] # (Auto) 0.2 K/uL (0.0-0.8) 02/22/18 06:41 Eos # (Auto) 0.2 K/uL (0.0-0.7) 02/22/18 06:41 Baso # (Auto) 0.0 K/uL (0.0-0.2) 02/22/18 06:41 PT 11.6 SECONDS (9.7-12.2) 02/15/18 06:44 INR 1.1 02/15/18 06:44 APTT 37 SECONDS (21-34) H D 02/15/18 06:44 D-Dimer, Quantitative 341 ng/mlDDU (0-243) H 02/15/18 06:44 Plt Function Assay 371 K/uL 02/17/18 07:06 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 02/21/18 10:50 pCO2 31 mm/Hg (35-45) L 02/21/18 10:50 pO2 49 mm/Hg (30-55) 02/21/18 10:55 HCO3 18.7 mmol/L (21-28) L 02/21/18 10:50 ABG pH 7.34 (7.35-7.45) L 02/21/18 10:50 ABG Total CO2 17.7 mmol/L (22-28) L 02/21/18 10:50 ABG O2 Saturation 99.2 % (95-98) H 02/21/18 10:50 ABG Base Excess -7.9 mmol/L (-2.0-3.0) L 02/21/18 10:50 ABG Hemoglobin 13.5 g/dL (11.7-17.4) 02/21/18 10:50 ABG Carboxyhemoglobin 2.0 % (0.5-1.5) H 02/21/18 10:50 POC ABG HHb (Measured) 0.8 % (0.0-5.0) 02/21/18 10:50 ABG Methemoglobin 0.9 % (0.0-3.0) 02/21/18 10:50 Noé Test Na 02/21/18 10:50 VBG pH 7.30 (7.32-7.43) L 02/21/18 10:55 VBG pCO2 32 mmHg (40-60) L 02/21/18 10:55 VBG HCO3 17.0 mmol/L 02/21/18 10:55 VBG Total CO2 16.7 mmol/L (22-28) L 02/21/18 10:55 VBG O2 Sat (Calc) 85.7 % (40-65) H 02/21/18 10:55 VBG Base Excess -9.6 mmol/L (0.0-2.0) L 02/21/18 10:55 VBG Potassium 2.6 mmol/L (3.6-5.2) L 02/21/18 10:55 A-a O2 Difference 118.0 mm/Hg 02/08/18 18:53 Respiratory Index 1.3 02/08/18 18:53 Hgb O2 Saturation 96.3 % (95.0-98.0) 02/21/18 10:50 Sodium 145.0 mmol/l (132-148) 02/21/18 10:55 Chloride 118.0 mmol/L (98-107) H 02/21/18 10:55 Glucose 65 mg/dl (75-110) L 02/21/18 10:55 Lactate 0.8 mmol/L (0.7-2.1) 02/21/18 10:55 Liter Flow 3.5 02/08/18 18:53 FiO2 34.0 % 02/08/18 18:53 Sodium 132 mmol/L (132-148) 02/22/18 06:43 Potassium 4.5 mmol/L (3.6-5.2) 02/22/18 06:43 Chloride 100 mmol/L (98-107) 02/22/18 06:43 Carbon Dioxide 25 mmol/L (22-30) 02/22/18 06:43 Anion Gap 11 (10-20) 02/22/18 06:43 BUN 56 mg/dL (9-20) H 02/22/18 06:43 Creatinine 2.5 mg/dL (0.8-1.5) H 02/22/18 06:43 Est GFR ( Amer) 31 02/22/18 06:43 Est GFR (Non-Af Amer) 26 02/22/18 06:43 Random Glucose 114 mg/dL (75-110) H 02/22/18 06:43 Calcium 8.1 mg/dl (8.6-10.4) L 02/22/18 06:43 Phosphorus 3.6 mg/dL (2.5-4.5) 02/22/18 06:43 Magnesium 2.1 mg/dL (1.6-2.3) 02/22/18 06:43 Erythropoietin 2.0 mIU/mL (2.6-18.5) L 02/15/18 06:44 Total Bilirubin 0.5 mg/dL (0.2-1.3) 02/22/18 06:43 AST 29 U/L (17-59) 02/22/18 06:43 ALT 29 U/L (21-72) 02/22/18 06:43 Alkaline Phosphatase 107 U/L (38-126) 02/22/18 06:43 Troponin I 0.0500 ng/mL (0.00-0.120) 02/08/18 15:51 NT-Pro-B Natriuret Pep 3770 pg/mL (0-900) H 02/16/18 06:25 Total Protein 5.5 g/dL (6.3-8.3) L 02/22/18 06:43 Albumin 2.6 g/dL (3.5-5.0) L 02/22/18 06:43 Globulin 2.9 gm/dL (2.2-3.9) 02/22/18 06:43 Albumin/Globulin Ratio 0.9 (1.0-2.1) L 02/22/18 06:43 Triglycerides 88 mg/dL (0-149) 02/18/18 06:18 Cholesterol 159 mg/dL (0-199) 02/18/18 06:18 LDL Cholesterol Direct 93 mg/dL (0-129) 02/18/18 06:18 HDL Cholesterol 53 mg/dL (30-70) 02/18/18 06:18 Carcinoembryonic Ag 2.7 ng/mL (0-3.0) 02/12/18 10:31 Free T4 1.55 ng/dL (0.78-2.19) 02/13/18 13:59 TSH 3rd Generation 2.17 mIU/L (0.46-4.68) 02/13/18 13:59 PTH Intact Whole Molec 113 pg/mL (14-64) H 02/10/18 11:18 Venous Blood Potassium 2.6 mmol/L (3.6-5.2) L 02/21/18 10:55 Urine Color Straw (YELLOW) 02/17/18 18:59 Urine Clarity Clear (Clear) 02/17/18 18:59 Urine pH 7.0 (5.0-8.0) 02/17/18 18:59 Ur Specific [place] 1.004 (1.003-1.030) 02/17/18 18:59 Urine Protein 2+ mg/dL (NEGATIVE) H 02/17/18 18:59 Urine Glucose (UA) Normal mg/dL (Normal) 02/17/18 18:59 Urine Ketones Negative mg/dL (NEGATIVE) 02/17/18 18:59 Urine Blood Negative (NEGATIVE) 02/17/18 18:59 Urine Nitrate Negative (NEGATIVE) 02/17/18 18:59 Urine Bilirubin Negative (NEGATIVE) 02/17/18 18:59 Urine Urobilinogen Normal mg/dL (0.2-1.0) 02/17/18 18:59 Ur Leukocyte Esterase Neg Santiago/uL (Negative) 02/17/18 18:59 Urine WBC (Auto) < 1 /hpf (0-5) 02/17/18 18:59 Urine RBC (Auto) < 1 /hpf (0-3) 02/17/18 18:59 Hyaline Casts 0-2 /lpf (0-2) 02/10/18 11:33 Urine Collection Time 24 HRS 02/10/18 11:42 Urine Total Volume 1250 mL 02/10/18 11:42 Ur Protein 24 Hr Calc 6887.5 mg/24hr (42-225) H 02/10/18 11:42 FARTUN 6 Profile Positive (NEGATIVE) H 02/10/18 11:18 FARTUN Titer 1:80 H 02/10/18 11:18 FARTUN Pattern Speckled H 02/10/18 11:18 Double Strand DNA Ab <1 IU/mL 02/16/18 06:25 Complement C3 88.0 mg/dL (88.0-165.0) 02/16/18 06:25 Complement C4 28.5 mg/dL (14.0-44.0) 02/16/18 06:25 Hep Bs Antigen Negative (NEGATIVE) 02/10/18 11:18 Hep Bs Antibody Positive (NEGATIVE) 02/10/18 11:18 Hep B Core IgM Ab Negative (NEGATIVE) 02/10/18 11:18 Hepatitis C Antibody Negative (NEGATIVE) 02/10/18 11:18 HIV 1&2 Antibody Screen Negative (NEGATIVE) 02/16/18 06:25 Influenza Typ A,B (EIA) Negative for flu a/b (NEGATIVE) 02/09/18 17:48 Ur L.pneumophila Ag Negative (NEGATIVE) 02/10/18 05:45 Mycoplasma pneumon IgM Negative (NEGATIVE) 02/10/18 19:13 Ur Strep pneumoniae Ag Not detected (Not Detected) 02/09/18 09:31 - Hospital Course Hospital Course: On admission: Mr. Do is a 67 year old male PMH BPH, CKD not on HD comes in complaining of 4 days of dry cough and 2 days of shortness of breath. He tried using his son's Ventolin and other herbal remedies, such as aamir tea, to no avail. He is nauseous and gags, but has vomited only once. Vomitus was NBNB, contents were what he had just eaten for breakfast yesterday. Admits to loss of appetite and early satiety over the last 6 months and has lost a resulting 20 pounds. He is chronically dizzy, and experiences dyspnea on exertion. He has difficulty breathing when laying flat, and opts to sleep on his side. If his shortness of breath keeps him from falling asleep, he will sit up (working on computer, watching TV, etc) until his dyspnea subsides. Daughter who lives with him had an unspecified URI with cough that self-resolved last week. 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 Admits subjective low grade fever. Denies chills, sweating, change in vision or hearing, sore throat, leg pain, claudication, rash, bruising. Hospital course: Pt admitted to ICU for respiratory distress, BNP was elevated. CXR showed pulm vascular congestion. Antibiotics were added to cover for possible pneumonia. Pt was found to be polycythemic on admission (H/H is 21.4/68.8). Zay tology/Oncology, Dr. Hoover, consulted for polycythemia. Pt was started on therapeutic phlebotomy and Hydroxyurea. Echocardiogram shows HF with severely reduced ejection fraction. On 02/11, pt underwent thoracentesis with removal of over 2 liters. Nephrology, Dr. Nielsen, was consulted for CKD stage 4 with nephrotic syndrome. On 02/12, pt was downgraded to telemetry. Cardiology, Dr. Ramsay, consulted for CHF with reduced ejection fraction. On 02/21, pt underwent cardiac catheterization with Dr. Ramsay, which showed HFrEF secondary to non- obstructive cardiomyopathy. 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 During hospitalization, pt's H/H responded well to multiple therapeutic phlebotomies and Hydroxyurea 1000 mg PO daily. Pt will be discharged with prescription for one month's supply of medications and instructions to follow up with cardiology, nephrology, heme/onc, and at the [facility] to follow up with bloodwork. Images: CXR (02/08): Prominent hilar and perihilar bronchovascular markings. Bronchiolar thickening with subsegmental inflammatory patchy infiltrates coalescing. L infrahilar coalescence/patchy infiltrate vs. atelectasis. Pulm venous congestion. Mild cardiomegaly. 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 No glomeruli available for evaluation by immunofluorescence. Electron microscopy pending. CT 02/10: Round shaped opacity at the inferior peripheral portion of the right middle lobe which may represent atelectasis versus neoplasm. CXR 02/13: Prominent diffuse increased interstitial lung markings which may represent underlying edema and or infiltrate. Scattered patchy pleural parenchymal opacities in the mid to lower lung zones bilaterally. Right midlung atelectasis. Bilateral hilar prominence. Cardiomegaly. Echocardiogram (02/08) show LVEF approximately 25%. Dilated diastolic filling presures. Pulmonary systolic presure are levated at 45 mmHg. large left pleural effusion. Paracardiac cyst/hiatal hernia. This is a summary of the hospital course. Please see EMR for full details Discharge Exam - Additional Findings Additional findings: - Constitutional Appears: Well, No Acute Distress - Head Exam Head Exam: ATRAUMATIC, NORMAL INSPECTION, NORMOCEPHALIC - Eye Exam Eye Exam: EOMI, Normal appearance Pupil Exam: NORMAL ACCOMODATION - ENT Exam ENT Exam: Mucous Membranes Moist - Respiratory Exam Respiratory Exam: Clear to Ausculation Bilateral, NORMAL BREATHING PATTERN. absent: Wheezes, Respiratory Distress - Cardiovascular Exam Cardiovascular Exam: REGULAR RHYTHM, +S1, +S2. absent: Murmur - GI/Abdominal Exam GI & Abdominal Exam: Soft, Normal Bowel Sounds. absent: Tenderness - Back Exam Back Exam: NORMAL INSPECTION - Neurological Exam Neurological Exam: Alert, Awake, Oriented x3 - Psychiatric Exam Psychiatric exam: Normal Affect, Normal Mood - Skin Skin Exam: Dry, Intact (+) cath access site is c/d/i; no signs of infection or hematoma/bleeding Discharge Plan - Discharge Medications Prescriptions: Aspirin [Aspirin Chewable] 81 mg PO DAILY #30 chew Atorvastatin [Lipitor] 20 mg PO HS #30 tab Bumetanide [Bumex] 1 mg PO DAILY #30 tab Calcium Acetate [Phoslo] 667 mg PO TIDCC #90 tab Digoxin 0.125 mg PO DAILY #30 tab Docusate [Colace] 100 mg PO BID #60 cap Hydroxyurea [Hydrea] 1,000 mg PO DAILY #60 cap Metoprolol Tartrate [Lopressor] 100 mg PO BID #60 tab Tamsulosin [Flomax] 0.4 mg PO DAILY #30 cap - Follow Up Plan Condition: GOOD Disposition: HOME/ ROUTINE Instructions: Heart Healthy Diet, Kidney Biopsy, Heart Failure, Adult (DC), Kidney Disease Diet (For People Not on Dialysis), Shortness of Breath (Dyspnea) (DC), Thoracentesis, Pleural Effusion (DC), Atorvastatin, Bumetanide, Digoxin, Hydroxyurea, Chronic Kidney Disease (DC) Additional Instructions: Pt is medically stable for discharge home as per Dr. Kyle. Pt should only take the following medications as prescribed: Aspirin 81 mg, Bmex 1 mg, Metoprolol tartrate 100 mg, Digoxin 0.125 mg, Lipitor 20 mg, Calcium acetate, Colace, Hydroxyurea 1000 mg, Flomax 0.4 mg. Pt should follow up with cardiology, Dr. Coffman, in 2 weeks. Please call [place] office: . Pt should follow up with Hematology/Oncology, Dr. Hoover, in 7 days. Pt should follow up with [facility] to establish care, f/u renal biopsy results, and have repeat bloodwork to monitor kidney function: . Within 3-5 days of discharge. Please return to the nearest Emergency Department for evaluation if symptoms worsen. Instructions explained to the patient and family, who understand and agree with discharge plan. Referrals: [facility] [Outside] Zachary Hoover MD [Staff Provider] - Jovan Ramsay MD [Staff Provider] - Asya Malhotra MD [Staff Provider] -
[2018-02-22] MEDS ORDERED: Digoxin 125 mcg (0.125 mg) Tab PO SCH (18:00)
== END 2018-02-22 14:55 | disposition home or self-care (01) | DRG 814 ==
LOC: C.ER 13:59 → C.9I 17:29 → C.6T 02-12 14:56
PROVIDERS: ADMIT Family Medicine; ATTEND Family Medicine
PROC: 059Y3ZZ Drainage of Upper Vein, Percutaneous Approach (ICD-10-PCS; principal; 2018-02-09)
PROC: 0W993ZZ Drainage of Right Pleural Cavity, Percutaneous Approach (ICD-10-PCS; 2018-02-11)
PROC: 0W9B3ZZ Drainage of Left Pleural Cavity, Percutaneous Approach (ICD-10-PCS; 2018-02-11)
PROC: BB4BZZZ Ultrasonography of Pleura (ICD-10-PCS; 2018-02-11)
PROC: 0TB13ZX Excision of Left Kidney, Percutaneous Approach, Diagnostic (ICD-10-PCS; 2018-02-18)
PROC: BT42ZZZ Ultrasonography of Left Kidney (ICD-10-PCS; 2018-02-18)
PROC: 059Y3ZZ Drainage of Upper Vein, Percutaneous Approach (ICD-10-PCS; 2018-02-20)
PROC: 4A023N8 Measurement of Cardiac Sampling and Pressure, Bilateral, Percutaneous Approach (ICD-10-PCS; 2018-02-21)
PROC: B2161ZZ Fluoroscopy of Right and Left Heart using Low Osmolar Contrast (ICD-10-PCS; 2018-02-21)
PROC: B2111ZZ Fluoroscopy of Multiple Coronary Arteries using Low Osmolar Contrast (ICD-10-PCS; 2018-02-21)
DX: D75.1 Secondary polycythemia (principal); J18.9 Pneumonia, unspecified organism; N17.9 Acute kidney failure, unspecified; I13.0 Hypertensive heart and chronic kidney disease with heart failure and stage 1 through stage 4 chronic kidney disease, or unspecified chronic kidney disease; I47.2 Ventricular tachycardia; I50.20 Unspecified systolic (congestive) heart failure; J90 Pleural effusion, not elsewhere classified; J84.9 Interstitial pulmonary disease, unspecified; N04.9 Nephrotic syndrome with unspecified morphologic changes; N18.4 Chronic kidney disease, stage 4 (severe); I42.9 Cardiomyopathy, unspecified; I25.10 Atherosclerotic heart disease of native coronary artery without angina pectoris; I34.0 Nonrheumatic mitral (valve) insufficiency; E87.5 Hyperkalemia; J98.11 Atelectasis; I27.20 Pulmonary hypertension, unspecified; K44.9 Diaphragmatic hernia without obstruction or gangrene; N20.0 Calculus of kidney; N28.1 Cyst of kidney, acquired; N40.0 Benign prostatic hyperplasia without lower urinary tract symptoms; K59.00 Constipation, unspecified; Z87.891 Personal history of nicotine dependence; Z79.82 Long term (current) use of aspirin; Z79.899 Other long term (current) drug therapy; Z82.49 Family history of ischemic heart disease and other diseases of the circulatory system

== ENCOUNTER 2018-04-22 10:38 | Outpatient (CLI) | payer SELFPAY | END 2018-04-22 10:39 | disposition home or self-care (01) | LOC: C.LAB 10:38 | DX: N18.4 Chronic kidney disease, stage 4 (severe) (principal) ==

== ENCOUNTER 2018-04-24 13:57 | Outpatient (CLI) | payer SELFPAY | END 2018-04-24 13:58 | disposition home or self-care (01) | LOC: C.LAB 13:57 | DX: N18.4 Chronic kidney disease, stage 4 (severe) (principal) ==

== ENCOUNTER 2018-04-26 11:29 | Outpatient (CLI) | payer OTHER | END 2018-04-26 11:30 | disposition home or self-care (01) | LOC: C.USIC 11:29 | DX: N18.4 Chronic kidney disease, stage 4 (severe) (principal) ==

== ENCOUNTER → 2018-05-27 | Outpatient (CLI) | payer OTHER | LOC: C.USIC 15:26 | DX: N18.4 Chronic kidney disease, stage 4 (severe) (principal) ==